=== PATIENT | female | born 1975 | race Caucasian/White ===

== ENCOUNTER 2019-02-17 00:59 | Observation (INO) | payer OTHER, SELFPAY ==
--- NOTE | 2019-02-17 01:10 | EDPHYS ---
Physician Documentation [facility] Name: Cindy Pandey Age: 43 yrs Sex: Female : 1975 Arrival Date: 02/17/2019 Time: 01:03 Bed 20 Private MD: ED Physician Rafael Hill HPI: 02/17 01:05 This 43 yrs old Female presents to ER via Unassigned with complaints of chest jolene pain. 01:05 The patient or guardian reports chest pain that is located primarily in the anterior jolene chest wall, chest diffusely. Onset: yesterday, last night. The pain does not radiate. Associated signs and symptoms: The patient has no apparent associated signs or symptoms. The chest pain is described as crushing, dull. Duration: The patient or guardian reports a single episode. Modifying factors: The symptoms are alleviated by NTG, remaining still, the symptoms are aggravated by nothing. Severity of pain: At its worst the pain was moderate in the emergency department the pain is unchanged. The patient has not experienced similar symptoms in the past. Historical: - Allergies: 01:34 No Known Allergies; ea - Home Meds: :34 None [Active]; ea - PMHx: 01:34 Diabetes - NIDDM; ea - PSHx: :34 gastric sleeve; ea - Immunization history:: Adult Immunizations up to date. - Social history:: Smoking status: Patient/guardian denies using tobacco. - Family history:: not pertinent. - Ebola Screening: : No symptoms or risks identified at this time. ROS: 01:06 Constitutional: Negative for fever, chills, and weight loss, Eyes: Negative for injury, jolene pain, redness, and discharge, ENT: Negative for injury, pain, and discharge, Neck: Negative for injury, pain, and swelling, Respiratory: Negative for shortness of breath, cough, wheezing, and pleuritic chest pain, Abdomen/GI: Negative for abdominal pain, nausea, vomiting, diarrhea, and constipation, Back: Negative for injury and pain, : Negative for injury, bleeding, discharge, and swelling, MS/Extremity: Negative for injury and deformity, Skin: Negative for injury, rash, and discoloration, Neuro: Negative for headache, weakness, numbness, tingling, and seizure, Psych: Negative for depression, anxiety, suicide ideation, homicidal ideation, and hallucinations, Allergy/Immunology: Negative for hives, rash, and allergies, Endocrine: Negative for neck swelling, polydipsia, polyuria, polyphagia, and marked weight changes, Hematologic/Lymphatic: Negative for swollen nodes, abnormal bleeding, and unusual bruising. 01:06 Cardiovascular: Positive for chest pain, of the chest. Exam: :06 Constitutional: This is a well developed, well nourished patient who is awake, alert, jolene and in no acute distress. Head/Face: Normocephalic, atraumatic. Eyes: Pupils equal round and reactive to light, extra-ocular motions intact. Lids and lashes normal. Conjunctiva and sclera are non-icteric and not injected. Cornea within normal limits. Periorbital areas with no swelling, redness, or edema. ENT: Nares patent. No nasal discharge, no septal abnormalities noted. Tympanic membranes are normal and external auditory canals are clear. Oropharynx with no redness, swelling, or masses, exudates, or evidence of obstruction, uvula midline. Mucous membranes moist. Neck: Trachea midline, no thyromegaly or masses palpated, and no cervical lymphadenopathy. Supple, full range of motion without nuchal rigidity, or vertebral point tenderness. No Meningismus. Chest/axilla: Normal chest wall appearance and motion. Nontender with no deformity. No lesions are appreciated. Cardiovascular: Regular rate and rhythm with a normal S1 and S2. No gallops, murmurs, or rubs. Normal PMI, no JVD. No pulse deficits. Respiratory: Lungs have equal breath sounds bilaterally, clear to auscultation and percussion. No rales, rhonchi or wheezes noted. No increased work of breathing, no retractions or nasal flaring. Abdomen/GI: Soft, non-tender, with normal bowel sounds. No distension or tympany. No guarding or rebound. No evidence of tenderness throughout. Back: No spinal tenderness. No costovertebral tenderness. Full range of motion. Female : Normal external genitalia. Skin: Warm, dry with normal turgor. Normal color with no rashes, no lesions, and no evidence of cellulitis. MS/ Extremity: Pulses equal, no cyanosis. Neurovascular intact. Full, normal range of motion. Neuro: Awake and alert, GCS 15, oriented to person, place, time, and situation. Cranial nerves II-XII grossly intact. Motor strength 5/5 in all extremities. Sensory grossly intact. Cerebellar exam normal. Normal gait. Psych: Awake, alert, with orientation to person, place and time. Behavior, mood, and affect are within normal limits. 01:06 Musculoskeletal/extremity: DVT Exam: no pain, no tenderness, negative Homans' sign noted on exam, no appreciated bluish discoloration, no erythema, no increased warmth, swelling. 01:44 Abdomen/GI: Inspection: distension, Bowel sounds: normal, Rectal exam: rectal tone jolene normal, Stool: normal, guaiac negative, hemorrhoid(s), are not appreciated, mass, is not appreciated, swelling, is not appreciated, tenderness, is not appreciated, Liver: no appreciated palpable abnormalities, Hernia: not appreciated. Vital Signs: 01:06 BP 121 / 45; Pulse 69; Resp 18; Temp 97.7; Pulse Ox 98% on R/A; Weight 138.35 kg; ea Height 5 ft. 11 in. (180.34 cm); Pain 0/10; 02:25 BP 115 / 58; Pulse 70; Resp 18; Pulse Ox 99% ; ea 04:44 BP 96 / 54; Pulse 60; Resp 18; Temp 97.4; Pulse Ox 100% ; ea 05:02 BP 106 / 56; Pulse 60; Resp 18; Pulse Ox 100% on R/A; ea 01:06 Body Mass Index 42.54 (138.35 kg, 180.34 cm) MDM: 01:03 Patient medically screened. [facility] 01:08 Data reviewed: vital signs, nurses notes, lab test result(s), EKG, radiologic studies, [facility] plain films. 02/17 01:05 Order name: Basic Metabolic Panel; Complete Time: 01:47 [facility] 02/17 01:05 Order name: CBC with Diff [facility] 02/17 01:05 Order name: LFT's; Complete Time: :47 [facility] 02/17 01:05 Order name: Magnesium; Complete Time: 01:47 [facility] 02/17 01:05 Order name: NT PRO-BNP; Complete Time: 01:47 [facility] 02/17 01:05 Order name: PT-INR; Complete Time: 01:43 [facility] 02/17 01:05 Order name: Troponin (emerg Dept Use Only); Complete Time: 01:47 [facility] 02/17 01:05 Order name: Lipase; Complete Time: 01:47 [facility] 02/17 02:06 Order name: Type And Screen cm6 02/17 02:34 Order name: Packed RBC Leukored [facility] 02/17 02:41 Order name: CBC Smear Scan; Complete Time: 02:53 [facility] 02/17 02:55 Order name: Folic Acid,Serum (folate) [facility] 02/17 02:55 Order name: B12 [facility] 02/17 02:55 Order name: Retic Count [facility] 02/17 01:05 Order name: XRAY Chest (1 view) [facility] 02/17 01:05 Order name: EKG; Complete Time: 01:06 [facility] 02/17 01:05 Order name: Cardiac monitoring; Complete Time: 01:35 [facility] 02/17 01:05 Order name: EKG - Nurse/Tech; Complete Time: 01:35 [facility] 02/17 01:05 Order name: IV Saline Lock; Complete Time: 01:35 [facility] 02/17 02:55 Order name: TIBC [facility] 02/17 02:55 Order name: Iron Level [facility] 02/17 03:14 Order name: ABO/RH no charge [facility] 02/17 06:03 Order name: Troponin I [facility] 02/17 06:03 Order name: Lipid Profile [facility] 02/17 01:05 Order name: Labs collected and sent; Complete Time: 01:35 [facility] 02/17 01:05 Order name: O2 Per Protocol; Complete Time: 01:35 [facility] 02/17 01:05 Order name: O2 Sat Monitoring; Complete Time: 01:35 [facility] Administered Medications: 01:24 Drug: Pepcid 20 mg Route: IVP; Site: left antecubital; ea 02:24 Follow up: Response: No adverse reaction ea 01:24 Drug: Lopressor (metoprolol TARTRATE) 50 mg Route: PO; ea 02:25 Follow up: Response: No adverse reaction ea 01:35 Not Given (Other Intervention Used): Aspirin 81 mg PO once ea 01:36 Not Given (Duplicate Order): Lovenox 1 mg/kg Sub-Q once jolene 04:51 Drug: Tylenol 1000 mg Route: PO; ea 05:03 Follow up: Response: No adverse reaction ea Disposition: 02/17/19 01:09 Hospitalization ordered by Diego Victor for Observation. Preliminary diagnosis are Other chest pain, Essential (primary) hypertension, Obesity, unspecified, Anemia, unspecified - microcytic , hypochromic, Type 2 diabetes mellitus. - Bed requested for Telemetry/MedSurg (Inpatient). - Status is Observation. ea - Condition is Stable. - Problem is new. - Symptoms have improved. UTI on Admission? No Signatures: Dispatcher [employer] EDID Rukhsana Leija RN RN mw Anderson, Corey, MD MD cha Antunez, Elena, RN RN ea Corrections: (The following items were deleted from the chart) 01:47 01:09 Hospitalization Ordered by Diego iVctor for Observation. Preliminary diagnosis jolene is Other chest pain; Essential (primary) hypertension; Obesity, unspecified. Bed requested for Telemetry/MedSurg (observation). Status is Observation. Condition is Stable. Problem is new. Symptoms have improved. UTI on Admission? No. jolene 01:49 01:47 02/17/2019 01:09 Hospitalization Ordered by Diego Victor for Observation. jolene Preliminary diagnosis is Other chest pain; Essential (primary) hypertension; Obesity, unspecified; Anemia, unspecified. Bed requested for Telemetry/MedSurg (observation). Status is Observation. Condition is Stable. Problem is new. Symptoms have improved. UTI on Admission? No. jolene 02:34 01:49 02/17/2019 01:09 Hospitalization Ordered by Diego Victor for Observation. arlene Preliminary diagnosis is Other chest pain; Essential (primary) hypertension; Obesity, unspecified; Anemia, unspecified; Type 2 diabetes mellitus. Bed requested for Telemetry/MedSurg (observation). Status is Observation. Condition is Stable. Problem is new. Symptoms have improved. UTI on Admission? No. jolene 02:54 02:34 02/17/2019 01:09 Hospitalization Ordered by Diego Victor for Observation. jolene Preliminary diagnosis is Other chest pain; Essential (primary) hypertension; Obesity, unspecified; Anemia, unspecified; Type 2 diabetes mellitus. Bed requested for [facility] ER HOLD. Status is Observation. Condition is Stable. Problem is new. Symptoms have improved. UTI on Admission? No. arlene 02:58 02:56 FERRITIN+C.LAB.BRZ ordered. [facility] EDID 03:50 02:54 02/17/2019 01:09 Hospitalization Ordered by Diego Victor for Observation. mw Preliminary diagnosis is Other chest pain; Essential (primary) hypertension; Obesity, unspecified; Anemia, unspecified - microcytic , hypochromic; Type 2 diabetes mellitus. Bed requested for [facility] ER HOLD. Status is Observation. Condition is Stable. Problem is new. Symptoms have improved. UTI on Admission? No. jolene 06:05 03:50 02/17/2019 01:09 Hospitalization Ordered by Diego Victor for Observation. ea Preliminary diagnosis is Other chest pain; Essential (primary) hypertension; Obesity, unspecified; Anemia, unspecified - microcytic , hypochromic; Type 2 diabetes mellitus. Bed requested for Telemetry/MedSurg (Inpatient). Status is Observation. Condition is Stable. Problem is new. Symptoms have improved. UTI on Admission? No. mw
[2019-02-17] MEDS ORDERED: ENOXAPARIN 100 MG/ML SYR SQ ONE (01:14)
[2019-02-17] MEDS ORDERED: METOPROLOL TAR 50 MG TAB ONE (01:14)
[2019-02-17] MEDS ORDERED: FAMOTIDINE 20 MG/2 ML VIAL IV ONE (01:14)
[2019-02-17 01:20] LABS: Absolute Lymphocytes (CBC) 1.7 K/uL (0.7-4.9); Basophils % 0.8 % (0-1.3); Hematocrit 22.5 % (36.0-45.0); Lymphocytes % 22.8 % (15.3-44.8); MPV 8.7 fL (7.6-11.3); RBC Red Blood Cell Count 4.06 M/uL (3.86-4.86)
[2019-02-17 01:32] LABS: Protime INR 1.33
[2019-02-17 01:46] LABS: ALT/SGPT 20 U/L (12-78); AST/SGOT 29 U/L (15-37); Albumin 3.3 g/dL (3.4-5.0); Alkaline Phosphatase 79 U/L (45-117); BUN Blood Urea Nitrogen 13 mg/dL (7-18); Bicarbonate 24 mmol/L (21-32); Bilirubin Direct 0.2 mg/dL (0-0.2); Bilirubin Total 0.5 mg/dL (0.2-1.0); Glucose Level 155 mg/dL (74-106); Lipase 70 U/L (73-393); Magnesium 2.1 mg/dL (1.8-2.4); NT PRO-BNP 136 pg/mL (<125); Potassium 3.8 mmol/L (3.5-5.1); Protein, Total 7.3 g/dL (6.4-8.2); Sodium Level 137 mmol/L (136-145); Troponin (Emerg Dept Use Only) < 0.02 ng/mL (0.0-0.045)
[2019-02-17 02:41] LABS: Blood Morphology Comment NOTED (NOT SEEN); Hypochromasia 3+; Platelet Estimate ADEQ; Urine White Blood Cell Casts OK
[2019-02-17] MEDS ORDERED: NA CHLORIDE 0.9% 500 ML ONE (03:25)
[2019-02-17 03:26] LABS: RBC Red Blood Cell Count 4.01 M/uL (3.86-4.86)
[2019-02-17 04:02] LABS: Ferritin 2.8 ng/mL (8-388)
--- NOTE | 2019-02-17 04:34 | P.HP ---
Certification for Inpatient Patient admitted to: Observation With expected LOS: <2 Midnights Practitioner: I am a practitioner with admitting privileges, knowledge of patient current condition, hospital course, and medical plan of care. Services: Services provided to patient in accordance with Admission requirements found in Title 42 Section 412.3 of the Code of Federal Regulations Patient History Date of Service: 02/17/19 Reason for admission: Chest pain History of Present Illness: 43-year-old morbidly obese woman with a known history of diabetes mellitus 2, presented emergency department with a complaint of chest pain which occurred last night. Patient states the chest pain woke her up from sleep. She reported anterior chest, most severe in the sternal region, radiates into the back, maximum intensity 10/10. She stated the chest pain resolved after a dose of sublingual nitroglycerin given by EMS. She denied any palpitation or shortness of breath or lightheadedness or cough. She denied any nausea or vomiting. Initial troponin in the ED is negative. Pertinent positive findings in her blood work include anemia with hemoglobin of 6.6 and low iron level. She has a history of gastric bypass surgery. She denied any melena or bright red blood per rectum or hematemesis. Her last menstrual period was 2 weeks ago. She reports regular menses, and regular blood flow. Her menses last for 5 days. Significant CAD risk factors include diabetes, obesity and family history of CAD. Patient is placed under observation for further treatment of symptomatic anemia and also to rule out ACS Allergies No Known Allergies Allergy (Verified 02/17/19 06:29) Home Medications: NK [No Home Meds] 02/17/19 - Past Medical/Surgical History Diabetic: Yes -: Morbid obesity -: Diabetes mellitus type 2 -: Anemia -: Gastric band surgery - Family History Mother -: Diabetes Father -: Heart disease - Social History Smoking Status: Never smoker Alcohol use: No CD- Drugs: No Review of Systems Other: General: No fever, no malaise, no unintentional weight loss. Eyes: No eye discharge, Respiratory: No cough, no shortness of breath. GI: No abdominal pain, no nausea no vomit, no constipation, no diarrhea. Genitourinary: No dysuria, no urinary frequency, no incontinence, no hematuria. Musculoskeletal: No joint pains, or joint swelling, no gait instability. Neurology: No headache, no asymmetric, weakness, no problem with swallowing. Except as documented, all other systems reviewed and negative. Physical Examination - Physical Exam General: Alert, In no apparent distress, Oriented x3, Obese HEENT: Normocephalic, PERRLA, Mucous membr. moist/pink, Sclerae nonicteric Neck: Supple, JVD not distended, No Thyromegaly Respiratory: Clear to auscultation bilaterally, Normal air movement Cardiovascular: No edema, Normal pulses, Regular rate/rhythm, Normal S1 S2, No murmurs Capillary refill: <2 Seconds Gastrointestinal: Normal bowel sounds, Hypoactive, Soft and benign, Non- distended, No tenderness Musculoskeletal: No swelling Integumentary: No rashes, No erythema Neurological: Normal speech, Normal strength at 5/5 x4 extr, Cranial nerves 3- 12 intact - Studies Laboratory Data (last 24 hrs) 02/17/19 01:10: PT 15.5 H, INR 1.33 02/17/19 01:10: WBC 7.3, Hgb 6.6 L*, Hct 22.5 L, Plt Count 244 02/17/19 01:10: Sodium 137, Potassium 3.8, BUN 13, Creatinine 0.76, Glucose 155 H, Magnesium 2.1, Total Bilirubin 0.5, AST 29, ALT 20, Alkaline Phosphatase 79, Lipase 70 L Assessment and Plan - Problems (Diagnosis) (1) Chest pain Current Visit: Yes Status: Acute (2) Acute on chronic anemia Current Visit: Yes Status: Acute (3) Diabetes mellitus type 2 in obese Current Visit: Yes Status: Chronic (4) Status post gastric banding Current Visit: Yes Status: Chronic (5) Morbid obesity Current Visit: Yes Status: Acute - Plan Place patient under observation Trend troponin Check lipid profile No aspirin for now due to possible GI bleed Consult to Cardiology Check echocardiogram Acute on chronic iron deficiency anemia noted. Check stool for occult blood. GI consult Patient started on 1 unit PRBC transfusion in the ED Check posttransfusion hemoglobin. Transfuse as needed to keep HB>8. Insulin sliding scale for glucose monitor Check hemoglobin A1c - Advance Directives Does patient have a Living Will: No Does patient have a Durable POA for Healthcare: No
[2019-02-17] MEDS ORDERED: ACETAMINOPHEN 500 MG TAB ONE (04:48)
[2019-02-17] MEDS ORDERED: MORPHINE 4 MG/ML SYR IV PRN (05:00)
[2019-02-17] MEDS ORDERED: ACETAMINOPHEN 500 MG TAB PO PRN (05:00)
[2019-02-17] MEDS ORDERED: NITROGLYCERIN 0.4 MG/TAB SL PRN (05:00)
[2019-02-17 06:03] LABS: HDL Cholesterol 29 mg/dL (40-60); LDL Cholesterol, Calculated 50 (<130); Troponin I < 0.02 ng/mL (0.0-0.045)
--- NOTE | 2019-02-17 06:06 | ER ---
Nurse's Notes [facility] Name: Cindy Pandey Age: 43 yrs Sex: Female : 1975 Arrival Date: 02/17/2019 Time: 01:03 Bed 20 Private MD: Diagnosis: Other chest pain;Essential (primary) hypertension;Obesity, unspecified;Anemia, unspecified-microcytic , hypochromic;Type 2 diabetes mellitus Presentation: 02/17 01:06 Presenting complaint: EMS states: EMS reported pt woke up with severe right sided chest ea pain that radiated to her back. Pt reported pain was 10/10, EMS gave nitro and 324 of aspirin. 18 G initiated to left AC, NS administered. Transition of care: patient was not received from another setting of care. Onset of symptoms was February 17, 2019. Risk Assessment: Do you want to hurt yourself or someone else? Patient reports no desire to harm self or others. Initial Sepsis Screen: Does the patient meet any 2 criteria? No. Patient's initial sepsis screen is negative. Does the patient have a suspected source of infection? No. Patient's initial sepsis screen is negative. Care prior to arrival: IV initiated. 18 GA, in the left antecubital area. 01:06 Method Of Arrival: EMS: [facility] ea 01:06 Acuity: PHILL 3 ea Historical: - Allergies: 01:34 No Known Allergies; ea - Home Meds: 01:34 None [Active]; ea - PMHx: 01:34 Diabetes - NIDDM; ea - PSHx: 01:34 gastric sleeve; ea - Immunization history:: Adult Immunizations up to date. - Social history:: Smoking status: Patient/guardian denies using tobacco. - Family history:: not pertinent. - Ebola Screening: : No symptoms or risks identified at this time. Screenin:29 Abuse screen: Denies threats or abuse. Nutritional screening: No deficits noted. ea Tuberculosis screening: No symptoms or risk factors identified. Fall Risk IV access (20 points). Assessment: 01:31 General: Appears uncomfortable, Behavior is calm, cooperative, appropriate for age. ea Pain: Denies pain. Neuro: Level of Consciousness is awake, alert, obeys commands, Oriented to person, place, time, situation. Cardiovascular: Patient's skin is warm and dry. Respiratory: Airway is patent Respiratory effort is even, unlabored, Respiratory pattern is regular, symmetrical. Derm: Skin is pink, warm \T\ dry. Musculoskeletal: Circulation, motion, and sensation intact. 02:24 Reassessment: Patient and/or family updated on plan of care and expected duration. Pain ea level reassessed. Patient is alert, oriented x 3, equal unlabored respirations, skin warm/dry/pink. 03:10 Reassessment: Patient and/or family updated on plan of care and expected duration. Pain ea level reassessed. Patient is alert, oriented x 3, equal unlabored respirations, skin warm/dry/pink. 04:44 Reassessment: Patient and/or family updated on plan of care and expected duration. Pain ea level reassessed. Patient is alert, oriented x 3, equal unlabored respirations, skin warm/dry/pink. 05:01 Reassessment: Patient and/or family updated on plan of care and expected duration. Pain ea level reassessed. Patient is alert, oriented x 3, equal unlabored respirations, skin warm/dry/pink. Report called to Allison HURTADO on second floor. 05:21 Reassessment: Patient and/or family updated on plan of care and expected duration. Pain ea level reassessed. Patient is alert, oriented x 3, equal unlabored respirations, skin warm/dry/pink. Pt admitted to second floor, left ED via stretcher per nurse. Pt tolerating well. Vital Signs: 01:06 BP 121 / 45; Pulse 69; Resp 18; Temp 97.7; Pulse Ox 98% on R/A; Weight 138.35 kg; ea Height 5 ft. 11 in. (180.34 cm); Pain 0/10; 02:25 BP 115 / 58; Pulse 70; Resp 18; Pulse Ox 99% ; ea 04:44 BP 96 / 54; Pulse 60; Resp 18; Temp 97.4; Pulse Ox 100% ; ea 05:02 BP 106 / 56; Pulse 60; Resp 18; Pulse Ox 100% on R/A; ea 01:06 Body Mass Index 42.54 (138.35 kg, 180.34 cm) ea ED Course: 01:03 Patient arrived in ED. jolene 01:03 Rafael Hill MD is Attending Physician. jolene 01:08 Diego Victor is Hospitalizing Provider. jolene 01:09 Josiane Rodriguez, RN is Primary Nurse. ea 01:29 Triage completed. ea 01:29 Arm band placed on right wrist. Patient placed in an exam room, on a stretcher, on ea pulse oximetry. 01:30 Patient has correct armband on for positive identification. Placed in gown. Bed in low ea position. Call light in reach. Side rails up X2. 01:32 No provider procedures requiring assistance completed. Maintain EMS IV. Dressing ea intact. Good blood return noted. Site clean \T\ dry. Gauge \T\ site: 18 G to left AC. 01:38 XRAY Chest (1 view) In Process Unspecified. EDMS 02:23 Patient admitted, IV remains in place. ea 03:30 Inserted saline lock: 22 gauge in right hand, using aseptic technique. ea 03:40 Inserted saline lock: 22 gauge in left hand, using aseptic technique. ea 03:45 IV discontinued, intact, bleeding controlled, No redness/swelling at site. Pressure ea dressing applied, 18 G to left AC. Administered Medications: 01:24 Drug: Pepcid 20 mg Route: IVP; Site: left antecubital; ea 02:24 Follow up: Response: No adverse reaction ea 01:24 Drug: Lopressor (metoprolol TARTRATE) 50 mg Route: PO; ea 02:25 Follow up: Response: No adverse reaction ea 01:35 Not Given (Other Intervention Used): Aspirin 81 mg PO once ea 01:36 Not Given (Duplicate Order): Lovenox 1 mg/kg Sub-Q once jolene 04:51 Drug: Tylenol 1000 mg Route: PO; ea 05:03 Follow up: Response: No adverse reaction ea Outcome: 01:09 Decision to Hospitalize by Provider. jolene 02:22 Instructed on the need for admit, Demonstrated understanding of instructions. ea 03:10 Admitted to ER Hold. [facility]. ea 03:10 Condition: stable 06:05 Patient left the ED. ea Signatures: Dispatcher [employer] Rafael Anaya MD MD cha Antunez, Elena, RN RN adia
[2019-02-17 06:16] VITALS: BMI 42.3
[2019-02-17 06:26] LABS: Urine Appearance CLEAR; Urine Bilirubin NEGATIVE (NEG); Urine Blood NEGATIVE (NEG); Urine Color YELLOW; Urine Glucose 1+ (NEG); Urine Protein NEGATIVE (NEG); Urine Specific Gravity 1.015 (1.005-1.030)
[2019-02-17 06:27] LABS: Urine Microscopic Reflex ORDER UMIC
[2019-02-17 06:45] LABS: Urine Bacteria <20 /HPF (<20); Urine RBC <5 /HPF (NONE SEEN)
[2019-02-17 06:46] LABS: Urine Culture Reflex Order NOT NEEDED
[2019-02-17] MEDS: INSULIN -REGULAR HUMAN 50 UNIT/0.5 ML ML SQ SCH ×4 (07:30→20:13)
--- NOTE | 2019-02-17 07:42 | EKG ---
Test Date: 2019-02-17 Test Time: 01:05:41 Chain Saw Mechanic: PAUL MEASUREMENT RESULTS: Intervals: Rate: 70 TX: 154 QRSD: 78 QT: 418 QTc: 451 [place]: P: 81 TX: 154 QRS: 25 T: 20 INTERPRETIVE STATEMENTS: Normal sinus rhythm Normal ECG No previous ECG available for comparison Electronically Signed On 02-17-19 07:41:59 AG EQUIPMENT FIELD SERVICE TECHNICIAN by Mario Jarquin
[2019-02-17] MEDS ORDERED: INFLUENZA VACCINE (for 3y+) 0.5 ML DOSE IMVAC ONE (08:00)
--- NOTE | 2019-02-17 08:03 | RAD REPORT ---
EXAM DESCRIPTION: RAD - Chest Single View - 02/17/2019 1:38 am CLINICAL HISTORY: Right-sided chest pain COMPARISON: None. TECHNIQUE: AP portable chest image was obtained 0126 hours . FINDINGS: Lungs are clear. Heart and vasculature are normal. No measurable pleural effusion and no p neumothorax. No acute bony abnormality seen. No acute aortic findings suspected. IMPRESSION: No acute cardiopulmonary process.
[2019-02-17 09:07] LABS: Hematocrit 23.5 % (36.0-45.0); MPV 8.4 fL (7.6-11.3); RBC Red Blood Cell Count 4.03 M/uL (3.86-4.86)
[2019-02-17] MEDS ORDERED: NA CHLORIDE 0.9% 250 ML ONE (09:22)
--- NOTE | 2019-02-17 10:44 | ECHO ---
HEIGHT: 5 ft 11 in WEIGHT: 303 lb 0 oz DATE OF STUDY: 02/17/[address]: edgardo jorge 2-DIMENSIONAL: YES M.MODE: YES DOPPLER: YES COLOR FLOW: YES TDS: PORTABLE: DEFINITY: BUBBLE STUDY: DIAGNOSIS: CHEST PAIN CARDIAC HISTORY: CATHERIZATION: NO SURGERY: NO PROSTHETIC VALVE: NO PACEMAKER: NO MEASUREMENTS (cm) DIASTOLIC (NORMALS) SYSTOLIC (NORMALS) IVSd 1.2 (0.6-1.2) LA Diam 4.4 (1.9-4.0) LVEF 63% LVIDd 5.3 (3.5-5.7) LVIDs 3.5 (2.0-3.5) %FS 35% LVPWd 1.2 (0.6-1.2) Ao Diam 3.3 (2.0-3.7) 2 DIMENSIONAL ASSESSMENT: RIGHT ATRIUM: NORMAL LEFT ATRIUM: DILATED RIGHT VENTRICLE: NORMAL LEFT VENTRICLE: NORMAL TRICUSPID VALVE: NORMAL MITRAL VALVE: NORMAL PULMONIC VALVE: NORMAL AORTIC VALVE: NORMAL PERICARDIAL EFFUSION: NONE AORTIC ROOT: NORMAL LEFT VENTRICULAR WALL MOTION: NORMAL DOPPLER/COLOR FLOW: MILD MITRAL AND TRICUSPID REGURGITATION. MILD PULMONARY HYPERTENSION. ELEVATED RIGHT ATRIAL PRESSURE. ESTIMATED RIGHT VENTRICULAR SYSTOLIC PRESSURE 40 mmHg. COMMENTS: NORMAL LEFT VENTRICULAR EJECTION FRACTION. DILATED LEFT ATRIUM. ELEVATED RIGHT ATRIAL PRESSURE. MILD MITRAL AND TRICUSPID REGURGITATION. MILD PULMONARY HYPERTENSION. TECHNOLOGIST: MISAEL GALEANA
--- NOTE | 2019-02-17 14:15 | CON ---
History Of Present Illness: Ms. Pandey came to the hospital with chest pain. Her chest pain went jacqui y with 1 nitroglycerin. EKGs are normal. Enzymes are normal. Ms. Pandey has never had any heart tro uble in the past. As she was being evaluated, her hemoglobin of 6.6 was noted. She has received 2 u nits of packed red blood cells. A repeat CBC is still pending at this point. Stool occult guaiac te st is likewise pending. Her workup looks like she has severe chronic iron deficiency with MCV of 55. Iron studies have not been done. Percent reticulocyte count is 1.94, and with her degree of anemia that would be considered a bone marrow that is very sick. At this point, I do not think she is rece iving the iron. I do not think she has had any iron studies done. GI doctor has not been consulted either. Patient is not aware of losing any blood. She is multigravid. She has underlying diabetes. She has never had any testing done on her heart. No myocardial infarction, stroke. No heart cath. No stress test. No history of blood clots. Physical Examination: General: She is 5 feet 11 inches, 303 pounds. Alert, oriented, pleasant, not in distress. Lungs: Clear. Heart: Within normal limits. Extremities: Palpable pulses. Trace edema. No cyanosis, clubbing. Assessment And Plan: EKG and enzymes are normal. The patient's chest pain was related to her extrem josiah low hemoglobin. She may have small amount of coronary artery disease at some point when her GI t ract is cleared and her hemoglobin is better and we know she is not actively bleeding, she could unde rgo a stress test or even a cardiac cath work this up, but at this point, her hemoglobin of 6.6 is re ally the main thing that caused her to have symptoms and it is indicated of a severe problem. I think a GI consult is in order. I do not plan to order a stress test or cardiac cath at this time. TANIA/LORENA Voice ID: [id number] Report ID: [id number]
--- NOTE | 2019-02-17 15:20 | P.PN ---
Subjective Date of Service: 02/17/19 Chief Complaint: Chest pain Pt seen and examined at bedside with RN. Chart Reviewed. Case Dw with Cardioloyg. No Chest pain at this time. Receiving 2 units of PRBC. already. Review of Systems 10-point ROS is otherwise unremarkable Physical Examination - Vital Signs Temperature: 97.7 F Blood Pressure: 127/71 Pulse: 62 Respirations: 17 Pulse Ox (%): 97 - Physical Exam General: Alert, In no apparent distress, Other (Pale Appearing) HEENT: Atraumatic, PERRLA, EOMI Neck: Supple, JVD not distended Respiratory: Clear to auscultation bilaterally, Normal air movement Cardiovascular: Regular rate/rhythm, Normal S1 S2 Gastrointestinal: Normal bowel sounds, No tenderness Musculoskeletal: No tenderness Integumentary: No rashes Neurological: Normal speech, Normal tone, Normal affect Lymphatics: No axilla or inguinal lymphadenopathy - Studies Laboratory Data (last 24 hrs) 02/17/19 01:10: PT 15.5 H, INR 1.33 02/17/19 01:10: WBC 7.3, Hgb 6.6 L*, Hct 22.5 L, Plt Count 244 02/17/19 01:10: Sodium 137, Potassium 3.8, BUN 13, Creatinine 0.76, Glucose 155 H, Magnesium 2.1, Total Bilirubin 0.5, AST 29, ALT 20, Alkaline Phosphatase 79, Lipase 70 L Medications List Reviewed: Yes Assessment And Plan - Current Problems (Diagnosis) (1) Acute on chronic anemia Current Visit: Yes Status: Acute Plan: Acute on Chronic Anemia -Pt with MVC of 55 and H.o of Fe def Anemia -Hgb on admission 6.6. -Currently receiving Blood 2 units. Will repeat CBC post transfusion -Will not be able to perform Fe studies now since she is receiving blood -Pt noncomplaint with Fe supplement at home as well -Denies having blood in Sputum or BM. -Stool occult negative -Doubt patient bleeding has GI source But will consult GI to r.o any other etiology -Pt also with h.o of gastric Banding will need to be see again to loosen the bands if needed -Will need Fe Supplement on DC -Will need outpt f.u with hematology (2) Chest pain Current Visit: Yes Status: Acute Plan: Chest Pain due to low hgb. -ACS medication. Hold ASA and anticoagulation -Cards consulted. Noted Reccs -Echo WNL Qualifiers: Chest pain type: unspecified Qualified Code(s): R07.9 - Chest pain, unspecified (3) Morbid obesity Current Visit: Yes Status: Chronic (4) Diabetes mellitus type 2 in obese Current Visit: Yes Status: Chronic (5) Status post gastric banding Current Visit: Yes Status: Chronic Plan: 5 Yrs ago Discharge Plan: Home Plan to discharge in: Greater than 2 days - Code Status/Comfort Care Code Status Assessed: Yes Critical Care: No
[2019-02-17 16:08] LABS: Hematocrit 26.8 % (36.0-45.0)
[2019-02-18 06:12] LABS: Absolute Lymphocytes (CBC) 1.7 K/uL (0.7-4.9); Basophils % 0.7 % (0-1.3); Hematocrit 25.5 % (36.0-45.0); Lymphocytes % 31.4 % (15.3-44.8); MPV 8.7 fL (7.6-11.3); RBC Red Blood Cell Count 4.22 M/uL (3.86-4.86)
[2019-02-18 06:27] LABS: BUN Blood Urea Nitrogen 9 mg/dL (7-18); Bicarbonate 27 mmol/L (21-32); Glucose Level 120 mg/dL (74-106); Potassium 4.1 mmol/L (3.5-5.1); Sodium Level 139 mmol/L (136-145)
[2019-02-18] MEDS: INSULIN -REGULAR HUMAN 50 UNIT/0.5 ML ML SQ SCH ×2 (07:30→11:30)
[2019-02-18 08:12] LABS: Anisocytosis 2+; Blood Morphology Comment NOTED (NOT SEEN); Hypochromasia 2+; Platelet Estimate ADEQ; Poikilocytosis 1+; Urine White Blood Cell Casts OK
[2019-02-18 09:21] VITALS: O2SAT 99
[2019-02-18 13:24] VITALS: BP 130/66; TEMP 98
--- NOTE | 2019-02-18 13:57 | P.SSS ---
Patient History Date of Service: 02/18/19 Reason for admission: Chest pain History of Present Illness: See HPI Allergies No Known Allergies Allergy (Verified 02/17/19 06:29) Home Medications: NK [No Home Meds] 02/17/19 - Past Medical/Surgical History Has patient received pneumonia vaccine in the past: No Diabetic: Yes -: Morbid obesity -: Diabetes mellitus type 2 -: Anemia -: Gastric band surgery - Family History Mother -: Diabetes Father -: Heart disease - Social History Smoking Status: Never smoker Alcohol use: No CD- Drugs: No Caffeine use: No Place of Residence: Home Review of Systems 10-point ROS is otherwise unremarkable Physical Examination - Vital Signs Temperature: 98 F Blood Pressure: 130/66 Pulse: 69 Respirations: 18 Pulse Ox (%): 99 - Physical Exam General: Alert, In no apparent distress HEENT: Atraumatic, PERRLA, Mucous membr. moist/pink, EOMI, Sclerae nonicteric Neck: Supple, 2+ carotid pulse no bruit, No LAD, Without JVD or thyroid abnormality Respiratory: Clear to auscultation bilaterally, Normal air movement Cardiovascular: Regular rate/rhythm, Normal S1 S2 Gastrointestinal: Normal bowel sounds, No tenderness Musculoskeletal: No tenderness Integumentary: No rashes Neurological: Normal gait, Normal speech, Normal strength at 5/5 x4 extr, Normal tone, Normal affect Lymphatics: No axilla or inguinal lymphadenopathy - Diagnosis (Problem(s)) (1) Acute on chronic anemia Status: Acute Plan: Acute on Chronic Anemia -Pt with MVC of 55 and H.o of Fe def Anemia -Hgb on admission 6.6. -Currently S/P Blood 2 units. repeat H/H now 7.6 -Will not be able to perform Fe studies now since she is receiving blood -Pt noncomplaint with Fe supplement at home as well -Denies having blood in Sputum or BM. -Stool occult negative -Doubt patient bleeding has GI source But will consult GI to r.o any other etiology -Pt also with h.o of gastric Banding will need to be see again to loosen the bands if needed -GI consulted. Reccs noted. Outpt Workup. -Pt now started on IV Fe here. -LEFT AMA (2) Chest pain Status: Acute Plan: Chest Pain due to low hgb. -ACS medication. Hold ASA and anticoagulation -Cards consulted. Noted Reccs -Echo WNL Qualifiers: Chest pain type: unspecified Qualified Code(s): R07.9 - Chest pain, unspecified (3) Morbid obesity Status: Chronic (4) Diabetes mellitus type 2 in obese Status: Chronic (5) Status post gastric banding Status: Chronic Plan: 5 Yrs ago Treatment Summary: LEFT AMA - Disposition Disposition: AMA-LEFT AGAINST MEDICAL ADVIC
--- NOTE | 2019-02-18 21:01 | PN ---
Date of Progress Note: 02/18/[address] Hannah on 02/17/2019. Ms. Pandey came in with chest pain, severely anemic, ruled out for an CT. Dr. Jarquin ordered an echoc ardiogram, which was normal. Chest pain is secondary to acute coronary artery syndrome. It is proba yodit secondary to anemia. Suggest an outpatient stress test. The patient will call to get that sched uled in my office. She can go home otherwise from my standpoint. RADHA/LORENA Voice ID: [id number] Report ID: [id number]
[2019-02-19] MEDS ORDERED: SOD FERRIC GLUC COMPLX/SUCROSE 125 MG in NA CHLORIDE 0.9% 100 ML IV SCH (09:00)
== END 2019-02-18 13:29 | disposition left against medical advice (07) ==
LOC: ER 00:59 → ERHOLD 04:44 → 2ND 05:10
PROVIDERS: ADMIT Internal Medicine; ATTEND Internal Medicine
DX: R07.9 Chest pain, unspecified (principal); D64.9 Anemia, unspecified; E66.01 Morbid (severe) obesity due to excess calories; Z68.41 Body mass index [BMI] 40.0-44.9, adult; E11.9 Type 2 diabetes mellitus without complications; Z98.84 Bariatric surgery status; Z53.29 Procedure and treatment not carried out because of patient's decision for other reasons; Z91.14 Patient's other noncompliance with medication regimen
CPT/HCPCS: 36415; 71045; 80048; 80061; 80076; 81003; 81015; 82607; 82728; 82746; 82947; 83036; 83540; 83690; 83735; 83880; 84466; 84484; 85014; 85018; 85025; 85027; 85044; 85610; 86850; 86900; 86901; 93005; 93306; 94760; 96374; 99285; G0378; J1650; J7030; J7040; P9016

== ENCOUNTER 2020-06-17 02:38 | Inpatient (IN) | payer SELFPAY ==
[2020-06-17 03:22] LABS: Protime INR 1.25
[2020-06-17 03:36] LABS: ALT/SGPT 16 U/L (12-78); AST/SGOT 6 U/L (15-37); Alkaline Phosphatase 93 U/L (45-117); BUN Blood Urea Nitrogen 12 mg/dL (7-18); Bicarbonate 25 mmol/L (21-32); Bilirubin Direct < 0.1 mg/dL (0-0.2); Bilirubin Total 0.3 mg/dL (0.2-1.0); Glucose Level 253 mg/dL (74-106); NT PRO-BNP 148 pg/mL (<125); Potassium 3.9 mmol/L (3.5-5.1); Protein, Total 6.9 g/dL (6.4-8.2); Sodium Level 137 mmol/L (136-145); Troponin (Emerg Dept Use Only) < 0.02 ng/mL (0.0-0.045)
[2020-06-17 03:45] LABS: Hematocrit 21.1 % (36.0-45.0); Lymphocytes % 26.9 % (15.3-44.8); MPV 8.8 fL (7.6-11.3); RBC Red Blood Cell Count 3.93 M/uL (3.86-4.86)
[2020-06-17 04:07] LABS: Platelet Estimate ADEQ; White Blood Cell Scan OK (OK)
[2020-06-17 04:08] LABS: Anisocytosis 2+; Blood Morphology Comment NOTED (NOT SEEN); Hypochromasia 3+; Ovalocytes 1+; Rouleau 1
--- NOTE | 2020-06-17 04:40 | EDPHYS ---
Physician Documentation [facility] Name: Cindy Pandey Age: 44 yrs Sex: Female : 1975 Arrival Date: 06/17/2020 Time: 02:39 Bed 7 Private MD: ED Physician Francisco Loja HPI: 06/17 02:45 This 44 yrs old Female presents to ER via Unassigned with complaints of Chest rn Pain. 02:45 The patient or guardian reports chest pain that is located primarily in the right rn lateral anterior chest. Onset: just prior to arrival. The pain does not radiate. Associated signs and symptoms: Pertinent negatives: abdominal pain, cough, diaphoresis, dizziness, palpitations, shortness of breath, syncope, vomiting. The chest pain is described as sharp. Duration: The patient or guardian reports a single episode, that lasted 20 minute(s). Modifying factors: The symptoms are alleviated by nothing. the symptoms are aggravated by nothing. Severity of pain: At its worst the pain was moderate in the emergency department the pain has resolved. The patient has experienced a previous episode. The patient has not recently seen a physician. Reports right sided chest pain and right arm pain, lasted approx 20 min, resolved upon arrival here without intervention. No fever/cough/sob/abd pain. Reports hx of chronic iron deficiency anemia, denies blood in stool or urine. . 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 - Social history:: Smoking status: unknown. - Family history:: not pertinent. - Hospitalizations: : No recent hospitalization is reported. ROS: 02:45 Constitutional: Negative for fever, chills, and weight loss, Eyes: Negative for injury, rn pain, redness, and discharge, ENT: Negative for injury, pain, and discharge, Neck: Negative for injury, pain, and swelling, Cardiovascular: Negative for palpitations Respiratory: Negative for shortness of breath, cough, wheezing, and pleuritic chest pain, Abdomen/GI: Negative for abdominal pain, nausea, vomiting, diarrhea, and constipation, Back: Negative for injury and pain, MS/Extremity: Negative for injury and deformity, Skin: Negative for injury, rash, and discoloration, Neuro: Negative for headache, weakness, numbness, tingling, and seizure. 02:45 All other systems are negative. Exam: 02:45 Constitutional: Overweight woman, no acutre distress Head/Face: Normocephalic, rn atraumatic. Cardiovascular: Regular rate and rhythm. No pulse deficits. Respiratory: Speaking full sentences. No increased work of breathing, no retractions or nasal flaring. Abdomen/GI: soft, non-tender Skin: Warm, dry with normal turgor. Normal color with no rashes, no lesions, and no evidence of cellulitis. MS/ Extremity: Pulses equal, no cyanosis. Neurovascular intact. Full, normal range of motion. Equal circumference. Neuro: Awake and alert, GCS 15, oriented to person, place, time, and situation. Cranial nerves II-XII grossly intact. Motor strength 5/5 in all extremities. Sensory grossly intact. 02:48 ECG was reviewed by the Attending Physician. rn Vital Signs: 02:40 BP 138 / 59; Pulse 72; Resp 19; Temp 98.6; Pulse Ox 99% ; Weight 143.34 kg; Height 6 ea ft. 0 in. (182.88 cm); Pain 0/10; 04:00 BP 121 / 49; Pulse 73; Resp 17; Pulse Ox 98% ; rr5 05:00 BP 118 / 79; Pulse 79; Resp 19; Pulse Ox 99% ; ea 05:59 BP 114 / 55; Pulse 70; Resp 16; Pulse Ox 98% ; ea 02:40 Body Mass Index 42.86 (143.34 kg, 182.88 cm) ea MDM: 02:42 Patient medically screened. rn 04:37 Differential diagnosis: acute myocardial infarction, acute pericarditis, anxiety, rn coronary artery disease esophagitis, gastritis, gastroesophageal reflux disease (GERD), peptic ulcer disease, stable angina. Data reviewed: vital signs, nurses notes, lab test result(s), EKG, radiologic studies, plain films, and as a result, I will admit patient. Counseling: I had a detailed discussion with the patient and/or guardian regarding: the historical points, exam findings, and any diagnostic results supporting the discharge/admit diagnosis, lab results, radiology results, the need for further work-up and treatment in the hospital. Admission orders: after a detailed discussion of the patient's condition and case, the admit orders are written by me. 04:38 ED course: Pt with microcytic anemia, similar presentation a year ago with chest pain rn and only thing found was anemia, not sure if truly demand ischemia or coincidental. Hemoccult neg. No active bleeding. Will admit for blood transfusion/iron studies. . 06/17 02:43 Order name: Basic Metabolic Panel; Complete Time: 03:52 rn 06/17 02:43 Order name: CBC with Diff; Complete Time: 04:36 rn 06/17 02:43 Order name: LFT's; Complete Time: 03:52 rn 06/17 02:43 Order name: Magnesium; Complete Time: 03:52 rn 06/17 02:43 Order name: NT PRO-BNP; Complete Time: 03:52 rn 06/17 02:43 Order name: PT-INR; Complete Time: 03:27 rn 06/17 02:43 Order name: Troponin (emerg Dept Use Only); Complete Time: 03:52 rn 06/17 03:48 Order name: CBC Smear Scan; Complete Time: 04:36 EDMS 06/17 03:52 Order name: TRANSFERRIN SAT/IRON BINDING rn 06/17 03:52 Order name: Folic Acid,Serum (folate) rn 06/17 03:52 Order name: Iron Level rn 06/17 03:52 Order name: B12 rn 06/17 03:53 Order name: Transferrin Sat/Iron Binding EDMS 06/17 02:43 Order name: XRAY Chest (1 view) rn 06/17 02:43 Order name: EKG; Complete Time: 02:44 rn 06/17 02:43 Order name: Cardiac monitoring; Complete Time: 02:45 rn 06/17 02:43 Order name: EKG - Nurse/Tech; Complete Time: 03:02 rn 06/17 02:43 Order name: IV Saline Lock; Complete Time: 03:02 rn 06/17 02:43 Order name: Labs collected and sent; Complete Time: 03:02 rn 06/17 02:43 Order name: O2 Per Protocol; Complete Time: 03:03 rn 06/17 02:43 Order name: O2 Sat Monitoring; Complete Time: 03:03 rn 06/17 04:01 Order name: Type And Screen rn 06/17 04:22 Order name: COVID-19 : Document "Date of Symptom Onset" if Symptomatic. rr5 06/17 05:39 Order name: SARS-COV-2 RT PCR EDMS EC:48 Rate is 72 beats/min. Rhythm is regular. QRS [place] is Normal. CA interval is normal. QRS rn interval is normal. QT interval is normal. No Q waves. T waves are Normal. No ST changes noted. Clinical impression: Normal ECG. Interpreted by me. Reviewed by me. Administered Medications: No medications were administered Point of Care Testing: Guaiac: 04:02 Stool Guaiac: Negative; Stool Hemoccult Control: Pass; rn Disposition: 06/17/20 04:40 Hospitalization ordered by Ashu Napier for Observation. Preliminary diagnosis are Chest pain, unspecified, Iron deficiency anemia, unspecified. - Bed requested for Telemetry/MedSurg (observation). - Status is Observation. ph - Condition is Stable. - Problem is an ongoing problem. - Symptoms have improved. Signatures: Dispatcher [employer] EDRI Rukhsana Leija RN RN mw Nieto, Roman, MD MD rn Hall, Patricia, RN RN ph Antunez, Elena, RN RN ea Roque, Raymond, RN RN rr5 Corrections: (The following items were deleted from the chart) 03:53 03:53 FERRITIN+C.LAB.BRZ ordered. EDRI EDMS 04:55 04:23 CORONAVIRUS ordered. [facility] EDRI 05:43 04:40 Hospitalization Ordered by Ashu Napier MD for Observation. Preliminary mw diagnosis is Chest pain, unspecified; Iron deficiency anemia, unspecified. Bed requested for Telemetry/MedSurg (observation). Status is Observation. Condition is Stable. Problem is an ongoing problem. Symptoms have improved. rn 07:40 05:43 06/17/2020 04:40 Hospitalization Ordered by Ashu Napier MD for Observation. ph Preliminary diagnosis is Chest pain, unspecified; Iron deficiency anemia, unspecified. Bed requested for Telemetry/MedSurg (observation). Status is Observation. Condition is Stable. Problem is an ongoing problem. Symptoms have improved. mw
--- NOTE | 2020-06-17 04:40 | ER ---
Nurse's Notes [facility] Name: Cindy Pandey Age: 44 yrs Sex: Female : 1975 Arrival Date: 06/17/2020 Time: 02:39 Bed 7 Private MD: Diagnosis: Chest pain, unspecified;Iron deficiency anemia, unspecified Presentation: 06/17 02:40 Chief complaint: EMS states: complaint of right shoulder pain radiates to right breast. ea 02:40 Coronavirus screen: Client denies travel out of the [place] in the last 14 days. At this ea time, the client does not indicate any symptoms associated with coronavirus-19. Ebola Screen: Patient negative for fever greater than or equal to 101.5 degrees Fahrenheit, and additional compatible Ebola Virus Disease symptoms Patient denies exposure to infectious person. Patient denies travel to an Ebola-affected area in the 21 days before illness onset. Initial Sepsis Screen: Does the patient meet any 2 criteria? No. Patient's initial sepsis screen is negative. Does the patient have a suspected source of infection? No. Patient's initial sepsis screen is negative. Risk Assessment: Do you want to hurt yourself or someone else? Patient reports no desire to harm self or others. Onset of symptoms was June 17, 2020. 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 - Social history:: Smoking status: unknown. - Family history:: not pertinent. - Hospitalizations: : No recent hospitalization is reported. Screenin:54 Abuse screen: Denies threats or abuse. Denies injuries from another. Nutritional ea screening: No deficits noted. Tuberculosis screening: No symptoms or risk factors identified. Fall Risk IV access (20 points). Total Rinaldi Fall Scale indicates No Risk (0-24 pts). Assessment: 02:55 General: Appears in no apparent distress. comfortable, Behavior is calm, cooperative, ea appropriate for age. Pain: Complains of pain in chest and right lateral anterior chest Pain radiates to right arm Pain currently is 0 out of 10 on a pain scale. at worst was 7 out of 10 on a pain scale. Quality of pain is described as stabbing, Pain began gradually, Is intermittent. Neuro: Level of Consciousness is awake, alert, obeys commands, Oriented to person, place, time. Cardiovascular: Reports chest pain, Capillary refill < 3 seconds Patient's skin is warm and dry. Respiratory: Airway is patent Respiratory effort is even, unlabored, Respiratory pattern is regular, symmetrical. GI: No signs and/or symptoms were reported involving the gastrointestinal system. : No signs and/or symptoms were reported regarding the genitourinary system. EENT: No signs and/or symptoms were reported regarding the EENT system. Derm: Skin is intact, is healthy with good turgor, Skin temperature is warm. Musculoskeletal: Circulation, motion, and sensation intact. Capillary refill < 3 seconds. 03:30 Reassessment: Patient appears in no apparent distress at this time. Patient is alert, rr5 oriented x 3, equal unlabored respirations, skin warm/dry/pink. awaiting for results. 04:12 Reassessment: Patient appears in no apparent distress at this time. Patient is alert, rr5 oriented x 3, equal unlabored respirations, skin warm/dry/pink. reassess by ED provider advised for admission and agreed. 05:50 Reassessment: Patient and/or family updated on plan of care and expected duration. Pain ea level reassessed. Patient is alert, oriented x 3, equal unlabored respirations, skin warm/dry/pink. 06:10 Reassessment: for BT consent signed. rr5 06:26 Reassessment: Patient and/or family updated on plan of care and expected duration. Pain ea level reassessed. Patient is alert, oriented x 3, equal unlabored respirations, skin warm/dry/pink. Vital Signs: 02:40 BP 138 / 59; Pulse 72; Resp 19; Temp 98.6; Pulse Ox 99% ; Weight 143.34 kg; Height 6 ea ft. 0 in. (182.88 cm); Pain 0/10; 04:00 BP 121 / 49; Pulse 73; Resp 17; Pulse Ox 98% ; rr5 05:00 BP 118 / 79; Pulse 79; Resp 19; Pulse Ox 99% ; ea 05:59 BP 114 / 55; Pulse 70; Resp 16; Pulse Ox 98% ; ea 02:40 Body Mass Index 42.86 (143.34 kg, 182.88 cm) ea ED Course: 02:39 Patient arrived in ED. cl3 02:40 Arm band placed on right wrist. ea 02:42 Francisco Loja MD is Attending Physician. rn 02:45 Josiane Rodriguez, BRYANT is Primary Nurse. ea 02:53 Triage completed. ea 02:54 Patient has correct armband on for positive identification. Placed in gown. Bed in low ea position. Call light in reach. Side rails up X2. court recording monitor on. Pulse ox on. NIBP on. 02:55 No provider procedures requiring assistance completed. Patient maintains SpO2 ea saturation greater than 95% on room air. 02:56 XRAY Chest (1 view) In Process Unspecified. EDMS 03:03 Inserted saline lock: 20 gauge in right forearm, using aseptic technique. Blood oe collected. 04:40 Ashu Napier MD is Hospitalizing Provider. rn 04:47 COVID swab sent to lab. rr5 06:13 Patient admitted, IV remains in place. ea Administered Medications: No medications were administered Point of Care Testing: Guaiac: 04:02 Stool Guaiac: Negative; Stool Hemoccult Control: Pass; rn Outcome: 04:40 Decision to Hospitalize by Provider. rn 05:00 Instructed on the need for admit, Demonstrated understanding of instructions. ea 06:31 Admitted to Med/surg via stretcher, room 212, with chart, Report called to jacinto rr5 06:31 Condition: stable 07:40 Patient left the ED. ph Signatures: Dispatcher [employer] EDMS Francisco Loja MD MD rn Hall, Patricia, RN RN ph Espinosa, Orlando oe Antunez, Elena, Akbar Farrar RN, ea RN RN rrValery Antonio cl3
[2020-06-17 04:41] LABS: Ferritin 2.5 ng/mL (8-388)
--- NOTE | 2020-06-17 05:36 | P.HP ---
Certification for Inpatient Patient admitted to: Observation With expected LOS: <2 Midnights Patient will require the following post-hospital care: None Practitioner: I am a practitioner with admitting privileges, knowledge of patient current condition, hospital course, and medical plan of care. Services: Services provided to patient in accordance with Admission requirements found in Title 42 Section 412.3 of the Code of Federal Regulations <Garrison Loera Ingrid - Last Filed: 06/17/20 06:00> Patient History Date of Service: 06/17/20 Reason for admission: acute on chronic CRYSTAL History of Present Illness: Ms. Pandey is a 44 yo female with T2DM, CRYSTAL, and h/o of lap band here today for onset of 9/10 sharp pains in right shoulder and chest with accompanying SOB while she was laying down watching TV. The pain lasted for a total of 20 minutes. She reports recent fatigue and occasional palpitations. She was found to have a Hgb of 6, Hct 21.1. These same symptoms occurred about a year ago - should was found to have CRYSTAL and was transfused 2 units of blood, but did not receive IV iron. She denies fever, N/V, hematochezia, hematemesis, hematuria. Denies chronic NSAID use. She has been anemic since childhood, and also received blood transfusion after surgery on an ovarian cyst 20 years ago. She reports history of menorrhagia worse over the past 2 years - period comes every month, last 4 days, uses super tampons which she changes every 2 hours. No family history of bleeding disorders. Mom had a thyroidectomy. MCV 53.6. Iron 7. Ferritin 2.5. Transferrin 1.8. Calcium 7.8. - Past Medical/Surgical History Diabetic: Yes -: Morbid obesity -: Diabetes mellitus type 2 -: Anemia -: Gastric band surgery -: C section -: 2 cataract surgeries -: L knee repair -: hernia repair -: ovarian cyst removal, salpingectomy - Family History Mother -: Diabetes Father -: Heart disease - Social History Smoking Status: Never smoker Alcohol use: No CD- Drugs: No Caffeine use: No Place of Residence: Home <Garrison Loera - Last Filed: 06/17/20 06:00> Date of Service: 06/17/20 <Ashu Napier - Last Filed: 06/20/20 05:30> Allergies No Known Allergies Allergy (Verified 02/17/19 06:29) Home Medications: Cyanocobalamin (Vitamin B-12) [Vitamin B12] 5,000 mcg SL DAILY #30 tab.rapdis 06/18/20 Ferrous Gluconate 324 mg PO Q12H #60 tablet 06/18/20 Folic Acid 1 mg PO DAILY #30 tablet 06/18/20 Review of Systems General: Unremarkable Eyes: Unremarkable ENT: Unremarkable Respiratory: Shortness of Breath Cardiovascular: Chest Pain, Palpitations Gastrointestinal: Unremarkable Genitourinary: Unremarkable Musculoskeletal: Unremarkable Integumentary: Unremarkable Neurological: Unremarkable Lymphatics: Unremarkable <Garrison Loera - Last Filed: 06/17/20 06:00> Physical Examination - Vital Signs Temperature: 98.6 F Blood Pressure: 135/59 Pulse: 72 Respirations: 19 Pulse Ox (%): 99 - Physical Exam General: Alert, In no apparent distress, Oriented x3, Cooperative HEENT: Atraumatic, Normocephalic, PERRLA, Mucous membr. moist/pink, EOMI, Sclerae nonicteric Neck: Supple, 2+ carotid pulse no bruit, JVD not distended, No Thyromegaly, No LAD Respiratory: Clear to auscultation bilaterally, Normal air movement Cardiovascular: No edema, Normal pulses, Regular rate/rhythm, Normal S1 S2, No gallops, No rubs, No murmurs Capillary refill: <2 Seconds Gastrointestinal: Normal bowel sounds, Soft and benign, Non-distended, No ascites, No tenderness, No masses, No rebound, No guarding Musculoskeletal: No clubbing, No swelling, No contractures, No erythema, No tenderness, No warmth Integumentary: No rashes, No breakdown, No significant lesion, No tenderness/swelling, No erythema, No warmth, No cyanosis Neurological: Normal gait, Normal speech, Normal strength at 5/5 x4 extr, Normal tone, Sensation intact, Cranial nerves 3-12 intact, Normal affect Lymphatics: No axilla or inguinal lymphadenopathy - Studies Laboratory Data (last 24 hrs) 06/17/20 03:00: PT 14.4 H, INR 1.25 06/17/20 03:00: WBC 7.30, Hgb 6.0 L*, Hct 21.1 L, Plt Count 265 06/17/20 03:00: Sodium 137, Potassium 3.9, BUN 12, Creatinine 0.80, Glucose 253 H, Magnesium 2.0, Total Bilirubin 0.3, AST 6 L, ALT 16, Alkaline Phosphatase 93 <Garrison Loera - Last Filed: 06/17/20 06:00> Assessment and Plan - Problems (Diagnosis) (1) Chest pain Status: Acute Plan: initial troponin negative. EKG in sinus rhythm. BNP 148. will trend troponins and continue on telemetry. Qualifiers: Chest pain type: unspecified Qualified Code(s): R07.9 - Chest pain, unspecified (2) Acute on chronic anemia Status: Acute Plan: Hgb 6, Hct 21.1. received 2 pRBCs. Iron 7. Ferritin 2.5. Transferrin 1.8. Will need IV iron as well. (3) Diabetes mellitus type 2 in obese Status: Chronic Plan: patient noncompliant with medications. will check A1c. ACHS checks and mild sliding scale insulin. Discharge Plan: Home Plan to discharge in: 48 Hours - Advance Directives Does patient have a Living Will: No Does patient have a Durable POA for Healthcare: No - Code Status/Comfort Care Code Status Assessed: Yes (full code) Critical Care: No Time Spent Managing Pts Care (In Minutes): 70 <Garrison Loera - Last Filed: 06/17/20 06:00> Date of Service: 06/17/20 Agree with plan of care as mentioned above. Continue monitoring hemodynamics closely. <Ashu Napier - Last Filed: 06/20/20 05:30>
[2020-06-17] MEDS ORDERED: ACETAMINOPHEN 500 MG TAB PO PRN (06:26)
[2020-06-17] MEDS ORDERED: ONDANSETRON 4 MG/2 ML VIAL IV PRN (06:26)
[2020-06-17] MEDS: INSULIN -REGULAR HUMAN 50 UNIT/0.5 ML ML SQ SCH ×4 (07:30→21:20)
--- NOTE | 2020-06-17 08:29 | EKG ---
Test Date: 2020-06-17 Test Time: 02:39:26 Client Technical Professional: RR MEASUREMENT RESULTS: Intervals: Rate: 72 SC: 162 QRSD: 76 QT: 390 QTc: 427 [place]: P: 38 SC: 162 QRS: 47 T: 41 INTERPRETIVE STATEMENTS: Normal sinus rhythm Normal ECG Compared to ECG 02/17/2019 01:05:41 No significant changes Electronically Signed On 06-17-20 08:28:42 CASH APPLICATIONS COORDINATOR by James Gutierrez
[2020-06-17] MEDS ORDERED: NA CHLORIDE 0.9% 250 ML ONE ×2 (09:23→14:17)
[2020-06-17 09:40] VITALS: BMI 43.3
--- NOTE | 2020-06-17 11:29 | RAD REPORT ---
EXAM DESCRIPTION: RAD - Chest Single View - 06/17/2020 2:57 am CLINICAL HISTORY: CHEST PAIN Chest pain. COMPARISON: Chest Single View dated 02/17/2019 FINDINGS: Portable technique limits examination quality. The lungs are grossly clear. The heart is upper limit of normal in size. No displaced fractures. IMPRESSION: No acute intrathoracic process suspected.
[2020-06-17 14:50] LABS: Urine Appearance CLEAR; Urine Bilirubin NEGATIVE (NEG); Urine Blood NEGATIVE (NEG); Urine Color YELLOW; Urine Glucose 1+ (NEG); Urine Protein NEGATIVE (NEG); Urine pH 7.5 (5.0-7.0)
[2020-06-17 14:56] LABS: Urine Microscopic Reflex NO UMIC
--- NOTE | 2020-06-17 18:04 | RAD REPORT ---
EXAM DESCRIPTION: US - Pelvis Complete - 06/17/2020 5:46 pm CLINICAL HISTORY: Menorrhagia Pelvic pain. COMPARISON: Chest Single View dated 06/17/2020 FINDINGS: The uterus appears enlarged 12.4 x 8.4 x 7.9 cm. There is evidence of a large mass involvi ng the left aspect of the uterus displacing the mid endometrial canal to the right. The mass measures 6.7 x 6.4 cm. Most likely, this represents a submucosal uterine fibroid. Endometrial thickness is 1 cm, normal. Right ovary is reported to have been removed. The left ovary measures 4.7 x 4.0 x 2.4 cm with normal blood flow. No significant pelvic ascites. IMPRESSION: Large 6.7 x 6.4 cm mass in the uterus is suspected to represent a submucosal fibroid.Thi s displaces the endometrial canal towards the right.
[2020-06-17 21:03] LABS: Hematocrit 24.2 % (36.0-45.0)
[2020-06-17] MEDS: FAMOTIDINE 20 MG TAB PO SCH (22:57)
[2020-06-18 03:42] LABS: Absolute Lymphocytes (CBC) 1.9 K/uL (0.7-4.9); Hematocrit 24.1 % (36.0-45.0); Lymphocytes % 28.1 % (15.3-44.8); MPV 8.5 fL (7.6-11.3); RBC Red Blood Cell Count 4.18 M/uL (3.86-4.86)
[2020-06-18 04:10] LABS: ALT/SGPT 17 U/L (12-78); AST/SGOT 7 U/L (15-37); Albumin 2.8 g/dL (3.4-5.0); Alkaline Phosphatase 81 U/L (45-117); BUN Blood Urea Nitrogen 11 mg/dL (7-18); Bicarbonate 26 mmol/L (21-32); Bilirubin Total 0.3 mg/dL (0.2-1.0); Glucose Level 174 mg/dL (74-106); Potassium 4.2 mmol/L (3.5-5.1); Protein, Total 6.6 g/dL (6.4-8.2); Sodium Level 139 mmol/L (136-145); Thyroid Stimulating Hormone 0.954 uIU/mL (0.360-3.740)
[2020-06-18] MEDS ORDERED: SOD FERRIC GLUC COMPLX/SUCROSE 125 MG in NA CHLORIDE 0.9% 250 ML IV SCH ×2 (06:00→09:00)
[2020-06-18] MEDS: FAMOTIDINE 20 MG TAB PO SCH (08:20)
[2020-06-18] MEDS: INSULIN -REGULAR HUMAN 50 UNIT/0.5 ML ML SQ SCH ×2 (08:25→12:44)
[2020-06-18] MEDS ORDERED: SOD FERRIC GLUC COMPLX/SUCROSE 250 MG in NA CHLORIDE 0.9% 250 ML IV SCH (09:00)
[2020-06-18] MEDS ORDERED: FOLIC ACID 5 MG/ML VIAL IVP ONE (09:14)
[2020-06-18] MEDS ORDERED: CYANOCOBALAMIN 1000MCG/ML INJ IM ONE (09:14)
[2020-06-18] MEDS ORDERED: MEDROXYPROGEST ACET 150 MG/ML IM SCH (10:00)
[2020-06-18 11:05] VITALS: O2SAT 95
[2020-06-18] MEDS ORDERED: NA CHLORIDE 0.9% 250 ML ONE (11:08)
[2020-06-18 14:23] VITALS: BP 118/85; TEMP 97.6
[2020-06-18] MEDS ORDERED: SOD FERRIC GLUC COMPLX/SUCROSE 125 MG in NA CHLORIDE 0.9% 100 ML IV ONE (15:00)
[2020-06-18 15:37] LABS: Hematocrit 27.7 % (36.0-45.0)
[2020-06-19] MEDS ORDERED: SOD FERRIC GLUC COMPLX/SUCROSE 125 MG in NA CHLORIDE 0.9% 250 ML IV SCH (09:00)
[2020-06-19] MEDS ORDERED: SOD FERRIC GLUC COMPLX/SUCROSE 125 MG in NA CHLORIDE 0.9% 100 ML IV SCH (09:00)
--- NOTE | 2020-06-20 05:32 | P.DS ---
Discharge Date: 06/18/20 Disposition: ROUTINE DISCHARGE Discharge Condition: GOOD Reason for Admission: acute on chronic CRYSTAL Brief History of Present Illness: Patient is a 44-year-old female who came into the hospital with anemia. Patient iron deficiency anemia. Patient will be transfused. If she remains stable then can have outpatient followup. Hospital Course: Patient is doing well during hospital stay. She did give a Depo shot as well. She has a large fibroid. This needs to be removed per gynecologic surgery. She may need an endometrial ablation with a myomectomy. At this time, patient is stable for discharge home. Vital Signs/Physical Exam: Temp Pulse Resp BP Pulse Ox 97.6 F 78 16 118/85 98 06/18/20 12:00 06/18/20 12:00 06/18/20 12:00 06/18/20 12:00 06/18/20 12:00 General: Alert, In no apparent distress, Oriented x3 Laboratory Data at Discharge: WBC 6.90 K/uL (4.3-10.9) 06/18/20 03:35 Hgb 8.3 g/dL (12.0-15.0) L 06/18/20 15:27 Hct 27.7 % (36.0-45.0) L 06/18/20 15:27 Plt Count 233 K/uL (152-406) 06/18/20 03:35 PT 14.4 SECONDS (9.5-12.5) H 06/17/20 03:00 INR 1.25 06/17/20 03:00 Sodium 139 mmol/L (136-145) 06/18/20 03:35 Potassium 4.2 mmol/L (3.5-5.1) 06/18/20 03:35 BUN 11 mg/dL (7-18) 06/18/20 03:35 Creatinine 0.66 mg/dL (0.55-1.3) 06/18/20 03:35 Glucose 174 mg/dL (74-106) H 06/18/20 03:35 Magnesium 2.0 mg/dL (1.8-2.4) 06/17/20 03:00 Total Bilirubin 0.3 mg/dL (0.2-1.0) 06/18/20 03:35 AST 7 U/L (15-37) L 06/18/20 03:35 ALT 17 U/L (12-78) 06/18/20 03:35 Alkaline Phosphatase 81 U/L (45-117) 06/18/20 03:35 Troponin I < 0.02 ng/mL (0.0-0.045) 06/18/20 03:35 Home Medications: Cyanocobalamin (Vitamin B-12) [Vitamin B12] 5,000 mcg SL DAILY #30 tab.rapdis 06/18/20 Ferrous Gluconate 324 mg PO Q12H #60 tablet 06/18/20 Folic Acid 1 mg PO DAILY #30 tablet 06/18/20 New Medications: Ferrous Gluconate 324 mg PO Q12H #60 tablet Folic Acid 1 mg PO DAILY #30 tablet Cyanocobalamin (Vitamin B-12) [Vitamin B12] 5,000 mcg SL DAILY #30 tab.rapdis Diet: ADA Activity: Fall precautions Followup: Suzie Holley MD [ACTIVE - CAN ADMIT] - Unknown,U [Primary Care Provider] - Time spent managing pt's care (in minutes): 45
== END 2020-06-18 16:30 | disposition home or self-care (01) | DRG 812 ==
LOC: ER 02:38 → ERHOLD 05:16 → 2ND 06:23
PROVIDERS: ADMIT Hospitalist; ATTEND Hospitalist
PROC: 30233N1 Transfusion of Nonautologous Red Blood Cells into Peripheral Vein, Percutaneous Approach (ICD-10-PCS; principal; 2020-06-17)
DX: D50.9 Iron deficiency anemia, unspecified (principal); Z68.41 Body mass index [BMI] 40.0-44.9, adult; E66.9 Obesity, unspecified; E11.9 Type 2 diabetes mellitus without complications; Z91.14 Patient's other noncompliance with medication regimen; Z98.84 Bariatric surgery status; Z79.899 Other long term (current) drug therapy; Z20.822 Contact with and (suspected) exposure to COVID-19
CPT/HCPCS: 36415; 71045; 76856; 80048; 80053; 80076; 81003; 82607; 82728; 82746; 82947; 83036; 83540; 83735; 83880; 84439; 84443; 84466; 84484; 85014; 85018; 85025; 85610; 86850; 86900; 86901; 93005; 99285; J1050; J2916; J3420; J7050; P9016; U0003

== ENCOUNTER 2020-06-21 17:51 | Emergency (ER) | payer SELFPAY | END 2020-06-21 18:40 | disposition left against medical advice (07) | LOC: ER 17:51 | DX: R69 Illness, unspecified (principal); Z53.21 Procedure and treatment not carried out due to patient leaving prior to being seen by health care provider ==

== ENCOUNTER 2021-01-18 09:23 | Emergency (ER) | payer SELFPAY ==
[2021-01-18 10:05] LABS: Absolute Lymphocytes (CBC) 1.2 K/uL (0.7-4.9); Basophils % 0.8 % (0-1.3); Hematocrit 25.8 % (36.0-45.0); Lymphocytes % 26.3 % (15.3-44.8); MPV 8.6 fL (7.6-11.3); RBC Red Blood Cell Count 4.46 M/uL (3.86-4.86)
[2021-01-18 10:09] LABS: Protime INR 1.34
[2021-01-18 10:26] LABS: ALT/SGPT 17 U/L (12-78); AST/SGOT 12 U/L (15-37); Albumin 3.1 g/dL (3.4-5.0); Alkaline Phosphatase 84 U/L (45-117); BUN Blood Urea Nitrogen 12 mg/dL (7-18); Bicarbonate 25 mmol/L (21-32); Bilirubin Direct < 0.1 mg/dL (0-0.2); Bilirubin Total 0.3 mg/dL (0.2-1.0); Glucose Level 247 mg/dL (74-106); NT PRO-BNP 156 pg/mL (<125); Potassium 3.9 mmol/L (3.5-5.1); Protein, Total 7.1 g/dL (6.4-8.2); Sodium Level 138 mmol/L (136-145); Troponin (Emerg Dept Use Only) < 0.02 ng/mL (0.0-0.045)
--- NOTE | 2021-01-18 10:55 | RAD REPORT ---
EXAM DESCRIPTION: RAD - Chest Single View - 01/18/2021 10:49 am CLINICAL HISTORY: PALPITATIONS COMPARISON: Chest Single View dated 06/17/2020; Chest Single View dated 02/17/2019 FINDINGS: Lines: None. Lungs: No evidence of edema or pneumonia. Pleural: No significant pleural effusions or pneumothorax. Cardiac: The heart size is within normal limits. Bones: No acute fractures. Other: IMPRESSION: No acute cardiopulmonary disease.
[2021-01-18 10:57] LABS: Anisocytosis 3+; Blood Morphology Comment NOTED (NOT SEEN); Platelet Estimate ADEQ; White Blood Cell Scan OK (OK)
[2021-01-18 10:58] LABS: Hypochromasia 3+
[2021-01-18] MEDS ORDERED: NA CHLORIDE 0.9% 1,000 ML ONE (11:32)
--- NOTE | 2021-01-18 13:11 | EDPHYS ---
Physician Documentation [facility] Name: Cindy Pandey Age: 45 yrs Sex: Female : 1975 Arrival Date: 01/18/2021 Time: 09:25 Bed 16 Private MD: ED Physician Rafael Hill HPI: 01/18 11:42 This 45 yrs old Female presents to ER via Ambulatory with complaints of kb Headache, Heart Racing, Fatigue. 11:42 The patient presents with a history of heart racing. Context: The symptoms occur at kb rest. Onset: The symptoms/episode began/occurred 2 day(s) ago. Duration: The patient or guardian reports a single episode. Modifying factors: The symptoms are aggravated by nothing. The symptoms are alleviated by nothing. Associated signs and symptoms: The patient has no apparent associated signs or symptoms. Severity of symptoms: At their worst the symptoms were moderate in the emergency department the symptoms are unchanged. The patient has not experienced similar symptoms in the past. The patient has not recently seen a physician. Pt reports headache, racing heart, fatigue and malaise for 2 days. States these are the same symptoms she normally gets when her blood count is low and she needs a transfusion. Denies SOB, chest pain. Historical: - Allergies: 09:31 No Known Allergies; ap3 - Home Meds: :31 None [Active]; ap3 - PMHx: 09:31 irone defieciency anemia; Diabetes - NIDDM; ap3 - Immunization history:: Adult Immunizations up to date, Client reports having NOT received the Covid vaccine. - Social history:: Smoking status: Patient denies any tobacco usage or history of. ROS: 11:41 Respiratory: Negative for shortness of breath, cough, wheezing, and pleuritic chest kb pain. 11:41 Constitutional: Positive for fatigue, malaise. 11:41 Cardiovascular: Positive for palpitations, Negative for chest pain. 11:41 Neuro: Positive for headache. 11:41 All other systems are negative. Exam: 10:23 ECG was reviewed by the Attending Physician. kb 11:41 Constitutional: This is a well developed, well nourished patient who is awake, alert, kb and in no acute distress. Head/Face: Normocephalic, atraumatic. ENT: Moist Mucous membranes Cardiovascular: Regular rate and rhythm with a normal S1 and S2. No gallops, murmurs, or rubs. No pulse deficits. Respiratory: Respirations even and unlabored. No increased work of breathing, no retractions or nasal flaring. Skin: Warm, dry with normal turgor. Normal color. MS/ Extremity: Pulses equal, no cyanosis. Neurovascular intact. Full, normal range of motion. Neuro: Awake and alert, GCS 15, oriented to person, place, time, and situation. Moves all extremities. Normal gait. Psych: Awake, alert, with orientation to person, place and time. Behavior, mood, and affect are within normal limits. Vital Signs: 09:29 BP 121 / 70 RA (auto/lg); Pulse 73; Resp 18; Temp 97.0(TE); Pulse Ox 99% on R/A; Weight ap3 141.07 kg; Height 6 ft. 0 in. (182.88 cm); 12:21 BP 116 / 64; Pulse 72; Resp 17; Pulse Ox 100% on R/A; oh 13:41 BP 107 / 62; Pulse 77; Resp 19; Temp 98.6(O); Pulse Ox 100% on R/A; oh 15:38 BP 127 / 78; Pulse 82; Resp 19; Temp 98.4; Pulse Ox 99% on R/A; oh 09:29 Body Mass Index 42.18 (141.07 kg, 182.88 cm) ap3 MDM: 09:36 Patient medically screened. kb 11:41 Data reviewed: vital signs, nurses notes. Data interpreted: Pulse oximetry: on room air kb is 99 %. Interpretation: normal. 12:45 Counseling: I had a detailed discussion with the patient and/or guardian regarding: the kb historical points, exam findings, and any diagnostic results supporting the discharge/admit diagnosis, lab results, radiology results, the need for outpatient follow up, a family practitioner, to return to the emergency department if symptoms worsen or persist or if there are any questions or concerns that arise at home. 01/18 09:36 Order name: Basic Metabolic Panel kb 01/18 09:36 Order name: CBC with Diff; Complete Time: 11:01 kb 01/18 09:36 Order name: LFT's kb 01/18 09:36 Order name: Magnesium; Complete Time: 10:27 kb 01/18 09:36 Order name: NT PRO-BNP; Complete Time: 10:27 kb 01/18 09:36 Order name: PT-INR; Complete Time: 10:28 kb 01/18 09:36 Order name: Troponin (emerg Dept Use Only); Complete Time: 10:27 kb 01/18 09:37 Order name: Basic Metabolic Panel; Complete Time: 10:27 EDMS 01/18 09:37 Order name: Liver (Hepatic) Function; Complete Time: 10:27 EDMS 01/18 10:21 Order name: CBC Smear Scan; Complete Time: 11:01 EDMS 01/18 10:28 Order name: TSH; Complete Time: 11:26 kb 01/18 11:17 Order name: SARS-COV-2 RT PCR; Complete Time: 12:57 EDMS 01/18 09:36 Order name: XRAY Chest (1 view); Complete Time: 11:01 kb 01/18 09:36 Order name: EKG; Complete Time: 09:37 kb 01/18 09:36 Order name: Cardiac monitoring; Complete Time: 09:51 kb 01/18 09:36 Order name: EKG - Nurse/Tech; Complete Time: 09:51 kb 01/18 09:36 Order name: IV Saline Lock; Complete Time: 10:12 kb 01/18 09:36 Order name: Labs collected and sent; Complete Time: 10:12 kb 01/18 09:36 Order name: O2 Per Protocol; Complete Time: 09:51 kb 01/18 09:36 Order name: O2 Sat Monitoring; Complete Time: 09:51 kb 01/18 10:04 Order name: Labs - recollect needed: recollect type and screen, reband pt, do not use bd gel pen; Complete Time: 10:19 EC:23 Rate is 73 beats/min. Rhythm is regular. QRS [place] is Normal. SD interval is normal at kb 156 msec. QRS interval is normal at 78 msec. QT interval is normal at 398 msec. Administered Medications: 11:11 Drug: NS 0.9% 1000 ml Route: IV; Rate: 1000 ml; Site: left antecubital; oh 13:42 Drug: REGEN-COV Dose Pack 120 mg/mL-120 mg/mL (EUA) 1 application Route: IV; Rate: oh calculated rate; Site: left antecubital; Disposition: 01/19 13:06 Co-signature as Attending Physician, Rafael Hill MD I agree with the assessment and jolene plan of care. Disposition Summary: 01/18/21 13:10 Discharge Ordered Location: Home kb Condition: Stable kb Diagnosis - Coronavirus infection, unspecified kb Followup: kb - With: Emergency Department - When: As needed - Reason: Worsening of condition Followup: kb - With: Private Physician - When: 2 - 3 days - Reason: Recheck today's complaints, Continuance of care, Re-evaluation by your physician Discharge Instructions: - Discharge Summary Sheet kb - COVID-19 kb - COVID-19 Frequently Asked Questions kb - 10 Things You Can Do to Manage Your COVID-19 Symptoms at Home - [facility] kb Forms: - Medication Reconciliation Form kb - Thank You Letter kb - Antibiotic Education kb - Prescription Opioid Use kb Signatures: Dispatcher [employer] EDMS Yohana Magana, MUD MIXER HELPER-C MUD MIXER HELPER-Evonne Pedro Corey, MD MD cha Prokisch, Amanda RN RN ap3 Harry Denney RN RN oh Corrections: (The following items were deleted from the chart) 01/18 10:29 09:37 TYPE AND SCREEN+BB.LAB.BRZ ordered. EDMS EDMS 11:18 10:29 CORONAVIRUS+MR.LAB.BRZ ordered. EDMS EDMS
--- NOTE | 2021-01-18 13:11 | ER ---
Nurse's Notes [facility] Name: Cindy Pandey Age: 45 yrs Sex: Female : 1975 Arrival Date: 01/18/2021 Time: 09:25 Bed 16 Private MD: Diagnosis: Coronavirus infection, unspecified Presentation: 01/18 09:29 Chief complaint: Patient states: she has been having a headache, and feels like her ap3 heart is racing. Patient states that this seems to happen when her blood levels are low and she is in need of a blood transfusion. Coronavirus screen: Client presents with at least one sign or symptom that may indicate coronavirus-19. Standard/surgical mask placed on the client. Ebola Screen: No symptoms or risks identified at this time. Initial Sepsis Screen: Does the patient meet any 2 criteria? No. Patient's initial sepsis screen is negative. Does the patient have a suspected source of infection? No. Patient's initial sepsis screen is negative. Risk Assessment: Do you want to hurt yourself or someone else? Patient reports no desire to harm self or others. Onset of symptoms was January 17, 2021. 09:29 Method Of Arrival: Ambulatory ap3 09:29 Acuity: PHILL 3 ap3 Triage Assessment: 09:32 General: Appears in no apparent distress. Behavior is calm, cooperative. Pain: ap3 Complains of pain in head Pain currently is 5 out of 10 on a pain scale. Pain began gradually, 1 day ago. Aggravated by noise. Neuro: Level of Consciousness is awake, alert, obeys commands, Oriented to person, place, time, situation, Appropriate for age Moves all extremities. Gait is steady, Speech is normal. Cardiovascular: Patient's skin is warm and dry. 12:17 Headache History: Denies prior headaches. oh 12:18 Pain: Also complains of dizziness. oh Historical: - Allergies: 09:31 No Known Allergies; ap3 - Home Meds: 09:31 None [Active]; ap3 - PMHx: 09:31 irone defieciency anemia; Diabetes - NIDDM; ap3 - Immunization history:: Adult Immunizations up to date, Client reports having NOT received the Covid vaccine. - Social history:: Smoking status: Patient denies any tobacco usage or history of. Screenin:17 Abuse screen: Denies threats or abuse. Nutritional screening: No deficits noted. oh Tuberculosis screening: No symptoms or risk factors identified. Fall Risk Gait-. Assessment: 12:16 Neuro: Reports dizziness, headache states she feel like this when her blood level is oh low. Vital Signs: 09:29 BP 121 / 70 RA (auto/lg); Pulse 73; Resp 18; Temp 97.0(TE); Pulse Ox 99% on R/A; Weight ap3 141.07 kg; Height 6 ft. 0 in. (182.88 cm); 12:21 BP 116 / 64; Pulse 72; Resp 17; Pulse Ox 100% on R/A; oh 13:41 BP 107 / 62; Pulse 77; Resp 19; Temp 98.6(O); Pulse Ox 100% on R/A; oh 15:38 BP 127 / 78; Pulse 82; Resp 19; Temp 98.4; Pulse Ox 99% on R/A; oh 09:29 Body Mass Index 42.18 (141.07 kg, 182.88 cm) ap3 ED Course: 09:25 Patient arrived in ED. mr 09:31 Triage completed. ap3 09:34 Patient placed in an exam room. ap3 09:36 Yohana Magana FNP-C [facility]. kb 09:36 Rafael Hill MD is Attending Physician. kb 09:38 Harry Denney, BRYANT is Primary Nurse. oh 10:39 Inserted saline lock: 20 gauge in left antecubital area, using aseptic technique. Blood oh collected. 10:43 TSH Sent. mh5 10:43 CBC Smear Scan Sent. mh5 10:44 Basic Metabolic Panel Sent. mh5 10:44 LFT's Sent. mh5 10:49 XRAY Chest (1 view) In Process Unspecified. EDMS 12:17 Bed in low position. Call light in reach. oh 15:39 IV discontinued, bleeding controlled, Pressure dressing applied. oh Administered Medications: 11:11 Drug: NS 0.9% 1000 ml Route: IV; Rate: 1000 ml; Site: left antecubital; oh 13:42 Drug: REGEN-COV Dose Pack 120 mg/mL-120 mg/mL (EUA) 1 application Route: IV; Rate: oh calculated rate; Site: left antecubital; Outcome: 13:10 Discharge ordered by . kb 15:39 Discharged to home oh 15:39 Condition: stable 15:39 Discharge instructions given to patient. 15:39 Patient left the ED. oh Signatures: Dispatcher [employer] EDYohana Mcconnell FNP-C FNP-[facility] Sheyla Perales Maria 5 Roxanne Rodarte, RN RN ap3 Harry Denney RN RN oh Corrections: (The following items were deleted from the chart) 11:18 10:43 CORONAVIRUS+MR.LAB.BRZ drawn and sent. [facility] MAHINMA
[2021-01-18] MEDS ORDERED: CASIRIVIMAB/IMDEVIMAB 10 ML VIAL ONE (13:47)
[2021-01-18] MEDS ORDERED: NA CHLORIDE 0.9% 0 ML ONE (13:48)
[2021-01-18] MEDS ORDERED: NA CHLORIDE 0.9% 250 ML ONE (13:53)
[2021-01-18 15:50] VITALS: BP 127/78; TEMP 98.4; O2SAT 99
--- NOTE | 2021-01-20 11:49 | EKG ---
Test Date: 2021-01-18 Test Time: 10:00:00 Oil Change Technician: VALERY MEASUREMENT RESULTS: Intervals: Rate: 73 NC: 156 QRSD: 78 QT: 398 QTc: 438 [place]: P: 32 NC: 156 QRS: 35 T: 55 INTERPRETIVE STATEMENTS: Normal sinus rhythm Normal ECG Compared to ECG 06/17/2020 02:39:26 No significant changes Electronically Signed On 01-20-21 11:45:22 CDT by James Gutierrez
== END 2021-01-18 15:39 | disposition home or self-care (01) ==
LOC: ER 09:23
DX: U07.1 COVID-19 (principal); E11.9 Type 2 diabetes mellitus without complications; D50.9 Iron deficiency anemia, unspecified
CPT/HCPCS: 36415; 71045; 80048; 80076; 83735; 83880; 84443; 84484; 85025; 85610; 93005; 96374; 99284; J7030; J7040; J7050; U0003

== ENCOUNTER 2021-08-25 14:45 | Emergency (ER) | payer OTHER ==
--- OUTSIDE RECORDS SUMMARY | 2021-08-25 14:48 | XMS REPORT | Continuity of Care Document ---
:1975 Author Organization [facility] t Address [address] [place] [address] Dr. Ces[address] [place] [address] Care Team Providers Name Role Phone Jessy Hernandez Attending Clinician JESSY RIVERS Attending Clinician Unavailable Doctor Unassigned, Name Attending Clinician Unavailable Payers Payer Name Policy Type Policy Number Effective Date Expiration Date S ource Problems Condition Condition Condition Status Onset Resolution Last Treating Co mments Source Name Details Category Date Date Treatment Clinician Date Obesity Obesity Disease Active 2005-04 Overview: Univ ers 2-04 ICD10 ity of 00:00: Diagnosis [place] 00 Term Medical Milieu Coordinator Branch Utility Type 1 Type 1 Disease Active Overview: [facility] s diabetes diabetes 3-10 ICD10 ity of mellitus mellitus 00:00: Diagnosis [place] as 00 Term Medical Milieu Coordinator Branch Utility Allergies, Adverse Reactions, Alerts Allergy Allergy Status Severity Reaction(s) Onset Inactive Treating Comm ents Source Name Type Date Date Clinician NO KNOWN Drug Active Univers ALLERGIE Class ity of [facility] Social History Social Habit Start Date Stop Date Quantity Comments Source Exposure to Not sure [facility] SARS-CoV-2 [place] [facility] (event) Branch Alcohol intake 2006-06-22 2006-06-22 Current University 00:00:00 00:00:00 non-drinker of [facility] alcohol Branch (finding) Sex Assigned At [birth year] Universit y of 00:00:00 00:00:00 [facility] Smoking Status Start Date Stop Date Source Never smoker [facility] Medications Ordered Filled Start Stop Current Ordering Indication Dosage Frequency Signature Comments Components Source Medication Medication Date Date Medication? Clinician (SIG) Name Name ketorolac 2020- No 30mg 30 mg, Unive rs (TORADOL) 3- 03- Slow IV ity of injection 21:00: 20:15 Push, [place] 30 mg 00 :00 ONCE, 1 Medical dose, Fri Branch 06/30/20 at 1600, JADIEL
Fa culty member approving Restricted medication : Alex RIVERS ibuprofen 2020-0 Yes [id number] 600mg Take 1 U nivers 600 mg 3-26 tablet by ity of tablet 00:00: mouth [place] 00 every 6 Medical (six) Branch hours as needed for Pain (scale 4-6). naproxen 2018- Yes [id number] 550mg Take 1 Un jairo sodium 550 2-09 tablet by ity of mg tablet 00:00: mouth 2 [place] 00 (two) Medical times Branch daily with meals. chlorphenir 2018-0 Yes [id number] 4mg Take 1 Univers amine 4 mg 2-09 tablet by ity of tablet 00:00: mouth [place] 00 every 6 Medical (six) Branch hours as needed for Allergies or Runny nose. Phenyleph-D 0 Yes [id number] As Un jairo M-Acetamin- 209 directed ity of [place] 00:00: [place] (TYLENOL 00 Daytime Medical COLD AND and Branch FLU SEVERE) nighttime 5-10-325-20 combo pack 0 mg/15 mL Liqd benzocaine- 2018- Yes [id number] 1{lozen Take 1 Univers menthol 2-09 ge} Lozenge by ity of (CEPACOL 00:00: mouth [place] SORE 00 every 4 Medical THROAT, (four) Branch SULY-MEN,) hours as lozenge needed for Sore throat. naproxen 0 Yes [id number] 550mg Take 1 Un jairo sodium 550 2-09 tablet by ity of mg tablet 00:00: mouth 2 [place] 00 (two) Medical times Branch daily with meals. chlorphenir 2019-0 Yes [id number] 4mg Take 1 Univers amine 4 mg 2-09 tablet by ity of tablet 00:00: mouth [place] 00 every 6 Medical (six) Branch hours as needed for Allergies or Runny nose. Phenyleph-D 2018-0 Yes [id number] As Un j[place] M-Acetamin- 2-09 directed ity of [place] 00:00: [place] (TYLENOL 00 Daytime Medical COLD AND and Branch FLU SEVERE) nighttime 5-10-325-20 combo pack 0 mg/15 mL Liqd benzocaine- 2019-0 Yes [id number] 1{lozen Take 1 Univers menthol 2-09 ge} Lozenge by ity of (CEPACOL 00:00: mouth [place] SORE 00 every 4 Medical THROAT, (four) Branch SULY-MEN,) hours as lozenge needed for Sore throat. ibuprofen 2017- Yes 600mg Take 1 Unive rs 600 mg 7-01 tablet by ity of tablet 00:00: mouth [place] 00 every 6 Medical (six) Branch hours as needed for Pain (scale 4-6). ibuprofen 2017-0 Yes 600mg Take 1 Unive rs 600 mg 7-01 tablet by ity of tablet 00:00: mouth [place] 00 every 6 Medical (six) Branch hours as needed for Pain (scale 4-6). acetaminoph 2015-04 Yes 1{tbl} Take 1 Un jairo en-codeine 2-15 tablet by ity of (TYLENOL-CO 00:00: mouth [place] DEINE #3) 00 every 6 Medical 300-30 mg (six) Branch tablet hours as needed for Pain (scale 4-6) (for cough). acetaminoph 2015-04 Yes 1{tbl} Take 1 Un jairo en-codeine 2-15 tablet by ity of (TYLENOL-CO 00:00: mouth [place] DEINE #3) 00 every 6 Medical 300-30 mg (six) Branch tablet hours as needed for Pain (scale 4-6) (for cough). Vital Signs Vital Name Observation Time Observation Value Comments Source Systolic blood 2020-06-30 22:26:34 126 mm[Hg] [facility] Diastolic blood 2020-06-30 22:26:34 95 mm[Hg] [facility] Heart rate 2020-06-30 22:26:34 58 /[facility] Respiratory rate 2020-06-30 22:26:34 16 /min [facility] Oxygen saturation in 2020-06-30 22:26:34 99 /min [facility] Arterial blood by [facility] Pulse oximetry Branch Body temperature 2020-06-30 18:44:00 36.56 Radha [facility] Body height 2020-06-30 18:44:00 182.9 cm [facility] Body weight 2020-06-30 18:44:00 143.337 kg [facility] BMI 2020-06-30 18:44:00 42.86 kg/m2 [facility] Procedures Procedure Date / Time Performing Clinician Source Performed URINALYSIS 2020-06-30 21:10:00 Alex Rivers Jessy [facility] COVID-19 (ID NOW RAPID 2020-06-30 20:07:00 Alex Rivers [facility] TESTING) [facility] MAGNESIUM 2020-06-30 20:03:00 Alex Rivers Jessy [facility] COMP. METABOLIC PANEL 2020-06-30 20:03:[address] [facility] ([id number]) [facility] CBC WITH DIFF 2020-06-30 20:03:00 Alex Rivers Jessy [facility] POCT TEST 2020-06-30 19:11:00 Alex Rivers [facility] AUTHORIZATION FOR 2019-06-08 06:01:00 Doctor Tony, No [facility] RELEASE OF PHI Name [facility] Encounters Start End Encounter Admission Attending Care Care Encounter Source Date/Time Date/Time Type Type Clinicians Facility Department ID 2020-06-30 2020-06-30 Emergency Alex Rivers [facility] [id number] Univers 13:42:00 17:30:00 Jessy Diego [id number] i ty [facility] [id number] [facility] [id number] [facility] 084 Branch 2020-06-30 2020-06-30 Emergency X Alex RIVERS [facility] ERT [id number] Univers 13:42:00 13:42:00 ity of [facility] 2019-06-08 2019-06-08 Orders Doctor CANDELARIA [id number] Univers 00:00:00 00:00:00 Only UnassignedRUPERT [id number] [facility] [id number] [facility] [id number] [place] [address] Branch Results Test Description Test Time Test Comments Results Result Comments Source CT/NG, NAAT, URINE 2021-07-16 16:57:40 Test Item Value Reference Range Interpretation Comme nts GONORRHEA, NAAT NEGATIVE NEGATIVE IMPORTANT NOTICE: SEE ANNOUNCEMENT (test code = [place] [address]) [email or web address] Note: Assay methodolo gy is nucleic acid amplification by transcriptio n mediated amplification (TMA) utilizing the Aptima Combo 2 Assay. CHLAMYDIA, NAAT NEGATIVE NEGATIVE IMPORTANT NOTICE: SEE ANNOUNCEMENT (test code = [place] [address]) [email or web address] Note: Assay methodolo gy is nucleic acid amplification by transcriptio n mediated amplification (TMA) utilizing the Aptima Combo 2 Assay. TRICHOMONAS, NAAT, [id number] 16:30:51 Test Item Value Reference Range Interpretation Comments TRICHOMONAS, NAAT NEGATIVE NEGATIVE * IMPORTANT (test code = NOTICE: [place] [address]) [email or web address] Note: Assay methodology is nucleic acid amplification b y plate painter apprentice mediated amplification ( TMA) and Hybridization P rotection Assay (HPA ) utilizing the EndorphMeA platform. A neg ative result does not exclud e low level infection, spec imensampling error, or colle ction error. UNLESS OTH ERWISE INDICATED, ALL TESTING PERFORMED [facility] / [facility], [facility]. [address] [place] [address] DAIRY NUTRITION CONSULTANT: LEONARDO BIGGS M.D. CLIA NUMBER [id number] CAP ACCREDITATION N O. [id number] 21:40:39 Test Item Value Reference Range Interpretation Comments APPEARANCE (test code = Clear Clear 0656760453) COLOR (test code = Yellow Yellow 6003543584) PH (test code = 4.8-8.0 3738035343) SP GRAVITY (test code = 1.003-1.030 4275231822) GLU U QUAL (test code = 500 mg/dL Normal A 0396992369) BLOOD (test code = Negative Negative 8945351674) KETONES (test code = Negative Negative 3330466475) PROTEIN (test code = Negative Negative 2887-8) UROBILIN (test code = Normal Normal 6143649378) BILIRUBIN (test code = Negative Negative 8696302141) NITRITE (test code = Negative Negative 7327039882) LEUK HERMELINDA (test code = Negative Negative 5532040889) RBC/HPF (test code = See_Comment [Autom ated message] 0343608920) The system [employer] generated this result transmit keny reference range : 0 - 3 HPF. The refe rence range was not u sed to interpret th is result as normal/abnormal . WBC/HPF (test code = See_Comment [Autom ated message] 4325682392) The system [employer] generated this result transmit keny reference range : 0 - 5 HPF. The refe rence range was not u sed to interpret th is result as normal/abnormal . BACTERIA (test code = Negative Negative 8547771573) MUCOUS (test code = Slight Negative LPF A 3575470743) SQ EPITH (test code = HPF 0431437447) Lab Interpretation (test Abnormal code = 11525-0) [facility] WITH [id number] 21:24:22 Test Item Value Reference Range Interpretation Comments WBC (test code = See_Comment [Automated 6690-2) message] The sy stem which generated this result transmitted reference range : 4.30 - 11.10 10*3/?L. The reference range was not used to interpret this result as normal/abnormal . RBC (test code = See_Comment [Automated 789-8) message] The sy stem which generated this result transmitted reference range : 3.93 - 5.25 10*6/?L. The reference range was not used to interpret this result as normal/abnormal . HGB (test code = 8.4 g/dL 11.6-15.0 L 718-7) HCT (test code = 30.4 % 35.7-45.2 L 4544-3) MCV (test code = 64.1 fL 80.6-95.5 L 787-2) MCH (test code = 17.5 pg 25.9-32.8 L 785-6) MCHC (test code = 27.3 g/dL 31.6-35.1 L 786-4) RDW-SD (test code = 59.8 fL 39.0-49.9 H 84546-3) RDW-CV (test code = 28.1 % 12.0-15.5 H 788-0) PLT (test code = See_Comment [Automated 777-3) message] The sy stem which generated this result transmitted reference range : 166 - 358 10*3/ ?L. The reference r lina was not used to interpret this result as normal/abnormal . MPV (test code = 9.5 fL 9.5-12.9 46903-6) IPF % (test code = 1.8 % 1.3-7.7 Platelet count 4847030553) measured by fluorescence method. NRBC/100 WBC (test See_Comment [Automat ed code = 8997179989) message] The system which generated this result transmitted reference range : 0.0 - 10.0 /100 WBCs. The refer ence range was not u sed to interpret th is result as normal/abnormal . NRBC x10^3 (test code <0.01 See_Comment [Auto mated = 5737489086) message] The s ystem which generated this result transmitted reference range : 10*3/?L. The reference range was not used to interpret this result as normal/abnormal . GRAN MAT (NEUT) % 69.6 % (test code = 770-8) IMM GRAN % (test code 2.10 % = 2365567898) LYMPH % (test code = 20.0 % 736-9) MONO % (test code = 6.5 % 5905-5) EOS % (test code = 1.1 % 713-8) BASO % (test code = 0.7 % 706-2) GRAN MAT x10^3(ANC) 4.89 10*3/uL 1.88-7.09 (test code = 4001140941) IMM GRAN x10^3 (test 0.15 10*3/uL 0.00-0.06 H code = 6662136131) LYMPH x10^3 (test code 1.41 10*3/uL 1.32-3.29 = 731-0) MONO x10^3 (test code 0.46 10*3/uL 0.33-0.92 = 742-7) EOS x10^3 (test code = 0.08 10*3/uL 0.03-0.39 711-2) BASO x10^3 (test code 0.05 10*3/uL 0.01-0.07 = 704-7) Lab Interpretation Abnormal (test code = 12618-0) [facility] NOW RAPID TESTING)2020-06-30 20:31:37 Test Item Value Reference Range Interpretation Comments SARS-CoV-2 Rapid ID NOW Not Detected Not Detected (test code = 17418-9) RICK (test code = RICK) ID NOW COVID-19 Assay is an isothermal nucleic acid amplification test intended for the qualitative detection of nucleic acid from SARS-CoV-2 viral RNA in nasopharyngeal (LASTEX THREAD WINDER) specimens. It is used under Emergency Use Authorization (EUA) by FDA. The limit of detection (LOD) of the assay is 125 Genome Equivalents/mL. A positive result is indicative of the presence of SARS-CoV-2 RNA. ?Clinical correlation with patient history and other diagnostic information is necessary to determine patient infection status. A negative (Not Detected) result does not preclude SARS-CoV-2 infection. In patients with clinical symptoms and other tests that are consistent with SARS-CoV-2 infection, negative results should be treated as presumptive negative and a new specimen should be tested with alternative PCR molecular test. Invalid: Please collect a new specimen for repeat patient testing if clinically indicated. Lab Interpretation Normal (test code = 44065-0) [facility]2021-03-26 20:28:54 Test Item Value Reference Range Interpretation Comments MAGNESIUM (test code = 3618736047) 1.8 mg/dL 1.7-2.4 Lab Interpretation (test code = Normal 45211-8) [facility] MET[facility]OLIC PANEL (85008)2020-06-30 20:28:38 Test Item Value Reference Range Interpretation Comments NA (test code = 137 mmol/L 135-145 6264347785) K (test code = 4.1 mmol/L 3.5-5.0 6089584845) CL (test code = 107 mmol/L 98-108 0222697833) CO2 TOTAL (test code = 24 mmol/L 23-31 1047600237) AGAP (test code = 2-16 8592273432) BUN (test code = 15 mg/dL 7-23 5572293430) GLUCOSE (test code = 247 mg/dL 70-110 H 9303305484) CREATININE (test code = 0.70 mg/dL 0.50-1.04 2479370473) TOTAL BILI (test code = 1.0 mg/dL 0.1-1.7 4659384516) CALCIUM (test code = 8.4 mg/dL 8.6-10.6 L 0425794835) T PROTEIN (test code = 6.9 g/dL 6.3-8.2 7956169750) ALBUMIN (test code = 3.9 g/dL 3.5-5.0 8236363980) ALK PHOS (test code = 80 U/L 34-122 1784535861) ALTv (test code = 12 U/L 5-35 2-6) AST(SGOT) (test code = 24 U/L 13-40 7173177516) eGFR Calculation mL/min/1.73m2 (Non-) (test code = 8705273558) eGFR Calculation mL/min/1.73m2 () (test code = 8127305361) RICK (test code = RICK) Association of Glomerular Filtration Rate (GFR) and Staging of Kidney Disease* + --+ --+ ------+| GFR (mL/min/1.73 m2) ?| With Kidney Damage ?| ?Without Kidney Damage+ --------+ --------+ +| ?>90 ?| ?Stage one ?| ? Normal ?+ ---+ ---+ -------+| ?60-89 ?| ?Stage two ?| ? Decreased GFR ? + --+ --+ ------+| ?30-59 ?| ?Stage three ?| ? Stage three ? + --+ --+ ------+| ?15-29 ?| ?Stage four ? | ? Stage four ?+ ---+ ---+ -------+| ?<15 (or dialysis) ? ?| ?Stage five ? | ? Stage five ?+ ---+ ---+ -------+ *Each stage assumes the associated GFR level has been in effect for at least three months. ?Stages 1 to 5, with or without kidney disease, indicate chronic kidney disease. Notes: Determination of stages one and two (with eGFR >59mL/min/1.73 m2) requires estimation of kidney damage for at least three months as defined by structural or functional abnormalities of the kidney, manifested by either:Pathological abnormalities or Markers of kidney damage (including abnormalities in the composition of the blood or urine or abnormalities in imaging tests). Lab Interpretation Abnormal (test code = 13244-2) [facility] [id number] 19:11:00 Test Item Value Reference Range Interpretation Comments POCT PREG (test code = 1605) negative On board controls acceptable with present C Line (test code = 3574) POCT PREG LOT # (test code = 3575) [id number] POCT PREG TEST DATE (test 12/05/2021 code = 3576) Lab Interpretation (test code = Normal 91702-8) [facility]"
[2021-08-25] MEDS ORDERED: ONDANSETRON 4 MG (ODT) TAB ONE (15:28)
[2021-08-25] MEDS ORDERED: MORPHINE 4 MG/ML SYR ONE (15:28)
[2021-08-25] MEDS ORDERED: CLINDAMYCIN 600MG/D5W 600 MG/50 ML BAG IV ONE (15:31)
[2021-08-25] MEDS ORDERED: HYDROCODONE/APAP 10/325 TAB ONE (16:15)
--- NOTE | 2021-08-25 17:38 | RAD REPORT ---
EXAM DESCRIPTION: RAD - Foot Right 3 View - 08/25/2021 5:19 pm CLINICAL HISTORY: ?osteo toes and metacarpal COMPARISON: No comparisons FINDINGS: No fracture, dislocation or periosteal reaction. No acute or destructive bone process. Mil d valgus angulation at the first MTP joint with no joint space narrowing erosive change. Minimal spur ring is seen. Moderate-sized plantar spur is present. There is spurring at the Achilles attachment. D egenerative spurring seen along the articular margins of the tarsal bones. Soft tissue swelling present no air or foreign body. IMPRESSION: Soft tissue swelling of the foot with no air or foreign body. Degenerative change to the foot as detailed. No acute bone findings seen.
--- NOTE | 2021-08-25 17:43 | ER ---
Nurse's Notes [facility] Name: Cindy Pandey Age: 45 yrs Sex: Female : 1975 Arrival Date: 08/25/2021 Time: 14:47 Bed 13 Private MD: Diagnosis: Cellulitis of right lower limb Presentation: 08/25 14:49 Chief complaint: EMS states: swelling to both legs X 3 days. sensitive to touch and iw movement on right, feels like needles , right leg more swollen than left, redness to top of right foot. Coronavirus screen: At this time, the client does not indicate any symptoms associated with coronavirus-19. Ebola Screen: Patient negative for fever greater than or equal to 101.5 degrees Fahrenheit, and additional compatible Ebola Virus Disease symptoms Patient denies exposure to infectious person. Patient denies travel to an Ebola-affected area in the 21 days before illness onset. No symptoms or risks identified at this time. Risk Assessment: Do you want to hurt yourself or someone else? Patient reports no desire to harm self or others. 14:49 Method Of Arrival: EMS: [facility] iw 14:49 Acuity: PHILL 3 iw 14:53 Initial Sepsis Screen: Does the patient meet any 2 criteria? No. Patient's initial iw sepsis screen is negative. Does the patient have a suspected source of infection? No. Patient's initial sepsis screen is negative. Onset of symptoms was August 22, 2021. 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 - Family history:: not pertinent. Screenin:07 Abuse screen: Denies threats or abuse. Denies injuries from another. Nutritional iw screening: No deficits noted. Tuberculosis screening: No symptoms or risk factors identified. Fall Risk None identified. Assessment: 15:03 General: Appears uncomfortable, Behavior is cooperative, crying. Pain: Complains of iw pain in right leg. Neuro: Level of Consciousness is awake, alert, obeys commands, Oriented to person, place, time, situation, Moves all extremities. Cardiovascular: Patient's skin is warm and dry. Respiratory: Respiratory effort is even, unlabored, Respiratory pattern is regular. GI: Derm: Skin. Musculoskeletal: Swelling present in right foot and right leg. 16:00 Reassessment: Patient appears in no apparent distress at this time. No changes from ph previously documented assessment. Patient and/or family updated on plan of care and expected duration. Pain level reassessed. Patient is alert, oriented x 3, equal unlabored respirations, skin warm/dry/pink. Vital Signs: 14:53 BP 110 / 86; Pulse 99; Resp 16; Temp 98.9; Pulse Ox 100% on R/A; Weight 140.16 kg; iw Height 6 ft. 0 in. (182.88 cm); Pain 8/10; 16:30 BP 118 / 78; Pulse 87; Resp 18; Temp 97.9; Pulse Ox 99% on R/A; ph 14:53 Body Mass Index 41.91 (140.16 kg, 182.88 cm) iw ED Course: 14:47 Patient arrived in ED. ds1 14:50 Triage completed. iw 14:56 Arm band placed on. iw 14:59 Ashu Mao MD is Attending Physician. ma2 15:30 Inserted saline lock: 24 gauge in left wrist, using aseptic technique. IV discontinued, iw intact, bleeding controlled, No redness/swelling at site. Pressure dressing applied. 15:46 Vicky Michele, RN is Primary Nurse. iw 16:24 No provider procedures requiring assistance completed. iw 17:21 XRAY Foot RIGHT 3 View In Process Unspecified. EDMS 17:30 Patient has correct armband on for positive identification. Bed in low position. Call ph light in reach. Side rails up X 1. Pulse ox on. NIBP on. Door closed. Noise minimized. Warm blanket given. Administered Medications: 15:46 Drug: Ondansetron 4 mg Route: PO; iw 16:30 Follow up: Response: No adverse reaction ph 15:46 Drug: Clindamycin 600 mg Route: IVPB; Infused Over: 30 mins; Site: left hand; iw 16:20 Follow up: Response: No adverse reaction; IV Status: Completed infusion ph 15:47 Not Given (Duplicate Order): Clindamycin 600 mg IM once iw 15:48 Not Given (Duplicate Order): morphine 4 mg IM once iw 15:48 Drug: morphine 4 mg Route: IVP; Site: left hand; iw 17:30 Follow up: Response: No adverse reaction; RASS: Alert and Calm (0) ph 16:18 Drug: Hydrocodone-Acetaminophen (10 mg-500 mg) 1 tabs Route: PO; iw 17:30 Follow up: Response: No adverse reaction; Pain is decreased; RASS: Alert and Calm (0) ph Medication: 17:00 VIS not applicable for this client. ph Outcome: 17:43 Discharge ordered by . ma2 19:00 Patient left the ED. tw5 19:00 Discharged to home with family. ph 19:00 Condition: good 19:00 Discharge instructions given to patient, Instructed on discharge instructions, follow up and referral plans. medication usage, Demonstrated understanding of instructions, follow-up care, medications, Prescriptions given X 4. Signatures: Dispatcher [employer] [facility] Padmaja Foy ds1 Vicky Michele RN RN Jennifer Singh RN RN Ashu Mao MD MD ma2 Diane Schreiber tw5 Corrections: (The following items were deleted from the chart) 14:54 14:49 Chief complaint: EMS states: swelling to both legs X 3 days. sensitive to touch iw and movement on right, feels like needles iw 14:56 14:54 PSHx: None; iw iw
--- NOTE | 2021-08-25 17:43 | EDPHYS ---
Physician Documentation [facility] Name: Cindy Pandey Age: 45 yrs Sex: Female : 1975 Arrival Date: 08/25/2021 Time: 14:47 Bed 13 Private MD: ED Physician Ashu Mao HPI: 08/25 15:20 This 45 yrs old Female presents to ER via EMS with complaints of R Leg Pain. ma2 15:20 Associated signs and symptoms: Pertinent negatives: fever, numbness, rash, swelling, ma2 vomiting, warmth, weakness. 45-year-old female with [id number] diabetes, presents with right foot swelling and redness, mild intermittent for the last 2 days, denies trauma, there is no skin cuts, patient states she had this before cellulitis.. 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 - Family history:: not pertinent. ROS: 15:20 MS/extremity: Positive for erythema, Negative for bite, contusion, deformity, ma2 ecchymosis, rash, acute changes. 15:20 Constitutional: Negative for fever, chills, and weight loss, Eyes: Negative for injury, pain, redness, and discharge. 15:20 All other systems are negative. Exam: 15:20 Constitutional: This is a well developed, well nourished patient who is awake, alert, ma2 and in no acute distress. Neck: Trachea midline, no thyromegaly or masses palpated, and no cervical lymphadenopathy. Supple, full range of motion without nuchal rigidity, or vertebral point tenderness. No Meningismus. Chest/axilla: Normal chest wall appearance and motion. Nontender with no deformity. No lesions are appreciated. Cardiovascular: Regular rate and rhythm with a normal S1 and S2. No gallops, murmurs, or rubs. Normal PMI, no JVD. No pulse deficits. Respiratory: Lungs have equal breath sounds bilaterally, clear to auscultation and percussion. No rales, rhonchi or wheezes noted. No increased work of breathing, no retractions or nasal flaring. Abdomen/GI: Soft, non-tender, with normal bowel sounds. No distension or tympany. No guarding or rebound. No evidence of tenderness throughout. Back: No spinal tenderness. No costovertebral tenderness. Full range of motion. Skin: Warm, dry with normal turgor. Normal color with no rashes, no lesions, and no evidence of cellulitis. MS/ Extremity: Small area of cellulitis over midfoot right foot, measures about 2 x 3 cm area of redness and tenderness, areas warm as well, there is no swelling fluctuance, no skin cuts abrasions no crepitations or gangrenous changes. Pulses equal, no cyanosis. Neurovascular intact. Full, normal range of motion. Neuro: Awake and alert, GCS 15, oriented to person, place, time, and situation. Cranial nerves II-XII grossly intact. Motor strength 5/5 in all extremities. Sensory grossly intact. Cerebellar exam normal. Normal gait. Vital Signs: 14:53 BP 110 / 86; Pulse 99; Resp 16; Temp 98.9; Pulse Ox 100% on R/A; Weight 140.16 kg; iw Height 6 ft. 0 in. (182.88 cm); Pain 8/10; 16:30 BP 118 / 78; Pulse 87; Resp 18; Temp 97.9; Pulse Ox 99% on R/A; ph 14:53 Body Mass Index 41.91 (140.16 kg, 182.88 cm) iw MDM: 15:20 Differential diagnosis: sprain, arthritis, gout, cellulitis. Data reviewed: vital ma2 signs, nurses notes. Counseling: I had a detailed discussion with the patient and/or guardian regarding: the historical points, exam findings, and any diagnostic results supporting the discharge/admit diagnosis, the presence of at least one elevated blood pressure reading (>120/80) during this emergency department visit, the need for outpatient follow up. Response to treatment: the patient's symptoms have markedly improved after treatment. 16:34 Patient medically screened. ma2 08/25 15:13 Order name: XRAY Foot RIGHT 3 View; Complete Time: 17:42 ma2 Administered Medications: 15:46 Drug: Ondansetron 4 mg Route: PO; iw 16:30 Follow up: Response: No adverse reaction ph 15:46 Drug: Clindamycin 600 mg Route: IVPB; Infused Over: 30 mins; Site: left hand; iw 16:20 Follow up: Response: No adverse reaction; IV Status: Completed infusion ph 15:47 Not Given (Duplicate Order): Clindamycin 600 mg IM once iw 15:48 Not Given (Duplicate Order): morphine 4 mg IM once iw 15:48 Drug: morphine 4 mg Route: IVP; Site: left hand; iw 17:30 Follow up: Response: No adverse reaction; RASS: Alert and Calm (0) ph 16:18 Drug: Hydrocodone-Acetaminophen (10 mg-500 mg) 1 tabs Route: PO; iw 17:30 Follow up: Response: No adverse reaction; Pain is decreased; RASS: Alert and Calm (0) ph Disposition Summary: 08/25/21 17:43 Discharge Ordered Location: Home ma2 Condition: Stable ma2 Diagnosis - Cellulitis of right lower limb ma2 Followup: ma2 - With: Private Physician - When: Tomorrow - Reason: If symptoms return Discharge Instructions: - Discharge Summary Sheet ma2 - Cellulitis, Adult ma2 Forms: - Medication Reconciliation Form ma2 - Thank You Letter ma2 - Antibiotic Education ma2 - Prescription Opioid Use ma2 - Work release form ss Prescriptions: - Clindamycin HCl 300 mg Oral Capsule - take 1 capsule by ORAL route every 6 hours for 10 days; 40 capsule; Refills: 0, ma2 Product Selection Permitted - Diclofenac Sodium 75 mg Oral Tablet Sustained Release - take 1 tablet by ORAL route 2 times per day; 30 tablet; Refills: 0, Product ma2 Selection Permitted - Bactrim DS 800-160 mg Oral Tablet - take 1 tablet by ORAL route every 12 hours for 10 days; 20 tablet; Refills: 0, ma2 Product Selection Permitted - Metformin 500 mg Oral Tablet - take 1 tablet by ORAL route once daily for 7 days Then take 1 tablet with ma2 morning meals AND evening meals; 60 tablet; Refills: 0, Product Selection Permitted 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
[2021-08-25 19:40] VITALS: BP 110/86; TEMP 98.9; O2SAT 100
== END 2021-08-25 19:00 | disposition home or self-care (01) ==
LOC: ER 14:45
DX: L03.115 Cellulitis of right lower limb (principal); E11.9 Type 2 diabetes mellitus without complications
CPT/HCPCS: 96365; 96375; 99284

== ENCOUNTER 2022-02-15 16:18 | Emergency (ER) | payer OTHER ==
--- OUTSIDE RECORDS SUMMARY | 2022-02-15 16:22 | XMS REPORT | Continuity of Care Document ---
:1975 Author Organization [facility] t Address [address] [place] [address] Care Team Providers Name Role Phone Marleny Stephens NP Primary Care Physician Marleny Stephens NP Attending Clinician 2, [facility] Attending Clinician Unavailable MARLENY STEPHENS Attending Clinician Unavailable Doctor Unassigned, [place] Attending Clinician Unavailable BENJY VALDEZ Attending Clinician Unavailable Pgy1 Attending Clinician Unavailable Benjy Valdez MD Attending Clinician Pgy2 Attending Clinician Unavailable [facility] Attending Clinician Unavailable Kellen Traylor Attending Clinician KELLEN ROSALES Attending Clinician Unavailable LIAM ROMERO Attending Clinician Unavailable Liam Romero APN Attending Clinician Selena Mcgovern RN Attending Clinician Chucky Stauffer MD Attending Clinician Xochitl Louise DO Attending Clinician [place] Attending Clinician Unavailable Timothy Hurtado DPM Attending Clinician Alex Hernandez Attending Clinician Alex RIVERS Attending Clinician Unavailable KELLEN ROSALES Admitting Clinician Unavailable Xochitl Louise DO Admitting Clinician [place] Admitting Clinician Unavailable Payers Payer Name Policy Type Policy Number Effective Date Expiration Date S luis alberto Problems Condition Condition Condition Status Onset Resolution Last Treating Co mments Source Name Details Category Date Date Treatment Clinician Date Pain Pain Disease Active Univers pelvic pelvic 6-28 ity of 00:00: [place] [facility] Well woman Well woman Disease Active U nivers exam (no exam (no 10-02 ity of gynecologi [place]olog[place] exam[place] mckenna exam) 00 [facility] mckenna Branch History of History of Disease Active U nivers bilateral bilateral 10-02 ity of tubal tubal 00:00: [place] ligation ligation 00 Medica l Branch Encounter Encounter Disease Active Uni vers for for 6- 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0-44.9, 5-23 it y of adult adult 00:00: [place] [facility] Obesity Obesity Disease Active 2005-04 Overview: Univ ers 2-04 Formattin ity of 00:00: g of this note Medical might be Branch different from the original. 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 s diabetes diabetes 3-10 Formattin ity of mellitus mellitus 00:00: g of this Maximino as 00 note Medical might be Branch different from the original. 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 Allergies, Adverse Reactions, Alerts Allergy Allergy Status Severity Reaction(s) Onset Inactive Treating Comm ents Source Name Type Date Date Clinician NO KNOWN Drug Active Univers ALLERGIE Class ity of S [facility] Social History Social Habit Start Date Stop Date Quantity Comments Source Alcohol intake 2021-12-24 2021-12-24 Current University of 00:00:00 00:00:00 non-drinker of [facility] [place] [facility] alcohol (finding) Branch Exposure to 2021-12-03 2021-12-13 Not sure [facility]-CoV-2 00:00:00 13:22:00 [place] [facility] (event) Branch Tobacco use and 2021-11-01 2021-11-01 Smokeless tobacco Un iversity of exposure 00:00:00 00:00:00 non-user [facility] Sex Assigned At [birth year] Universit y of 00:00:00 00:00:00 [facility] Smoking Status Start Date Stop Date Source Never smoked tobacco [facility] Medications Ordered Filled Start Stop Current Ordering Indication Dosage Frequency Signature Comments Components Source Medication Medication Date Date Medication? Clinician (SIG) Name Name dulaglutide 2021-04- Yes [id number] 1.5mg inject 1 Univers (TRULICITY) 04-17 Pen under it y of 1.5 mg/0.5 00:00[place] PnIj 00 :00 weekly for Medica l 90 days. Branch dulaglutide 2021-04- Yes [id number] 1.5mg inject 1 Univers (TRULICITY) 04-17 Pen under it y of 1.5 mg/0.5 00:00: 05:[place] PnIj 00 :00 weekly for Medica l 90 days. Branch dulaglutide 2021-04- Yes [id number] 1.5mg inject 1 Univers (TRULICITY) 04-17 Pen under it y of 1.5 mg/0.5 00:00: 05:59 [place] PnIj 00 :00 weekly for Medica l 90 days. Branch ondansetron 2021-04 Yes [id number] 4mg Take 1 Univers 4 mg 0-19 tablet by ity of disintegrat 00:00: mouth [place] ing tablet 00 every 8 Medica l (eight) Branch hours as needed for Nausea and Vomiting (N/V). tirzepatide 2021-04- Yes [id number] 5mg inject 5 Univers 2.5 mg/0.5 0-19 11-19 mg under ity of mL 00:00: 05:59 the skin [place] subcutaneou 00 :00 weekly for Me dical s injection 30 days. Bran ch tirzepatide 2021-04- Yes [id number] 5mg inject 5 Univers 2.5 mg/0.5 0-19 11-19 mg under ity of mL 00:00: 05:59 the skin [place] subcutaneou 00 :00 weekly for Me dical s injection 30 days. Bran ch tirzepatide 2021-04- Yes [id number] 5mg inject 5 Univers 2.5 mg/0.5 0-19 11-19 mg under ity of mL 00:00: 05:59 the skin [place] subcutaneou 00 :00 weekly for Me dical s injection 30 days. Bran ch tirzepatide 2021-04- Yes [id number] 5mg inject 5 Univers 2.5 mg/0.5 0-19 11-19 mg under ity of mL 00:00: 05:59 the skin [place] subcutaneou 00 :00 weekly for Me dical s injection 30 days. Bran ch tirzepatide 2021-04- Yes [id number] 5mg inject 5 Univers 2.5 mg/0.5 0-19 11-19 mg under ity of mL 00:00: 05:59 the skin [place] subcutaneou 00 :00 weekly for Me dical s injection 30 days. Bran ch tirzepatide 2021-04- Yes [id number] 5mg inject 5 Univers 2.5 mg/0.5 0-19 11-19 mg under ity of mL 00:00: 05:59 the skin [place] subcutaneou 00 :00 weekly for Me dical s injection 30 days. Bran ch tirzepatide 2021-04- No [id number] 5mg inject 5 Univers 2.5 mg/0.5 0-19 10-11 mg under ity of mL 00:00: 00:00 the skin [place] subcutaneou 00 :00 weekly for Me dical s injection 30 days. Bran ch tirzepatide 2021-04- No [id number] 5mg inject 5 Univers 2.5 mg/0.5 0-19 10-11 mg under ity of mL 00:00: 00:00 the skin [place] subcutaneou 00 :00 weekly for Me dical s injection 30 days. Kaden tripathi dulaglutide 2021-04- Yes [id number] .75mg inject 1 Univers (TRULICITY) 0-02 15-11 Pen under it y of 0.75 mg/0.5 00:00: 05:59 [place] PnIj 00 :00 weekly for Medica l 30 days. Branch dulaglutide 2021-04- Yes [id number] .75mg inject 1 Univers (TRULICITY) 0-02-15 Pen under it y of 0.75 mg/0.5 00:00: 05:59 [place] mL PnIj 00 :00 weekly for Medica l 30 days. Branch dulaglutide 2021-04- Yes [id number] .75mg inject 1 Univers (TRULICITY) 002-15 Pen under it y of 0.75 mg/0.5 00:00: 05:59 [place] mL PnIj 00 :00 weekly for Medica l 30 days. Branch metFORMIN 0 Yes [id number] 1000mg Take 2 Univers 500 mg 9-19 tablets by ity of tablet 00:00: mouth in [place] [address] the Medical morning Branch and 2 tablets in the evening. Take with meals. nystatin 2021-0 Yes [id number] Apply to U [facility] 100,000 9-19 area(s) 2 ity of unit/gram 00:00: (two) [place] cream 00 times Medical daily. Branch metFORMIN 2021-0 Yes [id number] 1000mg Take 2 Univers 500 mg 9-19 tablets by ity of tablet 00:00: mouth in [place] [address] the Medical morning Branch and 2 tablets in the evening. Take with meals. nystatin 2021-0 Yes [id number] Apply to U nivers 100,000 9-19 area(s) 2 ity of unit/gram 00:00: (two) [place] cream 00 times Medical daily. Branch metFORMIN 2021-0 Yes [id number] 1000mg Take 2 Univers 500 mg 9-19 tablets by ity of tablet 00:00: mouth in [place] [address] the Medical morning Branch and 2 tablets in the evening. Take with meals. nystatin 2021-0 Yes [id number] Apply to U nivers 100,000 9-19 area(s) 2 ity of unit/gram 00:00: (two) [place] cream 00 times Medical daily. Branch metFORMIN 2022-0 Yes [id number] 1000mg Take 2 Univers 500 mg 9-19 tablets by ity of tablet 00:00: mouth in [place] 00 the Medical morning Branch and 2 tablets in the evening. Take with meals. nystatin 2022-0 Yes [id number] Apply to [facility] 100,000 919 area(s) 2 ity of unit/gram 00:00: (two) [place] cream 00 times Medical daily. Branch metFORMIN 2022-0 Yes [id number] 1000mg Take 2 Univers 500 mg 9-19 tablets by ity of tablet 00:00: mouth in [place] 00 the Medical morning Branch and 2 tablets in the evening. Take with meals. nystatin 2022-0 Yes [id number] Apply to [facility] 100,000 919 area(s) 2 ity of unit/gram 00:00: (two) [place] cream 00 times Medical daily. Branch metFORMIN 2022-0 Yes [id number] 1000mg Take 2 Univers 500 mg 9-19 tablets by ity of tablet 00:00: mouth in [place] 00 the Medical morning Branch and 2 tablets in the evening. Take with meals. nystatin 2-0 Yes [id number] Apply to [facility] 100,000 919 area(s) 2 ity of unit/gram 00:00: (two) [place] cream 00 times Medical daily. Branch metFORMIN 2022-0 Yes [id number] 1000mg Take 2 Univers 500 mg 9-19 tablets by ity of tablet 00:00: mouth in [place] [address] the Medical morning Branch and 2 tablets in the evening. Take with meals. nystatin 2022-0 Yes [id number] Apply to [facility] 100,000 919 area(s) 2 ity of unit/gram 00:00: (two) [place] cream 00 times Medical daily. Branch metFORMIN 2022-0 Yes [id number] 1000mg Take 2 Univers 500 mg 9-19 tablets by ity of tablet 00:00: mouth in [place] [address] the Medical morning Branch and 2 tablets in the evening. Take with meals. nystatin 2022-0 Yes [id number] Apply to [facility] 100,000 919 area(s) 2 ity of unit/gram 00:00: (two) [place] cream 00 times Medical daily. Branch metFORMIN Yes [id number] 1000mg Take 2 Univers 500 mg 9-19 tablets by ity of tablet 00:00: mouth in [place] 00 the Medical morning Branch and 2 tablets in the evening. Take with meals. nystatin Yes [id number] [facility] 100,000 9-19 area(s) 2 ity of unit/gram 00:00: (two) [place] cream 00 times Medical daily. Branch tirzepatide 2021- Yes [id number] 2.5mg inject 2.5 Univers 2.5 mg/0.5 9-19 10-20 mg under ity of mL 00:00: 04:59 the skin [place] subcutaneou 00 :00 weekly for Me dical s injection 30 days. Kaden ch tirzepatide 2021- Yes [id number] 10mg inject 10 Univers 5 mg/0.5 mL 9-19 10-20 mg under ity of subcutaneou 00:00: 04:59 [place] s injection 00 :00 weekly for Me dical 30 days. Branch tirzepatide 2021- Yes [id number] 2.5mg inject 2.5 Univers 2.5 mg/0.5 9-19 10-20 mg under ity of mL 00:00: 04:59 the skin [place] subcutaneou 00 :00 weekly for Me dical s injection 30 days. [facility] ch tirzepatide 2021- Yes [id number] 10mg inject 10 Univers 5 mg/0.5 mL 9-19 10-20 mg under ity of subcutaneou 00:00: 04:59 [place] s injection 00 :00 weekly for Me dical 30 days. Branch tirzepatide 2021- Yes [id number] 2.5mg inject 2.5 Univers 2.5 mg/0.5 9-19 10-20 mg under ity of mL 00:00: 04:59 the skin [place] subcutaneou 00 :00 weekly for Me dical s injection 30 days. Bran ch tirzepatide 2021- Yes [id number] 10mg inject 10 Univers 5 mg/0.5 mL 9-19 10-20 mg under ity of subcutaneou 00:00: 04:59 [place] s injection 00 :00 weekly for Me dical 30 days. Branch tirzepatide 2021- Yes [id number] 2.5mg inject 2.5 Univers 2.5 mg/0.5 9-19 10-20 mg under ity of mL 00:00: 04:59 the skin [place] subcutaneou 00 :00 weekly for Me dical s injection 30 days. Bran ch tirzepatide 2021- Yes [id number] 10mg inject 10 Univers 5 mg/0.5 mL 9-19 10-20 mg under ity of subcutaneou 00:00: 04:59 [place] s injection 00 :00 weekly for Me dical 30 days. Branch tirzepatide 2021- Yes [id number] 2.5mg inject 2.5 Univers 2.5 mg/0.5 9-19 10-20 mg under ity of mL 00:00: 04:59 the skin [place] subcutaneou 00 :00 weekly for Me dical s injection 30 days. Bran ch tirzepatide 2021- Yes [id number] 10mg inject 10 Univers 5 mg/0.5 mL 9-19 10-20 mg under ity of subcutaneou 00:00: 04:59 [place] s injection 00 :00 weekly for Me dical 30 days. Branch tirzepatide 2021- Yes [id number] 2.5mg inject 2.5 Univers 2.5 mg/0.5 9-19 10-20 mg under ity of mL 00:00: 04:59 the skin [place] subcutaneou 00 :00 weekly for Me dical s injection 30 days. Bran ch tirzepatide 2021- Yes [id number] 10mg inject 10 Univers 5 mg/0.5 mL 9-19 10-20 mg under ity of subcutaneou 00:00: 04:59 [place] s injection 00 :00 weekly for Me dical 30 days. Branch tirzepatide 2021- No [id number] 2.5mg inject 2.5 Univers 2.5 mg/0.5 9-19 10-11 mg under ity of mL 00:00: 00:00 the skin [place] subcutaneou 00 :00 weekly for Me dical s injection 30 days. Bran ch tirzepatide 2021- No [id number] 10mg inject 10 Univers 5 mg/0.5 mL 9-19 10-11 mg under ity of subcutaneou 00:00: 00:00 [place] s injection 00 :00 weekly for Me dical 30 days. Branch tirzepatide 2021- No [id number] 2.5mg inject 2.5 Univers 2.5 mg/0.5 9-19 10-11 mg under ity of mL 00:00: 00:00 the skin [place] subcutaneou 00 :00 weekly for Me dical s injection 30 days. Bran ch tirzepatide 2021- No [id number] 10mg inject 10 Univers 5 mg/0.5 mL 9-19 10-11 mg under ity of subcutaneou 00:00: 00:00 [place] s injection 00 :00 weekly for Me dical 30 days. Branch blood sugar Yes [id number] Check Univers diagnostic 6-22 blood ity of strip 00:00: sugar 2 00 times a Medical day. Branch E11.9. Brand per insurance. Lancets Yes [id number] Check Univ ers Misc 6-22 blood ity of 00:00: sugar 2 [place] 00 times a Medical day. Branch E11.9. Brand per insurance. Blood-Gluco Yes [id number] Check Univers se Meter 6-22 sugars 2 ity of Kit 00:00: times a [place] 00 day. Dx. Medical Code E11.9 Branch Brand per Insurance metFORMIN Yes [id number] 500mg Take 1 Univers 500 mg 6-22 tablet by ity of tablet 00:00: mouth 2 00 (two) Medical times Branch daily with meals. omeprazole Yes [id number] 40mg Take 1 Univers 40 mg 6-22 capsule by ity of capsule 00:00: mouth [place] 00 daily. Medical Branch blood sugar Yes [id number] Check Univers diagnostic 6-22 blood ity of strip 00:00: sugar 2 [place] 00 times a Medical day. Branch E11.9. Brand per insurance. Lancets 2021-0 Yes [id number] Check Univ ers Misc 6-22 blood ity of 00:00: sugar 2 [place] times a Medical day. Branch E11.9. Brand per insurance. Blood-Gluco 2021-0 Yes [id number] Check Univers se Meter 6-22 sugars 2 ity of Kit 00:00: times a day. Dx. Medical Code E11.9 Branch Brand per Insurance omeprazole 2021-0 Yes [id number] 40mg Take 1 Univers 40 mg 6-22 capsule by ity of capsule 00:00: mouth [place] 00 daily. Medical Branch blood sugar 2021-0 Yes [id number] Check Univers diagnostic 6-22 blood ity of strip 00:00: sugar 2 [place] 00 times a Medical day. Branch E11.9. Brand per insurance. Lancets 2021-0 Yes [id number] Check Univ ers Misc 6-22 blood ity of 00:00: sugar 2 times a Medical day. Branch E11.9. Brand per insurance. Blood-Gluco 2021-0 Yes [id number] Check Univers se Meter 6-22 sugars 2 ity of Kit 00:00: times a 00 day. Dx. Medical Code E11.9 Branch Brand per Insurance omeprazole 2021-0 Yes [id number] 40mg Take 1 Univers 40 mg 6-22 capsule by ity of capsule 00:00: mouth [place] 00 daily. Medical Branch blood sugar 2021-0 Yes [id number] Check Univers diagnostic 6-22 blood ity of strip 00:00: sugar 2 times a Medical day. Branch E11.9. Brand per insurance. Lancets 2021-0 Yes [id number] Check Univ ers Misc 6-22 blood ity of 00:00: sugar 2 [place] times a Medical day. Branch E11.9. Brand per insurance. Blood-Gluco 2021-0 Yes [id number] Check Univers se Meter 6-22 sugars 2 ity of Kit 00:00: times a [place] 00 day. Dx. Medical Code E11.9 Branch Brand per Insurance omeprazole 2021-0 Yes [id number] 40mg Take 1 Univers 40 mg 6-22 capsule by ity of capsule 00:00: mouth [place] 00 daily. Medical Branch blood sugar 2021-0 Yes [id number] Check Univers diagnostic 6-22 blood ity of strip 00:00: sugar 2 [place] 00 times a Medical day. Branch E11.9. Brand per insurance. Lancets 2021-0 Yes [id number] Check Univ ers Misc 6-22 blood ity of 00:00: sugar 2 [place] 00 times a Medical day. Branch E11.9. Brand per insurance. Blood-Gluco 2021-0 Yes [id number] Check Univers se Meter 6-22 sugars 2 ity of Kit 00:00: times a [place] 00 day. Dx. Medical Code E11.9 Branch Brand per Insurance omeprazole 2021-0 Yes [id number] 40mg Take 1 Univers 40 mg 6-22 capsule by ity of capsule 00:00: mouth [place] 00 daily. Medical Branch blood sugar 0 Yes [id number] Check Univers diagnostic 6-22 blood ity of strip 00:00: sugar 2 [place] 00 times a Medical day. Branch E11.9. Brand per insurance. Lancets 2021-0 Yes [id number] Check Univ ers Misc 6-22 blood ity of 00:00: sugar 2 [place] 00 times a Medical day. Branch E11.9. Brand per insurance. Blood-Gluco 2021-0 Yes [id number] Check Univers se Meter 6-22 sugars 2 ity of Kit 00:00: times a 00 day. Dx. Medical Code E11.9 Branch Brand per Insurance omeprazole 2021-0 Yes [id number] 40mg Take 1 Univers 40 mg 6-22 capsule by ity of capsule 00:00: mouth 00 daily. Medical Branch blood sugar 2021-0 Yes [id number] Check Univers diagnostic 6-22 blood ity of strip 00:00: sugar 2 [place] 00 times a Medical day. Branch E11.9. Brand per insurance. Lancets 2021-0 Yes [id number] Check Univ ers Misc 6-22 blood ity of 00:00: sugar 2 [place] 00 times a Medical day. Branch E11.9. Brand per insurance. Blood-Gluco 2021-0 Yes [id number] Check Univers se Meter 6-22 sugars 2 ity of Kit 00:00: times a [place] 00 day. Dx. Medical Code E11.9 Branch Brand per Insurance omeprazole 2021-0 Yes [id number] 40mg Take 1 Univers 40 mg 6-22 capsule by ity of capsule 00:00: mouth [place] 00 daily. Medical Branch blood sugar 2021-0 Yes [id number] Check Univers diagnostic 6-22 blood ity of strip 00:00: sugar 2 [place] 00 times a Medical day. Branch E11.9. Brand per insurance. Lancets 2021-0 Yes [id number] Check Univ ers Misc 6-22 blood ity of 00:00: sugar 2 [place] 00 times a Medical day. Branch E11.9. Brand per insurance. Blood-Gluco 2021-0 Yes [id number] Check Univers se Meter 6-22 sugars 2 ity of Kit 00:00: times a 00 day. Dx. Medical Code E11.9 Branch Brand per Insurance omeprazole 2021-0 Yes [id number] 40mg Take 1 Univers 40 mg 6-22 capsule by ity of capsule 00:00: mouth 00 daily. Medical Branch blood sugar 2021-0 Yes [id number] Check Univers diagnostic 6-22 blood ity of strip 00:00: sugar 2 times a Medical day. Branch E11.9. Brand per insurance. Lancets 2021-0 Yes [id number] Check Univ ers Misc 6-22 blood ity of 00:00: sugar 2 times a Medical day. Branch E11.9. Brand per insurance. Blood-Gluco 2021-0 Yes [id number] Check Univers se Meter 6-22 sugars 2 ity of Kit 00:00: times a day. Dx. Medical Code E11.9 Branch Brand per Insurance omeprazole 2021-0 Yes [id number] 40mg Take 1 Univers 40 mg 6-22 capsule by ity of capsule 00:00: mouth 00 daily. Medical Branch blood sugar 2021-0 Yes [id number] Check Univers diagnostic 6-22 blood ity of strip 00:00: sugar 2 00 times a Medical day. Branch E11.9. Brand per insurance. Lancets 2021-0 Yes [id number] Check Univ ers Misc 6-22 blood ity of 00:00: sugar 2 [place] 00 times a Medical day. Branch E11.9. Brand per insurance. Blood-Gluco 2022-0 Yes [id number] Check Univers se Meter 6-22 sugars 2 ity of Kit 00:00: times a 00 day. Dx. Medical Code E11.9 Branch Brand per Insurance omeprazole 2022-0 Yes [id number] 40mg Take 1 Univers 40 mg 6-22 capsule by ity of capsule 00:00: mouth [place] 00 daily. Medical Branch metFORMIN 2021-0 2- No [id number] 500mg Take 1 Univers 500 mg 6-22 12-24 tablet by ity of tablet 00:00: 00:00 mouth 2 [place] 00 :00 (two) Medical times Branch daily with meals. metFORMIN 2021-0 2021- No [id number] 500mg Take 1 Univers 500 mg 6-22 12-24 tablet by ity of tablet 00:00: 00:00 mouth 2 [place] 00 :00 (two) Medical times Branch daily with meals. diclofenac 2-0 Yes 75mg Take 75 mg U nivers 75 mg EC 5-22 by mouth 2 ity o f tablet 00:00: (two) [place] 00 times Medical daily. Branch diclofenac 2-0 Yes 75mg Take 75 mg U nivers 75 mg EC 5-22 by mouth 2 ity o f tablet 00:00: (two) [place] 00 times Medical daily. Branch diclofenac 2-0 Yes 75mg Take 75 mg U nivers 75 mg EC 5-22 by mouth 2 ity o f tablet 00:00: (two) [place] 00 times Medical daily. Branch diclofenac 2-0 Yes 75mg Take 75 mg U nivers 75 mg EC 5-22 by mouth 2 ity o f tablet 00:00: (two) [place] 00 times Medical daily. Branch diclofenac 2-0 Yes 75mg Take 75 mg U nivers 75 mg EC 5-22 by mouth 2 ity o f tablet 00:00: (two) [place] 00 times Medical daily. Branch diclofenac 2-0 Yes 75mg Take 75 mg U nivers 75 mg EC 5-22 by mouth 2 ity o f tablet 00:00: (two) [place] 00 times Medical daily. Branch diclofenac 2022-0 Yes 75mg Take 75 mg U nivers 75 mg EC 5-22 by mouth 2 ity o f tablet 00:00: (two) [place] 00 times Medical daily. Branch diclofenac 2022-0 Yes 75mg Take 75 mg U nivers 75 mg EC 5-22 by mouth 2 ity o f tablet 00:00: (two) [place] 00 times Medical daily. Branch diclofenac 2022-0 Yes 75mg Take 75 mg U nivers 75 mg EC 5-22 by mouth 2 ity o f tablet 00:00: (two) [place] 00 times Medical daily. Branch diclofenac 2021-0 Yes 75mg Take 75 mg U nivers 75 mg EC 5-22 by mouth 2 ity o f tablet 00:00: (two) [place] 00 times Medical daily. Branch Vital Signs Vital Name Observation Time Observation Value Comments Source Systolic blood 2021-12-24 15:54:00 119 mm[Hg] Univer [facility] of [facility] Diastolic blood 2021-12-24 15:54:00 78 mm[Hg] Unive rsity [facility] Heart rate 2021-12-24 15:54:00 68 /min Universi ty [facility] Body temperature 2021-12-24 15:54:00 36.67 Radha [facility] Respiratory rate 2021-12-24 15:54:00 18 /min [facility] Body height 2021-12-24 15:54:00 182.9 cm Universi ty [facility] Body weight 2021-12-24 15:54:00 141.023 kg Universi ty [facility] BMI 2021-12-24 15:54:00 42.17 kg/m2 [facility] Oxygen saturation in 2021-12-24 15:54:00 97 /min [facility] Arterial blood by [facility] [place] [facility] Pulse oximetry [place] Systolic blood 2021-12-13 18:20:00 125 mm[Hg] Univer sity [facility] Diastolic blood 2021-12-13 18:20:00 65 mm[Hg] [facility] 2021-12-13 18:20:00 73 /min Universi ty [facility] Body temperature 2021-12-13 18:20:00 36.11 Radha [facility] Respiratory rate 2021-12-13 18:20:00 18 /min [facility] Body height 2021-12-13 18:20:00 182.9 cm Universi ty [facility] Body weight 2021-12-13 18:20:00 142.52 kg Universi ty [facility] BMI 2021-12-13 18:20:00 42.61 kg/m2 Universi ty of [place] [facility] Procedures Procedure Date / Time Performed Performing Clinician [facility] e EKG-12 LEAD 2021-12-24 15:58:59 Doctor Unassigned, No Univer [facility]ity of [place] Name Medical Branch EKG (SCANNED 2021-12-24 05:01:00 Doctor Unassigned, No [facility] of [place] DOCUMENTS) Name Medical Branch Plan of Care Planned Activity Planned Date Details Comments Source Encounters Start End Encounter Admission Attending Care Care Encounter Source Date/Time Date/Time Type Type Clinicians Facility Department ID 2022-01-22 2022-01-22 Telephone Elvira [facility] [id number] Univers 00:00:00 00:00:00 Oge[place] [id number] ity of [place] [id number] PROFESS[place] [id number] [address] 2021-12-26 2021-12-26 Telephone Elvira [facility] [id number] Univers 00:00:00 00:00:00 Ogech[place]wu [place] [id number] [place]y [place] [id number] [place] PROF[place] [id number] Ma dicnv [place] [address] [place] [address] 2021-12-26 2021-12-26 Telephone Elvira ILROHINI [id number] Univers 00:00:00 00:00:00 Ogechukwu [place] 350.1.13.10 ity [place] [phone] Ma dicnv NAL [address] [place] [address] 2021-12-25 2021-12-25 Telephone Elvira [facility] 1.2.840.114 [id number] Univers 00:00:00 00:00:00 Ogechukwu [place] 350.1.13.10 it[place] of [place] [id number] Ma dicnv NAL [address] [place] [address] 2021-12-25 2021-12-25 Telephone Elvira [facility] 1.2.840.114 [id number] Univers 00:00:00 00:00:00 Marleny TARANGO 350.1.13.10 it[place] of [place] [phone] Ma dical MORRO 044 [facility] 2021-12-24 2021-12-24 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, 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 [facility] 1.2.840.114 [id number] Univers 13:00:00 13:15:00 Visit Domingo Stephensmichellayad T[place] 350.1.13.1 0 it[facility] [place] [phone] Ma dical MORRO 353 [facility] 2021-12-24 2021-12-24 Outpatient R MARLENY STEPHENS [facility] [id number] Univers 11:00:00 11:29:45 MARLENY STEPHENS ity [facility] 2021-12-24 2021-12-24 Office Elvira [facility] 1.2.840.114 [id number] Univers 11:00:00 11:29:45 Visit Marleny TARANGO 350.1.13.10 ity of [facility] [place] [id number] Ma dickoki HOOKER 044 [facility] 2021-12-24 2021-12-24 Orders Doctor BARI 1.2.840.114 [id number] Univers 00:00:00 00:00:00 Only Unassigned, RUPERT 350.1.13.10 ity of [place] [facility] 4.2.7.2.686 Maximino as [phone] [address] 2021-12-21 2021-12-21 Outpatient R MARLENY STEPHENS [facility] [id number] Univers 16:00:00 16:00:00 MARLENY STEPHENS [facility] 2021-12-21 2021-12-21 Outpatient R MARLENY STEPHENS [facility] [id number] Univers 10:30:00 10:30:00 MARLENY STEPHENS [facility] 2021-12-17 2021-12-17 Outpatient R MARLENY STEPHENS [facility] [id number] Univers 15:30:00 15:30:00 MARLENY STEPHENS ity [facility] 2021-12-13 2021-12-13 Outpatient R MICHAEL [facility] [id number] Univers 13:00:00 14:31:24 BENJY ity [facility] 2021-12-13 2021-12-13 Office Pgy1 UNIVERSIT [id number] Univers 13:00:00 14:31:24 Visit Benjy Valdez HE[facility] 350.1.13.10 it[place] [id number] [address] 2021-12-13 2021-12-13 Outpatient R [facility] [id number] Univers 13:00:00 13:00:00 ity [facility] 2021-11-15 2021-11-15 [facility] DONNIE Valdez 1.2.840.114 [id number] Univers 12:40:21 23:59:00 Encounter Benjy Negron [place] 350.1.13.10 [place] [id number] [facility] [address] 2021-11-15 2021-11-15 Outpatient Lester MICHAEL [facility] [id number] Univers 12:40:21 23:59:00 BENJY ity [facility] 2021-11-15 2021-11-15 Office Pgy2 UNIVERSIT [id number] Univers 14:00:00 15:04:59 Visit Benjy Valdze [facility] 350.1.13.10 it[place] [id number] [address] 2021-11-15 2021-11-15 Outpatient R MICHAEL [facility] [id number] Univers 14:00:00 15:04:59 BENJY ity [facility] 2021-11-15 2021-11-15 Outpatient Lester VALDEZ [facility] [id number] Univers 12:40:21 12:40:21 [facility]-11-01 2021-11-01 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 [facility] UNIVERSIT 1.2.840.114 [id number] Univers 16:30:00 16:45:00 Visit Benjy Valdez [facility] 350.1.13.10 [place] [id number] [facility] [address] 2021-11-01 2021-11-01 Outpatient Lester VALDEZ [facility] [id number] Univers 16:30:00 16:30:00 BENJY ity [facility] 2021-11-01 2021-11-01 Office Pgy2 UNIVERSIT [id number] Univers 14:30:00 16:11:18 Visit Benjy Valdez [facility] 350.1.13.10 [place] [id number] [address] 2021-11-01 2021-11-01 Outpatient Lester VALDEZ [facility] [id number] Univers 14:30:00 16:11:18 BENJY ity [facility] 2021-11-01 2021-11-01 Outpatient Lester VALDEZ [facility] [id number] Univers 14:30:00 16:11:18 [facility] 2021-11-01 2021-11-01 Office Pgy2 UNIVERSIT [id number] Univers 14:30:00 16:11:18 Visit Benjy Valdez [facility] 350.1.13.10 [place] [id number] [address] 2021-11-01 2021-11-01 Outpatient Lester VALDEZ [facility] [id number] Univers 14:30:00 16:11:18 BENJY ity [facility] 2021-11-01 2021-11-01 Outpatient Lester VALDEZ [facility] [id number] Univers 14:30:00 16:11:18 BENJY ity [facility] 2021-11-01 2021-11-01 Orders Doctor BARI 1.2.840.114 [id number] Univers 00:00:00 00:00:00 Only Unassigned, RUPERT 350.1.13.10 ity of [place] [facility] 4.2.7.2.686 Maxim[place] as [id number] [facility] [address] 2021-10-23 2021-10-23 Telephone [facility] [id number] Univers 00:00:00 00:00:00 Kellen R PHOTOENGRAVING APPRENTICE 350.1.13.10 ity of [facility] 4.2.7.2.686 Maximino as MATERNAL [id number] [facility] [address] [place] [address] 2021-10-23 2021-10-23 Telephone [facility] [id number] Univers 00:00:00 00:00:00 Stephanilorena R PHOTOENGRAVING APPRENTICE 350.1.13.10 ity of [place] [id number] Maximino as MATERNAL [id number] [facility] [address] [place] [address] 2021-10-16 2021-10-16 [facility] [id number] Univers 13:33:42 23:59:00 KELLEN larson [facility] 2021-10-16 2021-10-16 [facility] 1.2.840.114 [id number] Univers 13:20:00 23:59:00 Encounter Kellen Batista [place] 350.1.13.10 ity [facility] 4[place]2.7.2.[place] [id number] [facility] [address] 2021-10-11 2021-10-11 [facility] [id number] Univers 00:00:00 00:00:00 KELLEN larson [facility] 2021-10-02 2021-10-02 Outpatient [facility] [id number] Univers 13:15:00 13:54:17 KELLEN martell [facility] 2021-10-02 2021-10-02 Office [facility] 1.2.840.114 [id number] Univers 13:15:00 13:54:17 Visit Kellen Batista PHOTOENGRAVING APPRENTICE 350.1.13.10 ity of [facility] 4.2.7.2.686 Maximino as MATERNAL [id number] Med ical & CHILD [address] [place] [address] 2021-10-02 2021-10-02 Outpatient [facility] [id number] Univers 13:15:00 13:54:17 KELLEN ity o f [facility] 2021-10-02 2021-10-02 Outpatient [facility] [id number] Univers 13:15:00 13:54:17 KELLEN arellanoy o f [facility] 2021-10-02 2021-10-02 Orders Doctor BARI 1.2.840.114 [id number] Univers 00:00:00 00:00:00 Only Unassigned, RUPERT 350.1.13.10 ity of [place] [facility] 4.2.7.2.686 Maxim[place] as [id number] [address] 2021-09-26 2021-09-26 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, Adc Lab [facility] 1.2.840.114 [id number] Univers 15:00:00 15:15:00 Visit Dino Stephensariella [place] 350.1.13.1 0 ity of [place] [id number] Ma dical NAL 353 [facility] 2021-09-26 2021-09-26 Outpatient R MARLENY STEPHENS [facility] [id number] Univers 13:00:00 14:32:21 MARLENY STEPHENS ity of [facility] 2021-09-26 2021-09-26 Office Elvira [facility] 1.2.840.114 [id number] Univers 13:00:00 14:32:21 Visit Marleny BRAITHWAITE 350.1.13.10 ity of [place] [id number] Ma dical NAL 044 [facility] 2021-09-09 2021-09-09 Emergency X HEATHER [facility] ERT [id number] Univers 16:57:00 19:56:00 LIAM itdon of [facility] 2021-09-09 2021-09-09 Emergency Heather [facility] [id number] Univers 16:57:00 19:56:00 Liam TARAN[place] 350.1.13.10 ity [facility] 4.2.7.2.[place] [id number] [facility] [address] 2021-09-05 2021-09-05 Transition HENRI Mcgovern 1.2.840.114 [id number] Univers 00:00:00 00:00:00 of Care Selena Juve LOPEZ 350.1.13.10 i ty of [place] 4[place]2.7.2.[place] [id number] [facility] [address] 2021-08-27 2021-09-02 [facility] Eh Chucky [facility] 1.2.840.1 [id number] Univers 13:42:00 17:32:00 Encounter Xochitl Louise 350.1.13.10 ity of [place] [id number] [facility] [address] 2021-08-27 2021-09-02 Inpatient X DANI [facility] [id number] Univers 13:42:00 17:32:00 XOCHITL castillo [facility] 2021-08-30 2021-08-30 [facility] 1.2.840.114 [id number] Univers 08:00:00 08:58:00 Timothy T[place] 350.1.13.10 ity [facility] 4.2.7.[place] SURGICAL [id number] [facility] [address] 2021-08-27 2021-08-27 Orders Doctor BARI 1.2.840.114 [id number] Univers 00:00:00 00:00:00 Only Unassigned, RUPERT 350.1.13.10 ity of [place] [facility] 4.2.7.2.686 Maximino as [id number] [facility] [address] 2020-06-30 2020-06-30 Emergency Alex Rivers [facility] 1.2.840.114 [id number] Univers 13:42:00 17:30:00 Jessy Tarango 350.1.13.10 i ty of [place] 4.2.7.2.686 [facility] [id number] [facility] [address] 2020-06-30 2020-06-30 Emergency X Alex RIVERS [facility] ERT [id number] Univers 13:42:00 13:42:00 ity of [facility] 2019-06-08 2019-06-08 Orders Doctor BARI 1.2.840.114 [id number] Univers 00:00:00 00:00:00 Only Unassigned, RUPERT 350.1.13.10 ity of [place] [facility] 4.2.7.2.686 [facility] [id number] [address] Results Test Description Test Time Test Comments Results Result Comments Source CT/NG, NAAT, URINE 2021-07-16 16:57:40 Test Item Value Reference Range Interpretation Comme nts GONORRHEA, NAAT NEGATIVE NEGATIVE IMPORTA NT NOTICE: SEE ANNOUNCEMENT AT (test code = [email or web address]/[email or web address] SystemsbasUrineKit Note: 51313) Assay methodolo gy is nucleic acid amplification by transcriptio n mediated amplification (TMA) utilizing the A ptima Combo 2 Assay. CHLAMYDIA, NAAT NEGATIVE NEGATIVE IMPORTA NT NOTICE: SEE ANNOUNCEMENT AT (test code = [email or web address]://[email or web address]/RocheAttune SystemsbasUrineKit Note: 37001) Assay methodolo gy is nucleic acid amplification by transcriptio n mediated amplification (TMA) utilizing the A ptima Combo 2 Assay. TRICHOMONAS, NAAT, [id number] 16:30:51 Test Item Value Reference Range Interpretation Comments TRICHOMONAS, NAAT NEGATIVE NEGATIVE IMPOR TANT NOTICE: SEE (test code = [place] [address]) [email or web address] eCobasUrineKit Note: Assay methodology is nucleic acid amplification b y plate cleaner m ediated amplification ( TMA) and Hybridization P rotection Assay (HPA) uti lizing the [employer] platform. A negative result does not exclude low lev el infection, specimensamplin g error, or collection erro r. UNLESS OTHERWISE INDIC ATED, ALL TESTING PERFORM ED [facility]CL[facility] [address] [facility] [address] LABORATO DIRECTOR: Carola ARGUETAIA NUMBER [id number] CAP ACCREDITATION N O. [id number]
--- NOTE | 2022-02-15 18:03 | RAD REPORT ---
EXAM DESCRIPTION: RAD - Chest Single View - 02/15/2022 5:55 pm CLINICAL HISTORY: PALPITATIONS COMPARISON: Chest Single View dated 01/18/2021; Chest Single View dated 06/17/2020; Chest Single View dated 02/17/2019 FINDINGS: Lines: None. Lungs: No evidence of edema or pneumonia. Pleural: No significant pleural effusions or pneumothorax. Cardiac: Cardiomegaly. Mediastinum: Within normal limits. Bones: No acute fractures. Other: None IMPRESSION: No acute cardiopulmonary disease.
[2022-02-15 18:05] LABS: Absolute Lymphocytes (CBC) 1.9 K/uL (0.7-4.9); Hematocrit 30.2 % (36.0-45.0); Lymphocytes % 26.1 % (15.3-44.8); MCV 64.4 fL (80-100); MPV 8.4 fL (7.6-11.3); RBC Red Blood Cell Count 4.69 M/uL (3.86-4.86)
[2022-02-15 18:42] LABS: Troponin High Sensitivity 4.9 pg/mL (<58.9)
[2022-02-15] MEDS ORDERED: METOPROLOL TAR 25 MG TAB ONE (18:54)
[2022-02-15 20:38] LABS: Urine Blood 1+ (Negative); Urine Glucose Trace (Negative); Urine Protein Negative (Negative); Urine Specific Gravity 1.015 (1.005-1.030)
--- NOTE | 2022-02-15 20:39 | EDPHYS ---
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 - Social history:: Smoking status: Patient denies any tobacco usage or history of. ROS: 20:31 Constitutional: Negative for fever, chills, and weight loss, Eyes: Negative for injury, jolene pain, redness, and discharge, ENT: Negative for injury, pain, and discharge, Neck: Negative for injury, pain, and swelling, Respiratory: Negative for shortness of breath, cough, wheezing, and pleuritic chest pain, Abdomen/GI: Negative for abdominal pain, nausea, vomiting, diarrhea, and constipation, Back: Negative for injury and pain, : Negative for injury, bleeding, discharge, and swelling, MS/Extremity: Negative for injury and deformity, Skin: Negative for injury, rash, and discoloration, Neuro: Negative for headache, weakness, numbness, tingling, and seizure, Psych: Negative for depression, anxiety, suicide ideation, homicidal ideation, and hallucinations, Allergy/Immunology: Negative for hives, rash, and allergies, Endocrine: Negative for neck swelling, polydipsia, polyuria, polyphagia, and marked weight changes, Hematologic/Lymphatic: Negative for swollen nodes, abnormal bleeding, and unusual bruising. 20:31 Cardiovascular: Positive for palpitations. Exam: 20:31 Constitutional: This is a well developed, well nourished patient who is awake, alert, jolene and in no acute distress. Head/Face: Normocephalic, atraumatic. Eyes: Pupils equal round and reactive to light, extra-ocular motions intact. Lids and lashes normal. Conjunctiva and sclera are non-icteric and not injected. Cornea within normal limits. Periorbital areas with no swelling, redness, or edema. ENT: Nares patent. No nasal discharge, no septal abnormalities noted. Tympanic membranes are normal and external auditory canals are clear. Oropharynx with no redness, swelling, or masses, exudates, or evidence of obstruction, uvula midline. Mucous membranes moist. Neck: Trachea midline, no thyromegaly or masses palpated, and no cervical lymphadenopathy. Supple, full range of motion without nuchal rigidity, or vertebral point tenderness. No Meningismus. Chest/axilla: Normal chest wall appearance and motion. Nontender with no deformity. No lesions are appreciated. Respiratory: Lungs have equal breath sounds bilaterally, clear to auscultation and percussion. No rales, rhonchi or wheezes noted. No increased work of breathing, no retractions or nasal flaring. Abdomen/GI: Soft, non-tender, with normal bowel sounds. No distension or tympany. No guarding or rebound. No evidence of tenderness throughout. Back: No spinal tenderness. No costovertebral tenderness. Full range of motion. Skin: Warm, dry with normal turgor. Normal color with no rashes, no lesions, and no evidence of cellulitis. MS/ Extremity: Pulses equal, no cyanosis. Neurovascular intact. Full, normal range of motion. Neuro: Awake and alert, GCS 15, oriented to person, place, time, and situation. Cranial nerves II-XII grossly intact. Motor strength 5/5 in all extremities. Sensory grossly intact. Cerebellar exam normal. Normal gait. Psych: Awake, alert, with orientation to person, place and time. Behavior, mood, and affect are within normal limits. 20:31 Cardiovascular: Rate: tachycardic, Rhythm: irregularly irregular, Pulses: Pulses are 4+ in bilateral radial, brachial, femoral, popliteal, posterior tibial and and dorsalis pedis arteries.. Heart sounds: normal, normal S1and S2, no S3 or S4, no murmur, no rub, no gallop, Edema: is not appreciated, JVD: is not appreciated. 20:31 ECG was reviewed by the Attending Physician. Vital Signs: 16:26 BP 119 / 67; Pulse 81; Resp 20; Temp 98; Pulse Ox 100% on R/A; Weight 140.61 kg; Height em6 6 ft. (182.88 cm); Pain 0/10; 17:30 BP 102 / 62; Pulse 77; Resp 12; Pulse Ox 100% on R/A; em6 18:50 BP 105 / 52; Pulse 71; Resp 22; Pulse Ox 100% on R/A; em6 19:00 BP 145 / 65; Pulse 76; Resp 20; Pulse Ox 99% on R/A; em6 20:00 BP 118 / 72; Pulse 61; Resp 18; Pulse Ox 100% on R/A; em6 16:26 Body Mass Index 42.04 (140.61 kg, 182.88 cm) em6 MDM: 16:39 Patient medically screened. jl9 20:36 TRICIA Risk Score: Total Score = 0. Differential diagnosis: arrythmia, dehydration. Data jolene reviewed: vital signs, nurses notes, EMS record, lab test result(s), EKG, radiologic studies, plain films. Data interpreted: monitor tech: rate is 46 beats/min, rhythm is regular, Pulse oximetry: on room air is 99 %. Test interpretation: by ED physician or midlevel provider: ECG, plain radiologic studies. Counseling: I had a detailed discussion with the patient and/or guardian regarding: the historical points, exam findings, and any diagnostic results supporting the discharge/admit diagnosis, lab results, radiology results, the need for outpatient follow up, for definitive care, a agriscience technology instructor, a family practitioner. 02/15 16:43 Order name: Basic Metabolic Panel [facility] 02/15 16:43 Order name: CBC with Diff; Complete Time: 18:33 [facility] 02/15 16:43 Order name: D-Dimer; Complete Time: 18:33 [facility] 02/15 16:43 Order name: NT PRO-BNP [facility] 02/15 16:43 Order name: Troponin HS [facility] 02/15 16:43 Order name: XRAY Chest (1 view); Complete Time: 18:33 [facility] 02/15 16:43 Order name: EKG; Complete Time: 16:44 [facility] 02/15 16:43 Order name: Cardiac monitoring; Complete Time: 16:46 [facility] 02/15 20:38 Order name: Urine --Ancillary (enter results) mw2 02/15 20:39 Order name: Urine Dipstick-Ancillary EDPA 02/15 16:43 Order name: EKG - Nurse/Tech; Complete Time: 16:46 kdr 02/15 16:43 Order name: Labs collected and sent; Complete Time: 17:57 kdr 02/15 16:43 Order name: O2 Per Protocol; Complete Time: 16:46 kdr 02/15 16:43 Order name: O2 Sat Monitoring; Complete Time: 16:46 kdr 02/15 20:31 Order name: Urine Dipstick-Ancillary (obtain specimen); Complete Time: 20:38 jolene 02/15 20:31 Order name: Urine Test (obtain specimen); Complete Time: 20:38 jolene EC:31 Rate is 82 beats/min. Rhythm is regular. QRS [place] is Normal. HI interval is normal. QRS jolene interval is normal. QT interval is normal. No Q waves. T waves are Normal. No ST changes noted. Clinical impression: Normal ECG and No evidence of ischemia. Interpreted by me. Reviewed by me. Administered Medications: 19:00 Drug: Lopressor (metoprolol TARTRATE)) 25 mg Route: PO; em6 19:30 Follow up: Response: No adverse reaction em6 20:42 Drug: Eliquis (apixaban) 5 mg Route: PO; em6 20:57 Follow up: Response: No adverse reaction em6 20:42 Drug: Pepcid (famotidine) 20 mg Route: PO; em6 20:57 Follow up: Response: No adverse reaction em6 Disposition Summary: 02/15/22 20:38 Discharge Ordered Location: Home jolene Problem: new jolene Symptoms: have improved jolene Condition: Stable jolene Diagnosis - Anemia, unspecified jolene - Palpitations jolene - Paroxysmal atrial fibrillation - with RVR jolene Followup: jolene - With: Private Physician - When: 2 - 3 days - Reason: Recheck today's complaints, Continuance of care, Re-evaluation by your physician Followup: jolene - With: James Gutierrez MD - When: 2 - 3 days - Reason: Recheck today's complaints, Re-evaluation by your physician Discharge Instructions: - Discharge Summary Sheet jolene - Anemia jolene - Atrial Fibrillation jolene - Palpitations jolene - Palpitations, Xzcp-hj-Fcnf jolene - Atrial Fibrillation, Yvlg-wt-Wzoj jolene Forms: - Medication Reconciliation Form jolene - Thank You Letter jolene - Antibiotic Education jolene - Prescription Opioid Use jolene Prescriptions: - Eliquis 5 mg Oral tablet - take 1 tablet by ORAL route 2 times per day; 40 tablet; Refills: 0, Product [facility] Selection Permitted - Toprol XL 25 mg Oral Tablet - take 1 tablet by ORAL route once daily; 20 tablet; Refills: 0, Product [facility] Selection Permitted - Pepcid 20 mg Oral Tablet - take 1 tablet by ORAL route every 12 hours for 21 days; 42 tablet; Refills: 0, [facility] Product Selection Permitted Signatures: Dispatcher [employer] EDRafael Zapata MD MD cha Rittger, Kevin, MD MD kdr Linares, John jl Nicole Mederos RN RN em6
--- NOTE | 2022-02-15 20:39 | ER ---
Nurse's Notes [facility] Name: Cindy Pandey Age: 46 yrs Sex: Female : 1975 Arrival Date: 02/15/2022 Time: 16:22 Bed 23 Private MD: Diagnosis: Anemia, unspecified;Palpitations;Paroxysmal atrial fibrillation-with RVR Presentation: 02/15 16:26 Chief complaint: Patient's son or daughter states: "was called in because the patient em6 was having chest palpations. no chest pain stated. HR was 123-158 EKG showed AFib with RSV. gave her 324 mg of aspirin. patient states shortness of breath.". Coronavirus screen: Client denies travel out of the [place] in the last 14 days. Ebola Screen: Patient negative for fever greater than or equal to 101.5 degrees Fahrenheit, and additional compatible Ebola Virus Disease symptoms. Initial Sepsis Screen: Does the patient meet any 2 criteria? No. Patient's initial sepsis screen is negative. Does the patient have a suspected source of infection? No. Patient's initial sepsis screen is negative. Risk Assessment: Do you want to hurt yourself or someone else? Patient reports no desire to harm self or others. Onset of symptoms was February 15, 2022. 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 - Social history:: Smoking status: Patient denies any tobacco usage or history of. Screenin:25 Fall Risk Total Rinaldi Fall Scale indicates No Risk (0-24 pts). em6 16:26 Abuse screen: Denies threats or abuse. Nutritional screening: No deficits noted. em6 Tuberculosis screening: No symptoms or risk factors identified. Assessment: 16:25 General: Appears in no apparent distress. Behavior is cooperative. Pain: Denies pain. em6 Neuro: Level of Consciousness is awake, alert, obeys commands, Oriented to person, place, time, situation, Denies headache. Cardiovascular: Reports palpitations, shortness of breath, Denies chest pain, Heart tones present Patient's skin is warm and dry. Rhythm is sinus rhythm. Respiratory: Airway is patent Respiratory effort is even, unlabored, Respiratory pattern is regular, symmetrical, Breath sounds are clear bilaterally. GI: No signs and/or symptoms were reported involving the gastrointestinal system. : No signs and/or symptoms were reported regarding the genitourinary system. EENT: No signs and/or symptoms were reported regarding the EENT system. Derm: No signs and/or symptoms reported regarding the dermatologic system. Musculoskeletal: Circulation, motion, and sensation intact. Range of motion: intact in all extremities, Swelling present in right leg and left leg. 17:25 Reassessment: No changes from previously documented assessment. Patient and/or family em6 updated on plan of care and expected duration. Pain level reassessed. Patient is alert, oriented x 3, equal unlabored respirations, skin warm/dry/pink. Patient states symptoms have improved. 18:25 Reassessment: No changes from previously documented assessment. Patient and/or family em6 updated on plan of care and expected duration. Pain level reassessed. Patient is alert, oriented x 3, equal unlabored respirations, skin warm/dry/pink. 19:25 Reassessment: No changes from previously documented assessment. Patient and/or family em6 updated on plan of care and expected duration. Pain level reassessed. Patient is alert, oriented x 3, equal unlabored respirations, skin warm/dry/pink. 20:25 Reassessment: No changes from previously documented assessment. Patient and/or family em6 updated on plan of care and expected duration. Pain level reassessed. Patient is alert, oriented x 3, equal unlabored respirations, skin warm/dry/pink. Vital Signs: 16:26 BP 119 / 67; Pulse 81; Resp 20; Temp 98; Pulse Ox 100% on R/A; Weight 140.61 kg; Height em6 6 ft. (182.88 cm); Pain 0/10; 17:30 BP 102 / 62; Pulse 77; Resp 12; Pulse Ox 100% on R/A; em6 18:50 BP 105 / 52; Pulse 71; Resp 22; Pulse Ox 100% on R/A; em6 19:00 BP 145 / 65; Pulse 76; Resp 20; Pulse Ox 99% on R/A; em6 20:00 BP 118 / 72; Pulse 61; Resp 18; Pulse Ox 100% on R/A; em6 16:26 Body Mass Index 42.04 (140.61 kg, 182.88 cm) em6 ED Course: 16:22 Patient arrived in ED. em6 16:25 Nicole Mederos, RN is Primary Nurse. em6 16:36 Triage completed. em6 16:36 Arm band placed on. em6 16:37 Bed in low position. Call light in reach. Side rails up X2. monitor worker on. Pulse em6 ox on. NIBP on. Warm blanket given. 16:39 Ilia Navas is PHCP. jl9 16:39 Jhonathan Peña MD is Attending Physician. jl9 16:40 Missed attempt(s): 22 gauge in right wrist. Bleeding controlled, band aid applied, em6 catheter tip intact. 16:42 Jhonathan Peña MD is Attending Physician. kdr 17:57 XRAY Chest (1 view) In Process Unspecified. EDMS 19:44 Attending Physician role handed off by Jhonathan Peña MD jolene 19:44 Rafael Hill MD is Attending Physician. jolene 20:37 James Gutierrez MD is Referral Physician. jolene 20:59 No provider procedures requiring assistance completed. Patient did not have IV access em6 during this emergency room visit. Administered Medications: 19:00 Drug: Lopressor (metoprolol TARTRATE)) 25 mg Route: PO; em6 19:30 Follow up: Response: No adverse reaction em6 20:42 Drug: Eliquis (apixaban) 5 mg Route: PO; em6 20:57 Follow up: Response: No adverse reaction em6 20:42 Drug: Pepcid (famotidine) 20 mg Route: PO; em6 20:57 Follow up: Response: No adverse reaction em6 Medication: 21:00 VIS not applicable for this client. em6 Outcome: 20:38 Discharge ordered by . jolene 20:59 Discharged to home ambulatory. em6 20:59 Condition: stable 20:59 Discharge instructions given to patient, Instructed on discharge instructions, follow up and referral plans. medication usage, Demonstrated understanding of instructions, follow-up care, medications, Prescriptions given X 3. 21:00 Patient left the ED. em6 Signatures: Dispatcher [employer] EDMS Rafael Hill MD MD cha Rittger, Kevin, MD MD kdr Linares, John jl9 Martinez, Erika, RN RN em6 Corrections: (The following items were deleted from the chart) 16:43 16:25 Neuro: Level of Consciousness is awake, alert, obeys commands, Oriented to em6 person, place, time, situation, em6 16:43 16:25 Cardiovascular: Heart tones present Patient's skin is warm and dry. Rhythm is em6 sinus rhythm em6
[2022-02-15] MEDS ORDERED: APIXABAN 5 MG TABLET ONE (20:40)
[2022-02-15] MEDS ORDERED: FAMOTIDINE 20 MG TAB ONE (20:40)
[2022-02-15 21:11] VITALS: TEMP 98
[2022-02-15 21:22] VITALS: BP 118/72; O2SAT 100
[2022-02-15 22:02] LABS: Urine Specific Gravity/Preg 1.015 (1.005-1.030)
[2022-02-16] LABS: Potassium 3.5 mmol/L (3.5-5.1)
--- NOTE | 2022-02-18 15:14 | EKG ---
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
== END 2022-02-15 21:00 | disposition home or self-care (01) ==
LOC: ER 16:18
DX: I48.0 Paroxysmal atrial fibrillation (principal); D64.9 Anemia, unspecified; E11.9 Type 2 diabetes mellitus without complications
CPT/HCPCS: 36415; 71045; 80048; 81003; 81025; 83880; 84484; 85025; 85379; 93005; 99284

== ENCOUNTER 2022-05-31 13:08 | Emergency (ER) | payer OTHER ==
--- OUTSIDE RECORDS SUMMARY | 2022-05-31 13:13 | XMS REPORT | Continuity of Care Document ---
:1975 Author Organization [facility] t Address [address] [place] [address] Dr. Knight[address] [place] [id number] Care Team Providers Name Role Phone [facility] HEAD, Marleny Primary Care Physician Elvira [facility] HEAD, Marleny Attending Clinician 2, [facility] Attending Clinician Unavailable MARLENY STEPHENS Attending Clinician Unavailable Doctor Unassigned, [place] Attending Clinician Unavailable BENJY VALDEZ Attending Clinician Unavailable Pgy1 Attending Clinician Unavailable Benjy Valdez MD Attending Clinician Pgy2 Attending Clinician Unavailable [facility] Attending Clinician Unavailable Kellen Traylor Attending [...] Univers pelvic pelvic 6-28 ity of 00:00: Medical Branch Well woman Well woman Disease Active U nivers exam (no exam (no 6-28 ity of gynecologi gynecolog[place] mckenna exam[place] mckenna exam) 00 [facility] mckenna Branch History of History of Disease Active U nivers bilateral bilateral 6-28 ity of tubal tubal 00:00: [place] ligation ligation 00 Medica l Branch Encounter Encounter Disease Active Uni vers for 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 ce of ce of Medical other other Branch contracept contracept brandi brandi Menorrhagi Menorrhagi Disease Active U nivers a with a with 6-28 ity of regular regular 00:00: [place] cycle cycle 00 Medical Branch Fibroids, Fibroids, Disease Active Uni vers submucosal submucosal 6-28 it y of 00:00: Medical Branch Cellulitis Cellulitis Disease Active U nivers of foot of foot 5-24 ity of 00:00: Medical Branch Cellulitis Cellulitis Disease Active U nivers 5-23 ity of 00:00: [place] Medical Branch BMI BMI Disease Active Univers 40.0-44.9, 40.0-44.9, 5-23 it y of adult adult 00:00: Medical Branch Obesity Obesity Disease Active 2005-04 Overview: [facility] ers 2-04 Formattin ity of 00:00: g of this note Medical might be Branch different from the original. ICD10 Diagnosis Term Mercerizing Range Controller Utility Type 1 Type 1 Disease Active Overview: [facility] s diabetes diabetes 3-10 Formattin ity of mellitus mellitus 00:00: g of this [place] as 00 note Medical might be Branch different from the original. ICD10 Diagnosis Term Mercerizing Range Controller Utility Allergies, Adverse Reactions, Alerts Allergy Allergy Status Severity Reaction(s) Onset Inactive Treating Comm ents Source Name Type Date Date Clinician NO KNOWN Drug Active Univers ALLERGIE Class ity of S [facility] Social History Social Habit Start Date Stop Date Quantity Comments Source Alcohol intake 2021-12-24 2021-12-24 Current University of 00:00:00 00:00:00 non-drinker of [facility] alcohol (finding) Branch Exposure to 2021-12-03 2021-12-13 Not sure [facility] 00:00:00 13:22:00 [place] Medical (event) Branch Tobacco use and 2021-11-01 2021-11-01 Smokeless tobacco Un iversity of exposure 00:00:00 00:00:00 non-user [facility] Sex Ass[birth year] At [birth year] Universit y of 00:00:00 00:00:00 [facility] Smoking Status Start Date Stop Date Source Never smoked tobacco [facility] [place] [facility] Medications Ordered Filled Start Stop Current Ordering Indication Dosage Frequency Signature Comments Components Source Medication Medication Date Date Medication? Clinician (SIG) Name Name dulaglutide 2021-04- No [id number] 1.5mg inject 1 Univers (TRULICITY) 04-17 Pen under it y of 1.5 mg/0.5 00:00: 05:59 [place] PnIj 00 :00 weekly for Medica l 90 days. Branch dulaglutide 2021-04- No [id number] 1.5mg inject 1 Univers (TRULICITY) 04-17 Pen under it y of 1.5 mg/0.5 00:00: 05:59 [place] PnIj 00 :00 weekly for Medica l 90 days. Branch dulaglutide 2021-04- No [id number] 1.5mg inject 1 Univers (TRULICITY) 04-17 Pen under it y of 1.5 mg/0.5 00:00: 05:59 [place] PnIj 00 :00 weekly for Medica l 90 days. [place] ondansetron 2021-04 Yes [id number] 4mg Take 1 Univers 4 mg 0-19 tablet by ity of disintegrat 00:00: mouth [place] ing tablet 00 every 8 Medica l (eight) Branch hours as needed for Nausea and Vomiting (N/V). tirzepatide 2021-04- No [id number] 5mg inject 5 Univers 2.5 mg/0.5 0-19 11-19 mg under ity of mL 00:00: 05:59 the skin [place] subcutaneou 00 :00 weekly for Me dical s injection 30 days. Bran ch tirzepatide 2021-04- No [id number] 5mg inject 5 Univers 2.5 mg/0.5 0-19 11-19 mg under ity of mL 00:00: 05:59 the skin [place] subcutaneou 00 :00 weekly for Me dical s injection 30 days. Bran ch tirzepatide 2021-04- No [id number] 5mg inject 5 Univers 2.5 mg/0.5 0-19 11-19 mg under ity of mL 00:00: 05:59 the skin [place] subcutaneou 00 :00 weekly for Me dical s injection 30 days. [facility] tirzepatide 2021-04- No [id number] 5mg inject 5 Univers 2.5 mg/0.5 0-19 11-19 mg under ity of mL 00:00: 05:59 the skin [place] subcutaneou 00 :00 weekly for Me dical s injection 30 days. [facility] tirzepatide 2021-04- No [id number] 5mg inject 5 Univers 2.5 mg/0.5 0-19 11-19 mg under ity of mL 00:00: 05:59 the skin [place] subcutaneou 00 :00 weekly for Me dical s injection 30 days. [facility] tirzepatide 2021-04- No [id number] 5mg inject 5 Univers 2.5 mg/0.5 0-19 11-19 mg under ity of mL 00:00: 05:59 the skin [place] subcutaneou 00 :00 weekly for Me dical s injection 30 days. [facility] tirzepatide 2021-04- No [id number] 5mg inject 5 Univers 2.5 mg/0.5 0-19 10-11 mg under ity of mL 00:00: 00:00 the skin [place] subcutaneou 00 :00 weekly for Me dical s injection 30 days. Bran tirzepatide 2021-04- No [id number] 5mg inject 5 Univers 2.5 mg/0.5 0-19 10-11 mg under ity of mL 00:00: 00:00 the skin [place] subcutaneou 00 :00 weekly for Me dical s injection 30 days. Kaden tripathi dulaglutide 2021-04- No [id number] .75mg inject 1 Univers (TRULICITY) 0-11 11-11 Pen under it y of 0.75 mg/0.5 00:00: 05:59 [place] mL PnIj 00 :00 weekly for Medica l 30 days. [place] dulaglutide 2021-04- No [id number] .75mg inject 1 Univers (TRULICITY) 0-11 11-11 Pen under it y of 0.75 mg/0.5 00:00: 05:59 [place] mL PnIj 00 :00 weekly for Medica l 30 days. Merlin dulaglutide 2021-04- No [id number] .75mg inject 1 Univers (TRULICITY) 0-11 11-11 Pen under it y of 0.75 mg/0.5 00:00: 05:59 [place] mL PnIj 00 :00 weekly for Medica l 30 days. Branch metFORMIN 2021-0 Yes [id number] 1000mg Take 2 Univers 500 mg 9-19 tablets by ity of tablet 00:00: mouth in [place] the Medical morning Branch and 2 tablets in the evening. Take with meals. nystatin 2021-0 Yes [id number] Apply to U nivExepron 100,000 9-19 area(s) 2 ity of unit/gram 00:00: (two) [place] cream 00 times Medical daily. Branch metFORMIN 2021-0 Yes [id number] 1000mg Take 2 Univers 500 mg 9-19 tablets by ity of tablet 00:00: mouth in [place] the Medical morning Branch and 2 tablets in the evening. Take with meals. nystatin 2021-0 Yes [id number] Apply to U nivers 100,000 9-19 area(s) 2 ity of unit/gram 00:00: (two) [place] cream 00 times Medical daily. Branch metFORMIN 2021-0 Yes [id number] 1000mg Take 2 Univers 500 mg 9-19 tablets by ity of tablet 00:00: mouth in [place] the Medical morning Branch and 2 tablets in the evening. Take with meals. nystatin 202-0 Yes [id number] Apply to U nivers 100,000 9-19 area(s) 2 ity of unit/gram 00:00: (two) [place] cream 00 times Medical daily. Branch metFORMIN 2022-0 Yes [id number] 1000mg Take 2 Univers 500 mg 9-19 tablets by ity of tablet 00:00: mouth in [place] 00 the Medical morning Branch and 2 tablets in the evening. Take with meals. nystatin 2022-0 Yes [id number] Apply to U nivers 100,000 9-19 area(s) 2 ity of unit/gram 00:00: (two) [place] cream 00 times Medical daily. Branch metFORMIN 2022-0 Yes [id number] 1000mg Take 2 Univers 500 mg 9-19 tablets by ity of tablet 00:00: mouth in [place] 00 the Medical morning Branch and 2 tablets in the evening. Take with meals. nystatin 2022-0 Yes [id number] Apply to U nivers 100,000 9-19 area(s) 2 ity of unit/gram 00:00: (two) [place] cream 00 times Medical daily. Branch metFORMIN 2022-0 Yes [id number] 1000mg Take 2 Univers 500 mg 9-19 tablets by ity of tablet 00:00: mouth in [place] 00 the Medical morning Branch and 2 tablets in the evening. Take with meals. nystatin 2022-0 Yes [id number] Apply to U nivers 100,000 9-19 area(s) 2 ity of unit/gram 00:00: (two) [place] cream 00 times Medical daily. Branch metFORMIN 2022-0 Yes [id number] 1000mg Take 2 Univers 500 mg 9-19 tablets by ity of tablet 00:00: mouth in [place] 00 the Medical morning Branch and 2 tablets in the evening. Take with meals. nystatin 2022-0 Yes [id number] Apply to U nivers 100,000 9-19 area(s) 2 ity of unit/gram 00:00: (two) [place] cream 00 times Medical daily. Branch metFORMIN 2022-0 Yes [id number] 1000mg Take 2 Univers 500 mg 9-19 tablets by ity of tablet 00:00: mouth in [place] 00 the Medical morning Branch and 2 tablets in the evening. Take with meals. nystatin 2022-0 Yes [id number] Apply to U nivers 100,000 9-19 area(s) 2 ity of unit/gram 00:00: (two) [place] cream 00 times Medical daily. Branch metFORMIN Yes [id number] 1000mg Take 2 Univers 500 mg 9-19 tablets by ity of tablet 00:00: mouth in [place] 00 the Medical morning Branch and 2 tablets in the evening. Take with meals. nystatin Yes [id number] [facility] area(s) 2 ity of unit/gram 00:00: (two) [place] cream 00 times Medical daily. Branch tirzepatide 2021- No [id number] 2.5mg inject 2.5 Univers 2.5 mg/0.5 9-19 10-20 mg under ity of mL 00:00: 04:59 the skin [place] subcutaneou 00 :00 weekly for Me dical s injection 30 days. Bran ch tirzepatide 2021- No [id number] 10mg inject 10 Univers 5 mg/0.5 mL 9-19 10-20 mg under ity of subcutaneou 00:00: 04:59 [place] s injection 00 :00 weekly for Me dical 30 days. Branch tirzepatide 2021- No [id number] 2.5mg inject 2.5 Univers 2.5 mg/0.5 9-19 10-20 mg under ity of mL 00:00: 04:59 the skin [place] subcutaneou 00 :00 weekly for Me dical s injection 30 days. Bran ch tirzepatide 2021- No [id number] 10mg inject 10 Univers 5 mg/0.5 mL 9-19 10-20 mg under ity of subcutaneou 00:00: 04:59 [place] s injection 00 :00 weekly for Me dical 30 days. Branch tirzepatide 2021- No [id number] 2.5mg inject 2.5 Univers 2.5 mg/0.5 9-19 10-20 mg under ity of mL 00:00: 04:59 the skin [place] subcutaneou 00 :00 weekly for Me dical s injection 30 days. Bran ch tirzepatide 2021- No [id number] 10mg inject 10 Univers 5 mg/0.5 mL 9-19 10-20 mg under ity of subcutaneou 00:00: 04:59 [place] s injection 00 :00 weekly for Me dical 30 days. Branch tirzepatide 2021- No [id number] 2.5mg inject 2.5 Univers 2.5 mg/0.5 9-19 10-20 mg under ity of mL 00:00: 04:59 the skin [place] subcutaneou 00 :00 weekly for Me dical s injection 30 days. Bran ch tirzepatide 2021- No [id number] 10mg inject 10 Univers 5 mg/0.5 mL 9-19 10-20 mg under ity of subcutaneou 00:00: 04:59 [place] s injection 00 :00 weekly for Me dical 30 days. Branch tirzepatide No [id number] 2.5mg inject 2.5 Univers 2.5 mg/0.5 9-19 10-20 mg under ity of mL 00:00: 04:59 the skin [place] subcutaneou 00 :00 weekly for Me dical s injection 30 days. Bran ch tirzepatide 2021- No [id number] 10mg inject 10 Univers 5 mg/0.5 mL 9-19 10-20 mg under ity of subcutaneou 00:00: 04:59 [place] s injection 00 :00 weekly for Me dical 30 days. Branch tirzepatide 2021- No [id number] 2.5mg inject 2.5 Univers 2.5 mg/0.5 9-19 10-20 mg under ity of mL 00:00: 04:59 the skin [place] subcutaneou 00 :00 weekly for Me dical s injection 30 days. Bran ch tirzepatide 2021- No [id number] 10mg inject 10 Univers 5 mg/0.5 mL 9-19 10-20 mg under ity of subcutaneou 00:00: 04:59 [place] s injection 00 :00 weekly for Me dical 30 days. Branch tirzepatide 2021- No [id number] 2.5mg inject 2.5 Univers 2.5 mg/0.5 9-19 10-11 mg under ity of mL 00:00: 00:00 the skin [place] subcutaneou 00 :00 weekly for Me dical s injection 30 days. Bran ch tirzepatide 2021- No [id number] 10mg inject 10 Univers 5 mg/0.5 mL 9-19 10-11 mg under ity of subcutaneou 00:00: 00:00 [place] s injection 00 :00 weekly for Me dical 30 days. Branch tirzepatide 2021- No [id number] 2.5mg inject 2.5 Univers 2.5 mg/0.5 9-19 10-11 mg under ity of mL 00:00: 00:00 the skin [place] subcutaneou 00 :00 weekly for Me dical s injection 30 days. Bran ch tirzepatide 2021- No [id number] 10mg inject 10 Univers 5 mg/0.5 mL 9-19 10-11 mg under ity of subcutaneou 00:00: 00:00 [place] s injection 00 :00 weekly for Me dical 30 days. Branch blood sugar Yes [id number] Check Univers diagnostic 6-22 blood ity of strip 00:00: sugar 2 00 times a Medical day. Branch E11.9. Brand per insurance. Lancets Yes [id number] Check Univ ers Misc 6-22 blood ity of 00:00: sugar 2 [place] 00 times a Medical day. Branch E11.9. Brand per insurance. Blood-Gluco Yes [id number] Check Univers se Meter 6-22 sugars 2 ity of Kit 00:00: times a [place] 00 day. Dx. Medical Code E11.9 Branch Brand per Insurance metFORMIN Yes [id number] 500mg Take 1 Univers 500 mg 6-22 tablet by ity of tablet 00:00: mouth 2 [place] 00 (two) Medical times Branch daily with meals. omeprazole Yes [id number] 40mg Take 1 Univers 40 mg 6-22 capsule by ity of capsule 00:00: mouth [place] 00 daily. Medical Branch blood sugar Yes [id number] Check Univers diagnostic 6-22 blood ity of strip 00:00: sugar 2 [place] 00 times a Medical day. Branch E11.9. Brand per insurance. Lancets 2021-0 Yes [id number] Check Univ ers Misc 6-22 blood ity of 00:00: sugar 2 [place] 00 times a Medical day. Branch E11.9. Brand per insurance. Blood-Gluco 2021-0 Yes [id number] Check Univers se Meter 6-22 sugars 2 ity of Kit 00:00: times a [place] 00 day. Dx. Medical Code E11.9 Branch Brand per Insurance omeprazole 2021-0 Yes [id number] 40mg Take 1 Univers 40 mg 6-22 capsule by ity of capsule 00:00: mouth 00 daily. Medical Branch blood sugar 2021-0 Yes [id number] Check Univers diagnostic 6-22 blood ity of strip 00:00: sugar 2 [place] times a Medical day. Branch E11.9. Brand per insurance. Lancets 2021-0 Yes [id number] Check Univ ers Misc 6-22 blood ity of 00:00: sugar 2 times a Medical day. Branch E11.9. Brand per insurance. Blood-Gluco 2021-0 Yes [id number] Check Univers se Meter 6-22 sugars 2 ity of Kit 00:00: times a day. Dx. Medical Code E11.9 Branch Brand per Insurance omeprazole 2021-0 Yes [id number] 40mg Take 1 Univers 40 mg 6-22 capsule by ity of capsule 00:00: mouth [place] 00 daily. Medical Branch blood sugar 2021-0 Yes [id number] Check Univers diagnostic 6-22 blood ity of strip 00:00: sugar 2 times a Medical day. Branch E11.9. Brand per insurance. Lancets 2021-0 Yes [id number] Check Univ ers Misc 6-22 blood ity of 00:00: sugar 2 00 times a Medical day. Branch E11.9. Brand per insurance. Blood-Gluco 2-0 Yes [id number] Check Univers se Meter 6-22 sugars 2 ity of Kit 00:00: times a 00 day. Dx. Medical Code E11.9 Branch Brand per Insurance omeprazole 2021-0 Yes [id number] 40mg Take 1 Univers 40 mg 6-22 capsule by ity of capsule 00:00: mouth [place] 00 daily. Medical Branch blood sugar 2021-0 Yes [id number] Check Univers diagnostic 6-22 blood ity of strip 00:00: sugar 2 times a Medical day. Branch E11.9. Brand per insurance. Lancets 2021-0 Yes [id number] Check Univ ers Misc 6-22 blood ity of 00:00: sugar 2 00 times a Medical day. Branch E11.9. Brand per insurance. Blood-Gluco 2021-0 Yes [id number] Check Univers se Meter 6-22 sugars 2 ity of Kit 00:00: times a 00 day. Dx. Medical Code E11.9 Branch Brand per Insurance omeprazole 2021-0 Yes [id number] 40mg Take 1 Univers 40 mg 6-22 capsule by ity of capsule 00:00: mouth 00 daily. Medical Branch blood sugar 0 Yes [id number] Check Univers diagnostic 6-22 blood ity of strip 00:00: sugar 2 times a Medical day. Branch E11.9. Brand per insurance. Lancets 2021-0 Yes [id number] Check Univ ers Misc 6-22 blood ity of 00:00: sugar 2 times a Medical day. Branch E11.9. Brand per insurance. Blood-Gluco 2021-0 Yes [id number] Check Univers se Meter 6-22 sugars 2 ity of Kit 00:00: times a day. Dx. Medical Code E11.9 Branch Brand per Insurance omeprazole 2021-0 Yes [id number] 40mg Take 1 Univers 40 mg 6-22 capsule by ity of capsule 00:00: mouth daily. Medical Branch blood sugar 2021-0 Yes [id number] Check Univers diagnostic 6-22 blood ity of strip 00:00: sugar 2 times a Medical day. Branch E11.9. Brand per insurance. Lancets 2021-0 Yes [id number] Check Univ ers Misc 6-22 blood ity of 00:00: sugar 2 times a Medical day. Branch E11.9. Brand per insurance. Blood-Gluco 2021-0 Yes [id number] Check Univers se Meter 6-22 sugars 2 ity of Kit 00:00: times a day. Dx. Medical Code E11.9 Branch Brand per Insurance omeprazole 2021-0 Yes [id number] 40mg Take 1 Univers 40 mg 6-22 capsule by ity of capsule 00:00: mouth [place] 00 daily. Medical Branch blood sugar 2021-0 Yes [id number] Check Univers diagnostic 6-22 blood ity of strip 00:00: sugar 2 [place] 00 times a Medical day. Branch E11.9. Brand per insurance. Lancets 2021-0 Yes [id number] Check Univ ers Misc 6-22 blood ity of 00:00: sugar 2 [place] 00 times a Medical day. Branch E11.9. Brand per insurance. Blood-Gluco 2021-0 Yes [id number] Check Univers se Meter 6-22 sugars 2 ity of Kit 00:00: times a [place] 00 day. Dx. Medical Code E11.9 Branch Brand per Insurance omeprazole 2021-0 Yes [id number] 40mg Take 1 Univers 40 mg 6-22 capsule by ity of capsule 00:00: mouth [place] 00 daily. Medical Branch blood sugar 2021-0 Yes [id number] Check Univers diagnostic 6-22 blood ity of strip 00:00: sugar 2 [place] 00 times a Medical day. Branch E11.9. Brand per insurance. Lancets 2021-0 Yes [id number] Check Univ ers Misc 6-22 blood ity of 00:00: sugar 2 [place] 00 times a Medical day. Branch E11.9. Brand per insurance. Blood-Gluco 2021-0 Yes [id number] Check Univers se Meter 6-22 sugars 2 ity of Kit 00:00: times a [place] 00 day. Dx. Medical Code E11.9 Branch Brand per Insurance omeprazole 2021-0 Yes [id number] 40mg Take 1 Univers 40 mg 6-22 capsule by ity of capsule 00:00: mouth [place] 00 daily. Medical Branch blood sugar 2021-0 Yes [id number] Check Univers diagnostic 6-22 blood ity of strip 00:00: sugar 2 [place] 00 times a Medical day. Branch E11.9. Brand per insurance. Lancets 2021-0 Yes [id number] Check Univ ers Misc 6-22 blood ity of 00:00: sugar 2 [place] 00 times a Medical day. Branch E11.9. Brand per insurance. Blood-Gluco 2-0 Yes [id number] Check Univers se Meter 6-22 sugars 2 ity of Kit 00:00: times a [place] 00 day. Dx. Medical Code E11.9 Branch Brand per Insurance omeprazole 2021-0 Yes [id number] 40mg Take 1 Univers 40 mg 6-22 capsule by ity of capsule 00:00: mouth [place] 00 daily. Medical Branch metFORMIN 2021-0 2- No [id number] 500mg Take 1 Univers 500 mg 6-22 - tablet by ity of tablet 00:00: 00:00 mouth 2 [place] 00 :00 (two) Medical times Branch daily with meals. metFORMIN 2021-0 2- No [id number] 500mg Take 1 Univers 500 mg 6-22 - tablet by ity of tablet 00:00: 00:00 mouth 2 [place] 00 :00 (two) Medical times Branch daily with meals. diclofenac 2022-0 Yes 75mg Take 75 mg U nivers 75 mg EC 5-22 by mouth 2 ity o f tablet 00:00: (two) [place] 00 times Medical daily. Branch diclofenac 2022-0 Yes 75mg Take 75 mg U nivers 75 mg EC 5-22 by mouth 2 ity o f tablet 00:00: (two) [place] 00 times Medical daily. Branch diclofenac 2022-0 Yes 75mg Take 75 mg U nivers 75 mg EC 5-22 by mouth 2 ity o f tablet 00:00: (two) [place] 00 times Medical daily. Branch diclofenac 2022-0 Yes 75mg Take 75 mg U nivers 75 mg EC 5-22 by mouth 2 ity o f tablet 00:00: (two) [place] 00 times Medical daily. Branch diclofenac 2022-0 Yes 75mg Take 75 mg U nivers 75 mg EC 5-22 by mouth 2 ity o f tablet 00:00: (two) [place] 00 times Medical daily. Branch diclofenac 2022-0 Yes 75mg Take 75 mg U nivers 75 mg EC 5-22 by mouth 2 ity o f tablet 00:00: (two) [place] 00 times Medical daily. Branch diclofenac 2022-0 Yes 75mg Take 75 mg U nivers 75 mg EC 5-22 by mouth 2 ity o f tablet 00:00: (two) [place] 00 times Medical daily. Branch diclofenac 2022-0 Yes 75mg Take 75 mg U nivers 75 mg EC 5-22 by mouth 2 ity o f tablet 00:00: (two) [place] 00 times Medical daily. Branch diclofenac 2022-0 Yes 75mg Take 75 mg U nivers 75 mg EC 5-22 by mouth 2 ity o f tablet 00:00: (two) [place] 00 times Medical daily. Branch diclofenac 2021-0 Yes 75mg Take 75 mg U nivers 75 mg EC 5-22 by mouth 2 ity o f tablet 00:00: (two) [place] 00 times Medical daily. Branch Vital Signs Vital Name Observation Time Observation Value Comments Source Systolic blood 2021-12-24 15:54:00 119 mm[Hg] Univer [facility] Diastolic blood 2021-12-24 15:54:00 78 mm[Hg] Unive rsity of [facility] Heart rate 2021-12-24 15:54:00 68 /min Universi ty [facility] Body temperature 2021-12-24 15:54:00 36.67 Radha [facility] Respiratory rate 2021-12-24 15:54:00 18 /min [facility] Body height 2021-12-24 15:54:00 182.9 cm Universi ty [facility] Body weight 2021-12-24 15:54:00 141.023 kg Universi ty [facility] BMI 2021-12-24 15:54:00 42.17 kg/m2 [facility] Oxygen saturation in 2021-12-24 15:54:00 97 /min [facility] Arterial blood by [facility] Pulse oximetry Branch Systolic blood 2021-12-13 18:20:00 125 mm[Hg] Univer [facility]ity of [facility] Diastolic blood 2021-12-13 18:20:00 65 mm[Hg] Unive rsity of [facility] Heart rate 2021-12-13 18:20:00 73 /min Universi ty [facility] Body temperature 2021-12-13 18:20:00 36.11 Radha [facility] 2021-12-13 18:20:00 18 /min [facility] Body height 2021-12-13 18:20:00 182.9 cm Universi ty [facility] Body weight 2021-12-13 18:20:00 142.52 kg Universi ty [facility] BMI 2021-12-13 18:20:00 42.61 kg/m2 [facility] Medical Branch Procedures Procedure Date / Time Performed Performing Clinician [facility] e EKG-12 LEAD 2021-12-24 15:58:59 Doctor Unassigned, No Univer sity [facility] Name Medical Branch EKG (SCANNED 2021-12-24 05:01:00 Doctor Unassigned, No [facility] sity [facility] DOCUMENTS) Name Medical Branch Encounters Start End Encounter Admission Attending Care Care Encounter Source Date/Time Date/Time Type Type Clinicians Facility Department ID 2022-01-22 2022-01-22 [facility] [id number] Univers 00:00:00 00:00:00 Oge[place]wu [place] [id number] ity [place] [id number] [id number] [address] 2021-12-26 2021-12-26 Telephone Elvira [facility] [id number] Univers 00:00:00 00:00:00 Ogechukwu [place] [id number] [place] [id number] [id number] [facility] NAL [address] [place] [address] 2021-12-26 2021-12-26 Telephone Elvira [facility] [id number] Univers 00:00:00 00:00:00 Ogechukwu [place] [id number] [place] [id number] PROF[place] [id number] Ca dicnm NAL [address] [place] [address] 2021-12-25 2021-12-25 [facility] [id number] Univers 00:00:00 00:00:00 Ogechukwu [place] [id number] [place] [id number] [phone] [address] 2021-12-25 2021-12-25 [facility] [id number] Univers 00:00:00 00:00:00 Marleny [place] [id number] [id number] [id number] Ca dickoki HOOKER [address] [facility] 2021-12-24 2021-12-24 Equal Opportunity Director 2, Adc Lab [facility] [id number] [facility] 13:00:00 13:15:00 Visit Domingo Stephensjacquelyn EMELINA [id number] 0 [facility] [phone] Ca dickoki HOOKER 353 [facility] 2021-12-24 2021-12-24 Outpatient R MARLENY STEPHENS [facility] [id number] [facility] 11:00:00 11:29:45 MARLENY STEPHENS ity [facility] 2021-12-24 2021-12-24 Office Elvira [facility] 1.2.840.[id number] [facility] 11:00:00 11:29:45 Visit Marleny TARANGO 350.1.13.10 ity of [facility] [place] [id number] Ca nadia HOOKER 044 [facility] 2021-12-24 2021-12-24 Orders Doctor BARI 1.2.840.114 [id number] Univers 00:00:00 00:00:00 Only Unassigned, RUPERT 350.1.13.10 [facility] 4.2.7.2.686 Maximino as [phone] [address] 2021-12-21 2021-12-21 Outpatient R MARLENY STEPHENS [facility] [id number] Univers 16:00:00 16:00:00 MARLENY STEPHENS [facility] 2021-12-21 2021-12-21 Outpatient R MARLENY STEPHENS [facility] [id number] [facility] 10:30:00 10:30:00 MARLENY STEPHENSy [facility] 2021-12-172021-12-17 Outpatient R MARLENY STEPHENS [facility] [id number] Univers 15:30:00 15:30:00 MARLENY STEPHENS ity [facility] 2021-12-13 2021-12-13 Outpatient R JOSÉ MIGUEL [facility] [id number] Univers 13:00:00 14:31:24 BENJY ity [facility] 2021-12-13 2021-12-13 Office Pgy1 UNIVERSIT [id number] Univers 13:00:00 14:31:24 Visit Benjy Valdez [facility] 350.1.13.10 [place] [id number] [address] 2021-12-13 2021-12-13 Outpatient R [facility] [id number] Univers 13:00:00 13:00:00 ity of [facility] 2021-11-15 2021-11-15 [facility] José MiguelDONNIEIT 1.2.840.114 [id number] Univers 12:40:21 23:59:00 Encounter Benjy Negron [facility] 350.1.13.10 [place] [id number] [facility] [address] 2021-11-15 2021-11-15 Outpatient R JOSÉ MIGUEL [facility] [id number] Univers 12:40:21 23:59:00 BENJY ity [facility] 2021-11-15 2021-11-15 Office Pgy2 UNIVERSIT [id number] [id number] Univers 14:00:00 15:04:59 Visit Benjy Valdez [facility] 350.1.13.10 it[place] [id number] [address] 2021-11-15 2021-11-15 Outpatient R JOSÉ MIGUEL [facility] [id number] Univers 14:00:00 15:04:59 BENJY ity [facility] 2021-11-15 2021-11-15 Outpatient R JOSÉ MIGUEL [facility] [id number] Univers 12:40:21 12:40:21 BENJY itdon [facility] 2021-11-01 2021-11-01 Equal Opportunity Director [facility] UNIVERSIT 1.2.840.114 [id number] Univers 16:30:00 16:45:00 Visit José Miguel Benjy HEALTH 350.1.13.10 it[place] [id number] [facility] [address] 2021-11-01 2021-11-01 Outpatient Lester VALDEZ [facility] [id number] Univers 16:30:00 16:30:00 BENJY ity [facility] 2021-11-01 2021-11-01 Office Pgy2 UNIVERSIT 1.2.223.804 [id number] Univers 14:30:00 16:11:18 Visit José Miguel Benjy [facility] 350.1.13.10 [place] [id number] [address] 2021-11-01 2021-11-01 Outpatient Lester VALDEZ [facility] [id number] Univers 14:30:00 16:11:18 BENJY ity [facility] 2021-11-01 2021-11-01 Outpatient Lester VALDEZ [facility] [id number] Univers 14:30:00 16:11:18 BENJY itdon [facility] 2021-11-01 2021-11-01 Office Pgy2 UNIVERSIT [id number] [id number] Univers 14:30:00 16:11:18 Visit José Miguel Benjy [facility] 350.1.13.10 [place] [id number] [address] 2021-11-01 2021-11-01 Outpatient Lester VALDEZ [facility] [id number] Univers 14:30:00 16:11:18 BENJY ity [facility] 2021-11-01 2021-11-01 Outpatient Lester VLADEZ [facility] [id number] Univers 14:30:00 16:11:18 BENJY ity [facility] 2021-11-012021-11-01 Orders Doctor BARI 1.2.840.114 [id number] Univers 00:00:00 00:00:00 Only Unassigned, RUPERT 350.1.13.10 ity of [place] [facility] 4.2.7.2.686 Maxim[place] as [phone] [facility] [address] 2021-10-23 2021-10-23 Telephone [facility] [id number] Univers 00:00:00 00:00:00 Kellen R PUBLIC HEALTH MICROBIOLOGIST 350.1.13.10 ity of [facility] 4.2.7.2.686 Maximino as MATERNAL [id number] [facility] ical & CHILD [address] [place] [address] 2021-10-23 2021-10-23 Telephone [facility] [id number] Univers 00:00:00 00:00:00 [place] R PUBLIC HEALTH MICROBIOLOGIST 350.1.13.10 ity of [place] [id number] Maximino as MATERNAL [id number] [facility] & [address] 2021-10-16 2021-10-16 Outpatient R [facility] [id number] Univers 13:33:42 23:59:00 KELLEN larson [facility] 2021-10-16 2021-10-16 [facility] 1.2.840.114 [id number] Univers 13:20:00 23:59:00 Encounter Kellen Batista [place] 350.1.13.10 ity [facility] 4.2.7.2.686 [facility] [id number] [facility] [address] 2021-10-11 2021-10-11 Outpatient R [facility] [id number] Univers 00:00:00 00:00:00 KELLEN larson [facility] 2021-10-02 2021-10-02 Outpatient R [facility] [id number] Univers 13:15:00 13:54:17 KELLEN castillo o jayshree [facility] 2021-10-02 2021-10-02 [facility] 1.2.840.114 [id number] Univers 13:15:00 13:54:17 Visit Kellen R PUBLIC HEALTH MICROBIOLOGIST 350.1.13.10 ity of [facility] 4.2.7.2.686 Maximino as MATERNAL [id number] Med ical & CHILD [address] [place] [address] 2021-10-02 2021-10-02 Outpatient R [facility] [id number] Univers 13:15:00 13:54:17 KELLEN ity o f [facility] 2021-10-02 2021-10-02 Outpatient R [facility] [id number] Univers 13:15:00 13:54:17 KELLEN ity o f [facility] 2021-10-02 2021-10-02 Orders Doctor BARI 1.2.840.114 [id number] Univers 00:00:00 00:00:00 Only Unassigned, RUPERT 350.1.13.10 it[facility] 4.2.7.2.686 [place] as [phone] [address] 2021-09-26 2021-09-26 Equal Opportunity Director 2, Adc Lab [facility] 1.2.840.114 [id number] Univers 15:00:00 15:15:00 Visit Domingo Stephensjacquelyn [place] 350.1.13.1 0 it[place] of [place] [id number] Ca dical NAL 353 [facility] 2021-09-26 2021-09-26 Outpatient R MARLENY STEPHENS [facility] [id number] Univers 13:00:00 14:32:21 MARLENY STEPHENS ity of [facility] 2021-09-26 2021-09-26 Office Elvira [facility] 1.2.840.114 [id number] Univers 13:00:00 14:32:21 [facility] 350.1.13.10 it[place] of [place] [id number] Ca dical NAL 044 [facility] 2021-09-09 2021-09-09 Emergency X HEATHER [facility] ERT [id number] Univers 16:57:00 19:56:00 LIAM arellanodon of [facility] 2021-09-09 2021-09-09 Emergency Heather [facility] 1.2.781.156 [id number] Univers 16:57:00 19:56:00 Liam TARANGO 350.1.13.10 ity of [facility] 4[place]2.7.2.[place] [id number] [facility] [address] 2021-09-05 2021-09-05 Transition HENRI Mcgovern 1.2.840.114 [id number] Univers 00:00:00 00:00:00 of Care Selena LOPEZ 350.1.13.10 i ty of [place]2.[place] [id number] [facility] [address] 2021-08-27 2021-09-02 [facility] Eh Chucky [facility] 1.2.840.1 [id number] Univers 13:42:00 17:32:00 Encounter Xochitl Louise 350.1.13.10 ity of [facility] 4[place]2.7.2.[place] [id number] [facility] [address] 2021-08-27 2021-09-02 Inpatient X DANI [facility] [id number] Univers 13:42:00 17:32:00 XOCHITL castillo [facility] 2021-08-30 2021-08-30 Surgery Genesis [facility] 1.2.840.114 [id number] Univers 08:00:00 08:58:00 Timothy TARANGO 350.1.13.10 ity of [facility] 4.2.7.2.[place]ICAL [id number] [facility] [address] 2021-08-27 2021-08-27 Orders Doctor BARI 1.2.840.114 [id number] Univers 00:00:00 00:00:00 Only Unassigned, RUPERT 350.1.13.10 ity of [place] 4.2.7.2.686 Maxim[place] as [id number] [facility] [address] 2020-06-30 2020-06-30 Emergency Alex Rivers [facility] 1.2.840.114 [id number] Univers 13:42:00 17:30:00 Jessy Tarango 350.1.13.10 i ty of [place] 4.2.7.2.686 [facility] [id number] [facility] [address] 2020-06-30 2020-06-30 Emergency X Alex RIVERS [facility] ERT [id number] Univers 13:42:00 13:42:00 ity of [facility] 2019-06-08 2019-06-08 Orders Doctor BARI 1.2.840.114 [id number] Univers 00:00:00 00:00:00 Only Unassigned, RUPERT 350.1.13.10 ity of [place] [facility] 4.2.7.2.686 [facility] [phone] [address] Results Test Description Test Time Test Comments Results Result Comments Source CT/NG, NAAT, URINE 2021-07-16 16:57:40 Test Item Value Reference Range Interpretation Comme nts GONORRHEA, NAAT NEGATIVE NEGATIVE IMPORTA NT NOTICE: SEE ANNOUNCEMENT AT (test code = [email or web address] Systems Note: 55064) Assay methodolo gy is nucleic acid amplification by transcriptio n mediated amplification (TMA) utilizing the A ptima Combo 2 Assay. CHLAMYDIA, NAAT NEGATIVE NEGATIVE IMPORTA NT NOTICE: SEE ANNOUNCEMENT AT (test code = [email or web address] [email or web address]-[email or web address] Note: 79597) Assay methodolo gy is nucleic acid amplification by transcriptio n mediated amplification (TMA) utilizing the A ptima Combo 2 Assay. TRICHOMONAS, NAAT, [id number] 16:30:51 Test Item Value Reference Range Interpretation Comments TRICHOMONAS, NAAT NEGATIVE NEGATIVE IMPOR TANT NOTICE: SEE (test code = [place] [address]) [email or web address] eCobasUrineKit Note: Assay methodology is nucleic acid amplification b y light industrial m ediated amplification ( TMA) and Hybridization P rotection Assay (HPA) uti lizing the Splyst platform. A negative result does not exclude low lev el infection, specimensamplin g error, or collection erro r. UNLESS OTHERWISE INDIC ATED, ALL TESTING PERFORM ED ATCLINICAL PATHOLOGY LABOR ATORGreencart, INC. [address] [place] [address] LABORATOR Y DIRECTOR: Carola ARGUETA NUMBER [id number] CAP ACCREDITATION N O. [id number]
[2022-05-31 13:59] LABS: Absolute Lymphocytes (CBC) 0.9 K/uL (0.7-4.9); Hematocrit 31.3 % (36.0-45.0); Lymphocytes % 12.2 % (15.3-44.8); MCV 64.6 fL (80-100); MPV 7.4 fL (7.6-11.3); RBC Red Blood Cell Count 4.85 M/uL (3.86-4.86)
[2022-05-31 14:12] LABS: Protime INR 1.39
[2022-05-31 14:19] LABS: Albumin 3.4 g/dL (3.4-5.0); Bilirubin Direct 0.2 mg/dL (0-0.2); Bilirubin Total 0.5 mg/dL (0.2-1.0); Magnesium 1.9 mg/dL (1.6-2.4); Protein, Total 7.5 g/dL (6.4-8.2)
[2022-05-31] MEDS ORDERED: ACETAMINOPHEN 500 MG TAB ONE (14:34)
--- NOTE | 2022-05-31 16:21 | RAD REPORT ---
EXAM DESCRIPTION: Donell Single View05/31/2022 2:52 pm CLINICAL HISTORY: Chest pain COMPARISON: 2021 FINDINGS: The lungs appear clear of acute infiltrate. The heart is normal size IMPRESSION: No acute abnormalities displayed
--- NOTE | 2022-05-31 17:24 | ER ---
Nurse's Notes [facility] Name: Cindy Pandey Age: 46 yrs Sex: Female : 1975 Arrival Date: 05/31/2022 Time: 13:11 Bed 8 Private MD: Diagnosis: Iron deficiency anemia, unspecified;Palpitations Presentation: 05/31 13:14 Chief complaint: Patient states: Palpitations for 4 days. Near syncope event today ll1 while at work. No fever EMS states: BS 185, VSS. A fib rate 70-80. Coronavirus screen: Vaccine status: Patient reports receiving the 2nd dose of the covid vaccine. Client denies travel out of the [place] in the last 14 days. At this time, the client does not indicate any symptoms associated with coronavirus-19. Ebola Screen: Patient denies travel to an Ebola-affected area in the 21 days before illness onset. Initial Sepsis Screen: Does the patient meet any 2 criteria? No. Patient's initial sepsis screen is negative. Does the patient have a suspected source of infection? No. Patient's initial sepsis screen is negative. Risk Assessment: Do you want to hurt yourself or someone else? Patient reports no desire to harm self or others. Onset of symptoms was May 28, 2022. 13:14 Method Of Arrival: EMS ll1 13:14 Acuity: PHILL 3 ll1 Triage Assessment: 17:43 General: Appears in no apparent distress. Behavior is calm, cooperative, appropriate ll1 for age. Pain: Denies pain. REDYE HAND: 17:44 LMP N/A - control method ll1 Historical: - Allergies: 13:13 No Known Allergies; ll1 - PMHx: 13:13 Diabetes - NIDDM; irone defieciency anemia; ll1 - PSHx: 13:13 cataract; section; hernia repair; left knee; lap band; R ovary and tube ll1 removed; - Immunization history:: Client reports receiving the 2nd dose of the Covid vaccine. - Social history:: Smoking status: Patient denies any tobacco usage or history of. Screenin:49 [facility] ED Fall Risk Assessment (Adult) History of falling in the last 3 months, ll1 including since admission Yes- physiologic fall (2 pts) Impaired Gait Yes (1 pt) Mobility Assist Device Used Yes (1 pt) Score/Fall Risk Level 3 or more points = High Risk Oriented to surroundings, Maintained a safe environment, Educated pt \T\ family on fall prevention, incl call for assistance when getting out of bed, Hourly rounding (assess needs \T\ fall precautionary measures) done, Utilized family, sitter, or virtual physician interventional cardiologist as indicated. Abuse screen: Denies threats or abuse. Nutritional screening: No deficits noted. Tuberculosis screening: No symptoms or risk factors identified. Assessment: 14:34 Reassessment: No changes from previously documented assessment. Patient and/or family ll1 updated on plan of care and expected duration. Pain level reassessed. Patient is alert, oriented x 3, equal unlabored respirations, skin warm/dry/pink. 15:24 Reassessment: No changes from previously documented assessment. Patient and/or family ll1 updated on plan of care and expected duration. Pain level reassessed. Patient is alert, oriented x 3, equal unlabored respirations, skin warm/dry/pink. 17:02 Reassessment: No changes from previously documented assessment. Patient and/or family ll1 updated on plan of care and expected duration. Pain level reassessed. Patient is alert, oriented x 3, equal unlabored respirations, skin warm/dry/pink. 17:43 Reassessment: No changes from previously documented assessment. Patient and/or family ll1 updated on plan of care and expected duration. Pain level reassessed. Patient is alert, oriented x 3, equal unlabored respirations, skin warm/dry/pink. Patient states feeling better. Vital Signs: 13:14 BP 133 / 61; Pulse 70; Resp 18; Temp 97.9; Weight 140.61 kg; Height 6 ft. 0 in. (182.88 ll1 cm); Pain 0/10; 14:34 BP 119 / 65; Pulse 74; Resp 18; Pulse Ox 96% on R/A; ll1 16:44 Pulse 79; Resp 17; Pulse Ox 96% ; ll1 16:54 BP 95 / 57 Supine; Pulse 76; ll1 16:56 BP 110 / 66 Sitting; Pulse 82; ll1 16:58 BP 123 / 61 Standing; Pulse 90; ll1 17:42 BP 109 / 57; Pulse 80; Resp 16; Pulse Ox 97% on R/A; ll1 13:14 Body Mass Index 42.04 (140.61 kg, 182.88 cm) ll1 ED Course: 13:11 Patient arrived in ED. eb 13:13 Amelia Alba F[facility]-C is [facility] snw 13:13 Raafel Hill MD is Attending Physician. snw 13:13 Inocencia Velasquez, RN is Primary Nurse. ll1 13:13 Arm band placed on Patient placed in an exam room, on a stretcher. ll1 13:16 Triage completed. ll1 13:49 Patient has correct armband on for positive identification. Call light in reach. Side ll1 rails up X2. Client placed on continuous cardiac and pulse oximetry monitoring. NIBP monitoring applied. media monitor on. 13:49 Inserted saline lock: 22 gauge in right antecubital area, using aseptic technique. ll1 Blood collected. 14:53 XRAY Chest (1 view) In Process Unspecified. EDMS 17:43 No provider procedures requiring assistance completed. IV discontinued, intact, ll1 bleeding controlled, No redness/swelling at site. Pressure dressing applied. Administered Medications: 14:34 Drug: Tylenol 1000 mg Route: PO; ll1 17:43 Follow up: Response: No adverse reaction; Pain is decreased ll1 Medication: 13:50 VIS not applicable for this client. ll1 Outcome: 17:23 Discharge ordered by . snw 17:43 Discharged to home ambulatory. ll1 17:43 Condition: stable 17:43 Discharge instructions given to patient, Instructed on discharge instructions, follow up and referral plans. medication usage, Demonstrated understanding of instructions, follow-up care, medications, Prescriptions given X 1. 17:44 Patient left the ED. ll1 Signatures: Dispatcher [employer] EDFL Amelia Alba FNP-C FNP-Stephanie Manriquez Inocencia Velasquez, RN RN ll1
--- NOTE | 2022-05-31 17:24 | EDPHYS ---
Physician Documentation [facility] Name: Cindy Pandey Age: 46 yrs Sex: Female : 1975 Arrival Date: 05/31/2022 Time: 13:11 Bed 8 Private MD: MAHIN Physician [place] HPI: 05/31 13:38 This 46 yrs old Female presents to ER via EMS with complaints of chest discomfort, snw palpitations. 13:38 The patient presents with a history of heart racing. Context: The symptoms occur with snw light activity. Onset: The symptoms/episode began/occurred 4 day(s) ago, and became persistent. Duration: The patient or guardian reports multiple episodes, that wax and wane. Associated signs and symptoms: Pertinent positives: chest tightness. Severity of symptoms: At their worst the symptoms were moderate. The patient has experienced similar episodes in the past, several times. The patient has not recently seen a physician. BOAT PERSON: 17:44 LMP N/A - control method ll1 Historical: - Allergies: 13:13 No Known Allergies; ll1 - PMHx: 13:13 Diabetes - NIDDM; irone defieciency anemia; ll1 - PSHx: 13:13 cataract; section; hernia repair; left knee; lap band; R ovary and tube ll1 removed; - Immunization history:: Client reports receiving the 2nd dose of the Covid vaccine. - Social history:: Smoking status: Patient denies any tobacco usage or history of. ROS: 13:39 Constitutional: Negative for fever, chills, and weight loss, Eyes: Negative for injury, snw pain, redness, and discharge, ENT: Negative for injury, pain, and discharge, Neck: Negative for injury, pain, and swelling, Respiratory: Negative for shortness of breath, cough, wheezing, and pleuritic chest pain, Abdomen/GI: Negative for abdominal pain, nausea, vomiting, diarrhea, and constipation, Back: Negative for injury and pain, : Negative for injury, bleeding, discharge, and swelling, MS/Extremity: Negative for injury and deformity, Skin: Negative for injury, rash, and discoloration, Neuro: Negative for headache, weakness, numbness, tingling, and seizure, Psych: Negative for depression, anxiety, suicide ideation, homicidal ideation, and hallucinations. 13:39 Cardiovascular: Positive for chest pain, of the chest, palpitations. Exam: 14:12 Constitutional: This is a well developed, well nourished patient who is awake, alert, snw and in no acute distress. Head/Face: Normocephalic, atraumatic. Eyes: Pupils equal round and reactive to light, extra-ocular motions intact. Lids and lashes normal. Conjunctiva and sclera are non-icteric and pale. Cornea within normal limits. Periorbital areas with no swelling, redness, or edema. Neck: Trachea midline, no thyromegaly or masses palpated, and no cervical lymphadenopathy. Supple, full range of motion without nuchal rigidity, or vertebral point tenderness. No Meningismus. Chest/axilla: Normal chest wall appearance and motion. Nontender with no deformity. No lesions are appreciated. Cardiovascular: Regular rate and rhythm with a normal S1 and S2. No gallops, murmurs, or rubs. Normal PMI, no JVD. No pulse deficits. Respiratory: Lungs have equal breath sounds bilaterally, clear to auscultation and percussion. No rales, rhonchi or wheezes noted. No increased work of breathing, no retractions or nasal flaring. Abdomen/GI: Soft, non-tender, with normal bowel sounds. No distension or tympany. No guarding or rebound. No evidence of tenderness throughout. Back: No spinal tenderness. No costovertebral tenderness. Full range of motion. Skin: Warm, dry with normal turgor. Normal color with no rashes, no lesions, and no evidence of cellulitis. MS/ Extremity: Pulses equal, no cyanosis. Neurovascular intact. Full, normal range of motion. Neuro: Awake and alert, GCS 15, oriented to person, place, time, and situation. Cranial nerves II-XII grossly intact. Motor strength 5/5 in all extremities. Sensory grossly intact. Cerebellar exam normal. Normal gait. Psych: Awake, alert, with orientation to person, place and time. Behavior, mood, and affect are within normal limits. 14:12 ENT: Nares patent. No nasal discharge, no septal abnormalities noted. Tympanic membranes are normal and external auditory canals are clear. Oropharynx with no redness, swelling, or masses, exudates, or evidence of obstruction, uvula midline. Mucous membranes moist. Vital Signs: 13:14 BP 133 / 61; Pulse 70; Resp 18; Temp 97.9; Weight 140.61 kg; Height 6 ft. 0 in. (182.88 ll1 cm); Pain 0/10; 14:34 BP 119 / 65; Pulse 74; Resp 18; Pulse Ox 96% on R/A; ll1 16:44 Pulse 79; Resp 17; Pulse Ox 96% ; ll1 16:54 BP 95 / 57 Supine; Pulse 76; ll1 16:56 BP 110 / 66 Sitting; Pulse 82; ll1 16:58 BP 123 / 61 Standing; Pulse 90; ll1 17:42 BP 109 / 57; Pulse 80; Resp 16; Pulse Ox 97% on R/A; ll1 13:14 Body Mass Index 42.04 (140.61 kg, 182.88 cm) ll1 MDM: 13:13 Patient medically screened. snw 17:25 TRICIA Risk Score: Total Score = 0. Differential diagnosis: arrythmia, dehydration. Data snw reviewed: vital signs, nurses notes, lab test result(s), EKG. Counseling: I had a detailed discussion with the patient and/or guardian regarding: the historical points, exam findings, and any diagnostic results supporting the discharge/admit diagnosis, lab results, radiology results, the need for outpatient follow up, to return to the emergency department if symptoms worsen or persist or if there are any questions or concerns that arise at home. Special discussion: I have referred the patient to see his PCP for further evaluation of high blood pressure. Based on the history and exam findings, there is no indication for further emergent testing or inpatient evaluation. I discussed with the patient/guardian the need to see the metal building assembler/oncologist for further evaluation of the symptoms. I discussed with the patient/guardian the need to see the primary care provider for further evaluation of the symptoms. 05/31 13:41 Order name: Basic Metabolic Panel; Complete Time: 14:w 05/31 13:41 Order name: CBC with Diff; Complete Time: 14:11 05/31 13:41 Order name: LFT's; Complete Time: 14:22 w 05/31 13:41 Order name: Magnesium; Complete Time: 14:05/31 13:41 Order name: NT PRO-BNP; Complete Time: 14:05/31 13:41 Order name: PT-INR; Complete Time: 14:13 snw 05/31 13:41 Order name: Troponin HS; Complete Time: 14:22 snw 05/31 13:41 Order name: XRAY Chest (1 view); Complete Time: 16:28 w 05/31 13:41 Order name: EKG; Complete Time: 13:42 snw 05/31 13:41 Order name: Cardiac monitoring; Complete Time: 14:33 snw 05/31 13:41 Order name: EKG - Nurse/Tech; Complete Time: 14:33 snw 05/31 16:58 Order name: Add On-Lab w 05/31 17:11 Order name: Iron; Complete Time: 17:23 EDMS 05/31 13:41 Order name: IV Saline Lock; Complete Time: 13:49 w 05/31 13:41 Order name: Labs collected and sent; Complete Time: 13:49 snw 05/31 13:41 Order name: O2 Per Protocol; Complete Time: 13:42 w 05/31 13:41 Order name: O2 Sat Monitoring; Complete Time: 13:41 w 05/31 16:32 Order name: Orthostatics; Complete Time: 17:01 snw EC:30 Rate is 69 beats/min. Rhythm is regular. Q waves are Present in leads II, III, aVF. snw Clinical impression: NSR w/ Non-specific ST/T Changes. Administered Medications: 14:34 Drug: Tylenol 1000 mg Route: PO; ll1 17:43 Follow up: Response: No adverse reaction; Pain is decreased ll1 Disposition Summary: 05/31/22 17:23 Discharge Ordered Location: Home snw Condition: Stable snw Diagnosis - Iron deficiency anemia, unspecified snw - Palpitations snw Followup: snw - With: Emergency Department - When: As needed - Reason: Worsening of condition Followup: snw - With: Private Physician - When: 2 - 3 days - Reason: Recheck today's complaints, Continuance of care, Re-evaluation by your physician Discharge Instructions: - Discharge Summary Sheet snw - Iron Deficiency Anemia, Adult snw - Iron-Rich Diet snw - Palpitations snw Forms: - Medication Reconciliation Form snw - Thank You Letter snw - Antibiotic Education snw - Prescription Opioid Use snw - Work release form snw Prescriptions: - Ferrous Sulfate 325 mg (65 mg Iron) Oral Tablet - take 1 tablet by ORAL route every 8 hours; 90 tablet; Refills: 0, Product snw Selection Permitted Signatures: Dispatcher [employer] EDAmelia Ayala, AVELINO-C FLAVORING MACHINE OPERATOR-Liamw Inocencia Velasquez, RN RN ll1
[2022-05-31 17:58] VITALS: TEMP 97.9
[2022-05-31 18:11] VITALS: BP 109/57; O2SAT 97
--- NOTE | 2022-06-03 18:48 | EKG ---
Test Date: 2022-05-31 Test Time: 14:26:37 Corporate Events Director: MADELINE MEASUREMENT RESULTS: Intervals: Rate: 69 WI: 164 QRSD: 80 QT: 408 QTc: 437 [place]: P: 66 WI: 164 QRS: 73 T: 70 INTERPRETIVE STATEMENTS: Sinus rhythm with premature atrial complexes Otherwise normal ECG Compared to ECG 02/15/2022 16:20:31 Atrial premature complex(es) now present Myocardial infarct finding no longer present Electronically Signed On 06-03-22 18:43:00 TENANT RELATIONS COORDINATOR by Chivo Rodney
== END 2022-05-31 17:44 | disposition home or self-care (01) ==
LOC: ER 13:08
DX: D50.9 Iron deficiency anemia, unspecified (principal); R00.2 Palpitations
CPT/HCPCS: 36415; 71045; 80048; 80076; 83540; 83735; 83880; 84484; 85025; 85610; 93005; 99284

== ENCOUNTER 2022-06-01 08:57 | Emergency (ER) | payer OTHER ==
--- OUTSIDE RECORDS SUMMARY | 2022-06-01 09:01 | XMS REPORT | Continuity of Care Document ---
:1975 Author Organization [facility] t Address [address] [place] [address] Dr. Knight[address] [place] [id number] Care Team Providers Name Role Phone Elvira AVIATION MECHANIC, Marleny Primary Care Physician Elvira AVIATION MECHANIC, Marleny Attending Clinician 2, Ad[facility] Lab Attending Clinician Unavailable MARLENY STEPHENS Attending Clinician Unavailable Doctor Unassigned, Curran Attending Clinician Unavailable BENJY VALDEZ Attending Clinician Unavailable Pgy1 Attending Clinician Unavailable Benjy Valdez MD Attending Clinician Pgy2 Attending Clinician Unavailable [facility] Attending Clinician Unavailable Kellen Traylor Attending Clinician [...] [place] mckenna exam[place] mckenna exam) 00 [facility] mckenna Branch History of History of Disease Active U nivers bilateral bilateral 6-28 ity of tubal tubal 00:00: [place] ligation ligation 00 Medica l Branch Encounter Encounter Disease Active Uni vers for 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 ce of ce of Medical other other Branch contracept contracept brandi brandi Menorrhagi Menorrhagi Disease Active U nivers a with a with 6-28 ity of regular regular 00:00: [place] cycle cycle 00 Medical Branch Fibroids, Fibroids, Disease Active Uni vers submucosal submucosal 6-28 it y of 00:00: Medical Branch Cellulitis Cellulitis Disease Active U nivers of foot of foot 5-24 ity of 00:00: Medical Branch Cellulitis Cellulitis Disease Active U nivers 5-23 ity of 00:00: [place] Medical Branch BMI BMI Disease Active Univers 40.0-44.9, 40.0-44.9, 5-23 it y of adult adult 00:00: Medical Branch Obesity Obesity Disease Active 2005-04 Overview: [facility] ers 2-04 Formattin ity of 00:00: g of this note Medical might be Branch different from the original. ICD10 Diagnosis Term Press Assistant Utility Type 1 Type 1 Disease Active Overview: [facility] s diabetes diabetes 3-10 Formattin ity of mellitus mellitus 00:00: g of this Maximino as 00 note Medical might be Branch different from the original. ICD10 Diagnosis Term Press Assistant Utility Allergies, Adverse Reactions, Alerts Allergy Allergy Status Severity Reaction(s) Onset Inactive Treating Comm ents Source Name Type Date Date Clinician NO KNOWN Drug Active Univers ALLERGIE Class ity of [facility] Social History Social Habit Start Date Stop Date Quantity Comments Source Alcohol intake 2021-12-24 2021-12-24 Current University of 00:00:00 00:00:00 non-drinker of [facility] alcohol (finding) Branch Exposure to 2021-12-03 2021-12-13 Not sure [facility] 00:00:00 13:22:00 [place] Medical (event) Branch Tobacco use and 2021-11-01 2021-11-01 Smokeless tobacco Un iversity of exposure 00:00:00 00:00:00 non-user [facility] Sex Ass[birth year] At [birth year] Universit y of 00:00:00 00:00:00 [facility] Smoking Status Start Date Stop Date Source Never smoked tobacco [facility] Medications Ordered Filled Start Stop Current Ordering Indication Dosage Frequency Signature Comments Components Source Medication Medication Date Date Medication? Clinician (SIG) Name Name dulaglutide 2021-04- No [id number] 1.5mg inject 1 Univers (TRULICITY) 04-17 Pen under it y of 1.5 mg/0.5 00:00: 05:59 [place] PnIj 00 :00 weekly for Medica l 90 days. Branch dulaglutide 2021-04- No [id number] 1.5mg inject 1 Univers (TRULICITY) 04-17 Pen under it y of 1.5 mg/0.5 00:00: 05:59 [place] PnIj 00 :00 weekly for Medica l 90 days. Branch dulaglutide 2021-04- No [id number] 1.5mg inject 1 Univers (TRULICITY) 04-17 Pen under it y of 1.5 mg/0.5 00:00: 05:59 [place] PnIj 00 :00 weekly for Medica l 90 days. [place] ondansetron 2021-04 Yes [id number] 4mg Take 1 Univers 4 mg 0-19 tablet by ity of disintegrat 00:00: mouth [place] ing tablet 00 every 8 Medica l (eight) Branch hours as needed for Nausea and Vomiting (N/V). tirzepatide 2021-04- No [id number] 5mg inject 5 Univers 2.5 mg/0.5 0-19 11-19 mg under ity of mL 00:00: 05:59 the skin [place] subcutaneou 00 :00 weekly for Me dical s injection 30 days. Bran ch tirzepatide 2021-04- No [id number] 5mg inject 5 Univers 2.5 mg/0.5 0-19 11-19 mg under ity of mL 00:00: 05:59 the skin [place] subcutaneou 00 :00 weekly for Me dical s injection 30 days. Bran ch tirzepatide 2021-04- No [id number] 5mg inject 5 Univers 2.5 mg/0.5 0-19 11-19 mg under ity of mL 00:00: 05:59 the skin [place] subcutaneou 00 :00 weekly for Me dical s injection 30 days. [facility] tirzepatide 2021-04- No [id number] 5mg inject 5 Univers 2.5 mg/0.5 0-19 11-19 mg under ity of mL 00:00: 05:59 the skin [place] subcutaneou 00 :00 weekly for Me dical s injection 30 days. [facility] tirzepatide 2021-04- No [id number] 5mg inject 5 Univers 2.5 mg/0.5 0-19 11-19 mg under ity of mL 00:00: 05:59 the skin [place] subcutaneou 00 :00 weekly for Me dical s injection 30 days. [facility] tirzepatide 2021-04- No [id number] 5mg inject 5 Univers 2.5 mg/0.5 0-19 11-19 mg under ity of mL 00:00: 05:59 the skin [place] subcutaneou 00 :00 weekly for Me dical s injection 30 days. [facility] tirzepatide 2021-04- No [id number] 5mg inject 5 Univers 2.5 mg/0.5 0-19 10-11 mg under ity of mL 00:00: 00:00 the skin [place] subcutaneou 00 :00 weekly for Me dical s injection 30 days. Bran tirzepatide 2021-04- No [id number] 5mg inject 5 Univers 2.5 mg/0.5 0-19 10-11 mg under ity of mL 00:00: 00:00 the skin [place] subcutaneou 00 :00 weekly for Me dical s injection 30 days. Kaden tripathi dulaglutide 2021-04- No [id number] .75mg inject 1 Univers (TRULICITY) 0-11 11-11 Pen under it y of 0.75 mg/0.5 00:00: 05:59 [place] mL PnIj 00 :00 weekly for Medica l 30 days. Merlin dulaglutide 2021-04- No [id number] .75mg inject 1 Univers (TRULICITY) 0-11 11-11 Pen under it y of 0.75 mg/0.5 00:00: 05:59 [place] mL PnIj 00 :00 weekly for Medica l 30 days. Merlin dulaglutide 2021-04- No [id number] .75mg inject 1 Univers (TRULICITY) 0-11 11-11 Pen under it y of 0.75 mg/0.5 00:00: 05:59 [place] mL PnIj 00 :00 weekly for Medica l 30 days. Branch metFORMIN 2021-0 Yes [id number] 1000mg Take 2 Univers 500 mg 9-19 tablets by ity of tablet 00:00: mouth in [place] the Medical morning Branch and 2 tablets in the evening. Take with meals. nystatin 2021-0 Yes [id number] Apply to U [employer] 100,000 9-19 area(s) 2 ity of unit/gram 00:00: (two) [place] cream 00 times Medical daily. Branch metFORMIN 2021-0 Yes [id number] 1000mg Take 2 Univers 500 mg 9-19 tablets by ity of tablet 00:00: mouth in [place] the Medical morning Branch and 2 tablets in the evening. Take with meals. nystatin 2021-0 Yes [id number] Apply to U nivers 100,000 9-19 area(s) 2 ity of unit/gram 00:00: (two) [place] cream 00 times Medical daily. Branch metFORMIN 2021-0 Yes [id number] 1000mg Take 2 Univers 500 mg 9-19 tablets by ity of tablet 00:00: mouth in [place] the Medical morning Branch and 2 tablets in the evening. Take with meals. nystatin 202-0 Yes [id number] Apply to U nivers 100,000 9-19 area(s) 2 ity of unit/gram 00:00: (two) [place] cream 00 times Medical daily. Branch metFORMIN 2022-0 Yes [id number] 1000mg Take 2 Univers 500 mg 9-19 tablets by ity of tablet 00:00: mouth in [place] 00 the Medical morning Branch and 2 tablets in the evening. Take with meals. nystatin 2022-0 Yes [id number] Apply to U nivers 100,000 9-19 area(s) 2 ity of unit/gram 00:00: (two) [place] cream 00 times Medical daily. Branch metFORMIN 2022-0 Yes [id number] 1000mg Take 2 Univers 500 mg 9-19 tablets by ity of tablet 00:00: mouth in [place] 00 the Medical morning Branch and 2 tablets in the evening. Take with meals. nystatin 2022-0 Yes [id number] Apply to U nivers 100,000 9-19 area(s) 2 ity of unit/gram 00:00: (two) [place] cream 00 times Medical daily. Branch metFORMIN 2022-0 Yes [id number] 1000mg Take 2 Univers 500 mg 9-19 tablets by ity of tablet 00:00: mouth in [place] 00 the Medical morning Branch and 2 tablets in the evening. Take with meals. nystatin 2022-0 Yes [id number] Apply to U nivers 100,000 9-19 area(s) 2 ity of unit/gram 00:00: (two) [place] cream 00 times Medical daily. Branch metFORMIN 2022-0 Yes [id number] 1000mg Take 2 Univers 500 mg 9-19 tablets by ity of tablet 00:00: mouth in [place] 00 the Medical morning Branch and 2 tablets in the evening. Take with meals. nystatin 2022-0 Yes [id number] Apply to U nivers 100,000 9-19 area(s) 2 ity of unit/gram 00:00: (two) [place] cream 00 times Medical daily. Branch metFORMIN 2022-0 Yes [id number] 1000mg Take 2 Univers 500 mg 9-19 tablets by ity of tablet 00:00: mouth in [place] 00 the Medical morning Branch and 2 tablets in the evening. Take with meals. nystatin 2022-0 Yes [id number] Apply to U nivers 100,000 9-19 area(s) 2 ity of unit/gram 00:00: (two) [place] cream 00 times Medical daily. Branch metFORMIN Yes [id number] 1000mg Take 2 Univers 500 mg 9-19 tablets by ity of tablet 00:00: mouth in [place] 00 the Medical morning Branch and 2 tablets in the evening. Take with meals. nystatin Yes [id number] [facility] 9-19 area(s) 2 ity of unit/gram 00:00: (two) [place] cream 00 times Medical daily. Branch tirzepatide 2021- No [id number] 2.5mg inject 2.5 Univers 2.5 mg/0.5 9-19 10-20 mg under ity of mL 00:00: 04:59 the skin [place] subcutaneou 00 :00 weekly for Me dical s injection 30 days. Bran ch tirzepatide 2021- No [id number] 10mg inject 10 Univers 5 mg/0.5 mL 9-19 10-20 mg under ity of subcutaneou 00:00: 04:59 [place] s injection 00 :00 weekly for Me dical 30 days. Branch tirzepatide 2021- No [id number] 2.5mg inject 2.5 Univers 2.5 mg/0.5 9-19 10-20 mg under ity of mL 00:00: 04:59 the skin [place] subcutaneou 00 :00 weekly for Me dical s injection 30 days. Bran ch tirzepatide 2021- No [id number] 10mg inject 10 Univers 5 mg/0.5 mL 9-19 10-20 mg under ity of subcutaneou 00:00: 04:59 [place] s injection 00 :00 weekly for Me dical 30 days. Branch tirzepatide 2021- No [id number] 2.5mg inject 2.5 Univers 2.5 mg/0.5 9-19 10-20 mg under ity of mL 00:00: 04:59 the skin [place] subcutaneou 00 :00 weekly for Me dical s injection 30 days. Bran ch tirzepatide 2021- No [id number] 10mg inject 10 Univers 5 mg/0.5 mL 9-19 10-20 mg under ity of subcutaneou 00:00: 04:59 [place] s injection 00 :00 weekly for Me dical 30 days. Branch tirzepatide 2021- No [id number] 2.5mg inject 2.5 Univers 2.5 mg/0.5 9-19 10-20 mg under ity of mL 00:00: 04:59 the skin [place] subcutaneou 00 :00 weekly for Me dical s injection 30 days. Bran ch tirzepatide 2021- No [id number] 10mg inject 10 Univers 5 mg/0.5 mL 9-19 10-20 mg under ity of subcutaneou 00:00: 04:59 [place] s injection 00 :00 weekly for Me dical 30 days. Branch tirzepatide No [id number] 2.5mg inject 2.5 Univers 2.5 mg/0.5 9-19 10-20 mg under ity of mL 00:00: 04:59 the skin [place] subcutaneou 00 :00 weekly for Me dical s injection 30 days. Bran ch tirzepatide 2021- No [id number] 10mg inject 10 Univers 5 mg/0.5 mL 9-19 10-20 mg under ity of subcutaneou 00:00: 04:59 [place] s injection 00 :00 weekly for Me dical 30 days. Branch tirzepatide 2021- No [id number] 2.5mg inject 2.5 Univers 2.5 mg/0.5 9-19 10-20 mg under ity of mL 00:00: 04:59 the skin [place] subcutaneou 00 :00 weekly for Me dical s injection 30 days. Bran ch tirzepatide 2021- No [id number] 10mg inject 10 Univers 5 mg/0.5 mL 9-19 10-20 mg under ity of subcutaneou 00:00: 04:59 [place] s injection 00 :00 weekly for Me dical 30 days. Branch tirzepatide 2021- No [id number] 2.5mg inject 2.5 Univers 2.5 mg/0.5 9-19 10-11 mg under ity of mL 00:00: 00:00 the skin [place] subcutaneou 00 :00 weekly for Me dical s injection 30 days. Bran ch tirzepatide 2021- No [id number] 10mg inject 10 Univers 5 mg/0.5 mL 9-19 10-11 mg under ity of subcutaneou 00:00: 00:00 [place] s injection 00 :00 weekly for Me dical 30 days. Branch tirzepatide 2021- No [id number] 2.5mg inject 2.5 Univers 2.5 mg/0.5 9-19 10-11 mg under ity of mL 00:00: 00:00 the skin [place] subcutaneou 00 :00 weekly for Me dical s injection 30 days. Bran ch tirzepatide 2021- No [id number] 10mg inject 10 Univers 5 mg/0.5 mL 9-19 10-11 mg under ity of subcutaneou 00:00: 00:00 [place] s injection 00 :00 weekly for Me dical 30 days. Branch blood sugar Yes [id number] Check Univers diagnostic 6-22 blood ity of strip 00:00: sugar 2 00 times a Medical day. Branch E11.9. Brand per insurance. Lancets Yes [id number] Check Univ ers Misc 6-22 blood ity of 00:00: sugar 2 [place] 00 times a Medical day. Branch E11.9. Brand per insurance. Blood-Gluco Yes [id number] Check Univers se Meter 6-22 sugars 2 ity of Kit 00:00: times a [place] 00 day. Dx. Medical Code E11.9 Branch Brand per Insurance metFORMIN Yes [id number] 500mg Take 1 Univers 500 mg 6-22 tablet by ity of tablet 00:00: mouth 2 [place] 00 (two) Medical times Branch daily with meals. omeprazole Yes [id number] 40mg Take 1 Univers 40 mg 6-22 capsule by ity of capsule 00:00: mouth [place] 00 daily. Medical Branch blood sugar Yes [id number] Check Univers diagnostic 6-22 blood ity of strip 00:00: sugar 2 [place] 00 times a Medical day. Branch E11.9. Brand per insurance. Lancets 2021-0 Yes [id number] Check Univ ers Misc 6-22 blood ity of 00:00: sugar 2 [place] 00 times a Medical day. Branch E11.9. Brand per insurance. Blood-Gluco 2021-0 Yes [id number] Check Univers se Meter 6-22 sugars 2 ity of Kit 00:00: times a [place] 00 day. Dx. Medical Code E11.9 Branch Brand per Insurance omeprazole 2021-0 Yes [id number] 40mg Take 1 Univers 40 mg 6-22 capsule by ity of capsule 00:00: mouth 00 daily. Medical Branch blood sugar 2021-0 Yes [id number] Check Univers diagnostic 6-22 blood ity of strip 00:00: sugar 2 [place] times a Medical day. Branch E11.9. Brand per insurance. Lancets 2021-0 Yes [id number] Check Univ ers Misc 6-22 blood ity of 00:00: sugar 2 times a Medical day. Branch E11.9. Brand per insurance. Blood-Gluco 2021-0 Yes [id number] Check Univers se Meter 6-22 sugars 2 ity of Kit 00:00: times a day. Dx. Medical Code E11.9 Branch Brand per Insurance omeprazole 2021-0 Yes [id number] 40mg Take 1 Univers 40 mg 6-22 capsule by ity of capsule 00:00: mouth [place] 00 daily. Medical Branch blood sugar 2021-0 Yes [id number] Check Univers diagnostic 6-22 blood ity of strip 00:00: sugar 2 times a Medical day. Branch E11.9. Brand per insurance. Lancets 2021-0 Yes [id number] Check Univ ers Misc 6-22 blood ity of 00:00: sugar 2 00 times a Medical day. Branch E11.9. Brand per insurance. Blood-Gluco 2-0 Yes [id number] Check Univers se Meter 6-22 sugars 2 ity of Kit 00:00: times a 00 day. Dx. Medical Code E11.9 Branch Brand per Insurance omeprazole 2021-0 Yes [id number] 40mg Take 1 Univers 40 mg 6-22 capsule by ity of capsule 00:00: mouth [place] 00 daily. Medical Branch blood sugar 2021-0 Yes [id number] Check Univers diagnostic 6-22 blood ity of strip 00:00: sugar 2 times a Medical day. Branch E11.9. Brand per insurance. Lancets 2021-0 Yes [id number] Check Univ ers Misc 6-22 blood ity of 00:00: sugar 2 00 times a Medical day. Branch E11.9. Brand per insurance. Blood-Gluco 2021-0 Yes [id number] Check Univers se Meter 6-22 sugars 2 ity of Kit 00:00: times a 00 day. Dx. Medical Code E11.9 Branch Brand per Insurance omeprazole 2021-0 Yes [id number] 40mg Take 1 Univers 40 mg 6-22 capsule by ity of capsule 00:00: mouth 00 daily. Medical Branch blood sugar 0 Yes [id number] Check Univers diagnostic 6-22 blood ity of strip 00:00: sugar 2 times a Medical day. Branch E11.9. Brand per insurance. Lancets 2021-0 Yes [id number] Check Univ ers Misc 6-22 blood ity of 00:00: sugar 2 times a Medical day. Branch E11.9. Brand per insurance. Blood-Gluco 2021-0 Yes [id number] Check Univers se Meter 6-22 sugars 2 ity of Kit 00:00: times a day. Dx. Medical Code E11.9 Branch Brand per Insurance omeprazole 2021-0 Yes [id number] 40mg Take 1 Univers 40 mg 6-22 capsule by ity of capsule 00:00: mouth daily. Medical Branch blood sugar 2021-0 Yes [id number] Check Univers diagnostic 6-22 blood ity of strip 00:00: sugar 2 times a Medical day. Branch E11.9. Brand per insurance. Lancets 2021-0 Yes [id number] Check Univ ers Misc 6-22 blood ity of 00:00: sugar 2 times a Medical day. Branch E11.9. Brand per insurance. Blood-Gluco 2021-0 Yes [id number] Check Univers se Meter 6-22 sugars 2 ity of Kit 00:00: times a day. Dx. Medical Code E11.9 Branch Brand per Insurance omeprazole 2021-0 Yes [id number] 40mg Take 1 Univers 40 mg 6-22 capsule by ity of capsule 00:00: mouth [place] 00 daily. Medical Branch blood sugar 2021-0 Yes [id number] Check Univers diagnostic 6-22 blood ity of strip 00:00: sugar 2 [place] 00 times a Medical day. Branch E11.9. Brand per insurance. Lancets 2021-0 Yes [id number] Check Univ ers Misc 6-22 blood ity of 00:00: sugar 2 [place] 00 times a Medical day. Branch E11.9. Brand per insurance. Blood-Gluco 2021-0 Yes [id number] Check Univers se Meter 6-22 sugars 2 ity of Kit 00:00: times a [place] 00 day. Dx. Medical Code E11.9 Branch Brand per Insurance omeprazole 2021-0 Yes [id number] 40mg Take 1 Univers 40 mg 6-22 capsule by ity of capsule 00:00: mouth [place] 00 daily. Medical Branch blood sugar 2021-0 Yes [id number] Check Univers diagnostic 6-22 blood ity of strip 00:00: sugar 2 [place] 00 times a Medical day. Branch E11.9. Brand per insurance. Lancets 2021-0 Yes [id number] Check Univ ers Misc 6-22 blood ity of 00:00: sugar 2 [place] 00 times a Medical day. Branch E11.9. Brand per insurance. Blood-Gluco 2021-0 Yes [id number] Check Univers se Meter 6-22 sugars 2 ity of Kit 00:00: times a [place] 00 day. Dx. Medical Code E11.9 Branch Brand per Insurance omeprazole 2021-0 Yes [id number] 40mg Take 1 Univers 40 mg 6-22 capsule by ity of capsule 00:00: mouth [place] 00 daily. Medical Branch blood sugar 2021-0 Yes [id number] Check Univers diagnostic 6-22 blood ity of strip 00:00: sugar 2 [place] 00 times a Medical day. Branch E11.9. Brand per insurance. Lancets 2021-0 Yes [id number] Check Univ ers Misc 6-22 blood ity of 00:00: sugar 2 [place] 00 times a Medical day. Branch E11.9. Brand per insurance. Blood-Gluco 2-0 Yes [id number] Check Univers se Meter 6-22 sugars 2 ity of Kit 00:00: times a [place] 00 day. Dx. Medical Code E11.9 Branch Brand per Insurance omeprazole 2021-0 Yes [id number] 40mg Take 1 Univers 40 mg 6-22 capsule by ity of capsule 00:00: mouth [place] 00 daily. Medical Branch metFORMIN 2021-0 2- No [id number] 500mg Take 1 Univers 500 mg 6-22 - tablet by ity of tablet 00:00: 00:00 mouth 2 [place] 00 :00 (two) Medical times Branch daily with meals. metFORMIN 2021-0 2- No [id number] 500mg Take 1 Univers 500 mg 6-22 - tablet by ity of tablet 00:00: 00:00 mouth 2 [place] 00 :00 (two) Medical times Branch daily with meals. diclofenac 2022-0 Yes 75mg Take 75 mg U nivers 75 mg EC 5-22 by mouth 2 ity o f tablet 00:00: (two) [place] 00 times Medical daily. Branch diclofenac 2022-0 Yes 75mg Take 75 mg U nivers 75 mg EC 5-22 by mouth 2 ity o f tablet 00:00: (two) [place] 00 times Medical daily. Branch diclofenac 2022-0 Yes 75mg Take 75 mg U nivers 75 mg EC 5-22 by mouth 2 ity o f tablet 00:00: (two) [place] 00 times Medical daily. Branch diclofenac 2022-0 Yes 75mg Take 75 mg U nivers 75 mg EC 5-22 by mouth 2 ity o f tablet 00:00: (two) [place] 00 times Medical daily. Branch diclofenac 2022-0 [...] 2 ity o f tablet 00:00: (two) [place] 00 times Medical daily. Branch diclofenac 2021-0 Yes 75mg Take 75 mg U nivers 75 mg EC 5-22 by mouth 2 ity o f tablet 00:00: (two) [place] 00 times Medical daily. Branch Vital Signs Vital Name Observation Time Observation Value Comments Source Systolic blood 2021-12-24 15:54:00 119 mm[Hg] Univer sity of [place] Diastolic blood 2021-12-24 15:54:00 78 mm[Hg] Unive rsity of [place] Heart rate 2021-12-24 15:54:00 68 /min Universi ty [facility] Body temperature 2021-12-24 15:54:00 36.67 Radha [facility] Respiratory rate 2021-12-24 15:54:00 18 /min [facility] Body height 2021-12-24 15:54:00 182.9 cm Universi ty [facility] Body weight 2021-12-24 15:54:00 141.023 kg Universi ty [facility] BMI 2021-12-24 15:54:00 42.17 kg/m2 [facility] Oxygen saturation in 2021-12-24 15:54:00 97 /min [facility] Arterial blood by [facility] Pulse oximetry Branch Systolic blood 2021-12-13 18:20:00 125 mm[Hg] Univer sity of [place] Diastolic blood 2021-12-13 18:20:00 65 mm[Hg] Unive rsity of [place] Heart rate 2021-12-13 18:20:00 73 /min Universi ty [facility] Body temperature 2021-12-13 18:20:00 36.11 Radha [facility] rate 2021-12-13 18:20:00 18 /min [facility] Body height 2021-12-13 18:20:00 182.9 cm Universi ty [facility] Body weight 2021-12-13 18:20:00 142.52 kg Universi ty [facility] BMI 2021-12-13 18:20:00 42.61 kg/m2 [facility] Medical Branch Procedures Procedure Date / Time Performed Performing Clinician [facility] e EKG-12 LEAD 2021-12-24 15:58:59 Doctor Unassigned, No Univer sity [facility] Name Medical Branch EKG (SCANNED 2021-12-24 05:01:00 Doctor Unassigned, No [facility] sity [facility] DOCUMENTS) Name Medical Branch Encounters Start End Encounter Admission Attending Care Care Encounter Source Date/Time Date/Time Type Type Clinicians Facility Department ID 2022-01-22 2022-01-22 [facility] [id number] Univers 00:00:00 00:00:00 Ogech[place]wu [place] [id number] ity [id number] [phone] [address] 2021-12-26 2021-12-[address] [facility] [id number] Univers 00:00:00 00:00:00 Ogechukwu [place] [id number] [place]y [place] [id number] [id number] [facility] NAL [address] [place] [address] 2021-12-26 2021-12-[address] [facility] [id number] Univers 00:00:00 00:00:00 Ogechukwu [place] [id number] [place]y [place] [id number] [phone] Al dicwv NAL [address] [place] [address] 2021-12-25 2021-12-25 [facility] [id number] Univers 00:00:00 00:00:00 Ogechukwu [place] [id number] [place]y [place] [id number] [phone] [address] 2021-12-25 2021-12-25 [facility] [id number] Univers 00:00:00 00:00:00 Marleny [place] [id number] [id number] [phone] Al dickoki HOOKER 0[address] [facility] 2021-12-24 2021-12-24 Rectangular [employer] [place] 2, Adc Lab [facility] [id number] [facility] 13:00:00 13:15:00 Visit Domingo Stephensjacquelyn EMELINA [id number] 0 [facility] [id number] [id number] Al dickoki HOOKER [address] [facility] 2021-12-24 2021-12-24 Outpatient R MARLENY STEPHENS [facility] [id number] [facility] 11:00:00 11:29:45 MARLENY STEPHENS ity [facility] 2021-12-24 2021-12-[address] [facility] [id number] [facility] 11:00:00 11:29:45 Visit Marleny TARAN[place] [id number] ity [facility] [id number] [id number] Al nadia HOOKER 044 [facility] 2021-12-24 2021-12-24 Orders Doctor BARI [id number] Univers 00:00:00 00:00:00 Only Unassigned, RUPERT 350.1.13.10 it[facility] 4.2.7.2.686 Maximino as [id number] [address] 2021-12-21 2021-12-21 Outpatient R MARLENY STEPHENS [facility] [id number] Univers 16:00:00 16:00:00 MARLENY STEPHENS [facility] 2021-12-21 2021-12-21 Outpatient R MARLENY STEPHENS [facility] [id number] [facility] 10:30:00 10:30:00 MARLENY STEPHENSy [facility] 2021-12-172021-12-17 Outpatient R MARLENY STEPHENS [facility] [id number] Univers 15:30:00 15:30:00 MARLENY STEPHENS ity [facility] 2021-12-13 2021-12-13 Outpatient R JOSÉ MIGUEL [facility] [id number] Univers 13:00:00 14:31:24 BENJY ity [facility] 2021-12-13 2021-12-13 Office Pgy1 UNIVERSIT [id number] Univers 13:00:00 14:31:24 Visit Benjy Valdez [facility] 350.1.13.10 [place] [id number] [address] 2021-12-13 2021-12-13 Outpatient R [facility] [id number] Univers 13:00:00 13:00:00 ity of [facility] 2021-11-15 2021-11-15 [facility] José MiguelDONNIEIT 1.2.840.114 [id number] Univers 12:40:21 23:59:00 Encounter Benjy Negron [facility] 350.1.13.10 [place] [id number] [facility] [address] 2021-11-15 2021-11-15 Outpatient R JOSÉ MIGUEL [facility] [id number] Univers 12:40:21 23:59:00 BENJY ity [facility] 2021-11-15 2021-11-15 Office Pgy2 UNIVERSIT [id number] Univers 14:00:00 15:04:59 Visit Benjy Valdez [facility] 350.1.13.10 [place] [id number] [address] 2021-11-15 2021-11-15 Outpatient R JOSÉ MIGUEL [facility] [id number] Univers 14:00:00 15:04:59 BENJY ity [facility] 2021-11-15 2021-11-15 Outpatient R JOSÉ MIGUEL [facility] [id number] Univers 12:40:21 12:40:21 BENJY itdon [facility] 2021-11-01 2021-11-01 Rectangular Tank Cooper [facility] UNIVERSIT [id number] Univers 16:30:00 16:45:00 Visit José Miguel Benjy [facility]ALTH 350.1.13.10 [place] [id number] [facility] [address] 2021-11-01 2021-11-01 Outpatient Lester VALDEZ [facility] [id number] Univers 16:30:00 16:30:00 BENJY ity [facility] 2021-11-01 2021-11-01 Office Pgy2 UNIVERSIT [id number] Univers 14:30:00 16:11:18 Visit José Miguel Benjy [facility] 350.1.13.10 [id number] [address] 2021-11-01 2021-11-01 Outpatient Lester VALDEZ [facility] [id number] Univers 14:30:00 16:11:18 BENJY ity [facility] 2021-11-01 2021-11-01 Outpatient Lester VALDEZ [facility] [id number] Univers 14:30:00 16:11:18 BENJY itdon [facility] 2021-11-01 2021-11-01 Office Pgy2 UNIVERSIT [id number] Univers 14:30:00 16:11:18 Visit José Miguel Benjy [facility] 350.1.13.10 [place] [id number] [address] 2021-11-01 2021-11-01 Outpatient Lester VALDEZ [facility] [id number] Univers 14:30:00 16:11:18 BENJY ity [facility] 2021-11-01 2021-11-01 Outpatient Lester VALDEZ [facility] [id number] Univers 14:30:00 16:11:18 BENJY ity [facility] 2021-11-012021-11-01 Orders Doctor BARI 1.2.840.114 [id number] Univers 00:00:00 00:00:00 Only Unassigned, RUPERT 350.1.13.10 ity of [place] [facility] 4.2.7.2.686 Maixmino as [phone] [facility] [address] 2021-10-23 2021-10-23 Telephone [facility] [id number] Univers 00:00:00 00:00:00 Kellen R RN PEDIATRIC ICU 350.1.13.10 ity of [facility] 4.2.7.2.686 Maximino as MATERNAL [id number] [facility] ical & CHILD [address] [place] [address] 2021-10-23 2021-10-23 Telephone [facility] [id number] Univers 00:00:00 00:00:00 Chanoa R RN PEDIATRIC ICU 350.1.13.10 ity of [place] [id number] Maximino as MATERNAL [id number] [facility] & [address] 2021-10-16 2021-10-16 [facility] [id number] Univers 13:33:42 23:59:00 KELLEN larson [facility] 2021-10-16 2021-10-16 [facility] [id number] Univers 13:20:00 23:59:00 Encounter Kellen Batista [place] [address].1.13.[address] [facility] 4.2.7.2.686 [facility] [id number] [facility] [address] 2021-10-11 2021-10-11 [facility] [id number] Univers 00:00:00 00:00:00 KELLEN larson [facility] 2021-10-02 2021-10-02 [facility] [id number] Univers 13:15:00 13:54:17 KELLEN castillo o jayshree [facility] 2021-10-02 2021-10-02 [facility] 1.2.840.114 [id number] Univers 13:15:00 13:54:17 Visit Kellen R RN PEDIATRIC ICU 350.1.13.10 ity of [facility] 4.2.7.2.686 Maximino as MATERNAL [id number] Med ical & CHILD [address] [place] [address] 2021-10-02 2021-10-02 Outpatient [facility] [id number] Univers 13:15:00 13:54:17 KELLEN ity o f [facility] 2021-10-02 2021-10-02 [facility] [id number] Univers 13:15:00 13:54:17 KELLEN ity o f [facility] 2021-10-02 2021-10-02 Orders Doctor BARI 1.2.840.114 [id number] Univers 00:00:00 00:00:00 Only Unassigned, RUPERT 350.1.13.10 [facility] 4.2.7.2.686 Maximino as [id number] [address] 2021-09-26 2021-09-26 Rectangular Tank Cooper 2, Adc Lab [facility] 1.2.840.114 [id number] Univers 15:00:00 15:15:00 Visit Domingo Stephensjacquelyn [place] 350.1.13.1 0 [place] [id number] Al dical NAL [address] [facility] 2021-09-26 2021-09-26 Outpatient R MARLENY STEPHENS [facility] [id number] Univers 13:00:00 14:32:21 MARLENY STEPHENS ity of [facility] 2021-09-26 2021-09-[address] [facility] 1.2.840.114 [id number] Univers 13:00:00 14:32:21 [facility] 350.1.13.10 [place] of [place] [id number] Al dical NAL 044 [facility] 2021-09-09 2021-09-09 Emergency X HEATHER [facility] ERT [id number] Univers 16:57:00 19:56:00 LIAM arellanodon of [facility] 2021-09-09 2021-09-[address] [facility] [id number] Univers 16:57:00 19:56:00 Liam TARANGO 350.1.13.10 it[facility] 4.2.7.[place] [id number] [facility] [address] 2021-09-05 2021-09-05 Transition HENRI Mcgovern 1.2.840.114 [id number] Univers 00:00:00 00:00:00 of Care Selena LOPEZ 350.1.13.10 i ty of [place] [id number] [facility] [address] 2021-08-27 2021-09-02 [facility] Eh Chucky [facility] 1.2.840.1 [id number] Univers 13:42:00 17:32:00 Encounter Xochitl Louise 350.1.13.10 ity [facility] [place].2.7.[place] [id number] [facility] [address] 2021-08-27 2021-09-02 Inpatient X DANI [facility] [id number] Univers 13:42:00 17:32:00 XOCHITL castillo [facility] 2021-08-30 2021-08-[address] [facility] 1.2.840.114 [id number] Univers 08:00:00 08:58:00 Timothy TARANGO 350.1.13.10 ity [facility] 4.2.[place] SURGICAL [id number] [facility] [address] 2021-08-27 2021-08-27 Orders Doctor BARI 1.2.840.114 [id number] Univers 00:00:00 00:00:00 Only Unassigned, RUPERT 350.1.13.10 ity of [place] [facility] 4.2.7.2.686 Maximino as [id number] [facility] [address] 2020-06-30 2020-06-30 Emergency Alex Rivers [facility] 1.2.840.114 [id number] Univers 13:42:00 17:30:00 Jessy Tarango 350.1.13.10 i ty of [place] 4.2.7.2.686 [facility] [id number] [facility] [address] 2020-06-30 2020-06-30 Emergency X Alex RIVERS [facility] ERT [id number] Univers 13:42:00 13:42:00 ity of [facility] 2019-06-08 2019-06-08 Orders Doctor BARI 1.2.840.114 [id number] Univers 00:00:00 00:00:00 Only Unassigned, RUPERT 350.1.13.10 ity of [place] [facility] 4.2.7.2.686 [facility] [id number] [address] Results Test Description Test Time Test Comments Results Result Comments Source CT/NG, NAAT, URINE 2021-07-16 16:57:40 Test Item Value Reference Range Interpretation Comme nts GONORRHEA, NAAT NEGATIVE NEGATIVE IMPORTA NT NOTICE: SEE ANNOUNCEMENT AT (test code = https://wwwLast Guide/Vets [place] Note: 52941) Assay methodolo gy is nucleic acid amplification by transcriptio n mediated amplification (TMA) utilizing the A ptima Combo 2 Assay. CHLAMYDIA, NAAT NEGATIVE NEGATIVE IMPORTA NT NOTICE: SEE ANNOUNCEMENT AT (test code = https://wwwLast Guide/Funding OptionsrineMass Fidelity Note: 93704) Assay methodolo gy is nucleic acid amplification by transcriptio n mediated amplification (TMA) utilizing the A ptima Combo 2 Assay. TRICHOMONAS, NAAT, [id number] 16:30:51 Test Item Value Reference Range Interpretation Comments TRICHOMONAS, NAAT NEGATIVE NEGATIVE IMPOR TANT NOTICE: SEE (test code = [place] [address]) https://wwwLast Guide/Roch eCobasUrineKit Note: Assay methodology is nucleic acid amplification b y wood heel attacher m ediated amplification ( TMA) and Hybridization P rotection Assay (HPA) uti lizing the Vocalcom platform. A negative result does not exclude low lev el infection, specimensamplin g error, or collection erro r. UNLESS OTHERWISE INDIC ATED, ALL TESTING PERFORM ED ATCLINICAL PATHOLOGY LABOR ATORSensinode, INC[employer] [address] [facility] [place] [address] LABORATOR Y DIRECTOR: Carola ARGUETA NUMBER [id number] CAP ACCREDITATION N O. [id number]
[2022-06-01] MEDS ORDERED: KETOROLAC 30 MG/ML INJ ONE (09:16)
[2022-06-01] MEDS ORDERED: NA CHLORIDE 0.9% 1,000 ML ONE (09:16)
[2022-06-01] MEDS ORDERED: ONDANSETRON 4 MG/2 ML VIAL ONE (09:16)
[2022-06-01 09:22] LABS: Absolute Lymphocytes (CBC) 0.7 K/uL (0.7-4.9); Hematocrit 33.5 % (36.0-45.0); Lymphocytes % 10.9 % (15.3-44.8); MCV 64.6 fL (80-100); MPV 8.4 fL (7.6-11.3); RBC Red Blood Cell Count 5.18 M/uL (3.86-4.86)
--- NOTE | 2022-06-01 09:28 | RAD REPORT ---
EXAM DESCRIPTION: RAD - Chest Single View - 06/01/2022 9:15 am CLINICAL HISTORY: COUGH COMPARISON: Chest Single View dated 05/31/2022; Chest Single View dated 02/15/2022; Chest Single View dated 01/18/2021; Chest Single View dated 06/17/2020 FINDINGS: Lines: None. Lungs: No evidence of edema or pneumonia. Pleural: No significant pleural effusions or pneumothorax. Cardiac: The heart size is within normal limits. Mediastinum: Within normal limits. Bones: No acute fractures. Other: None IMPRESSION: No acute cardiopulmonary disease.
[2022-06-01 09:44] LABS: Albumin 3.3 g/dL (3.4-5.0); Bilirubin Total 0.4 mg/dL (0.2-1.0); Protein, Total 7.5 g/dL (6.4-8.2)
[2022-06-01] MEDS ORDERED: MECLIZINE HCL 12.5 MG TAB ONE (09:46)
[2022-06-01 09:52] LABS: Blood Morphology Comment NOTED (NOT SEEN); Platelet Estimate ADEQ
[2022-06-01 09:53] LABS: Hypochromasia 1+; Troponin High Sensitivity 4.1 pg/mL (<58.9)
--- NOTE | 2022-06-01 09:59 | RAD REPORT ---
EXAM DESCRIPTION: CT - Head Brain Wo Cont - 06/01/2022 9:51 am CLINICAL HISTORY: Dizziness COMPARISON: HEAD BRAIN W O CONTRAST dated 05/21/2010 TECHNIQUE: All CT scans are performed using dose optimization technique as appropriate and may inclu de automated exposure control or mA/KV adjustment according to patient size. FINDINGS: No intracranial hemorrhage, hydrocephalus or extra-axial fluid collection.No areas of brai n edema or evidence of midline shift. Probable mild chronic small vessel ischemic changes. The paranasal sinuses and mastoids are clear. The calvarium is intact. IMPRESSION: No acute intracranial abnormality.
[2022-06-01 10:38] LABS: SARS-COV-2 RT PCR POSITIVE (NEGATIVE)
--- NOTE | 2022-06-01 10:58 | EDPHYS ---
Physician Documentation [facility] Name: Cindy Pandey Age: 46 yrs Sex: Female : 1975 Arrival Date: 06/01/2022 Time: 08:59 Bed 17 Private MD: ED Physician Rafael Hill HPI: 06/01 09:22 This 46 yrs old Female presents to ER via EMS with complaints of Nausea/Vomiting. kb 09:22 The patient presents to the emergency department with nausea, vomiting. Onset: The kb symptoms/episode began/occurred today. Possible causes: unknown. The symptoms are aggravated by nothing. The symptoms are alleviated by nothing. Associated signs and symptoms: Pertinent positives: nausea, vomiting, headache, weakness. Severity of symptoms: At their worst the symptoms were mild moderate in the emergency department the symptoms are unchanged. The patient has not experienced similar symptoms in the past. The patient has been recently seen at the [facility] Emergency Department, yesterday, for unrelated complaints. Historical: - Allergies: 09:02 No Known Allergies; hb - PMHx: 09:02 Diabetes - NIDDM; irone defieciency anemia; hb - PSHx: 09:02 cataract; section; hernia repair; lap band; left knee; R ovary and tube hb removed; - Immunization history:: Adult Immunizations up to date. - Social history:: Smoking status: Patient denies any tobacco usage or history of. ROS: 09:17 Constitutional: Negative for fever, chills, and weight loss. kb 09:17 Respiratory: Positive for cough. 09:17 Abdomen/GI: Positive for nausea and vomiting. 09:17 Neuro: Positive for headache, weakness. 09:17 All other systems are negative. Exam: 09:22 Constitutional: This is a well developed, well nourished patient who is awake, alert, kb and in no acute distress. Head/Face: Normocephalic, atraumatic. ENT: Moist Mucous membranes Cardiovascular: Regular rate and rhythm with a normal S1 and S2. No gallops, murmurs, or rubs. No pulse deficits. Respiratory: Respirations even and unlabored. No increased work of breathing. Talking in full sentences Abdomen/GI: Soft, non-tender. No distention Skin: Warm, dry with normal turgor. Normal color. MS/ Extremity: Pulses equal, no cyanosis. Neurovascular intact. Full, normal range of motion. Neuro: Awake and alert, GCS 15, oriented to person, place, time, and situation. Moves all extremities. Normal gait. 10:11 ECG was reviewed by the Attending Physician. kb Vital Signs: 09:00 BP 124 / 68; Pulse 81; Resp 16; Temp 98; Pulse Ox 100% on R/A; Weight 140.61 kg; Height hb 6 ft. (182.88 cm); Pain 5/10; 10:25 BP 106 / 65; Pulse 74; Resp 18; Pulse Ox 100% ; hb 11:20 BP 112 / 68; Pulse 66; Resp 16; Pulse Ox 99% on R/A; hb 09:00 Body Mass Index 42.04 (140.61 kg, 182.88 cm) hb MDM: 09:00 Patient medically screened. kb 09:16 Differential diagnosis: viral gastroenteritis, Tension headache, migraine, upper kb respiratory infection, COVID, flu, pneumonia. Data reviewed: vital signs, nurses notes. Historians other than the Patient: EMS: [facility]. Care significantly affected by the following chronic conditions: Diabetes. 10:57 Counseling: I had a detailed discussion with the patient and/or guardian regarding: the kb historical points, exam findings, and any diagnostic results supporting the discharge/admit diagnosis, lab results, radiology results, the need for outpatient follow up, a family practitioner, to return to the emergency department if symptoms worsen or persist or if there are any questions or concerns that arise at home. 11:20 ED course: Patient is a 46-year-old female with a history of anemia and diabetes who kb presents for nausea, vomiting, headache, weakness, dizziness upon movement, fatigue and cough. States she felt she was in a pass out while at work yesterday, EMS was called and patient was brought here. Patient was discharged after a work-up. Reports her headache started a few hours after discharge with the nausea and vomiting. Reports the cough has been ongoing for 3 days denies fever. On exam lungs clear throughout, respirations even and unlabored, no abdominal tenderness. Serum labs, chest x-ray, CAT scan of the head and flu/COVID test all done and reviewed. Patient is COVID-positive. Patient feeling better after treatment. Educated on quarantine. And symptomatic treatment. Educated on return precautions. Verbal understanding received on all instructions. Patient ambulated out of ED via steady gait.. 06/01 09:01 Order name: CBC with Diff; Complete Time: 09:54 kb 06/01 09:01 Order name: CMP; Complete Time: 09:54 kb 06/01 09:01 Order name: COVID-19/FLU A+B; Complete Time: 10:39 kb 06/01 09:35 Order name: Magnesium; Complete Time: 09:54 kb 06/01 09:35 Order name: Troponin High Sensitivity; Complete Time: 09:54 kb 06/01 09:36 Order name: LAB Add On eb 06/01 09:01 Order name: Chest Single View XRAY; Complete Time: 09:36 kb 06/01 09:35 Order name: CT Head Brain wo Cont; Complete Time: 10:02 kb 06/01 09:35 Order name: EKG; Complete Time: 09:36 kb 06/01 09:53 Order name: Manual Differential; Complete Time: 09:54 EDMS 06/01 09:01 Order name: IV Start; Complete Time: 09:22 kb 06/01 09:35 Order name: Cardiac monitoring; Complete Time: 09:46 kb 06/01 09:35 Order name: EKG - Nurse/Tech; Complete Time: 09:46 kb 06/01 09:35 Order name: Labs collected and sent; Complete Time: 09:39 kb EC:11 Rate is 70 beats/min. Rhythm is regular. QRS [place] is Normal. SC interval is normal at kb 154 msec. QRS interval is normal at 86 msec. QT interval is normal at 449 msec. Administered Medications: 09: Drug: NS 0.9% 1000 ml Route: IV; Rate: 1000 ml; Site: right antecubital; hb 09:22 Drug: Zofran (Ondansetron) 4 mg Route: IVP; Site: right antecubital; hb 09:22 Drug: Ketorolac 15 mg Route: IVP; Site: right antecubital; hb 09:42 Drug: Meclizine 25 mg Route: PO; hb Disposition Summary: 06/01/22 10:58 Discharge Ordered Location: Home kb Condition: Stable kb Diagnosis - SARS-associated coronavirus as the cause of diseases classified elsewhere kb Followup: kb - With: Emergency Department - When: As needed - Reason: Worsening of condition Followup: kb - With: Private Physician - When: 2 - 3 days - Reason: Recheck today's complaints, Continuance of care, Re-evaluation by your physician Discharge Instructions: - Discharge Summary Sheet kb - COVID-19 kb - Viral Illness, Adult kb Forms: - Medication Reconciliation Form kb - Work release form kb - Thank You Letter kb - Antibiotic Education kb - Prescription Opioid Use kb Prescriptions: - ondansetron 4 mg Oral - take 1 tablet by SUBLINGUAL route every 8 hours As needed; 15 tablet; Refills: kb 0, Product Selection Permitted Signatures: Dispatcher [employer] EDMS Yohana Magana, CASINO FLOOR PERSON-C CASINO FLOOR PERSON-Key Knott, RN RN hb
--- NOTE | 2022-06-01 10:58 | ER ---
Nurse's Notes [facility] Name: Cindy Pandey Age: 46 yrs Sex: Female : 1975 Arrival Date: 06/01/2022 Time: 08:59 Bed 17 Private MD: Diagnosis: SARS-associated coronavirus as the cause of diseases classified elsewhere Presentation: 06/01 09:00 Chief complaint: EMS states: N/V and headache x 2 days. Coronavirus screen: Client hb presents with at least one sign or symptom that may indicate coronavirus-19. Provider contacted for isolation considerations. Ebola Screen: No symptoms or risks identified at this time. Initial Sepsis Screen: Does the patient meet any 2 criteria? No. Patient's initial sepsis screen is negative. Does the patient have a suspected source of infection? No. Patient's initial sepsis screen is negative. Risk Assessment: Do you want to hurt yourself or someone else? Patient reports no desire to harm self or others. Onset of symptoms was May 31, 2022. 09:00 [facility] Acuity: PHILL 3 hb Triage Assessment: 09:02 General: Appears in no apparent distress. ill, Behavior is calm, cooperative. Pain: hb Pain currently is 5 out of 10 on a pain scale. Neuro: Level of Consciousness is awake, alert, obeys commands, Oriented to person, place, time, situation. Cardiovascular: Patient's skin is warm and dry. Respiratory: Respiratory effort is even, unlabored, Respiratory pattern is regular, symmetrical. GI: Reports nausea, vomiting. : No signs and/or symptoms were reported regarding the genitourinary system. Derm: Skin is pink, warm \T\ dry. Musculoskeletal: No signs and/or symptoms reported regarding the musculoskeletal system. Historical: - Allergies: 09:02 No Known Allergies; hb - PMHx: 09:02 Diabetes - NIDDM; irone defieciency anemia; hb - PSHx: 09: cataract; section; hernia repair; lap band; left knee; R ovary and tube hb removed; - Immunization history:: Adult Immunizations up to date. - Social history:: Smoking status: Patient denies any tobacco usage or history of. Screenin:04 [facility] ED Fall Risk Assessment (Adult) Score/Fall Risk Level 3 or more points = High hb Risk Oriented to surroundings, Maintained a safe environment, Hourly rounding (assess needs \T\ fall precautionary measures) done. Abuse screen: Denies threats or abuse. Denies injuries from another. Nutritional screening: No deficits noted. Tuberculosis screening: No symptoms or risk factors identified. Assessment: 09:03 General: SEE TRIAGE ASSESSMENT . hb 10:25 Reassessment: Patient appears in no apparent distress at this time. Patient and/or hb family updated on plan of care and expected duration. Pain level reassessed. Patient is alert, oriented x 3, equal unlabored respirations, skin warm/dry/pink. 11:15 Reassessment: Patient appears in no apparent distress at this time. Patient and/or hb family updated on plan of care and expected duration. Pain level reassessed. Patient is alert, oriented x 3, equal unlabored respirations, skin warm/dry/pink. Vital Signs: 09:00 BP 124 / 68; Pulse 81; Resp 16; Temp 98; Pulse Ox 100% on R/A; Weight 140.61 kg; Height hb 6 ft. (182.88 cm); Pain 5/10; 10:25 BP 106 / 65; Pulse 74; Resp 18; Pulse Ox 100% ; hb 11:20 BP 112 / 68; Pulse 66; Resp 16; Pulse Ox 99% on R/A; hb 09:00 Body Mass Index 42.04 (140.61 kg, 182.88 cm) hb ED Course: 08:59 Patient arrived in ED. eb 09:00 Yohana Magana FNP-C [facility]. kb 09:00 Rafael Hill MD is Attending Physician. kb 09:00 Key Dale, BRYANT is Primary Nurse. hb 09:02 Arm band placed on. hb 09:04 Patient has correct armband on for positive identification. hb 09:10 Triage completed. hb 09:17 Chest Single View XRAY In Process Unspecified. EDMS 09:18 Inserted saline lock: 20 gauge in right antecubital area, using aseptic technique. hb Blood collected. 09:53 CT Head Brain wo Cont In Process Unspecified. EDMS 11:20 No provider procedures requiring assistance completed. IV discontinued, intact, hb bleeding controlled, No redness/swelling at site. Administered Medications: 09:22 Drug: NS 0.9% 1000 ml Route: IV; Rate: 1000 ml; Site: right antecubital; hb 09:22 Drug: Zofran (Ondansetron) 4 mg Route: IVP; Site: right antecubital; hb 09:22 Drug: Ketorolac 15 mg Route: IVP; Site: right antecubital; hb 09:42 Drug: Meclizine 25 mg Route: PO; hb Medication: 09:04 VIS not applicable for this client. hb Outcome: 10:58 Discharge ordered by MD. arellano 11:19 Discharged to home ambulatory. hb 11:19 Condition: stable 11:19 Discharge instructions given to patient, Instructed on discharge instructions, follow up and referral plans. medication usage, Demonstrated understanding of instructions, follow-up care, medications, Prescriptions given X 1. 11:20 Patient left the ED. hb Signatures: Dispatcher [employer] EDMS Yohana Magana, AVELINO-C SWATCHER-Key Knott, RN RN Stephanie Herrera Corrections: (The following items were deleted from the chart) 09:23 09:00 Pulse 81bpm; Resp 16bpm; Pulse Ox 100% RA; Temp 98F; 140.61 kg; Height 6 ft.; hb BMI: 42.0; Pain 5/10; hb 11:20 10:25 BP 106 / 65; Pulse 21bpm; Pulse Ox 100%; hb hb
[2022-06-01 11:35] VITALS: TEMP 98
[2022-06-01 11:58] VITALS: BP 112/68; O2SAT 99
--- NOTE | 2022-06-03 18:45 | EKG ---
Test Date: 2022-06-01 Test Time: 10:03:58 Purchasing Agent: KELLEY MEASUREMENT RESULTS: Intervals: Rate: 70 RI: 154 QRSD: 86 QT: 416 QTc: 449 [place]: P: RI: 154 QRS: 58 T: 43 INTERPRETIVE STATEMENTS: Normal sinus rhythm Normal ECG Compared to ECG 05/31/2022 14:26:37 Atrial premature complex(es) no longer present Electronically Signed On 06-03-22 18:42:00 BUSINESS SUPPORT ASSOCIATE by Chivo Rodney
== END 2022-06-01 11:20 | disposition home or self-care (01) ==
LOC: ER 08:57
DX: U07.1 COVID-19 (principal); E11.9 Type 2 diabetes mellitus without complications
CPT/HCPCS: 93005; 85025; 36415; 83735; 84484; 80053; 0240U; 70450; 71045; 96375; 96374; 99284; J8597; J7030; J2405

== ENCOUNTER 2022-12-24 10:25 | Emergency (ER) | payer OTHER, SELFPAY ==
--- OUTSIDE RECORDS SUMMARY | 2022-12-24 10:39 | XMS REPORT | Continuity of Care Document ---
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 TRAINING AND DEVELOPMENT, Marleny Primary Care Physician Marleny Stephens NP Attending Clinician AARON EAST Attending Clinician Unavailable Aaron Em Attending Clinician 2, [facility] Attending Clinician Unavailable MARLENY STEPHENS Attending Clinician Unavailable Doctor Unassigned, Orange Attending Clinician Unavailable BENJY VALDEZ Attending Clinician Unavailable Pgy[facility] Attending Clinician Unavailable Benjy Valdez MD Attending Clinician Pgy2 Attending Clinician Unavailable [facility] Attending Clinician Unavailable Kellen Traylor Attending Clinician KELLEN ROSALES Attending Clinician Unavailable LIAM ROMERO Attending Clinician Unavailable Liam Romero APN Attending Clinician Selena Mcgovern RN Attending Clinician Chucky Stauffer MD Attending Clinician Xochitl Louise DO Attending Clinician XOCHITL L[place] Attending Clinician Unavailable Timothy Hurtado DPM Attending Clinician Alex Hernandez Attending Clinician Alex RIVERS Attending Clinician Unavailable AARON EAST Admitting Clinician Unavailable KELLEN ROSALES Admitting Clinician Unavailable Xochitl Louise DO Admitting Clinician XOCHITL [place] Admitting Clinician Unavailable Payers Payer Name Policy Type Policy Number Effective Date Expiration Date S luis alberto Problems Condition Condition Condition Status Onset Resolution Last Treating Co mments Source Name Details Category Date Date Treatment Clinician Date Pain Pain Disease Active Univers pelvic pelvic 6-28 ity of 00:00: [place] [facility] Well woman Well woman Disease Active 2021- U nivers exam (no exam (no 6-28 ity of gynecologi gynecologi [place] mckenna exam[place] mckenna exam) 00 Medi mckenna Branch History of History of Disease Active U nivers bilateral bilateral 6-28 ity of tubal tubal 00:00: [place] ligation ligation 00 Medica l Branch Encounter Encounter Disease Active Uni vers for 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[place] ce of ce of 00 Medical other other Branch contracept contracept brandi brandi Menorrhagi Menorrhagi Disease Active U nivers a with a with 6-28 ity of regular regular 00:00: [place] cycle cycle 00 Medical Branch Fibroids, Fibroids, Disease Active Uni vers submucosal submucosal 6-28 it y of 00:00: [place] [facility] Cellulitis Cellulitis Disease Active U nivers of foot of foot 5-24 ity of 00:00: [place] [facility] Cellulitis Cellulitis Disease Active 2021-0 U nivers 5-23 ity of 00:00: [place] [facility] BMI BMI Disease Active 2021- Univers 40.0-44.9, 40.0-44.9, 5-23 it y of adult adult 00:00: Medical Branch Obesity Obesity Disease Active 2005-04 Overview: Univ ers 2-04 Formattin ity of 00:00: g of this note Medical might be Branch different from the original. 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 ICD10 Diagnosis Term Booth Supervisor Utility Allergies, Adverse Reactions, Alerts Allergy Allergy Status Severity Reaction(s) Onset Inactive Treating Comm ents Source Name Type Date Date Clinician NO KNOWN Drug Active Univers ALLERGIE Class ity of S [facility] Social History Social Habit Start Date Stop Date Quantity Comments Source Gender identity Universit y [facility] to 2022-06-01 2022-06-11 Not sure [facility] SARS-CoV-2 (event) 00:00:00 21:58:00 [facility] Alcohol intake 2022-06-11 2022-06-11 Current University of 00:00:00 00:00:00 non-drinker of [facility] alcohol [place] (finding) Tobacco use and 2021-11-01 2021-11-01 Smokeless Universit y of exposure 00:00:00 00:00:00 tobacco [facility]-user [facility] Social 2021-09-26 2021-09-26 Univers ity of function 00:00:00 00:00:00 [facility] Sex Ass[birth year] At [birth year] Universit y of 00:00:00 00:00:00 [facility] Smoking Status Start Date Stop Date Source Never smoked tobacco [facility] Medications Ordered Filled Start Stop Current Ordering Indication Dosage Frequency Signature Comments Components Source Medication Medication Date Date Medication? Clinician (SIG) Name Name omeprazole Yes [id number] 40mg Take 1 Univers 40 mg 7-22 capsule by ity of capsule 00:00: mouth in [place] [address] the Medical morning. Branch Patient needs appointmen t for further refills metFORMIN 2022-0 Yes [id number] 500mg Take 1 Univers 500 mg 7-22 tablet by ity of tablet 00:00: mouth in [place] [address] the Medical morning Branch and 1 tablet in the evening. Take with meals. Patient needs appointmen t for further refills omeprazole 2022-0 Yes [id number] 40mg Take 1 Univers 40 mg 7-22 capsule by ity of capsule 00:00: mouth in [place] [address] the Medical morning. Branch Patient needs appointmen t for further refills metFORMIN 2022-0 Yes [id number] 500mg Take 1 Univers 500 mg 7-22 tablet by ity of tablet 00:00: mouth in [place] [address] the morning Branch and 1 tablet in the evening. Take with meals. Patient needs appointmen t for further refills clindamycin 2022- No [id number] 450mg Take 3 Univers 150 mg 06-12-19 capsules ity of capsule 00:00: 04:59 by mouth [place] 00 :00 in the Medical morning Branch and 3 capsules at noon and 3 capsules in the evening. Do all this for 10 days. dulaglutide 2021-04- No [id number] 1.5mg inject 1 Univers (TRULICITY) 04-17 Pen under it y of 1.5 mg/0.5 00:00: 05:59 [place] mL PnIj 00 :00 weekly for Medica l 90 days. Branch dulaglutide 2021-04- No [id number] 1.5mg inject 1 Univers (TRULICITY) 04-17 Pen under it y of 1.5 mg/0.5 00:00: 05:59 [place] PnIj 00 :00 weekly for Medica l 90 days. Branch dulaglutide 2021-04- No [id number] 1.5mg inject 1 Univers (TRULICITY) 04-17 Pen under it y of 1.5 mg/0.5 00:00: 05:59 [place] mL PnIj 00 :00 weekly for Medica l 90 days. Branch ondansetron 2021-04 Yes [id number] 4mg Take 1 Univers 4 mg 0-19 tablet by ity of disintegrat 00:00: mouth [place] ing tablet 00 every 8 Medica l (eight) Branch hours as needed for Nausea and Vomiting (N/V). ondansetron 2021-04 Yes [id number] 4mg Take 1 Univers 4 mg 0-19 tablet by ity of disintegrat 00:00: mouth [place] ing tablet 00 every 8 Medica l (eight) Branch hours as needed for Nausea and Vomiting (N/V). ondansetron 2021-04 Yes [id number] 4mg Take 1 Univers 4 mg 0-19 tablet by ity of disintegrat 00:00: mouth [place] ing tablet 00 every 8 Medica l (eight) Branch hours as needed for Nausea and Vomiting (N/V). ondansetron 2021-04 Yes [id number] 4mg Take 1 Univers 4 mg 0-19 tablet by ity of disintegrat 00:00: mouth [place] ing tablet 00 every 8 Medica l (eight) Branch hours as needed for Nausea and Vomiting (N/V). tirzepatide 2021-04- No [id number] 5mg inject 5 Univers 2.5 mg/0.5 0-19 11-19 mg under ity of mL 00:00: 05:59 the skin [place] subcutaneou 00 :00 weekly for Me dical s injection 30 days. [facility] tirzepatide 2021-04- No [id number] 5mg inject 5 Univers 2.5 mg/0.5 0-19 11-19 mg under ity of mL 00:00: 05:59 the skin [place] subcutaneou 00 :00 weekly for Me dical s injection 30 days. [facility] tirzepatide 2021-04- No [id number] 5mg inject 5 Univers 2.5 mg/0.5 0-19 11-19 mg under ity of mL 00:00: 05:59 the skin [place] subcutaneou 00 :00 weekly for Me dical s injection 30 days. [facility] tirzepatide 2021-04- No [id number] 5mg inject 5 Univers 2.5 mg/0.5 0-19 11-19 mg under ity of mL 00:00: 05:59 the skin [place] subcutaneou 00 :00 weekly for Me dical s injection 30 days. [facility] tirzepatide 2021-04- No [id number] 5mg inject 5 Univers 2.5 mg/0.5 0-19 11-19 mg under ity of mL 00:00: 05:59 the skin [place] subcutaneou 00 :00 weekly for Me dical s injection 30 days. [facility] tirzepatide 2021-04- No [id number] 5mg inject 5 Univers 2.5 mg/0.5 0-19 11-19 mg under ity of mL 00:00: 05:59 the skin [place] subcutaneou 00 :00 weekly for Me dical s injection 30 days. [facility] tirzepatide 2021-04- No [id number] 5mg inject 5 Univers 2.5 mg/0.5 0-19 10-11 mg under ity of mL 00:00: 00:00 the skin [place] subcutaneou 00 :00 weekly for Me dical s injection 30 days. Kaden tripathi tirzepatide 2021-04- No [id number] 5mg inject 5 Univers 2.5 mg/0.5 0-19 10-11 mg under ity of mL 00:00: 00:00 the skin [place] subcutaneou 00 :00 weekly for Me dical s injection 30 days. Kaden tripathi dulaglutide 2021-04- No [id number] .75mg inject 1 Univers (TRULICITY) 0-11 11-11 Pen under it y of 0.75 mg/0.5 00:00: 05:59 [place] mL PnIj 00 :00 weekly for Medica l 30 days. Merlin dulaglutide 2021-04- No [id number] .75mg inject 1 Univers (TRULICITY) 0-11 11-11 Pen under it y of 0.75 mg/0.5 00:00: 05:59 [place] mL PnIj 00 :00 weekly for Medica l 30 days. Merlin dulaglutide 2021-04- No [id number] .75mg inject 1 Univers (TRULICITY) 0-11 11-11 Pen under it y of 0.75 mg/0.5 00:00: 05:59 [place] mL PnIj 00 :00 weekly for Medica l 30 days. Branch metFORMIN 0 Yes [id number] 1000mg Take 2 Univers 500 mg 9-19 tablets by ity of tablet 00:00: mouth in [place] the Medical morning Branch and 2 tablets in the evening. Take with meals. nystatin 2021-0 Yes [id number] Apply to U [facility] [employer] 100,000 9-19 area(s) 2 ity of unit/gram 00:00: (two) [place] cream 00 times Medical daily. Branch metFORMIN 2021-0 Yes [id number] 1000mg Take 2 Univers 500 mg 9-19 tablets by ity of tablet 00:00: mouth in [place] the Medical morning Branch and 2 tablets in the evening. Take with meals. nystatin 2021-0 Yes [id number] Apply to U [employer] 100,000 9-19 area(s) 2 ity of unit/gram 00:00: (two) [place] cream 00 times Medical daily. Branch nystatin 2022-0 Yes [id number] Apply to U nivers 100,000 9-19 area(s) 2 ity of unit/gram 00:00: (two) [place] cream 00 times Medical daily. Branch nystatin 2022-0 Yes [id number] Apply to U nivers 100,000 9-19 area(s) 2 ity of unit/gram 00:00: (two) [place] cream 00 times Medical daily. Branch metFORMIN 2022-0 Yes [id number] 1000mg Take 2 Univers 500 mg 9-19 tablets by ity of tablet 00:00: mouth in [place] 00 the Medical morning Branch and 2 tablets in the evening. Take with meals. nystatin 2022-0 Yes [id number] Apply to U nivers 100,000 9-19 area(s) 2 ity of unit/gram 00:00: (two) [place] cream 00 times Medical daily. Branch metFORMIN 2022-0 Yes [id number] 1000mg Take 2 Univers 500 mg 9-19 tablets by ity of tablet 00:00: mouth in [place] [address] the Medical morning Branch and 2 tablets in the evening. Take with meals. nystatin 2022-0 Yes [id number] Apply to U nivers 100,000 9-19 area(s) 2 ity of unit/gram 00:00: (two) [place] cream 00 times Medical daily. Branch metFORMIN 2022-0 Yes [id number] 1000mg Take 2 Univers 500 mg 9-19 tablets by ity of tablet 00:00: mouth in [place] 00 the Medical morning Branch and 2 tablets in the evening. Take with meals. nystatin 2022-0 Yes [id number] Apply to U nivers 100,000 9-19 area(s) 2 ity of unit/gram 00:00: (two) [place] cream 00 times Medical daily. Branch metFORMIN 2022-0 Yes [id number] 1000mg Take 2 Univers 500 mg 9-19 tablets by ity of tablet 00:00: mouth in [place] 00 the Medical morning Branch and 2 tablets in the evening. Take with meals. nystatin 2022-0 Yes [id number] Apply to U nivers 100,000 9-19 area(s) 2 ity of unit/gram 00:00: (two) [place] cream 00 times Medical daily. Branch metFORMIN 2022-0 Yes [id number] 1000mg Take 2 Univers 500 mg 9-19 tablets by ity of tablet 00:00: mouth in [place] 00 the Medical morning Branch and 2 tablets in the evening. Take with meals. nystatin 2021-0 Yes [id number] Apply to U [facility] 100,000 9-19 area(s) 2 ity of unit/gram 00:00: (two) [place] cream 00 times Medical daily. Branch metFORMIN 2021-0 Yes [id number] 1000mg Take 2 Univers 500 mg 9-19 tablets by ity of tablet 00:00: mouth in [place] 00 the Medical morning Branch and 2 tablets in the evening. Take with meals. nystatin 2021-0 Yes [id number] [facility] 9-19 area(s) 2 ity of unit/gram 00:00: (two) [place] cream 00 times Medical daily. Branch metFORMIN 2021-0 Yes [id number] 1000mg Take 2 Univers 500 mg 9-19 tablets by ity of tablet 00:00: mouth in [place] 00 the Medical morning Branch and 2 tablets in the evening. Take with meals. nystatin 2021-0 Yes [id number] Apply to U [facility] 100,000 9-19 area(s) 2 ity of unit/gram 00:00: (two) [place] cream 00 times Medical daily. Branch metFORMIN 2021-0 Yes [id number] 1000mg Take 2 Univers 500 mg 9-19 tablets by ity of tablet 00:00: mouth in [place] 00 the Medical morning Branch and 2 tablets in the evening. Take with meals. nystatin 2021-0 Yes [id number] Apply to [facility] 100,000 9-19 area(s) 2 ity of unit/gram 00:00: (two) [place] cream 00 times Medical daily. Branch metFORMIN 2021-0 2022- No [id number] 1000mg Take 2 Univers 500 mg 9-19 07-22 tablets by ity of tablet 00:00: 00:00 mouth in [place] 00 :00 the Medical morning Branch and 2 tablets in the evening. Take with meals. tirzepatide 2021-0 2021- No [id number] 2.5mg inject 2.5 Univers 2.5 mg/0.5 9-19 10-20 mg under ity of mL 00:00: 04:59 the skin [facility] 00 :00 weekly for Me dical s injection 30 days. Bran ch tirzepatide 2021- No [id number] 10mg inject 10 Univers 5 mg/0.5 mL 9-19 10-20 mg under ity of subcutaneou 00:00: 04:59 [place] s injection 00 :00 weekly for Me dical 30 days. Branch tirzepatide 2021- No [id number] 2.5mg inject 2.5 Univers 2.5 mg/0.5 9-19 10-20 mg under ity of mL 00:00: 04:59 the skin [place] subcutaneou 00 :00 weekly for Me dical s injection 30 days. Bran ch tirzepatide 2021- No [id number] 10mg inject 10 Univers 5 mg/0.5 mL 9-19 10-20 mg under ity of subcutaneou 00:00: 04:59 [place] s injection 00 :00 weekly for Me dical 30 days. Branch tirzepatide 2021- No [id number] 2.5mg inject 2.5 Univers 2.5 mg/0.5 9-19 10-20 mg under ity of mL 00:00: 04:59 the skin [place] subcutaneou 00 :00 weekly for Me dical s injection 30 days. Bran ch tirzepatide 2021- No [id number] 10mg inject 10 Univers 5 mg/0.5 mL 9-19 10-20 mg under ity of subcutaneou 00:00: 04:59 the [place] s injection 00 :00 weekly for Me dical 30 days. Branch tirzepatide No [id number] 2.5mg inject 2.5 Univers 2.5 mg/0.5 9-19 10-20 mg under ity of mL 00:00: 04:59 the skin [place] subcutaneou 00 :00 weekly for Me dical s injection 30 days. Bran ch tirzepatide No [id number] 10mg inject 10 Univers 5 mg/0.5 mL 9-19 10-20 mg under ity of subcutaneou 00:00: 04:59 the [place] s injection 00 :00 weekly for Me dical 30 days. Branch tirzepatide 2021- No [id number] 2.5mg inject 2.5 Univers 2.5 mg/0.5 9-19 10-20 mg under ity of mL 00:00: 04:59 the skin [place] subcutaneou 00 :00 weekly for Me dical s injection 30 days. Bran ch tirzepatide 2021- No [id number] 10mg inject 10 Univers 5 mg/0.5 mL 9-19 10-20 mg under ity of subcutaneou 00:00: 04:59 the [place] s injection 00 :00 weekly for Me dical 30 days. Branch tirzepatide 2021- No [id number] 2.5mg inject 2.5 Univers 2.5 mg/0.5 9-19 10-20 mg under ity of mL 00:00: 04:59 the skin [place] subcutaneou 00 :00 weekly for Me dical s injection 30 days. Bran ch tirzepatide 2021- No [id number] 10mg inject 10 Univers 5 mg/0.5 mL 9-19 10-20 mg under ity of subcutaneou 00:00: 04:59 the [place] s injection 00 :00 weekly for Me dical 30 days. Branch tirzepatide 2021- No [id number] 2.5mg inject 2.5 Univers 2.5 mg/0.5 9-19 10-11 mg under ity of mL 00:00: 00:00 the skin [place] subcutaneou 00 :00 weekly for Me dical s injection 30 days. Bran ch tirzepatide No [id number] 10mg inject 10 Univers 5 mg/0.5 mL 9-19 10-11 mg under ity of subcutaneou 00:00: 00:00 [place] s injection 00 :00 weekly for Me dical 30 days. Branch tirzepatide 2021- No [id number] 2.5mg inject 2.5 Univers 2.5 mg/0.5 9-19 10-11 mg under ity of mL 00:00: 00:00 the skin [place] subcutaneou 00 :00 weekly for Me dical s injection 30 days. Bran ch tirzepatide 2021- No [id number] 10mg inject 10 Univers 5 mg/0.5 mL 9-19 10-11 mg under ity of subcutaneou 00:00: 00:00 [place] s injection 00 :00 weekly for Me dical 30 days. Branch blood sugar Yes [id number] Check Univers diagnostic 6-22 blood ity of strip 00:00: sugar 2 [place] 00 times a Medical day. Branch E11.9. Brand per insurance. Lancets 2021-0 Yes [id number] Check Univ ers Misc 6-22 blood ity of 00:00: sugar 2 [place] 00 times a Medical day. Branch E11.9. Brand per insurance. Blood-Gluco 0 Yes [id number] Check Univers se Meter 6-22 sugars 2 ity of Kit 00:00: times a [place] 00 day. Dx. Medical Code E11.9 Branch Brand per Insurance omeprazole 0 Yes [id number] 40mg Take 1 Univers 40 mg 6-22 capsule by ity of capsule 00:00: mouth [place] 00 daily. Medical Branch blood sugar 0 Yes [id number] Check Univers diagnostic 6-22 blood ity of strip 00:00: sugar 2 [place] 00 times a Medical day. Branch E11.9. Brand per insurance. Lancets 2021-0 Yes [id number] Check Univ ers Misc 6-22 blood ity of 00:00: sugar 2 [place] 00 times a Medical day. Branch E11.9. Brand per insurance. Blood-Gluco 2021-0 Yes [id number] Check Univers se Meter 6-22 sugars 2 ity of Kit 00:00: times a [place] 00 day. Dx. Medical Code E11.9 Branch Brand per Insurance blood sugar 0 Yes [id number] Check Univers diagnostic 6-22 blood ity of strip 00:00: sugar 2 [place] 00 times a Medical day. Branch E11.9. Brand per insurance. Lancets 2021-0 Yes [id number] Check Univ ers Misc 6-22 blood ity of 00:00: sugar 2 [place] 00 times a Medical day. Branch E11.9. Brand per insurance. Blood-Gluco 2021-0 Yes [id number] Check Univers se Meter 6-22 sugars 2 ity of Kit 00:00: times a [place] 00 day. Dx. Medical Code E11.9 Branch Brand per Insurance blood sugar 2021-0 Yes [id number] Check Univers diagnostic 6-22 blood ity of strip 00:00: sugar 2 times a Medical day. Branch E11.9. Brand per insurance. Lancets 2021-0 Yes [id number] Check Univ ers Misc 6-22 blood ity of 00:00: sugar 2 times a Medical day. Branch E11.9. Brand per insurance. Blood-Gluco 2021-0 Yes [id number] Check Univers se Meter 6-22 sugars 2 ity of Kit 00:00: times a 00 day. Dx. Medical Code E11.9 Branch Brand per Insurance metFORMIN 2021-0 Yes [id number] 500mg Take 1 Univers 500 mg 6-22 tablet by ity of tablet 00:00: mouth 2 00 (two) Medical times Branch daily with meals. omeprazole 2021-0 Yes [id number] 40mg Take 1 Univers 40 mg 6-22 capsule by ity of capsule 00:00: mouth 00 daily. Medical Branch blood sugar 2021-0 Yes [id number] Check Univers diagnostic 6-22 blood ity of strip 00:00: sugar 2 times a Medical day. Branch E11.9. Brand per insurance. Lancets 2021-0 Yes [id number] Check Univ ers Misc 6-22 blood ity of 00:00: sugar 2 times a Medical day. Branch E11.9. Brand per insurance. Blood-Gluco 2021-0 Yes [id number] Check Univers se Meter 6-22 sugars 2 ity of Kit 00:00: times a day. Dx. Medical Code E11.9 Branch Brand per Insurance omeprazole 2021-0 Yes [id number] 40mg Take 1 Univers 40 mg 6-22 capsule by ity of capsule 00:00: mouth daily. Medical Branch blood sugar 2021-0 Yes [id number] Check Univers diagnostic 6-22 blood ity of strip 00:00: sugar 2 [place] times a Medical day. Branch E11.9. Brand per insurance. Lancets 2021-0 Yes [id number] Check Univ ers Misc 6-22 blood ity of 00:00: sugar 2 times a Medical day. Branch E11.9. Brand per insurance. Blood-Gluco 2022-0 Yes [id number] Check Univers se Meter 6-22 sugars 2 ity of Kit 00:00: times a [place] 00 day. Dx. Medical Code E11.9 Branch Brand per Insurance omeprazole 2021-0 Yes [id number] 40mg Take 1 Univers 40 mg 6-22 capsule by ity of capsule 00:00: mouth [place] 00 daily. Medical Branch blood sugar 2021-0 Yes [id number] Check Univers diagnostic 6-22 blood ity of strip 00:00: sugar 2 [place] 00 times a Medical day. Branch E11.9. Brand per insurance. Lancets 2021-0 Yes [id number] Check Univ ers Misc 6-22 blood ity of 00:00: sugar 2 [place] 00 times a Medical day. Branch E11.9. Brand per insurance. Blood-Gluco 2021-0 Yes [id number] Check Univers se Meter 6-22 sugars 2 ity of Kit 00:00: times a [place] 00 day. Dx. Medical Code E11.9 Branch Brand per Insurance omeprazole 2021-0 Yes [id number] 40mg Take 1 Univers 40 mg 6-22 capsule by ity of capsule 00:00: mouth [place] 00 daily. Medical Branch blood sugar 2021-0 Yes [id number] Check Univers diagnostic 6-22 blood ity of strip 00:00: sugar 2 [place] 00 times a Medical day. Branch E11.9. Brand per insurance. Lancets 2021-0 Yes [id number] Check Univ ers Misc 6-22 blood ity of 00:00: sugar 2 [place] 00 times a Medical day. Branch E11.9. Brand per insurance. Blood-Gluco 2021-0 Yes [id number] Check Univers se Meter 6-22 sugars 2 ity of Kit 00:00: times a [place] 00 day. Dx. Medical Code E11.9 Branch Brand per Insurance omeprazole 2021-0 Yes [id number] 40mg Take 1 Univers 40 mg 6-22 capsule by ity of capsule 00:00: mouth [place] 00 daily. Medical Branch blood sugar 2021-0 Yes [id number] Check Univers diagnostic 6-22 blood ity of strip 00:00: sugar 2 [place] 00 times a Medical day. Branch E11.9. Brand per insurance. Lancets 2021-0 Yes [id number] Check Univ ers Misc 6-22 blood ity of 00:00: sugar 2 [place] times a Medical day. Branch E11.9. Brand per insurance. Blood-Gluco 2021-0 Yes [id number] Check Univers se Meter 6-22 sugars 2 ity of Kit 00:00: times a [place] day. Dx. Medical Code E11.9 Branch Brand per Insurance omeprazole 2021-0 Yes [id number] 40mg Take 1 Univers 40 mg 6-22 capsule by ity of capsule 00:00: mouth [place] 00 daily. Medical Branch blood sugar 2021-0 Yes [id number] Check Univers diagnostic 6-22 blood ity of strip 00:00: sugar 2 00 times a Medical day. Branch E11.9. Brand per insurance. Lancets 2021-0 Yes [id number] Check Univ ers Misc 6-22 blood ity of 00:00: sugar 2 times a Medical day. Branch E11.9. Brand per insurance. Blood-Gluco 2021-0 Yes [id number] Check Univers se Meter 6-22 sugars 2 ity of Kit 00:00: times a day. Dx. Medical Code E11.9 Branch Brand per Insurance omeprazole 2021-0 Yes [id number] 40mg Take 1 Univers 40 mg 6-22 capsule by ity of capsule 00:00: mouth 00 daily. Medical Branch blood sugar 2021-0 Yes [id number] Check Univers diagnostic 6-22 blood ity of strip 00:00: sugar 2 times a Medical day. Branch E11.9. Brand per insurance. Lancets 2021-0 Yes [id number] Check Univ ers Misc 6-22 blood ity of 00:00: sugar 2 times a Medical day. Branch E11.9. Brand per insurance. Blood-Gluco 2021-0 Yes [id number] Check Univers se Meter 6-22 sugars 2 ity of Kit 00:00: times a day. Dx. Medical Code E11.9 Branch Brand per Insurance omeprazole 2021-0 Yes [id number] 40mg Take 1 Univers 40 mg 6-22 capsule by ity of capsule 00:00: mouth [place] 00 daily. Medical Branch blood sugar 2021-0 Yes [id number] Check Univers diagnostic 6-22 blood ity of strip 00:00: sugar 2 [place] times a Medical day. Branch E11.9. Brand per insurance. Lancets 0 Yes [id number] Check Univ ers Misc 6-22 blood ity of 00:00: sugar 2 [place] 00 times a Medical day. Branch E11.9. Brand per insurance. Blood-Gluco 2021-0 Yes [id number] Check Univers se Meter 6-22 sugars 2 ity of Kit 00:00: times a day. Dx. Medical Code E11.9 Branch Brand per Insurance omeprazole 2021-0 Yes [id number] 40mg Take 1 Univers 40 mg 6-22 capsule by ity of capsule 00:00: mouth [place] 00 daily. Medical Branch blood sugar 0 Yes [id number] Check Univers diagnostic 6-22 blood ity of strip 00:00: sugar 2 00 times a Medical day. Branch E11.9. Brand per insurance. Lancets 0 Yes [id number] Check Univ ers Misc 6-22 blood ity of 00:00: sugar 2 00 times a Medical day. Branch E11.9. Brand per insurance. Blood-Gluco 0 Yes [id number] Check Univers se Meter 6-22 sugars 2 ity of Kit 00:00: times a day. Dx. Medical Code E11.9 Branch Brand per Insurance omeprazole 0 Yes [id number] 40mg Take 1 Univers 40 mg 6-22 capsule by ity of capsule 00:00: mouth 00 daily. Medical Branch omeprazole 0 2022- No [id number] 40mg Take 1 Univers 40 mg 6-22 -22 capsule by ity of capsule 00:00: 00:00 mouth [place] 00 :00 daily. Medical Branch metFORMIN 2021-0 2021- No [id number] 500mg Take 1 Univers 500 mg 6-22 - tablet by ity of tablet 00:00: 00:00 mouth 2 [place] 00 :00 (two) Medical times Branch daily with meals. metFORMIN 2021-0 2021- No [id number] 500mg Take 1 Univers 500 mg 6-22 - tablet by ity of tablet 00:00: 00:00 mouth 2 [place] 00 :00 (two) Medical times Branch daily with meals. diclofenac 2021-0 Yes 75mg Take 75 mg [...] (two) [place] 00 times Medical daily. Branch Vital Signs Vital Name Observation Time Observation Value Comments Source Heart rate 2022-06-12 06:19:00 69 /min [facility] [place] [facility] [place] Respiratory rate 2022-06-12 06:19:00 18 /min [facility] [place] [facility] Oxygen saturation in 2022-06-12 06:19:00 100 /min University of Arterial blood by [place] [employer] Pulse oximetry Branch Systolic blood 2022-06-12 04:01:00 144 mm[Hg] Univer sity of pressure [place] [facility] Diastolic blood 2022-06-12 04:01:00 62 mm[Hg] Unive rsity of pressure [place] [facility] [place] Body temperature 2022-06-12 04:01:00 37.06 Radha [facility] [place] [facility] Body height 2022-06-12 04:01:00 182.9 cm [facility] [place] [facility] [place] Body weight 2022-06-12 04:01:00 140.615 kg [facility] [place] [facility] BMI 2022-06-12 04:01:00 42.04 kg/m2 [facility] [place] [facility] Systolic blood 2021-12-24 15:54:00 119 mm[Hg] Univer sity of pressure [place] [facility] Diastolic blood 2021-12-24 15:54:00 78 mm[Hg] Unive rsity of pressure [facility] Heart rate 2021-12-24 15:54:00 68 /min [facility] [place] [facility] Body temperature 2021-12-24 15:54:00 36.67 Radha Univ ersity of [facility] Branch Respiratory rate 2021-12-24 15:54:00 18 /min [facility] [place] [facility] Body height 2021-12-24 15:54:00 182.9 cm [facility] [place] [facility] Body weight 2021-12-24 15:54:00 141.023 kg [facility] [place] [facility] BMI 2021-12-24 15:54:00 42.17 kg/m2 [facility] [place] [facility] Oxygen saturation in 2021-12-24 15:54:00 97 /min University of Arterial blood by [place] [employer] Pulse oximetry Branch Systolic blood 2021-12-13 18:20:00 125 mm[Hg] Univer sity of pressure [place] [facility] Diastolic blood 2021-12-13 18:20:00 65 mm[Hg] Unive rsity of pressure [facility] Heart rate 2021-12-13 18:20:00 73 /min [facility] Body temperature 2021-12-13 18:20:00 36.11 Radha [facility] 2021-12-13 18:20:00 18 /min [facility] Body height 2021-12-13 18:20:00 182.9 cm [facility] Body weight 2021-12-13 18:20:00 142.52 kg [facility] BMI 2021-12-13 18:20:00 42.61 kg/m2 [facility] Procedures Procedure Date / Time Performed Performing Clinician Katlyn e XR FOOT 3+ VW LEFT 2022-06-12 05:14:45 Aaron [facility] NOTICE OF PRIVACY 2022-06-12 03:54:23 Doctor Unassigned, No [facility] Branch CONSENT/REFUSAL FOR 2022-06-12 03:53:28 Doctor Unassigned, [facility] AND [facility] TREATMENT EKG-12 LEAD 2021-12-24 15:58:59 Doctor Unassigned, No [facility] [place] Name Medical [facility] EKG (SCANNED 2021-12-24 05:01:00 Doctor Unassigned, No [facility] [place] DOCUMENTS) [facility] Encounters Start End Encounter Admission Attending Care Care Encounter Source Date/Time Date/Time Type Type Clinicians Facility Department ID 2022-10-26 2022-10-26 Susan Stephens ILROHINI 1.2.840.114 [id number] Univers 00:00:00 00:00:00 Marleny TARANGO 350.1.13.10 ity maik BRAND 4.2.7.2.686 Giorgio JOHNSON [id number] [address] 2022-10-25 2022-10-25 Susan Stephens ILROHINI 1.2.840.114 [id number] Univers 00:00:00 00:00:00 Ogechukwu [place] 350.1.13.10 ity of [place].2.[place] [phone] Nj dical NAL [address] [place] [address] 2022-06-11 2022-06-12 Emergency X KITA [facility] ERT [id number] Univers 22:04:00 01:21:00 AARON ity of [facility] 2022-06-11 2022-06-[address] [facility] [id number] [facility] 22:04:00 01:21:00 Aaron S [place] 350.1.13.10 i ty of [facility] 4.2.7.2.686 [place] [id number] [address] 2022-01-22 2022-01-[address] [facility] 1.2.840.114 [id number] Univers 00:00:00 00:00:00 Ogechukwu [place] 350.1.13.10 ity [facility] 4.2.7.2.686 [place] [id number] Nj dical NAL [address] [place] [address] 2021-12-26 2021-12-26 [facility] 1.2.840.114 [id number] Univers 00:00:00 00:00:00 Ogechukwu [place] 350.1.13.10 ity of [facility] 4.2.7.2.686 [place] [id number] Nj dical NAL [address] [place] [address] 2021-12-26 2021-12-26 [facility] 1.2.840.114 [id number] Univers 00:00:00 00:00:00 Ogechukwu [place] 350.1.13.10 ity of [place] 4.2.7.2.686 [place] [phone] Nj dical NAL [address] [place] [address] 2021-12-25 2021-12-[address] [facility] 1.2.840.114 [id number] Univers 00:00:00 00:00:00 Ogechukwu [place] 350.1.13.10 ity of [place] 4.2.7.2.[place] [phone] Nj dickoki HOOKER 044 [facility] 2021-12-25 2021-12-25 Telephone Elvira [facility] 1.2.840.114 [id number] Univers 00:00:00 00:00:00 Nanojulianaayad TARAN[place] 350.1.13.10 ity of [facility] 4.2.7.2.686 [place] [phone] Nj dickoki HOOKER 044 [facility] 2021-12-24 2021-12-24 Lacquer Coater 2, Adc Lab [facility] 1.2.840.114 [id number] Univers 13:00:00 13:15:00 Visit ElviraMarleny vargas 350.1.13.1 0 ity of [facility] 4.2.7.2.[place] [phone] Nj nadia [facility] 353 [facility] 2021-12-24 2021-12-24 Outpatient R MARLENY STEPHENS [facility] [id number] Univers 11:00:00 11:29:45 [facility] 2021-12-24 2021-12-24 Office Elvira [facility] 1.2.840.114 [id number] Univers 11:00:00 11:29:45 Visit Marleny TARANGO 350.1.13.10 ity of [facility] 4.2.7.2.686 [place] [phone] Nj nadia HOOKER [address] [place] [address] 2021-12-24 2021-12-24 Orders Doctor CANDELARIA 1.2.840.114 [id number] Univers 00:00:00 00:00:00 Only Unassigned, RUPERT 350.1.13.10 ity of [place] [facility] 4.2.7.2.686 Maximino as [phone] [address] 2021-12-21 2021-12-21 Outpatient R MARLENY STEPHENS [facility] [id number] Univers 16:00:00 16:00:00 MARLENY STEPHENS ity [facility] 2021-12-21 2021-12-21 Outpatient R MARLENY STEPHENS [facility] [id number] Univers 10:30:00 10:30:00 MARLENY STEPHENS ity [facility] 2021-12-17 2021-12-17 Outpatient R MARLENY STEPHENS [facility] [id number] Univers 15:30:00 15:30:00 MARLENY STEPHENS ity [facility] 2021-12-13 2021-12-13 Outpatient R JOSÉ MIGUEL [facility] [id number] Univers 13:00:00 14:31:24 BENJY ity [facility] 2021-12-13 2021-12-13 Office Pgy1 UNIVERSIT [id number] Univers 13:00:00 14:31:24 Visit José Miguel Benjy [facility] 350.1.13.10 ity of [place].2.[place] [id number] [address] 2021-12-13 2021-12-13 Outpatient R [facility] [id number] Univers 13:00:00 13:00:00 ity of [facility] 2021-11-15 2021-11-15 [facility] DONNIE ValdezIT 1.2.840.114 [id number] Univers 12:40:21 23:59:00 Encounter Benjy [facility] 350.1.13.10 ity of [place].2.[place] [id number] [facility] 806 [place] 2021-11-15 2021-11-15 Outpatient R [facility] [id number] Univers 12:40:21 23:59:00 BENJY ity [facility] 2021-11-15 2021-11-15 Office Pgy2 UNIVERSIT [id number] Univers 14:00:00 15:04:59 Visit José Miguel Benjy [facility] 350.1.13.10 ity of [place].2.[place] [id number] [address] 2021-11-15 2021-11-15 Outpatient R [facility]É [facility] [id number] Univers 14:00:00 15:04:59 BENJY ity [facility] 2021-11-15 2021-11-15 Outpatient Lester VALDEZ [facility] [id number] Univers 12:40:21 12:40:21 BENJY ity [facility] 2021-11-01 2021-11-01 Lacquer Coater [facility] UNIVERSIT 1.2.840.114 [id number] Univers 16:30:00 16:45:00 Visit Benjy Valdez HEALTH 350.1.13.10 ity of [place] 4.2.7.2.[place] [id number] [facility] [address] 2021-11-01 2021-11-01 Outpatient Lester VALDEZ [facility] [id number] Univers 16:30:00 16:30:00 BENJY ity [facility] 2021-11-01 2021-11-01 Office Pgy2 UNIVERSIT [id number] Univers 14:30:00 16:11:18 Visit Benjy Valdez [facility] 350.1.13.10 ity of [place] 4[place].2.[place] [id number] [facility] 113 Branch 2021-11-01 2021-11-01 Outpatient Lester VALDEZ [facility] [id number] Univers 14:30:00 16:11:18 BENJY ity [facility] 2021-11-01 2021-11-01 Outpatient Lester VALDEZ [facility] [id number] Univers 14:30:00 16:11:18 BENJY ity [facility] 2021-11-01 2021-11-01 Office Pgy2 UNIVERSIT [id number] Univers 14:30:00 16:11:18 Visit Benjy Valdez HEALTH 350.1.13.10 ity of [place] 4[place].2.[place] [id number] [facility] 113 Branch 2021-11-01 2021-11-01 Outpatient Lester VALDEZ [facility] [id number] Univers 14:30:00 16:11:18 BENJY ity [facility] 2021-11-01 2021-11-01 Outpatient R JOSÉ MIGUEL [facility] [id number] Univers 14:30:00 16:11:18 BENJY ity [facility] 2021-11-01 2021-11-01 Orders Doctor BARI 1.2.840.114 [id number] Univers 00:00:00 00:00:00 Only Unassigned, RUPERT 350.1.13.10 ity of [place] [facility] 42.7.2.686 Maximino as [id number] [facility] 009 [place] 2021-10-23 2021-10-23 Telephone [facility] [id number] Univers 00:00:00 00:00:00 Kellen Batista REGULATION SUPERVISOR 350.1.13.10 ity of [place] [address].2.7.2.686 Maximino as MATERNAL [phone] [facility] & [address] 2021-10-23 2021-10-23 Telephone [facility] [id number] Univers 00:00:00 00:00:00 Kellen Batista REGULATION SUPERVISOR 350.1.13.10 ity of [place] [id number] Maximino as MATERNAL [id number] [address] 2021-10-16 2021-10-16 Outpatient R [facility] [id number] Univers 13:33:42 23:59:00 KELLEN castillo o [facility] 2021-10-16 2021-10-16 [facility] 1.2.840.114 [id number] Univers 13:20:00 23:59:00 Encounter Kellen Batista [facility] 350.1.13.10 ity [facility] 42.7.2.686 [place] [facility] [id number] [facility] 800 [place] 2021-10-11 2021-10-11 Outpatient R [facility] [id number] Univers 00:00:00 00:00:00 KELLEN castillo o jayshree [facility] 2021-10-02 2021-10-02 Outpatient R ROSALES, [facility] [id number] Univers 13:15:00 13:54:17 KELLEN martell [facility] 2021-10-02 2021-10-02 Office Connie [facility] 1.2.840.114 [id number] Univers 13:15:00 13:54:17 Visit Kellen Batista REGULATION SUPERVISOR 350.1.13.10 ity of [facility] 4.2.7.2.686 Maximino as MATERNAL [phone] [facility] ical & CHILD [address] [place] [address] 2021-10-02 2021-10-02 Outpatient R CONNIE [facility] [id number] Univers 13:15:00 13:54:17 KELLEN martell [facility] 2021-10-02 2021-10-02 Outpatient R CONNIE [facility] [id number] Univers 13:15:00 13:54:17 DUSTINMESFIN martell [facility] 2021-10-02 2021-10-02 Orders Doctor BARI 1.2.840.114 [id number] Univers 00:00:00 00:00:00 Only Unassigned, RUPERT 350.1.13.10 [facility] 4.2.7.2.686 Maximino as [id number] [address] 2021-09-26 2021-09-26 Lacquer Coater 2, Adc Lab [facility] 1.2.840.114 [id number] Univers 15:00:00 15:15:00 Visit Marleny Stephens 350.1.13.1 0 ity [facility] 4.2.7.2.[place] [id number] Nj dical [address] 2021-09-26 2021-09-26 Outpatient R MARLENY STEPHENS [facility] [id number] Univers 13:00:00 14:32:21 MARLENY STEPHENS ity of [facility] 2021-09-26 2021-09-26 Office Elvira [facility] 1.2.840.114 [id number] Univers 13:00:00 14:32:21 Visit Marleny TARANGO 350.1.13.10 ity of [facility] 4.2.7.2.686 [place] [phone] Nj dical NAL 044 Branch [facility] 2021-09-09 2021-09-09 Emergency X HEATHER [facility] ERT [id number] Univers 16:57:00 19:56:00 LIAM arellanodon [facility] 2021-09-09 2021-09-09 Emergency Heather [facility] [id number] Univers 16:57:00 19:56:00 Liam TARANGO 350.1.13.10 ity of [facility] 4.2.7.2.686 [place] C[place] [id number] [facility] 084 Branch 2021-09-05 2021-09-05 Transition HENRI Mcgovern 1.2.840.114 [id number] Univers 00:00:00 00:00:00 of Care Selena LOPEZ 350.1.13.10 i ty of [place] 4[place]2.7.2.686 [place] [id number] [facility] 403 Branch 2021-08-27 2021-09-02 Hospital Chucky Stauffer [facility] 1.2.840.1 [id number] Univers 13:42:00 17:32:00 Encounter Xochitl Louise 350.1.13.10 ity of [facility] 4.2.7.2.686 [place] [id number] [facility] 081 Branch 2021-08-27 2021-09-02 Inpatient X DANI [facility] [id number] Univers 13:42:00 17:32:00 XOCHITL castillo [facility] 2021-08-30 2021-08-30 Surgery Genesis [facility] 1.2.840.114 [id number] Univers 08:00:00 08:58:00 Timothy TARAN[place] 350.1.13.10 ity of [facility] 4.2.7.2.686 [place] SURGICAL [id number] [facility] 020 Branch 2021-08-27 2021-08-27 Orders Doctor CANDELARIA 1.2.840.114 [id number] Univers 00:00:00 00:00:00 Only Unassigned, RUPERT 350.1.13.10 [place] of [place] [facility] 4.2.7.2.686 Maximino as [id number] [facility] 009 Branch 2020-06-30 2020-06-30 Emergency Alex Rivers [facility] 1.2.840.114 [id number] Univers 13:42:00 17:30:00 Jessy Tarango 350.1.13.10 i ty of [place] 4.2.7.2.686 [place] [facility] [id number] [facility] 084 Branch 2020-06-30 2020-06-30 Emergency X Alex RIVERS [facility] ERT [id number] Univers 13:42:00 13:42:00 ity of [facility] 2019-06-08 2019-06-08 Orders Doctor BARI 1.2.840.114 [id number] Univers 00:00:00 00:00:00 Only Unassigned, RUPERT 350.1.13.10 ity of [place] [facility] 4.2.7.2.686 Maximino as [phone] [address] Results Test Description Test Time Test Comments Results Result Comments Source CT/NG, NAAT, URINE 2021-07-16 16:57:40 Test Item Value Reference Range Interpretation Comme nts GONORRHEA, NAAT NEGATIVE NEGATIVE IMPORTA NT NOTICE: SEE ANNOUNCEMENT AT (test code = [email or web address] Note: 58930) Assay methodolo gy is nucleic acid amplification by transcriptio n mediated amplification (TMA) utilizing the A ptima Combo 2 Assay. CHLAMYDIA, NAAT NEGATIVE NEGATIVE IMPORTA NT NOTICE: SEE ANNOUNCEMENT AT (test code = [email or web address] Note: 15126) Assay methodolo gy is nucleic acid amplification by transcriptio n mediated amplification (TMA) utilizing the A ptima Combo 2 Assay. TRICHOMONAS, NAAT, [id number] 16:30:51 Test Item Value Reference Range Interpretation Comments TRICHOMONAS, NAAT NEGATIVE NEGATIVE IMPOR TANT NOTICE: SEE (test code = [place] [address]) [email or web address] [email or web address] Note: Assay methodology is nucleic acid amplification b y nursing scheduler m ediated amplification ( TMA) and Hybridization P rotection Assay (HPA) uti lizing the [employer] APTIMA platform. A negative result does not exclude low lev el infection, specimensamplin g error, or collection erro r. UNLESS OTHERWISE INDIC ATED, ALL TESTING PERFORM ED ATCLINICAL PATHOLOGY [place]. [address] [place] [address] LABORATOR Y DIRECTOR: Carola ARGUETA NUMBER [id number] CAP ACCREDITATION N O. [id number] Notes Date/Time Note Provider Source 2022-10-26 08:40:03-00:00 Formatting of this note is d ifferent from the original. [facility] Sent 30 day supply of both w ith reminder appointment needs to be scheduled. Sent MyChart correspondence. Vidhya Adams LVN 10/26/2022 8:41 AM Recent Visits Date Type Provider Dept 12/24/21 Office Visit Marleny Stephens NP [facility] 09/26/21 Office Visit Marleny Stephens NP [facility] Showing recent visits within past 540 days with a meds authorizing provider and meeting all other requirements Future Appointments No visits were found meeting these conditions. Showing future appointments within next 150 days with a meds authorizing provider and meeting all other requirements
--- NOTE | 2022-12-24 12:03 | RAD REPORT ---
EXAM DESCRIPTION: Shoulder Right 2 View - 12/24/2022 11:34 am CLINICAL HISTORY: PAIN COMPARISON: No comparisons TECHNIQUE: Internal and external rotation views of the right shoulder were obtained. FINDINGS: There is no fracture or dislocation. AC joint is normal in appearance. Irregularity at the greater tuberosity may suggest sequelae of longstanding rotator cuff changes. No acute or suspicious findings. IMPRESSION: No acute osseus abnormality. Findings suggestive of chronic rotator cuff changes.
[2022-12-24] MEDS ORDERED: IBUPROFEN 400 MG TAB ONE (12:07)
[2022-12-24] MEDS ORDERED: IBUPROFEN 200 MG TAB PO ONE (12:07)
--- NOTE | 2022-12-24 12:42 | ER ---
Nurse's Notes [facility] Name: Cindy Pandey Age: 47 yrs Sex: Female : 1975 Arrival Date: 12/24/2022 Time: 10:25 Bed DX4 Private MD: Diagnosis: Pain in right shoulder Presentation: 12/24 11:13 Chief complaint: Patient states: Right arm aching, pain x 7 days, denies trauma. jl7 Coronavirus screen: At this time, the client does not indicate any symptoms associated with coronavirus-19. Ebola Screen: No symptoms or risks identified at this time. Initial Sepsis Screen: Does the patient meet any 2 criteria? No. Patient's initial sepsis screen is negative. Does the patient have a suspected source of infection? No. Patient's initial sepsis screen is negative. Risk Assessment: Do you want to hurt yourself or someone else? Patient reports no desire to harm self or others. Onset of symptoms was December 17, 2022. 11:13 Method Of Arrival: Ambulatory jl 11:13 Acuity: PHILL 4 jl7 Triage Assessment: 11:14 General: Appears in no apparent distress. uncomfortable, Behavior is calm, cooperative, jl7 appropriate for age. Pain: Complains of pain in right arm Pain currently is 8 out of 10 on a pain scale. 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 - Social history:: Smoking status: Patient denies any tobacco usage or history of. Screenin:50 [facility] ED Fall Risk Assessment (Adult) History of falling in the last 3 months, jl7 including since admission No falls in past 3 months (0 pts) Confusion or Disorientation No (0 pts) Intoxicated or Sedated No (0 pts) Impaired Gait No (0 pts) Mobility Assist Device Used No (0 pt) Altered Elimination No (0 pt) Score/Fall Risk Level 0 - 2 = Low Risk Oriented to surroundings, Maintained a safe environment, Educated pt \T\ family on fall prevention, incl call for assistance when getting out of bed. Abuse screen: Denies threats or abuse. Denies injuries from another. Nutritional screening: No deficits noted. Tuberculosis screening: No symptoms or risk factors identified. Assessment: 12:50 General: Appears in no apparent distress. Behavior is calm, cooperative. jl7 12:50 Musculoskeletal: Reports pain in anterior aspect of right shoulder. jl7 Vital Signs: 11:13 BP 122 / 59; Pulse 76; Resp 15; Temp 97.9; Pulse Ox 99% ; Weight 131.54 kg; Height 6 jl7 ft. 0 in. ; Pain 8/10; 11:13 Body Mass Index 39.33 (131.54 kg, 182.88 cm) jl7 11:13 Pain Scale: Adult jl7 ED Course: 10:34 Patient arrived in ED. im 10:36 Alec Fish DO is Attending Physician. ms3 11:14 Triage completed. jl7 11:14 Arm band placed on right wrist. jl7 11:18 Daysi Domingo RN is Primary Nurse. jl7 11:33 Shoulder Right (2 View) XRAY In Process Unspecified. EDMS 12:40 Steven Bustillo MD is Referral Physician. ms3 12:50 Patient has correct armband on for positive identification. Provided Education on: jl7 Discharge, follow up, sling. 12:50 No provider procedures requiring assistance completed. Patient did not have IV access jl7 during this emergency room visit. 13:08 Sling \T\ swathe to right arm. em1 Administered Medications: 11:58 Drug: Ibuprofen PO 600 mg PO once Route: PO; kb3 Medication: 12:50 VIS not applicable for this client. jl7 Outcome: 12:41 Discharge ordered by . ms3 12:50 Discharged to home ambulatory, jl7 12:50 Condition: stable 12:50 Discharge instructions given to patient, Instructed on discharge instructions, follow up and referral plans. medication usage, Demonstrated understanding of instructions, follow-up care, medications, Prescriptions given X 1, 13:21 Patient left the ED. jl7 Signatures: Dispatcher [employer] EDMS [place] em1 Daysi Domingo RN RN jl7 Alec Fish DO DO ms3 Lynda Bagley RN RN kb3 Myrna Jackson
--- NOTE | 2022-12-24 12:42 | EDPHYS ---
Physician Documentation [facility] Name: Cindy Pandey Age: 47 yrs Sex: Female : 1975 Arrival Date: 12/24/2022 Time: 10:25 Bed DX4 Private MD: ED Physician Alec Fish HPI: 12/24 11:04 This 47 yrs old Female presents to ER via Unassigned with complaints of Arm Pain - ms3 right. 11:04 47-year-old female with past medical history of diabetes and atrial fibrillation ms3 presents for right upper arm pain has been ongoing for 2 days. Patient states the pain is intermittent, rated an 8/10, described as aching, throbbing, shooting. Patient denies alleviating or inciting factors. Patient states she is attempted using a massager and heat without relief. Patient denies fevers chills. 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 - Social history:: Smoking status: Patient denies any tobacco usage or history of. ROS: 11:04 Constitutional: Negative for fever, and chills. Neck: Negative for injury, pain, and ms3 swelling, Cardiovascular: Negative for chest pain, and palpitations. Respiratory: Negative for shortness of breath, cough, wheezing, and pleuritic chest pain, Abdomen/GI: Negative for abdominal pain, nausea, vomiting, diarrhea, and constipation, 11:04 MS/extremity: Positive for Right shoulder pain, Exam: 11:04 Constitutional: This is a well developed, well nourished patient who is awake, alert, ms3 and in no acute distress. Head/Face: Normocephalic, atraumatic. Neck: Trachea midline, no cervical lymphadenopathy. Supple, full range of motion without nuchal rigidity, or vertebral point tenderness. No Meningismus. Chest/axilla: Normal chest wall appearance and motion. Nontender with no deformity. Cardiovascular: Regular rate and rhythm with a normal S1 and S2. No gallops, murmurs, or rubs. Normal PMI, no JVD. No pulse deficits. Respiratory: Lungs have equal breath sounds bilaterally, clear to auscultation and percussion. No rales, rhonchi or wheezes noted. No increased work of breathing, no retractions or nasal flaring. Abdomen/GI: Soft, non-tender, with normal bowel sounds. No distension or tympany. No guarding or rebound. No evidence of tenderness throughout. Skin: Warm, dry with normal turgor. Normal color with no rashes, no lesions, and no evidence of cellulitis. 11:04 Musculoskeletal/extremity: Extremities: noted in the Right shoulder: pain, tenderness, Vital Signs: 11:13 BP 122 / 59; Pulse 76; Resp 15; Temp 97.9; Pulse Ox 99% ; Weight 131.54 kg; Height 6 jl7 ft. 0 in. ; Pain 8/10; 11:13 Body Mass Index 39.33 (131.54 kg, 182.88 cm) [facility] 11:13 Pain Scale: Adult jl7 MDM: 10:56 Patient medically screened. ms3 11:04 Differential diagnosis: tendonitis, Arthritis. ms3 12:41 Data reviewed: vital signs, nurses notes, radiologic studies, plain films, and as a ms3 result, I will discharge patient. Independent interpretation of the following test(s) in the Emergency Department X-Ray: My interpretation is Right shoulder x-ray images reviewed by me do not reveal fracture.. Care significantly affected by the following chronic conditions: Diabetes. Counseling: I had a detailed discussion with the patient and/or guardian regarding the historical points, exam findings, and any diagnostic results supporting the discharge/admit diagnosis, radiology results, the need for outpatient follow up, to return to the emergency department if symptoms worsen or persist or if there are any questions or concerns that arise at home. Special discussion: I discussed with the patient/guardian in detail that at this point there is no indication for admission to the hospital. It is understood, however, that if the symptoms persist or worsen the patient needs to return immediately for re-evaluation. ED course: Discussed x-ray findings on report with patient. Patient to follow-up with orthopedics. Patient understands and agrees with plan. All questions were answered. Return precautions discussed include worsening symptoms, or any other concerns. Patient placed in sling for comfort.. 12/24 10:56 Order name: Shoulder Right (2 View) XRAY; Complete Time: 12:11 ms3 12/24 12:40 Order name: Sling; Complete Time: 13:08 ms3 Administered Medications: 11:58 Drug: Ibuprofen PO 600 mg PO once Route: PO; kb3 Disposition Summary: 12/24/22 12:41 Discharge Ordered Notes: Location: Home ms3 Condition: Stable ms3 Diagnosis - Pain in right shoulder ms3 Followup: ms3 - With: Steven Bustillo MD - When: 2 - 3 days - Reason: Recheck today's complaints Discharge Instructions: - Discharge Summary Sheet ms3 - Shoulder Pain ms3 Forms: - Medication Reconciliation Form ms3 - Thank You Letter ms3 - Antibiotic Education ms3 - Prescription Opioid Use ms3 - Patient Portal Instructions ms3 - Leadership Thank You Letter ms3 Prescriptions: - Ibuprofen 600 mg Oral Tablet - take 1 tablet ORAL route every 6 hours As needed take with food; 30 tablet; ms3 Refills: 0, Product Selection Permitted Signatures: Dispatcher [employer] Daysi Carlin, RN RN jl7 Alec Fish DO DO ms3 Lynda Bagley, RN RN kb3
[2022-12-24 14:32] VITALS: BP 122/59; TEMP 97.9; O2SAT 99
== END 2022-12-24 13:21 | disposition home or self-care (01) ==
LOC: ER 10:25
DX: M25.511 Pain in right shoulder (principal)

== ENCOUNTER 2023-02-15 13:24 | Emergency (ER) | payer SELFPAY ==
--- OUTSIDE RECORDS SUMMARY | 2023-02-15 13:41 | XMS REPORT | Continuity of Care Document ---
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 Primary Care Physician Marleny Stephens NP Attending Clinician AARON EAST Attending Clinician Unavailable Aaron Em Attending Clinician 2, [facility] Attending Clinician Unavailable MARLENY STEPHENS Attending Clinician Unavailable Doctor Unassigned, [place] Attending Clinician Unavailable BENJY VALDEZ Attending Clinician Unavailable Pgy1 Attending Clinician Unavailable Benjy Valdez MD Attending Clinician Pgy2 Attending Clinician Unavailable [facility] Attending Clinician Unavailable Kellen Traylor Attending [...] Univers pelvic pelvic 6-28 ity of 00:00: [place] [facility] Well woman Well woman Disease [...] with 6-28 ity of regular regular 00:00: [place] cycle cycle 00 Medical Branch Fibroids, Fibroids, Disease Active Uni vers submucosal submucosal 6-28 it y of 00:00: [place] [facility] Cellulitis Cellulitis Disease Active U nivers of foot of foot 5-24 ity of 00:00: [place] [facility] Cellulitis Cellulitis Disease Active 2021-0 U nivers 5-23 ity of 00:00: [place] [facility] BMI BMI Disease Active 2021- Univers 40.0-44.9, 40.0-44.9, 5-23 it y of adult adult 00:00: Medical Branch Obesity Obesity Disease Active 2005-04 Overview: Univ ers 2-04 Formattin ity of 00:00: g of this note Medical might be Branch different from the original. ICD10 Diagnosis Term Sap Bw Architect Utility Type 1 Type 1 Disease Active Overview: Univer s diabetes diabetes 3-10 Formattin ity of mellitus mellitus 00:00: g of this [place] as note Medical might be Branch different from the original. ICD10 Diagnosis Term Sap Bw Architect Utility Allergies, Adverse Reactions, Alerts Allergy Allergy Status Severity Reaction(s) Onset Inactive Treating Comm ents Source Name Type Date Date Clinician NO KNOWN Drug Active Univers ALLERGIE Class ity of [facility] Social History Social Habit Start Date Stop Date Quantity Comments Source Gender identity Universit y [facility] to 2022-06-01 2022-06-11 Not sure [facility] SARS-CoV-2 (event) 00:00:00 21:58:00 [facility] Alcohol intake 2022-06-11 2022-06-11 Current University of 00:00:00 00:00:00 non-drinker of [facility] alcohol [place] (finding) Tobacco use and 2021-11-01 2021-11-01 Smokeless Universit y of exposure 00:00:00 00:00:[address] tobacco non-user [facility] of Social 2021-09-26 2021-09-26 Univers ity of function 00:00:00 00:00:00 [facility] Sex Ass[birth year] At [birth year] Universit y of 00:00:00 00:00:00 [facility] Smoking Status Start Date Stop Date Source Never smoked tobacco [facility] Medications Ordered Filled Start Stop Current Ordering Indication Dosage Frequency Signature Comments Components Source Medication Medication Date Date Medication? Clinician (SIG) Name Name omeprazole Yes [id number] 40mg Take 1 Univers 40 mg 7-22 capsule by ity of capsule 00:00: mouth in [place] [address] the Medical morning. Branch Patient needs appointmen t for further refills metFORMIN 2022-0 Yes [id number] 500mg Take 1 Univers 500 mg 7-22 tablet by ity of tablet 00:00: mouth in [place] [address] the Medical morning Branch and 1 tablet in the evening. Take with meals. Patient needs appointmen t for further refills omeprazole 2022-0 Yes [id number] 40mg Take 1 Univers 40 mg 7-22 capsule by ity of capsule 00:00: mouth in [place] [address] the Medical morning. Branch Patient needs appointmen t for further refills metFORMIN 2022-0 Yes [id number] 500mg Take 1 Univers 500 mg 7-22 tablet by ity of tablet 00:00: mouth in [place] [address] the morning Branch and 1 tablet in the evening. Take with meals. Patient needs appointmen t for further refills clindamycin 2022- No [id number] 450mg Take 3 Univers 150 mg 06-12-19 capsules ity of capsule 00:00: 04:59 by mouth [place] 00 :00 in the Medical morning Branch and 3 capsules at noon and 3 capsules in the evening. Do all this for 10 days. dulaglutide 2021-04- No [id number] 1.5mg inject 1 Univers (TRULICITY) 04-17 Pen under it y of 1.5 mg/0.5 00:00: 05:59 [place] PnIj 00 :00 weekly for Medica l 90 days. Branch dulaglutide 2021-04- No [id number] 1.5mg inject 1 Univers (TRULICITY) 04-17 Pen under it y of 1.5 mg/0.5 00:00: 05:59 [place] PnIj 00 :00 weekly for Medica l 90 days. Branch dulaglutide 2021-04- No [id number] 1.5mg inject 1 Univers (TRULICITY) 04-17 Pen under it y of 1.5 mg/0.5 00:00: 05:59 [place] PnIj 00 :00 weekly for Medica l 90 days. Branch ondansetron 2021-04 Yes [id number] 4mg Take 1 Univers 4 mg 0-19 tablet by ity of disintegrat 00:00: mouth [place] ing tablet 00 every 8 Medica l (eight) Branch hours as needed for Nausea and Vomiting (N/V). ondansetron 2021-04 Yes [id number] 4mg Take 1 Univers 4 mg 0-19 tablet by ity of disintegrat 00:00: mouth [place] ing tablet 00 every 8 Medica l (eight) Branch hours as needed for Nausea and Vomiting (N/V). ondansetron 2021-04 Yes [id number] 4mg Take 1 Univers 4 mg 0-19 tablet by ity of disintegrat 00:00: mouth [place] ing tablet 00 every 8 Medica l (eight) Branch hours as needed for Nausea and Vomiting (N/V). ondansetron 2021-04 Yes [id number] 4mg Take 1 Univers 4 mg 0-19 tablet by ity of disintegrat 00:00: mouth [place] ing tablet 00 every 8 Medica l (eight) Branch hours as needed for Nausea and Vomiting (N/V). tirzepatide 2021-04- No [id number] 5mg inject 5 Univers 2.5 mg/0.5 0-19 11-19 mg under ity of mL 00:00: 05:59 the skin [place] subcutaneou 00 :00 weekly for Me dical s injection 30 days. [facility] tirzepatide 2021-04- No [id number] 5mg inject 5 Univers 2.5 mg/0.5 0-19 11-19 mg under ity of mL 00:00: 05:59 the skin [place] subcutaneou 00 :00 weekly for Me dical s injection 30 days. [facility] tirzepatide 2021-04- No [id number] 5mg inject 5 Univers 2.5 mg/0.5 0-19 11-19 mg under ity of mL 00:00: 05:59 the skin [place] subcutaneou 00 :00 weekly for Me dical s injection 30 days. [facility] tirzepatide 2021-04- No [id number] 5mg inject 5 Univers 2.5 mg/0.5 0-19 11-19 mg under ity of mL 00:00: 05:59 the skin [place] subcutaneou 00 :00 weekly for Me dical s injection 30 days. [facility] tirzepatide 2021-04- No [id number] 5mg inject 5 Univers 2.5 mg/0.5 0-19 11-19 mg under ity of mL 00:00: 05:59 the skin [place] subcutaneou 00 :00 weekly for Me dical s injection 30 days. [facility] tirzepatide 2021-04- No [id number] 5mg inject 5 Univers 2.5 mg/0.5 0-19 11-19 mg under ity of mL 00:00: 05:59 the skin [place] subcutaneou 00 :00 weekly for Me dical s injection 30 days. [facility] tirzepatide 2021-04- No [id number] 5mg inject 5 Univers 2.5 mg/0.5 0-19 10-11 mg under ity of mL 00:00: 00:00 the skin [place] subcutaneou 00 :00 weekly for Me dical s injection 30 days. Kaden tripathi tirzepatide 2021-04- No [id number] 5mg inject 5 Univers 2.5 mg/0.5 0-19 10-11 mg under ity of mL 00:00: 00:00 the skin [place] subcutaneou 00 :00 weekly for Me dical s injection 30 days. Kaden tripathi dulaglutide 2021-04- No [id number] .75mg inject 1 Univers (TRULICITY) 0-11 11-11 Pen under it y of 0.75 mg/0.5 00:00: 05:59 [place] skin [place] mL PnIj 00 :00 weekly for Medica l 30 days. Merlin dulaglutide 2021-04- No [id number] .75mg inject 1 Univers (TRULICITY) 0-11 11-11 Pen under it y of 0.75 mg/0.5 00:00: 05:59 the skin [place] mL PnIj 00 :00 weekly for Medica l 30 days. [facility] dulaglutide 2021-04- No [id number] .75mg inject 1 Univers (TRULICITY) 0-11 11-11 Pen under it y of 0.75 mg/0.5 00:00: 05:59 the skin [place] mL PnIj 00 :00 weekly for Medica l 30 days. Branch metFORMIN 0 Yes [id number] 1000mg Take 2 Univers 500 mg 9-19 tablets by ity of tablet 00:00: mouth in [place] the Medical morning Branch and 2 tablets in the evening. Take with meals. nystatin 2021-0 Yes [id number] Apply to U nivXINTEC 100,000 9-19 area(s) 2 ity of unit/gram 00:00: (two) [place] cream 00 times Medical daily. Branch metFORMIN 2021-0 Yes [id number] 1000mg Take 2 Univers 500 mg 9-19 tablets by ity of tablet 00:00: mouth in [place] the Medical morning Branch and 2 tablets in the evening. Take with meals. nystatin 2021-0 Yes [id number] Apply to U nivXINTEC 100,000 9-19 area(s) 2 ity of unit/gram 00:00: (two) [place] cream 00 times Medical daily. Branch nystatin 2022-0 Yes [id number] Apply to U nivers 100,000 9-19 area(s) 2 ity of unit/gram 00:00: (two) [place] cream 00 times Medical daily. Branch nystatin 2022-0 Yes [id number] Apply to U nivers 100,000 9-19 area(s) 2 ity of unit/gram 00:00: (two) [place] cream 00 times Medical daily. Branch metFORMIN 2022-0 Yes [id number] 1000mg Take 2 Univers 500 mg 9-19 tablets by ity of tablet 00:00: mouth in [place] 00 the Medical morning Branch and 2 tablets in the evening. Take with meals. nystatin 2022-0 Yes [id number] Apply to U nivers 100,000 9-19 area(s) 2 ity of unit/gram 00:00: (two) [place] cream 00 times Medical daily. Branch metFORMIN 2022-0 Yes [id number] 1000mg Take 2 Univers 500 mg 9-19 tablets by ity of tablet 00:00: mouth in [place] [address] the Medical morning Branch and 2 tablets in the evening. Take with meals. nystatin 2022-0 Yes [id number] Apply to U nivers 100,000 9-19 area(s) 2 ity of unit/gram 00:00: (two) [place] cream 00 times Medical daily. Branch metFORMIN 2022-0 Yes [id number] 1000mg Take 2 Univers 500 mg 9-19 tablets by ity of tablet 00:00: mouth in [place] 00 the Medical morning Branch and 2 tablets in the evening. Take with meals. nystatin 2022-0 Yes [id number] Apply to U nivers 100,000 9-19 area(s) 2 ity of unit/gram 00:00: (two) [place] cream 00 times Medical daily. Branch metFORMIN 2022-0 Yes [id number] 1000mg Take 2 Univers 500 mg 9-19 tablets by ity of tablet 00:00: mouth in [place] 00 the Medical morning Branch and 2 tablets in the evening. Take with meals. nystatin 2022-0 Yes [id number] Apply to U nivers 100,000 9-19 area(s) 2 ity of unit/gram 00:00: (two) [place] cream 00 times Medical daily. Branch metFORMIN 2022-0 Yes [id number] 1000mg Take 2 Univers 500 mg 9-19 tablets by ity of tablet 00:00: mouth in [place] 00 the Medical morning Branch and 2 tablets in the evening. Take with meals. nystatin 2021-0 Yes [id number] Apply to U [facility] 100,000 9-19 area(s) 2 ity of unit/gram 00:00: (two) [place] cream 00 times Medical daily. Branch metFORMIN 2021-0 Yes [id number] 1000mg Take 2 Univers 500 mg 9-19 tablets by ity of tablet 00:00: mouth in [place] 00 the Medical morning Branch and 2 tablets in the evening. Take with meals. nystatin 2021-0 Yes [id number] [facility] 9-19 area(s) 2 ity of unit/gram 00:00: (two) [place] cream 00 times Medical daily. Branch metFORMIN 2021-0 Yes [id number] 1000mg Take 2 Univers 500 mg 9-19 tablets by ity of tablet 00:00: mouth in [place] 00 the Medical morning Branch and 2 tablets in the evening. Take with meals. nystatin 2021-0 Yes [id number] Apply to U [facility] 100,000 9-19 area(s) 2 ity of unit/gram 00:00: (two) [place] cream 00 times Medical daily. Branch metFORMIN 2021-0 Yes [id number] 1000mg Take 2 Univers 500 mg 9-19 tablets by ity of tablet 00:00: mouth in [place] 00 the Medical morning Branch and 2 tablets in the evening. Take with meals. nystatin 2021-0 Yes [id number] Apply to [facility] 100,000 9-19 area(s) 2 ity of unit/gram 00:00: (two) [place] cream 00 times Medical daily. Branch metFORMIN 2021-0 2022- No [id number] 1000mg Take 2 Univers 500 mg 9-19 07-22 tablets by ity of tablet 00:00: 00:00 mouth in [place] 00 :00 the Medical morning Branch and 2 tablets in the evening. Take with meals. tirzepatide 2021-0 2021- No [id number] 2.5mg inject 2.5 Univers 2.5 mg/0.5 9-19 10-20 mg under ity of mL 00:00: 04:59 the skin [facility] 00 :00 weekly for Me dical s injection 30 days. Bran ch tirzepatide 2021- No [id number] 10mg inject 10 Univers 5 mg/0.5 mL 9-19 10-20 mg under ity of subcutaneou 00:00: 04:59 [place] s injection 00 :00 weekly for Me dical 30 days. Branch tirzepatide 2021- No [id number] 2.5mg inject 2.5 Univers 2.5 mg/0.5 9-19 10-20 mg under ity of mL 00:00: 04:59 the skin [place] subcutaneou 00 :00 weekly for Me dical s injection 30 days. Bran ch tirzepatide 2021- No [id number] 10mg inject 10 Univers 5 mg/0.5 mL 9-19 10-20 mg under ity of subcutaneou 00:00: 04:59 the skin [place] s injection 00 :00 weekly for Me dical 30 days. Branch tirzepatide 2021- No [id number] 2.5mg inject 2.5 Univers 2.5 mg/0.5 9-19 10-20 mg under ity of mL 00:00: 04:59 the skin [place] subcutaneou 00 :00 weekly for Me dical s injection 30 days. Bran ch tirzepatide 2021- No [id number] 10mg inject 10 Univers 5 mg/0.5 mL 9-19 10-20 mg under ity of subcutaneou 00:00: 04:59 the skin [place] s injection 00 :00 weekly for Me dical 30 days. Branch tirzepatide No [id number] 2.5mg inject 2.5 Univers 2.5 mg/0.5 9-19 10-20 mg under ity of mL 00:00: 04:59 the skin [place] subcutaneou 00 :00 weekly for Me dical s injection 30 days. Bran ch tirzepatide No [id number] 10mg inject 10 Univers 5 mg/0.5 mL 9-19 10-20 mg under ity of subcutaneou 00:00: 04:59 the skin [place] s injection 00 :00 weekly for Me dical 30 days. Branch tirzepatide 2021- No [id number] 2.5mg inject 2.5 Univers 2.5 mg/0.5 9-19 10-20 mg under ity of mL 00:00: 04:59 the skin [place] subcutaneou 00 :00 weekly for Me dical s injection 30 days. Bran ch tirzepatide 2021- No [id number] 10mg inject 10 Univers 5 mg/0.5 mL 9-19 10-20 mg under ity of subcutaneou 00:00: 04:59 the skin [place] s injection 00 :00 weekly for Me dical 30 days. Branch tirzepatide 2021- No [id number] 2.5mg inject 2.5 Univers 2.5 mg/0.5 9-19 10-20 mg under ity of mL 00:00: 04:59 the skin [place] subcutaneou 00 :00 weekly for Me dical s injection 30 days. Bran ch tirzepatide 2021- No [id number] 10mg inject 10 Univers 5 mg/0.5 mL 9-19 10-20 mg under ity of subcutaneou 00:00: 04:59 the skin [place] s injection 00 :00 weekly for Me dical 30 days. Branch tirzepatide 2021- No [id number] 2.5mg inject 2.5 Univers 2.5 mg/0.5 9-19 10-11 mg under ity of mL 00:00: 00:00 the skin [place] subcutaneou 00 :00 weekly for Me dical s injection 30 days. Bran ch tirzepatide No [id number] 10mg inject 10 Univers 5 mg/0.5 mL 9-19 10-11 mg under ity of subcutaneou 00:00: 00:00 the [place] s injection 00 :00 weekly for Me dical 30 days. Branch tirzepatide 2021- No [id number] 2.5mg inject 2.5 Univers 2.5 mg/0.5 9-19 10-11 mg under ity of mL 00:00: 00:00 the skin [place] subcutaneou 00 :00 weekly for Me dical s injection 30 days. Bran ch tirzepatide 2021- No [id number] 10mg inject 10 Univers 5 mg/0.5 mL 9-19 10-11 mg under ity of subcutaneou 00:00: 00:00 [place] injection 00 :00 weekly for Me dical 30 days. Branch blood sugar Yes [id number] Check Univers diagnostic 6-22 blood ity of strip 00:00: sugar 2 [place] 00 times a Medical day. Branch E11.9. Brand per insurance. Lancets 2021-0 Yes [id number] Check Univ ers Misc 6-22 blood ity of 00:00: sugar 2 [place] 00 times a Medical day. Branch E11.9. Brand per insurance. Blood-Gluco 0 Yes [id number] Check Univers se Meter 6-22 sugars 2 ity of Kit 00:00: times a [place] 00 day. Dx. Medical Code E11.9 Branch Brand per Insurance omeprazole 0 Yes [id number] 40mg Take 1 Univers 40 mg 6-22 capsule by ity of capsule 00:00: mouth [place] 00 daily. Medical Branch blood sugar 0 Yes [id number] Check Univers diagnostic 6-22 blood ity of strip 00:00: sugar 2 [place] 00 times a Medical day. Branch E11.9. Brand per insurance. Lancets 2021-0 Yes [id number] Check Univ ers Misc 6-22 blood ity of 00:00: sugar 2 [place] 00 times a Medical day. Branch E11.9. Brand per insurance. Blood-Gluco 2021-0 Yes [id number] Check Univers se Meter 6-22 sugars 2 ity of Kit 00:00: times a [place] 00 day. Dx. Medical Code E11.9 Branch Brand per Insurance blood sugar 0 Yes [id number] Check Univers diagnostic 6-22 blood ity of strip 00:00: sugar 2 [place] 00 times a Medical day. Branch E11.9. Brand per insurance. Lancets 2021-0 Yes [id number] Check Univ ers Misc 6-22 blood ity of 00:00: sugar 2 [place] 00 times a Medical day. Branch E11.9. Brand per insurance. Blood-Gluco 2021-0 Yes [id number] Check Univers se Meter 6-22 sugars 2 ity of Kit 00:00: times a [place] 00 day. Dx. Medical Code E11.9 Branch Brand per Insurance blood sugar 2021-0 Yes [id number] Check Univers diagnostic 6-22 blood ity of strip 00:00: sugar 2 times a Medical day. Branch E11.9. Brand per insurance. Lancets 2021-0 Yes [id number] Check Univ ers Misc 6-22 blood ity of 00:00: sugar 2 times a Medical day. Branch E11.9. Brand per insurance. Blood-Gluco 2021-0 Yes [id number] Check Univers se Meter 6-22 sugars 2 ity of Kit 00:00: times a 00 day. Dx. Medical Code E11.9 Branch Brand per Insurance metFORMIN 2021-0 Yes [id number] 500mg Take 1 Univers 500 mg 6-22 tablet by ity of tablet 00:00: mouth 2 00 (two) Medical times Branch daily with meals. omeprazole 2021-0 Yes [id number] 40mg Take 1 Univers 40 mg 6-22 capsule by ity of capsule 00:00: mouth 00 daily. Medical Branch blood sugar 2021-0 Yes [id number] Check Univers diagnostic 6-22 blood ity of strip 00:00: sugar 2 times a Medical day. Branch E11.9. Brand per insurance. Lancets 2021-0 Yes [id number] Check Univ ers Misc 6-22 blood ity of 00:00: sugar 2 times a Medical day. Branch E11.9. Brand per insurance. Blood-Gluco 2021-0 Yes [id number] Check Univers se Meter 6-22 sugars 2 ity of Kit 00:00: times a day. Dx. Medical Code E11.9 Branch Brand per Insurance omeprazole 2021-0 Yes [id number] 40mg Take 1 Univers 40 mg 6-22 capsule by ity of capsule 00:00: mouth daily. Medical Branch blood sugar 2021-0 Yes [id number] Check Univers diagnostic 6-22 blood ity of strip 00:00: sugar 2 [place] times a Medical day. Branch E11.9. Brand per insurance. Lancets 2021-0 Yes [id number] Check Univ ers Misc 6-22 blood ity of 00:00: sugar 2 times a Medical day. Branch E11.9. Brand per insurance. Blood-Gluco 2022-0 Yes [id number] Check Univers se Meter 6-22 sugars 2 ity of Kit 00:00: times a [place] 00 day. Dx. Medical Code E11.9 Branch Brand per Insurance omeprazole 2021-0 Yes [id number] 40mg Take 1 Univers 40 mg 6-22 capsule by ity of capsule 00:00: mouth [place] 00 daily. Medical Branch blood sugar 2021-0 Yes [id number] Check Univers diagnostic 6-22 blood ity of strip 00:00: sugar 2 [place] 00 times a Medical day. Branch E11.9. Brand per insurance. Lancets 2021-0 Yes [id number] Check Univ ers Misc 6-22 blood ity of 00:00: sugar 2 [place] 00 times a Medical day. Branch E11.9. Brand per insurance. Blood-Gluco 2021-0 Yes [id number] Check Univers se Meter 6-22 sugars 2 ity of Kit 00:00: times a [place] 00 day. Dx. Medical Code E11.9 Branch Brand per Insurance omeprazole 2021-0 Yes [id number] 40mg Take 1 Univers 40 mg 6-22 capsule by ity of capsule 00:00: mouth [place] 00 daily. Medical Branch blood sugar 2021-0 Yes [id number] Check Univers diagnostic 6-22 blood ity of strip 00:00: sugar 2 [place] 00 times a Medical day. Branch E11.9. Brand per insurance. Lancets 2021-0 Yes [id number] Check Univ ers Misc 6-22 blood ity of 00:00: sugar 2 [place] 00 times a Medical day. Branch E11.9. Brand per insurance. Blood-Gluco 2021-0 Yes [id number] Check Univers se Meter 6-22 sugars 2 ity of Kit 00:00: times a [place] 00 day. Dx. Medical Code E11.9 Branch Brand per Insurance omeprazole 2021-0 Yes [id number] 40mg Take 1 Univers 40 mg 6-22 capsule by ity of capsule 00:00: mouth [place] 00 daily. Medical Branch blood sugar 2021-0 Yes [id number] Check Univers diagnostic 6-22 blood ity of strip 00:00: sugar 2 [place] 00 times a Medical day. Branch E11.9. Brand per insurance. Lancets 2021-0 Yes [id number] Check Univ ers Misc 6-22 blood ity of 00:00: sugar 2 [place] times a Medical day. Branch E11.9. Brand per insurance. Blood-Gluco 2021-0 Yes [id number] Check Univers se Meter 6-22 sugars 2 ity of Kit 00:00: times a [place] day. Dx. Medical Code E11.9 Branch Brand per Insurance omeprazole 2021-0 Yes [id number] 40mg Take 1 Univers 40 mg 6-22 capsule by ity of capsule 00:00: mouth [place] 00 daily. Medical Branch blood sugar 2021-0 Yes [id number] Check Univers diagnostic 6-22 blood ity of strip 00:00: sugar 2 00 times a Medical day. Branch E11.9. Brand per insurance. Lancets 2021-0 Yes [id number] Check Univ ers Misc 6-22 blood ity of 00:00: sugar 2 times a Medical day. Branch E11.9. Brand per insurance. Blood-Gluco 2021-0 Yes [id number] Check Univers se Meter 6-22 sugars 2 ity of Kit 00:00: times a day. Dx. Medical Code E11.9 Branch Brand per Insurance omeprazole 2021-0 Yes [id number] 40mg Take 1 Univers 40 mg 6-22 capsule by ity of capsule 00:00: mouth 00 daily. Medical Branch blood sugar 2021-0 Yes [id number] Check Univers diagnostic 6-22 blood ity of strip 00:00: sugar 2 times a Medical day. Branch E11.9. Brand per insurance. Lancets 2021-0 Yes [id number] Check Univ ers Misc 6-22 blood ity of 00:00: sugar 2 times a Medical day. Branch E11.9. Brand per insurance. Blood-Gluco 2021-0 Yes [id number] Check Univers se Meter 6-22 sugars 2 ity of Kit 00:00: times a day. Dx. Medical Code E11.9 Branch Brand per Insurance omeprazole 2021-0 Yes [id number] 40mg Take 1 Univers 40 mg 6-22 capsule by ity of capsule 00:00: mouth [place] 00 daily. Medical Branch blood sugar 2021-0 Yes [id number] Check Univers diagnostic 6-22 blood ity of strip 00:00: sugar 2 [place] times a Medical day. Branch E11.9. Brand per insurance. Lancets 0 Yes [id number] Check Univ ers Misc 6-22 blood ity of 00:00: sugar 2 [place] 00 times a Medical day. Branch E11.9. Brand per insurance. Blood-Gluco 2021-0 Yes [id number] Check Univers se Meter 6-22 sugars 2 ity of Kit 00:00: times a day. Dx. Medical Code E11.9 Branch Brand per Insurance omeprazole 2021-0 Yes [id number] 40mg Take 1 Univers 40 mg 6-22 capsule by ity of capsule 00:00: mouth [place] 00 daily. Medical Branch blood sugar 0 Yes [id number] Check Univers diagnostic 6-22 blood ity of strip 00:00: sugar 2 00 times a Medical day. Branch E11.9. Brand per insurance. Lancets 0 Yes [id number] Check Univ ers Misc 6-22 blood ity of 00:00: sugar 2 00 times a Medical day. Branch E11.9. Brand per insurance. Blood-Gluco 0 Yes [id number] Check Univers se Meter 6-22 sugars 2 ity of Kit 00:00: times a day. Dx. Medical Code E11.9 Branch Brand per Insurance omeprazole 0 Yes [id number] 40mg Take 1 Univers 40 mg 6-22 capsule by ity of capsule 00:00: mouth 00 daily. Medical Branch omeprazole 0 2022- No [id number] 40mg Take 1 Univers 40 mg 6-22 -22 capsule by ity of capsule 00:00: 00:00 mouth [place] 00 :00 daily. Medical Branch metFORMIN 2021-0 2021- No [id number] 500mg Take 1 Univers 500 mg 6-22 - tablet by ity of tablet 00:00: 00:00 mouth 2 [place] 00 :00 (two) Medical times Branch daily with meals. metFORMIN 2021-0 2021- No [id number] 500mg Take 1 Univers 500 mg 6-22 [...] 2022-06-12 06:19:00 69 /min [facility] [place] [facility] [place] Respiratory rate 2022-06-12 06:19:00 18 /min Univ ers[facility] [place] [facility] Oxygen saturation in 2022-06-12 06:19:00 100 /min University of Arterial blood by [place] [employer] Pulse oximetry Branch Systolic blood 2022-06-12 04:01:00 144 mm[Hg] Univer sity of pressure [place] [facility] Diastolic blood 2022-06-12 04:01:00 62 mm[Hg] Unive rsity of pressure [place] [facility] [place] Body temperature 2022-06-12 04:01:00 37.06 Radha Univ ers[facility] [place] [facility] Body height 2022-06-12 04:01:00 182.9 cm [facility] [place] [facility] [place] Body weight 2022-06-12 04:01:00 140.615 kg [facility] [place] [facility] BMI 2022-06-12 04:01:00 42.04 kg/m2 [facility] [place] [facility] Systolic blood 2021-12-24 15:54:00 119 mm[Hg] Univer sity of pressure [place] [facility] Diastolic blood 2021-12-24 15:54:00 78 mm[Hg] Unive rsity of pressure [facility] Heart rate 2021-12-24 15:54:00 68 /min [facility]i [facility] [place] [facility] Body temperature 2021-12-24 15:54:00 36.67 Radha Univ ersity of [facility] [facility] Respiratory rate 2021-12-24 15:54:00 18 /min [facility] Body height 2021-12-24 15:54:00 182.9 cm [facility] Body weight 2021-12-24 15:54:00 141.023 kg [facility] BMI 2021-12-24 15:54:00 42.17 kg/m2 [facility] Oxygen saturation in 2021-12-24 15:54:00 97 /min [facility] of Arterial blood by [place] [facility]enna Pulse oximetry Branch Systolic blood 2021-12-13 18:20:00 125 mm[Hg] [facility]iver [facility] Diastolic blood 2021-12-13 18:20:00 65 mm[Hg] Unive rsity of pressure [facility] Heart rate 2021-12-13 18:20:00 73 /min [facility] Body temperature 2021-12-13 18:20:00 36.11 Radha [facility] 2021-12-13 18:20:00 18 /min [facility] Body height 2021-12-13 18:20:00 182.9 cm [facility] Body weight 2021-12-13 18:20:00 142.52 kg [facility] BMI 2021-12-13 18:20:00 42.61 kg/m2 [facility] Procedures Procedure Date / Time Performed Performing Clinician Katlyn e XR FOOT 3+ VW LEFT 2022-06-12 05:14:45 [facility] NOTICE OF PRIVACY 2022-06-12 03:54:23 Doctor Unassigned, No [facility] CONSENT/REFUSAL FOR 2022-06-12 03:53:28 Doctor Unassigned, No [facility] TREATMENT EKG-12 LEAD 2021-12-24 15:58:59 Doctor Unassigned, No [facility] [place] [facility] E[facility] (SCANNED 2021-12-24 05:01:00 Doctor Unassigned, No [facility] [place] DOCUMENTS) [facility] Encounters Start End Encounter Admission Attending Care Care Encounter Source Date/Time Date/Time Type Type Clinicians Facility Department ID 2022-10-26 2022-10-26 Susan Stephens IDROHINI 1.2.840.114 [id number] Univers 00:00:00 00:00:00 Marleny TARANGO 350.1.13.10 ity maik BRAND 4.2.7.2.686 Giorgio JOHNSON [id number] [address] 2022-10-25 2022-10-25 Susan Stephens IDROHINI 1.2.840.114 [id number] Univers 00:00:00 00:00:00 Ogechukwu [place] 350.1.13.10 [place] [id number] Nh dical NAL [address] [place] [address] 2022-06-11 2022-06-12 Emergency X KITA [facility] ERT [id number] Univers 22:04:00 01:21:00 AARON ity of [facility] 2022-06-11 2022-06-12 Emergency [facility] [id number] [facility] 22:04:00 01:21:00 Aaron S [place] 350.1.13.10 i ty of [facility] 4.2.7.2.686 [place] [phone] [address] 2022-01-22 2022-01-22 Telephone [facility] 1.2.840.114 [id number] Univers 00:00:00 00:00:00 Ogechukwu [place] 350.1.13.10 ity of [facility] [place] 4.2.7.2.[place] [phone] Nh dical NAL [address] [place] [address] 2021-12-26 2021-12-26 [facility] 1.2.840.114 [id number] Univers 00:00:00 00:00:00 Ogechukwu [place] 350.1.13.10 ity of [facility] [place] 4.2.7.2.[place] [phone] Nh dical NAL [address] [place] [address] 2021-12-26 2021-12-26 Telephone [facility] 1.2.840.114 [id number] Univers 00:00:00 00:00:00 Ogechukwu [place] 350.1.13.10 it[place] [id number] Nh dical NAL [address] [place] [address] 2021-12-25 2021-12-25 Telephone [facility] 1.2.840.114 [id number] Univers 00:00:00 00:00:00 Ogechukwu [place] 350.1.13.10 it[place] of [place] 4.[place].2.[place] [id number] Nh dickoki HOOKER [address] [facility] 2021-12-25 2021-12-25 Telephone Elvira [facility] 1.2.840.114 [id number] Univers 00:00:00 00:00:00 Nanojulianaayad TARAN[place] 350.1.13.10 ity of [facility] [place] 4.2.7.2.[place] [id number] Nh dickoki HOOKER 0[address] [facility] 2021-12-24 2021-12-24 National Accounts Sales 2, Adc Lab [facility] 1.2.840.114 [id number] Univers 13:00:00 13:15:00 Visit ElviraMarleny vargas 350.1.13.1 0 ity of [facility] [place] 4.2.7.2.[place] [phone] Nh nadia [facility] [address] [facility] 2021-12-24 2021-12-24 Outpatient R MARLENY STEPHENS [facility] [id number] Univers 11:00:00 11:29:45 [facility] 2021-12-24 2021-12-24 Office Elvira [facility] 1.2.840.114 [id number] Univers 11:00:00 11:29:45 Visit Marleny TARANGO 350.1.13.10 ity of [facility] [place] 4[place] [id number] Nh nadia HOOKER [address] [place] [address] 2021-12-24 2021-12-24 Orders Doctor CANDELARIA 1.2.840.114 [id number] Univers 00:00:00 00:00:00 Only Unassigned, RUPERT 350.1.13.10 ity of [place] [facility] 4.2.7.2.686 Maximino as [phone] [address] 2021-12-21 2021-12-21 Outpatient R MARLENY STEPHENS [facility] [id number] Univers 16:00:00 16:00:00 MARLENY STEPHENS ity [facility] 2021-12-21 2021-12-21 Outpatient R MARLENY STEPHENS [facility] [id number] Univers 10:30:00 10:30:00 MARLENY STEPHENS ity [facility] 2021-12-17 2021-12-17 Outpatient R MARLENY STEPHENS [facility] [id number] Univers 15:30:00 15:30:00 MARLENY STEPHENS ity [facility] 2021-12-13 2021-12-13 Outpatient R JOSÉ MIGUEL [facility] [id number] Univers 13:00:00 14:31:24 BENJY ity [facility] 2021-12-13 2021-12-13 Office Pgy1 UNIVERSIT [id number] Univers 13:00:00 14:31:24 Visit José Miguel Benjy [facility] 350.1.13.10 ity of [place] [id number] [address] 2021-12-13 2021-12-13 Outpatient R [facility] [id number] Univers 13:00:00 13:00:00 ity of [facility] 2021-11-15 2021-11-15 [facility] DONNIE ValdezIT 1.2.840.114 [id number] Univers 12:40:21 23:59:00 Encounter Benjy [facility] 350.1.13.10 ity of [place] [id number] [facility] [address] 2021-11-15 2021-11-15 Outpatient [facility] [id number] Univers 12:40:21 23:59:00 BENJY ity [facility] 2021-11-15 2021-11-15 Office Pgy2 UNIVERSIT [id number] Univers 14:00:00 15:04:59 Visit José Miguel Benjy [facility] 350.1.13.10 ity [place] [id number] [address] 2021-11-15 2021-11-15 Outpatient R [facility] [id number] Univers 14:00:00 15:04:59 BENJY ity [facility] 2021-11-15 2021-11-15 Outpatient Lester VALDEZ [facility] [id number] Univers 12:40:21 12:40:21 BENJY ity [facility] 2021-11-01 2021-11-01 National Accounts Sales [facility] UNIVERSIT 1.2.840.114 [id number] Univers 16:30:00 16:45:00 Visit Benjy Valdez [facility] 350.1.13.10 ity of [place] [id number] [facility] [address] 2021-11-01 2021-11-01 Outpatient Lester VALDEZ [facility] [id number] Univers 16:30:00 16:30:00 BENJY ity [facility] 2021-11-01 2021-11-01 Office Pgy2 UNIVERSIT [id number] Univers 14:30:00 16:11:18 Visit Benjy Valdez [facility] 350.1.13.10 ity of [place] [id number] [facility] [address] 2021-11-01 2021-11-01 Outpatient Lester VALDEZ [facility] [id number] Univers 14:30:00 16:11:18 BENJY ity [facility] 2021-11-01 2021-11-01 Outpatient Lester VALDEZ [facility] [id number] Univers 14:30:00 16:11:18 BENJY ity [facility] 2021-11-01 2021-11-01 Office Pgy2 UNIVERSIT [id number] Univers 14:30:00 16:11:18 Visit Benjy Valdez HEALTH 350.1.13.10 ity of [place] 4[place]2.[place] [id number] [facility] [address] 2021-11-01 2021-11-01 Outpatient Lester VALDEZ [facility] [id number] Univers 14:30:00 16:11:18 BENJY ity [facility] 2021-11-01 2021-11-01 Outpatient R JOSÉ MIGUEL [facility] [id number] Univers 14:30:00 16:11:18 BENJY ity [facility] 2021-11-01 2021-11-01 Orders Doctor BARI 1.2.840.114 [id number] Univers 00:00:00 00:00:00 Only Unassigned, RUPERT 350.1.13.10 ity of [place] [facility] 42.7.2.686 Maximino as [id number] [facility] [address] 2021-10-23 2021-10-23 Telephone [facility] [id number] Univers 00:00:00 00:00:00 Kellen Batista [employer] 350.1.13.10 ity of [place] [id number] Maximino as MATERNAL [phone] [facility] & [address] 2021-10-23 2021-10-23 Telephone [facility] [id number] Univers 00:00:00 00:00:00 Kellen Batista [employer] 350.1.13.10 ity of [place] [address].7.2.686 Maximino as MATERNAL [id number] [address] 2021-10-16 2021-10-16 Out[facility] [id number] Univers 13:33:42 23:59:00 KELLEN castillo o [facility] 2021-10-16 2021-10-16 [facility] 1.2.840.114 [id number] Univers 13:20:00 23:59:00 Encounter Kellen Batista [facility] 350.1.13.10 ity [facility] 42.7.2.686 [place] [facility] [id number] [facility] [address] 2021-10-11 2021-10-11 Outpatient R [facility] [id number] Univers 00:00:00 00:00:00 KELLEN castillo o jayshree [facility] 2021-10-02 2021-10-02 Outpatient R ROSALES, [facility] [id number] Univers 13:15:00 13:54:17 KELLEN martell [facility] 2021-10-02 2021-10-02 Office Connie [facility] 1.2.840.114 [id number] Univers 13:15:00 13:54:17 Visit Kellen Batista [employer] 350.1.13.10 ity of [facility] 4.2.7.2.686 Maximino as MATERNAL [phone] [facility] ical & CHILD [address] [place] [address] 2021-10-02 2021-10-02 Outpatient R CONNIE [facility] [id number] Univers 13:15:00 13:54:17 KELLEN martell [facility] 2021-10-02 2021-10-02 Outpatient R CONNIE [facility] [id number] Univers 13:15:00 13:54:17 DUSTINMESFIN martell [facility] 2021-10-02 2021-10-02 Orders Doctor BARI 1.2.840.114 [id number] Univers 00:00:00 00:00:00 Only Unassigned, RUPERT 350.1.13.10 ity of [facility] 4.2.7.2.686 Maximino as [phone] [address] 2021-09-26 2021-09-26 National Accounts Sales 2, Adc Lab [facility] 1.2.840.114 [id number] Univers 15:00:00 15:15:00 Visit Marleny Stephens 350.1.13.1 0 ity [facility] 4.2.7.2.[place] [phone] Nh dical [address] 2021-09-26 2021-09-26 Outpatient R MARLENY STEPHENS [facility] [id number] Univers 13:00:00 14:32:21 MARLENY STEPHENS ity of [facility] 2021-09-26 2021-09-26 Office Elvira [facility] 1.2.840.114 [id number] Univers 13:00:00 14:32:21 Visit Marleny TARANGO 350.1.13.10 ity of [facility] 4.2.7.2.686 [place] [id number] Nh dical NAL [address] [facility] 2021-09-09 2021-09-09 Emergency X HEATHER [facility] ERT [id number] Univers 16:57:00 19:56:00 LIAM arellanodon [facility] 2021-09-09 2021-09-09 Emergency Heather [facility] [id number] Univers 16:57:00 19:56:00 Liam TARANGO 350.1.13.10 ity of [facility] 4.2.7.2.[place] [phone] [facility] [address] 2021-09-05 2021-09-05 Transition HENRI Mcgovern 1.2.840.114 [id number] Univers 00:00:00 00:00:00 of Care Selena LOPEZ 350.1.13.10 i ty of [place] 4[place]2.7.2.686 [place] [id number] [facility] [address] 2021-08-27 2021-09-02 Hospital Chucky Stauffer [facility] 1.2.840.1 [id number] Univers 13:42:00 17:32:00 Encounter Xochitl Louise 350.1.13.10 ity of [facility] 4.2.7.2.[place] [id number] [facility] [address] 2021-08-27 2021-09-02 Inpatient X DANI [facility] [id number] Univers 13:42:00 17:32:00 XOCHITL castillo [facility] 2021-08-30 2021-08-30 Surgery Genesis [facility] 1.2.840.114 [id number] Univers 08:00:00 08:58:00 Timothy TARANGO 350.1.13.10 ity of [facility] [place] 4.2.7.2.686 [place] SURGICAL [id number] [facility] [address] 2021-08-27 2021-08-27 Orders Doctor CANDELARIA 1.2.840.114 [id number] Univers 00:00:00 00:00:00 Only Unassigned, RUPERT 350.1.13.10 ity of [place] [facility] 4.2.7.2.686 Maximino as [id number] [facility] [address] 2020-06-30 2020-06-30 Emergency Alex Rivers [facility] 1.2.840.114 [id number] Univers 13:42:00 17:30:00 Jessy Tarango 350.1.13.10 i ty of [place] 4.2.7.2.686 [place] [facility] [id number] [facility] [address] 2020-06-30 2020-06-30 Emergency X Alex RIVERS [facility] ERT [id number] Univers 13:42:00 13:42:00 ity of [facility] 2019-06-08 2019-06-08 Orders Doctor BARI 1.2.840.114 [id number] Univers 00:00:00 00:00:00 Only Unassigned, RUPERT 350.1.13.10 ity of [place] [facility] 4.2.7.2.686 Maximino as [id number] [address] Results Test Description Test Time Test Comments Results Result Comments Source CT/NG, NAAT, URINE 2021-07-16 16:57:40 Test Item Value Reference Range Interpretation Comme nts GONORRHEA, NAAT NEGATIVE NEGATIVE IMPORTA NT NOTICE: SEE ANNOUNCEMENT AT (test code = [email or web address] Note: 52139) Assay methodolo gy is nucleic acid amplification by transcriptio n mediated amplification (TMA) utilizing the A ptima Combo 2 Assay. CHLAMYDIA, NAAT NEGATIVE NEGATIVE IMPORTA NT NOTICE: SEE ANNOUNCEMENT AT (test code = [email or web address] Note: 54679) Assay methodolo gy is nucleic acid amplification by transcriptio n mediated amplification (TMA) utilizing the A ptima Combo 2 Assay. TRICHOMONAS, NAAT, [id number] 16:30:51 Test Item Value Reference Range Interpretation Comments TRICHOMONAS, NAAT NEGATIVE NEGATIVE IMPOR TANT NOTICE: SEE (test code = [place] [address]) [email or web address] [email or web address] Note: Assay methodology is nucleic acid amplification b y retort engineer m ediated amplification ( TMA) and Hybridization P rotection Assay (HPA) uti lizing the White Sky platform. A negative result does not exclude low lev el infection, specimensamplin g error, or collection erro r. UNLESS OTHERWISE INDIC ATED, ALL TESTING PERFORM ED ATCLINICAL PATHOLOGY LABOR [facility] [address] [place] [address] LABORATOR Y DIRECTOR: Carola ARGUETAIA NUMBER [id number] CAP ACCREDITATION N O. [id number]
[2023-02-15] MEDS ORDERED: HYDROCODONE/APAP 5/325 MG TAB ONE (13:53)
--- NOTE | 2023-02-15 14:47 | RAD REPORT ---
EXAM DESCRIPTION: Ribs Right - 02/15/2023 2:14 pm CLINICAL HISTORY: TRAUMA COMPARISON: Chest Single View dated 06/01/2022 TECHNIQUE: PA view of the chest. Right ribs, 3 or more views. FINDINGS: Slight cortical offset along the antro lateral right tenth rib. No other displaced rib fra cture is evident. No aggressive rib lesion. No underlying pneumothorax, effusion, infiltrate or pulmonary contusion. No pneumothorax. Cardiomediastinal contours are unremarkable. IMPRESSION: Suspected subtle antro lateral right tenth rib fracture.
--- NOTE | 2023-02-15 14:48 | RAD REPORT ---
EXAM DESCRIPTION: RAD - Elbow Right 3 View - 02/15/2023 2:15 pm CLINICAL HISTORY: PAIN COMPARISON: No comparisons TECHNIQUE: Right elbow, 3 views. FINDINGS: No fracture is identified. No elevated posterior fat pad to suggest an effusion. Mild dege nerative changes at the ulnotrochlear articulation. Mild spurring at the common flexor tendon origin, may relate to sequelae of remote sprain or trauma. There is no dislocation or periosteal reaction noted. No foreign body or other soft tissue abnormalit y. IMPRESSION: No acute osseous abnormality.
--- NOTE | 2023-02-15 14:50 | RAD REPORT ---
EXAM DESCRIPTION: Shoulder Right 2 View - 02/15/2023 2:14 pm CLINICAL HISTORY: PAIN COMPARISON: Shoulder Right 2 View dated 12/24/2022 TECHNIQUE: Internal and external rotation views of the right shoulder were obtained. FINDINGS: There is no fracture or dislocation. AC joint is normal in appearance. No acute or suspici ous findings. IMPRESSION: Negative two-view right shoulder examination.
--- NOTE | 2023-02-15 14:50 | RAD REPORT ---
EXAM DESCRIPTION: Sacrum And Coccyx - 02/15/2023 2:13 pm CLINICAL HISTORY: PAIN COMPARISON: No comparisons TECHNIQUE: Three views of the sacrum and coccyx. FINDINGS: There is no fracture or suspicious osseous lesions of the sacrum and coccyx are noted. The included pelvic ring is intact. Bony mineralization preserved. Mild degenerative changes of the lumb osacral junction. IMPRESSION: No acute osseous abnormality of the sacrum and coccyx.
--- NOTE | 2023-02-15 14:58 | EDPHYS ---
Physician Documentation [facility] Name: Cindy Pandey Age: 47 yrs Sex: Female : 1975 Arrival Date: 02/15/2023 Time: 13:24 Bed 15 Private MD: ED Physician Krish Marquez HPI: 02/15 13:32 This 47 yrs old Female presents to ER via EMS with complaints of fall. sb4 13:32 patient states that she slipped and fell down in the shower. the right side of her body sb4 hit the water spout on her way down so she is complaining of pain to her right posterior ribs, right shoulder, right elbow, and tailbone. she did not hit her head nor did she lose consciousness. no other associated signs and symptoms, no active bleeding. 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 - Social history:: Smoking status: Patient denies any tobacco usage or history of. ROS: 13:32 Constitutional: Negative for fever, chills, and weight loss, sb4 13:32 MS/extremity: Positive for injury or acute deformity, pain, of the mid back area, buttocks and right arm, Exam: 13:32 Constitutional: This is a well developed, well nourished patient who is awake, alert, sb4 and in no acute distress. Head/Face: Normocephalic, atraumatic. Eyes: Extra-ocular motions intact. Periorbital areas with no swelling, redness, or edema. ENT: Mucous membranes moist. Cardiovascular: Regular rate and rhythm with a normal S1 and S2. Respiratory: Lungs have equal breath sounds bilaterally, clear to auscultation and percussion. No rales, rhonchi or wheezes noted. No increased work of breathing, no retractions or nasal flaring. Abdomen/GI: Soft, non-tender, no distension. Skin: Warm, dry with normal turgor. Normal color with no rashes, no lesions, and no evidence of cellulitis. 13:32 Chest/axilla: Palpation: tenderness, that is moderate, of the right lateral posterior chest, that partially reproduces the patient's complaints, 13:32 Musculoskeletal/extremity: ROM: limited active range of motion due to pain, limited passive range of motion due to pain, in the right arm, Circulation is intact in all extremities. Pulses: are normal with no appreciated deficits, Perfusion: the patient is normally perfused throughout, Perfusion: the extremity is normally perfused throughout, Sensation intact. Vital Signs: 13:27 BP 134 / 71; Pulse 73; Resp 18 S; Temp 97.8; Pulse Ox 100% on R/A; Weight 127.01 kg; cm10 Height 6 ft. 0 in. ; Pain 8/10; 15:09 BP 131 / 70; Pulse 78; Resp 18; Pulse Ox 99% on R/A; mb9 13:27 Body Mass Index 37.97 (127.01 kg, 182.88 cm) cm10 13:27 Pain Scale: Adult cm10 MDM: 13:25 Patient medically screened. sb4 13:32 Differential diagnosis: rib fracture, shoulder dislocation, shoulder sprain, clavicle sb4 fracture, elbow fracture, elbow dislocation. 14:56 Data reviewed: vital signs, nurses notes, radiologic studies, and as a result, I will sb4 discharge patient. Care significantly affected by the following chronic conditions: Diabetes, Obesity. Counseling: I had a detailed discussion with the patient and/or guardian regarding the historical points, exam findings, and any diagnostic results supporting the discharge/admit diagnosis, radiology results, to return to the emergency department if symptoms worsen or persist or if there are any questions or concerns that arise at home. 02/15 13:30 Order name: Sacrum And Coccyx XRAY; Complete Time: 14:51 sb4 02/15 13:30 Order name: Ribs Right XRAY; Complete Time: 14:51 sb4 02/15 13:30 Order name: Shoulder Right (2 View) XRAY; Complete Time: 14:51 sb4 02/15 13:30 Order name: Elbow Right 3 View XRAY; Complete Time: 14:51 sb4 02/15 14:55 Order name: Misc. Order: please provide patient with incentive spirometer; Complete sb4 Time: 14:56 Administered Medications: 13:40 Drug: HYDROcodone-acetaminophen PO 5 mg-325 mg 2 tabs PO once Route: PO; cm10 14:51 Follow up: Response: No adverse reaction mb9 Disposition Summary: 02/15/23 14:57 Discharge Ordered Notes: Location: Home sb4 Problem: new sb4 Symptoms: have improved sb4 Condition: Stable sb4 Diagnosis - Fracture of one rib, right side sb4 - Coccyx contusion sb4 - Fall on same level from slipping, tripping and stumbling with subsequent striking sb4 against object Followup: sb4 - With: Emergency Department - When: As needed - Reason: Trouble breathing, Worsening of condition Discharge Instructions: - Discharge Summary Sheet sb4 - How to Use an Incentive Spirometer sb4 - Tailbone Injury, Wwui-[id number]-Vfnk sb4 - Rib Fracture, [id number] sb4 Forms: - Medication Reconciliation Form sb4 - Thank You Letter sb4 - Antibiotic Education sb4 - Prescription Opioid Use sb4 - Patient Portal Instructions sb4 - Leadership Thank You Letter sb4 Prescriptions: - acetaminophen-codeine 300-30 mg Oral tablet - take 1 tablet ORAL route every 6 hours; 12 tablet; Refills: 0, Product sb4 Selection Permitted Addendum: 02/16/2023 16:44 I was immediately available for consultation during this patient's visit. I did not e c2 personally see the patient or guide the patient's care. . Signatures: Dispatcher [employer] Lashon Flood PA-C PA-C sb4 Doris Mederos RN RN cm10 Krish Marquez MD MD ec2 Sheyla Renae RN mb9
--- NOTE | 2023-02-15 14:58 | ER ---
Nurse's Notes [facility] Name: Cindy Pandey Age: 47 yrs Sex: Female : 1975 Arrival Date: 02/15/2023 Time: 13:24 Bed 15 Private MD: Diagnosis: Fracture of one rib, right side;Coccyx contusion;Fall on same level from slipping, tripping and stumbling with subsequent striking against object Presentation: 02/15 13:27 Chief complaint: EMS states: called to patient's home due to patient falling in the 10 shower. Pt states that the shower mat slid from under her and she fell. Pt complaining of pain to right elbow, shoulder and tailbone. Pt did not hit her head, no LOC. Coronavirus screen: Vaccine status: Patient reports being unvaccinated. Client denies travel out of the [place] in the last 14 days. Ebola Screen: Patient denies travel to an Ebola-affected area in the 21 days before illness onset. No symptoms or risks identified at this time. Initial Sepsis Screen: Does the patient meet any 2 criteria? No. Patient's initial sepsis screen is negative. Does the patient have a suspected source of infection? No. Patient's initial sepsis screen is negative. Risk Assessment: Do you want to hurt yourself or someone else? Patient reports no desire to harm self or others. Onset of symptoms was February 15, 2023. 13:27 Method Of Arrival: EMS: [facility] 13:27 Acuity: PHILL 3 cm10 Triage Assessment: 13:29 General: Appears in no apparent distress. uncomfortable, Behavior is calm, cooperative. cm10 Pain: Complains of pain in Right shoulder, right elbow and tailbone Pain currently is 8 out of 10 on a pain scale. Pain began 1 hour ago. EENT: No deficits noted. No signs and/or symptoms were reported regarding the EENT system. Neuro: No deficits noted. Ackerman Agitation-Sedation Scale (RASS): 0 - Alert and Calm Level of Consciousness is awake, alert, obeys commands, Oriented to person, place, time, situation. Cardiovascular: No deficits noted. Patient's skin is warm and dry. Respiratory: No deficits noted. Airway is patent Respiratory effort is even, unlabored, Respiratory pattern is regular, symmetrical. GI: No deficits noted. No signs and/or symptoms were reported involving the gastrointestinal system. : No deficits noted. No signs and/or symptoms were reported regarding the genitourinary system. Derm: No deficits noted. Skin is intact, Skin is pink, warm \T\ dry. Musculoskeletal: No deficits noted. Reports pain in right shoulder, right ribs, right elbow and tailbone. 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 - Social history:: Smoking status: Patient denies any tobacco usage or history of. Screenin:30 [facility] ED Fall Risk Assessment (Adult) History of falling in the last 3 months, cm10 including since admission Yes- single mechanical fall (1 pt) Confusion or Disorientation No (0 pts) Intoxicated or Sedated No (0 pts) Impaired Gait No (0 pts) Mobility Assist Device Used No (0 pt) Altered Elimination No (0 pt) Score/Fall Risk Level 0 - 2 = Low Risk Oriented to surroundings, Maintained a safe environment, Hourly rounding (assess needs \T\ fall precautionary measures) done. Abuse screen: Denies threats or abuse. Denies injuries from another. Nutritional screening: No deficits noted. Tuberculosis screening: No symptoms or risk factors identified. Assessment: 13:43 Reassessment: see triage assessment. mb9 15:09 Reassessment: Patient and/or family updated on plan of care and expected duration. Pain mb9 level reassessed. Patient is alert, oriented x 3, equal unlabored respirations, skin warm/dry/pink. Patient states feeling better. Patient states symptoms have improved. Vital Signs: 13:27 BP 134 / 71; Pulse 73; Resp 18 S; Temp 97.8; Pulse Ox 100% on R/A; Weight 127.01 kg; cm10 Height 6 ft. 0 in. ; Pain 8/10; 15:09 BP 131 / 70; Pulse 78; Resp 18; Pulse Ox 99% on R/A; mb9 13:27 Body Mass Index 37.97 (127.01 kg, 182.88 cm) cm10 13:27 Pain Scale: Adult cm10 ED Course: 13:25 Patient arrived in ED. sb4 13:25 Lashon Walton PA-C is PHCP. sb4 13:25 Krish Marquez MD is Attending Physician. sb4 13:28 Triage completed. cm10 13:29 Arm band placed on Patient placed in an exam room, on a stretcher. cm10 13:31 Patient has correct armband on for positive identification. Placed in gown. Bed in low cm10 position. Call light in reach. Provided Education on: ER process and procedures.. 13:42 Sheyla Renae, RN is Primary Nurse. mb9 14:14 Sacrum And Coccyx XRAY In Process Unspecified. EDMS 14:14 Ribs Right XRAY In Process Unspecified. EDMS 14:14 Shoulder Right (2 View) XRAY In Process Unspecified. EDMS 14:14 Elbow Right 3 View XRAY In Process Unspecified. EDMS 14:23 No provider procedures requiring assistance completed. mb9 15:09 Patient did not have IV access during this emergency room visit. mb9 Administered Medications: 13:40 Drug: HYDROcodone-acetaminophen PO 5 mg-325 mg 2 tabs PO once Route: PO; cm10 14:51 Follow up: Response: No adverse reaction mb9 Medication: 13:30 VIS not applicable for this client. cm10 Outcome: 14:57 Discharge ordered by MD. sb4 15:10 Discharged to home via wheelchair, with family, mbEmy 15:10 Condition: stable 15:10 Discharge instructions given to patient, family, Instructed on discharge instructions, follow up and referral plans. Demonstrated understanding of instructions, follow-up care, medications, Prescriptions given X 1, 15:10 Patient left the ED. mb9 Signatures: Dispatcher [employer] EDMS Lashon Walton PA-C PA-C sb4 Sheyla Renae, BRYANT RN [email or web address] Doris Mederos RN RN cm10
[2023-02-15 15:21] VITALS: TEMP 97.8
[2023-02-15 15:29] VITALS: BP 131/70; O2SAT 99
== END 2023-02-15 15:10 | disposition home or self-care (01) ==
LOC: ER 13:24
DX: S22.31XA Fracture of one rib, right side, initial encounter for closed fracture (principal); S30.0XXA Contusion of lower back and pelvis, initial encounter; W01.198A Fall on same level from slipping, tripping and stumbling with subsequent striking against other object, initial encounter
CPT/HCPCS: 72220; 99283

== ENCOUNTER 2023-06-09 22:39 | Inpatient (IN) | payer OTHER, SELFPAY ==
--- OUTSIDE RECORDS SUMMARY | 2023-06-09 22:43 | XMS REPORT | Continuity of Care Document ---
Author Name Unknown Address [address] [facility]. 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 Attending Clinician Unavailable Kellen Traylor Attending Clinician + [phone] KELLEN ROSALES Attending Clinician Unavailab LIAM Garcia Attending Clinician Unavailable Liam Romero APN Attending Clinician [phone] Selena Mcgovern RN Attending Clinician [phone] Chucky Stauffer MD Attending Clinician [phone] Xochitl Louise DO Attending Clinician [phone] XOCHITL LOUISE Attending Clinician Unavailable Timothy Hurtado DPM Attending Clinician [phone] Alex Hernandez Attending Clinician [phone] Alex RIVERS Attending Clinician Unavailable AARON EAST Admitting Clinician Unavailable KELLEN ROSALES Admitting Clinician Unavailab Xochitl Boyd DO Admitting Clinician XOCHITL LOUISE Admitting Clinician Unavailable Payers Payer Name Policy Type Policy Number Effective Date Expirati on Date Source Problems Condition Name Condition Details Condition Category Status Onset Date Resolution Date Last Treatment Date Treating Clinician Comments Source Pain pelvic Pain pelvic Disease Active 10-02 00:00: 00 [facility] Well woman exam (no gynecologi mckenna exam) Well woman exam (no gynecologi mckenna exam) Disease Active 10-02 00:00: 00 [facility] History of bilateral tubal ligation History of bilateral tubal ligation Disease Active 10-02 00:00: 00 [facility] Encounter for surveillan ce of other contracept brandi Encounter for surveillan ce of other contracept brandi Disease Active 10-02 00:00: 00 [facility] Menorrhagi a with regular cycle Menorrhagi a with regular cycle Disease Active 10-02 00:00: 00 [facility] Fibroids, submucosal Fibroids, submucosal Disease Active 10-02 00:00: 00 [facility] Cellulitis of foot Cellulitis of foot Disease Active 24 00:00: 00 [facility] Cellulitis Cellulitis Disease Active 23 00:00: 00 [facility] BMI 40.0-44.9, adult BMI 40.0-44.9, adult Disease Active 08-27 00:00: 00 [facility] Obesity Obesity Disease Active 2005-04 2 00:00: 00 Overview: Formattin g of this note might be different from the original. 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 to SARS-CoV-2 (event) 2022-06-01 00:00:00 2022-06-11 21:58:00 Not sure [facility] Alcohol intake 2022-06-11 00:00:00 2022-06-11 00:00:00 Current non-drinker of alcohol (finding) [facility] Tobacco use and exposure 2021-11-01 00:00:00 2021-11-01 00:00:00 Smokeless tobacco non-user [facility] History of Social function 2021-09-26 00:00:00 2021-09-26 00:00:00 [facility] Sex Assigned At 1975 00:00:00 1975 00:00:00 [facility] Smoking Status Start Date Stop Date Source Never smoked tobacco [facility] Medications Ordered Medication Name Filled Medication Name Start Date Stop Date Current Medication? Ordering Clinician Indication Dosage Frequency Signature (SIG) Comments Components Source omeprazole 40 mg capsule 10-26 00:00: 00 Yes [id number] 40mg Take 1 capsule by mouth in the morning. Patient needs appointmen t for further refills [facility] metFORMIN 500 mg tablet 10-26 00:00: 00 Yes [id number] 500mg Take 1 tablet by mouth in the morning and 1 tablet in the evening. Take with meals. Patient needs appointmen t for further refills [facility] omeprazole 40 mg capsule 10-26 00:00: 00 Yes [id number] 40mg Take 1 capsule by mouth in the morning. Patient needs appointmen t for further refills [facility] metFORMIN 500 mg tablet 10-26 00:00: 00 Yes [id number] 500mg Take 1 tablet by mouth in the morning and 1 tablet in the evening. Take with meals. Patient needs appointmen t for further refills [facility] clindamycin 150 mg capsule 3-08 00:00: 00 06-23 04:59 :00 No [id number] 450mg Take 3 capsules by mouth in the morning and 3 capsules at noon and 3 capsules in the evening. Do all this for 10 days. [facility] dulaglutide (TRULICITY) 1.5 mg/0.5 mL PnIj 2021-04 00:00: 00 05-17 05:59 :00 No [id number] 1.5mg inject 1 Pen under the skin weekly for 90 days. [facility] dulaglutide (TRULICITY) 1.5 mg/0.5 mL PnIj 2021-04 00:00: 00 05-17 05:59 :00 No [id number] 1.5mg inject 1 Pen under the skin weekly for 90 days. [facility] dulaglutide (TRULICITY) 1.5 mg/0.5 mL PnIj 2021-04 00:00: 00 05-17 05:59 :00 No [id number] 1.5mg inject 1 Pen under the skin weekly for 90 days. [facility] ondansetron 4 mg disintegrat ing tablet 2021-04 00:00: 00 Yes [id number] 4mg Take 1 tablet by mouth every 8 (eight) hours as needed for Nausea and Vomiting (N/V). [facility] ondansetron 4 mg disintegrat ing tablet 2021-04 00:00: 00 Yes [id number] 4mg Take 1 tablet by mouth every 8 (eight) hours as needed for Nausea and Vomiting (N/V). [facility] ondansetron 4 mg disintegrat ing tablet 2021-04 0 00:00: 00 Yes [id number] 4mg Take 1 tablet by mouth every 8 (eight) hours as needed for Nausea and Vomiting (N/V). [facility] ondansetron 4 mg disintegrat ing tablet 2021-04 0 00:00: 00 Yes [id number] 4mg Take 1 tablet by mouth every 8 (eight) hours as needed for Nausea and Vomiting (N/V). [facility] tirzepatide 2.5 mg/0.5 mL subcutaneou s injection 2021-04 00:00: 00 02-23 05:59 :00 No [id number] 5mg inject 5 mg under the skin weekly for 30 days. [facility] ity [facility] tirzepatide 2.5 mg/0.5 mL subcutaneou s injection 2021-04 00:00: 00 02-23 05:59 :00 No [id number] 5mg inject 5 mg under the skin weekly for 30 days. [facility] it[facility] tirzepatide 2.5 mg/0.5 mL subcutaneou s injection 2021-04 00:00: 00 02-23 05:59 :00 No [id number] 5mg inject 5 mg under the skin weekly for 30 days. [facility] it[facility] tirzepatide 2.5 mg/0.5 mL subcutaneou s injection 2021-04 00:00: 00 02-23 05:59 :00 No [id number] 5mg inject 5 mg under the skin weekly for 30 days. [facility] it[facility] tirzepatide 2.5 mg/0.5 mL subcutaneou s injection 2021-04 00:00: 00 02-23 05:59 :00 No [id number] 5mg inject 5 mg under the skin weekly for 30 days. [facility] it[facility] tirzepatide 2.5 mg/0.5 mL subcutaneou s injection 2021-04 00:00: 00 02-23 05:59 :00 No [id number] 5mg inject 5 mg under the skin weekly for 30 days. [facility] it[facility] tirzepatide 2.5 mg/0.5 mL subcutaneou s injection 2021-04 00:00: 00 01-15 00:00 :00 No [id number] 5mg inject 5 mg under the skin weekly for 30 days. [facility] it[facility] tirzepatide 2.5 mg/0.5 mL subcutaneou s injection 2021-04 00:00: 00 01-15 00:00 :00 No [id number] 5mg inject 5 mg under the skin weekly for 30 days. [facility] dulaglutide (TRULICITY) 0.75 mg/0.5 mL PnIj 2021-04 00:00: 00 02-15 05:59 :00 No [id number] .75mg inject 1 Pen under the skin weekly for 30 days. [facility] dulaglutide (TRULICITY) 0.75 mg/0.5 mL PnIj 2021-04 00:00: 00 02-15 05:59 :00 No [id number] .75mg inject 1 Pen under the skin weekly for 30 days. [facility] dulaglutide (TRULICITY) 0.75 mg/0.5 mL PnIj 2021-04 00:00: 00 02-15 05:59 :00 No [id number] .75mg inject 1 Pen under the skin weekly for 30 days. [facility] metFORMIN 500 mg tablet 12-24 00:00: 00 Yes [id number] 1000mg Take 2 tablets by mouth in the morning and 2 tablets in the evening. Take with meals. [facility] nystatin 100,000 unit/gram cream 12-24 00:00: 00 Yes [id number] Apply to area(s) 2 (two) times daily. [facility] metFORMIN 500 mg tablet 12-24 00:00: 00 Yes [id number] 1000mg Take 2 tablets by mouth in the morning and 2 tablets in the evening. Take with meals. [facility] nystatin 100,000 unit/gram cream 0 12-24 00:00: 00 Yes [id number] Apply to area(s) 2 (two) times daily. [facility] nystatin 100,000 unit/gram cream 2021-0 12-24 00:00: 00 Yes [id number] Apply to area(s) 2 (two) times daily. [facility] nystatin 100,000 unit/gram cream 0 12-24 00:00: 00 Yes [id number] Apply to area(s) 2 (two) times daily. [facility] metFORMIN 500 mg tablet 2021-0 12-24 00:00: 00 Yes [id number] 1000mg Take 2 tablets by mouth in the morning and 2 tablets in the evening. Take with meals. [facility] nystatin 100,000 unit/gram cream 2021-0 12-24 00:00: 00 Yes [id number] Apply to area(s) 2 (two) times daily. [facility] metFORMIN 500 mg tablet 2021-0 12-24 00:00: 00 Yes [id number] 1000mg Take 2 tablets by mouth in the morning and 2 tablets in the evening. Take with meals. [facility] nystatin 100,000 unit/gram cream 2021-0 12-24 00:00: 00 Yes [id number] Apply to area(s) 2 (two) times daily. [facility] metFORMIN 500 mg tablet 2021-0 12-24 00:00: 00 Yes [id number] 1000mg Take 2 tablets by mouth in the morning and 2 tablets in the evening. Take with meals. [facility] nystatin 100,000 unit/gram cream 2021-0 12-24 00:00: 00 Yes [id number] Apply to area(s) 2 (two) times daily. [facility] metFORMIN 500 mg tablet 2021-0 12-24 00:00: 00 Yes [id number] 1000mg Take 2 tablets by mouth in the morning and 2 tablets in the evening. Take with meals. [facility] nystatin 100,000 unit/gram cream 2021-0 12-24 00:00: 00 Yes [id number] Apply to area(s) 2 (two) times daily. [facility] metFORMIN 500 mg tablet 2021-0 12-24 00:00: 00 Yes [id number] 1000mg Take 2 tablets by mouth in the morning and 2 tablets in the evening. Take with meals. [facility] nystatin 100,000 unit/gram cream 2021-0 12-24 00:00: 00 Yes [id number] Apply to area(s) 2 (two) times daily. [facility] metFORMIN 500 mg tablet 12-24 00:00: 00 Yes [id number] 1000mg Take 2 tablets by mouth in the morning and 2 tablets in the evening. Take with meals. [facility] nystatin 100,000 unit/gram cream 12-24 00:00: 00 Yes [id number] Apply to area(s) 2 (two) times daily. [facility] metFORMIN 500 mg tablet 12-24 00:00: 00 Yes [id number] 1000mg Take 2 tablets by mouth in the morning and 2 tablets in the evening. Take with meals. [facility] nystatin 100,000 unit/gram cream 12-24 00:00: 00 Yes [id number] Apply to area(s) 2 (two) times daily. [facility] metFORMIN 500 mg tablet 12-24 00:00: 00 Yes [id number] 1000mg Take 2 tablets by mouth in the morning and 2 tablets in the evening. Take with meals. [facility] nystatin 100,000 unit/gram cream 12-24 00:00: 00 Yes [id number] Apply to area(s) 2 (two) times daily. [facility] metFORMIN 500 mg tablet 12-24 00:00: 00 10-26 00:00 :00 No [id number] 1000mg Take 2 tablets by mouth in the morning and 2 tablets in the evening. Take with meals. [facility] tirzepatide 2.5 mg/0.5 mL subcutaneou s injection 12-24 00:00: 00 01-24 04:59 :00 No [id number] 2.5mg inject 2.5 mg under the skin weekly for 30 days. [facility] tirzepatide 5 mg/0.5 mL subcutaneou s injection 12-24 00:00: 00 01-24 04:59 :00 No [id number] 10mg inject 10 mg under the skin weekly for 30 days. [facility] tirzepatide 2.5 mg/0.5 mL subcutaneou s injection 12-24 00:00: 00 01-24 04:59 :00 No [id number] 2.5mg inject 2.5 mg under the skin weekly for 30 days. [facility] tirzepatide 5 mg/0.5 mL subcutaneou s injection 12-24 00:00: 00 01-24 04:59 :00 No [id number] 10mg inject 10 mg under the skin weekly for 30 days. [facility] tirzepatide 2.5 mg/0.5 mL subcutaneou s injection 12-24 00:00: 00 01-24 04:59 :00 No [id number] 2.5mg inject 2.5 mg under the skin weekly for 30 days. [facility] tirzepatide 5 mg/0.5 mL subcutaneou s injection 12-24 00:00: 00 01-24 04:59 :00 No [id number] 10mg inject 10 mg under the skin weekly for 30 days. [facility] tirzepatide 2.5 mg/0.5 mL subcutaneou s injection 12-24 00:00: 00 01-24 04:59 :00 No [id number] 2.5mg inject 2.5 mg under the skin weekly for 30 days. [facility] tirzepatide 5 mg/0.5 mL subcutaneou s injection 12-24 00:00: 00 01-24 04:59 :00 No [id number] 10mg inject 10 mg under the skin weekly for 30 days. [facility] tirzepatide 2.5 mg/0.5 mL subcutaneou s injection 12-24 00:00: 00 01-24 04:59 :00 No [id number] 2.5mg inject 2.5 mg under the skin weekly for 30 days. [facility] tirzepatide 5 mg/0.5 mL subcutaneou s injection 12-24 00:00: 00 01-24 04:59 :00 No [id number] 10mg inject 10 mg under the skin weekly for 30 days. [facility].5 mg/0.5 mL subcutaneou s injection 12-24 00:00: 00 01-24 04:59 :00 No [id number] 2.5mg inject 2.5 mg under the skin weekly for 30 days. [facility] tirzepatide 5 mg/0.5 mL subcutaneou s injection 12-24 00:00: 00 01-24 04:59 :00 No [id number] 10mg inject 10 mg under the skin weekly for 30 days. [facility] tirzepatide 2.5 mg/0.5 mL subcutaneou s injection 12-24 00:00: 00 01-15 00:00 :00 No [id number] 2.5mg inject 2.5 mg under the skin weekly for 30 days. [facility] tirzepatide 5 mg/0.5 mL subcutaneou s injection 12-24 00:00: 00 01-15 00:00 :00 No [id number] 10mg inject 10 mg under the skin weekly for 30 days. [facility] tirzepatide 2.5 mg/0.5 mL subcutaneou s injection 12-24 00:00: 00 01-15 00:00 :00 No [id number] 2.5mg inject 2.5 mg under the skin weekly for 30 days. [facility] tirzepatide 5 mg/0.5 mL subcutaneou s injection 12-24 00:00: 00 01-15 00:00 :00 No [id number] 10mg inject 10 mg under the skin weekly for 30 days. [facility] blood sugar diagnostic strip 09-26 00:00: 00 Yes [id number] Check blood sugar 2 times a day. E11.9. Brand per insurance. [facility] Lancets Misc 09-26 00:00: 00 Yes [id number] Check blood sugar 2 times a day. E11.9. Brand per insurance. [facility] Blood-Gluco se Meter Kit 09-26 00:00: 00 Yes [id number] Check sugars 2 times a day. Dx. Code E11.9 Brand per Insurance [facility] omeprazole 40 mg capsule 09-26 00:00: 00 Yes [id number] 40mg Take 1 capsule by mouth daily. [facility] blood sugar diagnostic strip 09-26 00:00: 00 Yes [id number] Check blood sugar 2 times a day. E11.9. Brand per insurance. [facility] Lancets Misc 09-26 00:00: 00 Yes [id number] Check blood sugar 2 times a day. E11.9. Brand per insurance. [facility] Blood-Gluco se Meter Kit 09-26 00:00: 00 Yes [id number] Check sugars 2 times a day. Dx. Code E11.9 Brand per Insurance [facility] blood sugar diagnostic strip 09-26 00:00: 00 Yes [id number] Check blood sugar 2 times a day. E11.9. Brand per insurance. [facility] Lancets Misc 09-26 00:00: 00 Yes [id number] Check blood sugar 2 times a day. E11.9. Brand per insurance. [facility] Blood-Gluco se Meter Kit 09-26 00:00: 00 Yes [id number] Check sugars 2 times a day. Dx. Code E11.9 Brand per Insurance [facility] blood sugar diagnostic strip 09-26 00:00: 00 Yes [id number] Check blood sugar 2 times a day. E11.9. Brand per insurance. [facility] Lancets Misc 09-26 00:00: 00 Yes [id number] Check blood sugar 2 times a day. E11.9. Brand per insurance. [facility] Blood-Gluco se Meter Kit 09-26 00:00: 00 Yes [id number] Check sugars 2 times a day. Dx. Code E11.9 Brand per Insurance [facility] metFORMIN 500 mg tablet 09-26 00:00: 00 Yes [id number] 500mg Take 1 tablet by mouth 2 (two) times daily with meals. [facility] omeprazole 40 mg capsule 09-26 00:00: 00 Yes [id number] 40mg Take 1 capsule by mouth daily. [facility] blood sugar diagnostic strip 09-26 00:00: 00 Yes [id number] Check blood sugar 2 times a day. E11.9. Brand per insurance. [facility] 09-[facility] 00:00: 00 Yes [id number] Check blood sugar 2 times a day. E11.9. Brand per insurance. [facility] Blood-Gluco se Meter Kit 09-26 00:00: 00 Yes [id number] Check sugars 2 times a day. Dx. Code E11.9 Brand per Insurance [facility] omeprazole 40 mg capsule 09-26 00:00: 00 Yes [id number] 40mg Take 1 capsule by mouth daily. [facility] blood sugar diagnostic strip 09-26 00:00: 00 Yes [id number] Check blood sugar 2 times a day. E11.9. Brand per insurance. [facility] 09-26 00:00: 00 Yes [id number] Check blood sugar 2 times a day. E11.9. Brand per insurance. [facility] Blood-Gluco se Meter Kit 09-26 00:00: 00 Yes [id number] Check sugars 2 times a day. Dx. Code E11.9 Brand per Insurance [facility] omeprazole 40 mg capsule 09-26 00:00: 00 Yes [id number] 40mg Take 1 capsule by mouth daily. [facility] blood sugar diagnostic strip 09-26 00:00: 00 Yes [id number] Check blood sugar 2 times a day. E11.9. Brand per insurance. [facility] 09-26 00:00: 00 Yes [id number] Check blood sugar 2 times a day. E11.9. Brand per insurance. [facility] Blood-Gluco se Meter Kit 2021-0 09-26 00:00: 00 Yes [id number] Check sugars 2 times a day. Dx. Code E11.9 Brand per Insurance [facility] omeprazole 40 mg capsule 0 09-26 00:00: 00 Yes [id number] 40mg Take 1 capsule by mouth daily. [facility] blood sugar diagnostic strip 0 09-26 00:00: 00 Yes [id number] Check blood sugar 2 times a day. E11.9. Brand per insurance. [facility] 09-26 00:00: 00 Yes [id number] Check blood sugar 2 times a day. E11.9. Brand per insurance. [facility] Blood-Gluco se Meter Kit 0 09-26 00:00: 00 Yes [id number] Check sugars 2 times a day. Dx. Code E11.9 Brand per Insurance [facility] omeprazole 40 mg capsule 0 09-26 00:00: 00 Yes [id number] 40mg Take 1 capsule by mouth daily. [facility] blood sugar diagnostic strip 0 09-26 00:00: 00 Yes [id number] Check blood sugar 2 times a day. E11.9. Brand per insurance. [facility] 09-26 00:00: 00 Yes [id number] Check blood sugar 2 times a day. E11.9. Brand per insurance. [facility] Blood-Gluco se Meter Kit 0 09-26 00:00: 00 Yes [id number] Check sugars 2 times a day. Dx. Code E11.9 Brand per Insurance [facility] omeprazole 40 mg capsule 0 09-26 00:00: 00 Yes [id number] 40mg Take 1 capsule by mouth daily. [facility] blood sugar diagnostic strip 0 09-26 00:00: 00 Yes [id number] Check blood sugar 2 times a day. E11.9. Brand per insurance. [facility] 09-26 00:00: 00 Yes [id number] Check blood sugar 2 times a day. E11.9. Brand per insurance. [facility] Blood-Gluco se Meter Kit 09-26 00:00: 00 Yes [id number] Check sugars 2 times a day. Dx. Code E11.9 Brand per Insurance [facility] omeprazole 40 mg capsule 09-26 00:00: 00 Yes [id number] 40mg Take 1 capsule by mouth daily. [facility] blood sugar diagnostic strip 09-26 00:00: 00 Yes [id number] Check blood sugar 2 times a day. E11.9. Brand per insurance. [facility] 09-26 00:00: 00 Yes [id number] Check blood sugar 2 times a day. E11.9. Brand per insurance. [facility] Blood-Gluco se Meter Kit 09-26 00:00: 00 Yes [id number] Check sugars 2 times a day. Dx. Code E11.9 Brand per Insurance [facility] omeprazole 40 mg capsule 09-26 00:00: 00 Yes [id number] 40mg Take 1 capsule by mouth daily. [facility] blood sugar diagnostic strip 09-26 00:00: 00 Yes [id number] Check blood sugar 2 times a day. E11.9. Brand per insurance. [facility] 09-26 00:00: 00 Yes [id number] Check blood sugar 2 times a day. E11.9. Brand per insurance. [facility] Blood-Gluco se Meter Kit 09-26 00:00: 00 Yes [id number] Check sugars 2 times a day. Dx. Code E11.9 Brand per Insurance [facility] omeprazole 40 mg capsule 09-26 00:00: 00 Yes [id number] 40mg Take 1 capsule by mouth daily. [facility] blood sugar diagnostic strip 0 09-26 00:00: 00 Yes [id number] Check blood sugar 2 times a day. E11.9. Brand per insurance. [facility] Lancets Misc 09-26 00:00: 00 Yes [id number] Check blood sugar 2 times a day. E11.9. Brand per insurance. [facility] Blood-Gluco se Meter Kit 09-26 00:00: 00 Yes [id number] Check sugars 2 times a day. Dx. Code E11.9 Brand per Insurance [facility] omeprazole 40 mg capsule 09-26 00:00: 00 Yes [id number] 40mg Take 1 capsule by mouth daily. [facility] omeprazole 40 mg capsule 09-26 00:00: 00 10-26 00:00 :00 No [id number] 40mg Take 1 capsule by mouth daily. [facility] metFORMIN 500 mg tablet 09-26 00:00: 00 12-24 00:00 :00 No [id number] 500mg Take 1 tablet by mouth 2 (two) times daily with meals. [facility] metFORMIN 500 mg tablet 09-26 00:00: 00 12-24 00:00 :00 No [id number] 500mg Take 1 tablet by mouth 2 (two) times daily with meals. [facility] diclofenac 75 mg EC tablet 08-26 00:00: 00 Yes 75mg Take 75 mg by mouth 2 (two) times daily. [facility] diclofenac 75 mg EC tablet 08-26 00:00: 00 Yes 75mg Take 75 mg by mouth 2 (two) times daily. [facility] diclofenac 75 mg EC tablet 08-26 00:00: 00 Yes 75mg Take 75 mg by mouth 2 (two) times daily. [facility] diclofenac 75 mg EC tablet 08-26 00:00: 00 Yes 75mg Take 75 mg by mouth 2 (two) times daily. [facility] diclofenac 75 mg EC tablet 08-26 00:00: 00 Yes 75mg Take 75 mg by mouth 2 (two) times daily. [facility] diclofenac 75 mg EC tablet 08-26 00:00: 00 Yes 75mg Take 75 mg by mouth 2 (two) times daily. [facility] [facility] diclofenac 75 mg EC tablet 08-26 00:00: 00 Yes 75mg Take 75 mg by mouth 2 (two) times daily. [facility] diclofenac 75 mg EC tablet 08-26 00:00: 00 Yes 75mg Take 75 mg by mouth 2 (two) times daily. [facility] diclofenac 75 mg EC tablet 08-26 00:00: 00 Yes 75mg Take 75 mg by mouth 2 (two) times daily. [facility] diclofenac 75 mg EC tablet 08-26 00:00: 00 Yes 75mg Take 75 mg by mouth 2 (two) times daily. [facility] diclofenac 75 mg EC tablet 08-26 00:00: 00 Yes 75mg Take 75 mg by mouth 2 (two) times daily. [facility] diclofenac 75 mg EC tablet 08-26 00:00: 00 Yes 75mg Take 75 mg by mouth 2 (two) times daily. [facility] diclofenac 75 mg EC tablet 08-26 00:00: 00 Yes 75mg Take 75 mg by mouth 2 (two) times daily. [facility] Vital Signs Vital Name Observation Time Observation Value Comments S luis alberto Heart rate 2022-06-12 06:19:00 69 /min [facility] Respiratory rate 2022-06-12 06:19:00 18 /min [facility] Oxygen saturation in Arterial blood by Pulse oximetry 2022-06-12 06:19:00 100 /min [facility] Systolic blood pressure 2022-06-12 04:01:00 144 mm[Hg] [facility] Diastolic blood pressure 2022-06-12 04:01:00 62 mm[Hg] [facility] Body temperature 2022-06-12 04:01:00 37.06 Radha [facility] Body height 2022-06-12 04:01:00 182.9 cm [facility] Body weight 2022-06-12 04:01:00 140.615 kg [facility] BMI 2022-06-12 04:01:00 42.04 kg/m2 [facility] Systolic blood pressure 2021-12-24 15:54:00 119 mm[Hg] [facility] Diastolic blood pressure 2021-12-24 15:54:00 78 mm[Hg] [facility] Heart rate 2021-12-24 15:54:00 68 /min [facility] Body temperature 2021-12-24 15:54:00 36.67 Radha [facility] Respiratory rate 2021-12-24 15:54:00 18 /min [facility] Body height 2021-12-24 15:54:00 182.9 cm [facility] Body weight 2021-12-24 15:54:00 141.023 kg [facility] BMI 2021-12-24 15:54:00 42.17 kg/m2 [facility] Oxygen saturation in Arterial blood by Pulse oximetry 2021-12-24 15:54:00 97 /min [facility] Systolic blood pressure 2021-12-13 18:20:00 125 mm[Hg] [facility] Diastolic blood pressure 2021-12-13 18:20:00 65 mm[Hg] [facility] Heart rate 2021-12-13 18:20:00 73 /min [facility] Body temperature 2021-12-13 18:20:00 36.11 Radha [facility] Respiratory rate 2021-12-13 18:20:00 18 /min [facility] Body height 2021-12-13 18:20:00 182.9 cm [facility] Body weight 2021-12-13 18:20:00 142.52 kg [facility] BMI 2021-12-13 18:20:00 42.61 kg/m2 [facility] Procedures Procedure Date / Time Performed Performing Clinicia n Source XR FOOT 3+ VW LEFT 2022-06-12 05:14:45 [place] [facility] NOTICE OF PRIVACY PRACTICES 2022-06-12 03:54:23 Doctor Unassigned, [place] [facility] CONSENT/REFUSAL FOR DIAGNOSIS AND TREATMENT 2022-06-12 03:53:28 Doctor Unassigned, [place] [facility] EKG-12 LEAD 2021-12-24 15:58:59 Doctor Unass igned, [place] [facility] EKG (SCANNED DOCUMENTS) 2021-12-24 05:01:00 Doctor Unassigned, [place] [facility] Encounters Start Date/Time End Date/Time Encounter Type Admission Type Attending [facility] Emergency Department Facility Care Department Encounter ID Source 2022-10-26 00:00:00 2022-10-26 00:00:00 Refill Marleny Stephens [facility] 1.2.840.114 350.1.13.10 4.2.7.2.686 [id number] [facility] 2022-10-25 00:00:00 2022-10-25 00:00:00 Refill Marleny Stephens [facility] 1.2.840.114 350.1.13.10 4.2.7.2.686 [id number] [facility] 2022-06-11 22:04:00 2022-06-12 01:21:00 Emergency X [facility] ERT [id number] [facility] 2022-06-11 22:04:00 2022-06-12 01:21:00 Emergency [place] S [facility] 1.2.840.114 350.1.13.10 4.2.7.2.686 [id number] [facility] 2022-01-22 00:00:00 2022-01-22 00:00:00 Telephone Marleny Stephens [facility] 1.2.840.114 350.1.13.10 4.2.7.2.686 [id number] [facility] 2021-12-26 00:00:00 2021-12-26 00:00:00 Telephone Marleny Stephens [facility] 1.2.840.114 350.1.13.10 4.2.7.2.686 [id number] [facility] 2021-12-26 00:00:00 2021-12-26 00:00:00 Telephone Marleny Stephens [facility] 1.2.840.114 350.1.13.10 4.2.7.2.686 [id number] [facility] 2021-12-25 00:00:00 2021-12-25 00:00:00 Telephone Marleny Stephens [facility] 1.2.840.114 350.1.13.10 4.2.7.2.686 [id number] [facility] 2021-12-25 00:00:00 2021-12-25 00:00:00 Telephone Marleny Stephens [facility] 1.2.840.114 350.1.13.10 4.2.7.2.686 [id number] [facility] 2021-12-24 13:00:00 2021-12-24 13:15:00 Industrial Painter Visit 2, Adc Lab Marleny Stephens [facility] 1.2.840.114 350.1.13.10 4.2.7.2.686 [id number] [facility] 2021-12-24 11:00:00 2021-12-24 11:29:45 Outpatient R ANGELO AMANDAMARLIN MCCARTHYKE AMANDAMARLIN [facility] [id number] [facility] 2021-12-24 11:00:00 2021-12-24 11:29:45 Office Visit Marleny Stephens [facility] EMELINA JOHNSON [facility] 1..840.114 350.1.13.10 4.2.7.2.686 [id number] [facility] 2021-12-24 00:00:00 2021-12-24 00:00:00 Orders Only Doctor Unassigned, [place] [facility] 1..840.114 350.1.13.10 4.2.7.2.686 [id number] [facility] 2021-12-21 16:00:00 2021-12-21 16:00:00 Outpatient R MARLENY STEPHENS OGECHUKWU [facility] [id number] [facility] 2021-12-21 10:30:00 2021-12-21 10:30:00 Outpatient R MARLENY STEPHENS OGECHUKWU [facility] [id number] [facility] 2021-12-17 15:30:00 2021-12-17 15:30:00 Outpatient R MARLENY STEPHENS OGECHUKWU [facility] [id number] [facility] 2021-12-13 13:00:00 2021-12-13 14:31:24 Outpatient R BENJY VALDEZ [facility] [id number] [facility] 2021-12-13 13:00:00 2021-12-13 14:31:24 Office Visit Pgy1 Benjy Valdez [facility] 1..840.114 350.1.13.10 4.2.7.2.686 [id number] [facility] 2021-12-13 13:00:00 2021-12-13 13:00:00 Outpatient R [facility] [id number] [facility] 2021-11-15 12:40:21 2021-11-15 23:59:00 Hospital Encounter [facility] 1..114 350.1.13.10 4.2.7.2.686 [id number] [facility] 2021-11-15 12:40:21 2021-11-15 23:59:00 Outpatient R [facility] [id number] [facility] 2021-11-15 14:00:00 2021-11-15 15:04:59 Office Visit Pgy2 [facility] 1.84.114 350.1.13.10 4.2.7.2.686 [id number] [facility] 2021-11-15 14:00:00 2021-11-15 15:04:59 Outpatient R [facility] [id number] [facility] 2021-11-15 12:40:21 2021-11-15 12:40:21 Outpatient R [facility] [id number] [facility] 2021-11-01 16:30:00 2021-11-01 16:45:00 Industrial Painter Visit [facility] 1.84.114 350.1.13.10 4.2.7.2.686 [id number] [facility] 2021-11-01 16:30:00 2021-11-01 16:30:00 Outpatient R [facility] [id number] [facility] 2021-11-01 14:30:00 2021-11-01 16:11:18 Office Visit Pgy2 [facility] 1..114 350.1.13.10 4.2.7.2.686 [id number] [facility] 2021-11-01 14:30:00 2021-11-01 16:11:18 Outpatient R BENJY VALDEZ [facility] [id number] [facility] 2021-11-01 14:30:00 2021-11-01 16:11:18 Outpatient R BENJY VALDEZ [facility] [id number] [facility] 2021-11-01 14:30:00 2021-11-01 16:11:18 Office Visit Pgy2 Benjy Valdez [facility] 1..114 350.1.13.10 4.2.7.2.686 [id number] [facility] 2021-11-01 14:30:00 2021-11-01 16:11:18 Outpatient BENJY ARNDT [facility] [id number] [facility] 2021-11-01 14:30:00 2021-11-01 16:11:18 Outpatient BENJY ARNDT [facility] [id number] [facility] 2021-11-01 00:00:00 2021-11-01 00:00:00 Orders Only Doctor Unassigned, [place] [facility] ..114 350.1.13.10 4.2.7.2.686 [id number] [facility] 2021-10-23 00:00:00 2021-10-23 00:00:00 Telephone Kellen Rosales [facility] CHIEF DEPUTY [facility] CLERK [facility] MATERNAL & CHILD [facility] 1..114 350.1.13.10 4.2.7.2.686 [id number] [facility] 2021-10-23 00:00:00 2021-10-23 00:00:00 Telephone Kellen Rosales [facility] CHIEF [address]PUTY [facility] CLERK [facility] & CHILD [facility] 1.840.114 350.1.13.10 4.2.7.2.686 [id number] [facility] 2021-10-16 13:33:42 2021-10-16 23:59:00 Outpatient KELLEN ROMO [facility] [id number] [facility] 2021-10-16 13:20:00 2021-10-16 23:59:00 Hospital Encounter Kellen Rosales [facility] 1..840.114 350.1.13.10 4.2.7.2.686 [id number] [facility] 2021-10-11 00:00:00 2021-10-11 00:00:00 Outpatient KELLEN ROMO [facility] [id number] [facility] 2021-10-02 13:15:00 2021-10-02 13:54:17 Outpatient KELLEN ROMO [facility] [id number] [facility] 2021-10-02 13:15:00 2021-10-02 13:54:17 Office Visit Kellen Rosales Lester [facility] CHIEF [address] [facility] CLERK [facility] MATER[facility] & [facility]ILD [facility] 1..840.114 350.1.13.10 4.2.7.2.686 [id number] [facility] 2021-10-02 13:15:00 2021-10-02 13:54:17 Outpatient R KELLEN ROSALES [facility] [id number] [facility] 2021-10-02 13:15:00 2021-10-02 13:54:17 Outpatient KELLEN ROMO [facility] [id number] [facility] 2021-10-02 00:00:00 2021-10-02 00:00:00 Orders Only Doctor Unassigned, [place] [facility] 1.2.840.114 350.1.13.10 4.2.7.2.686 [id number] [facility] 2021-09-26 15:00:00 2021-09-26 15:15:00 Industrial Painter Visit 2, Adc Lab Marleny Stephens [facility] 1.2.840.114 350.1.13.10 4.2.7.2.686 [id number] [facility] 2021-09-26 13:00:00 2021-09-26 14:32:21 Outpatient R MARLENY STEPHENS OGECHUKWU [facility] [id number] [facility] 2021-09-26 13:00:00 2021-09-26 14:32:21 Office Visit Marleny Stephens [facility] 1.2.840.114 350.1.13.10 4.2.7.2.686 [id number] [facility] 2021-09-09 16:57:00 2021-09-09 19:56:00 Emergency X BARI ROMERONIE [facility] ERT [id number] [facility] 2021-09-09 16:57:00 2021-09-09 19:56:00 Emergency Liam Romero Sara [facility] 1.2.840.114 350.1.13.10 4.2.7.2.686 [id number] [facility] 2021-09-05 00:00:00 2021-09-05 00:00:00 Transition of Care Selena Mcgovern 1.2.840.114 350.1.13.10 4.2.7.2.686 [id number] [facility] 2021-08-27 13:42:00 2021-09-02 17:32:00 Hospital Encounter Chucky Stauffer David [facility] 1.2.840.114 350.1.13.10 4.2.7.2.686 [id number] [facility] 2021-08-27 13:42:00 2021-09-02 17:32:00 Inpatient X XOCHITL LOUISE [facility] DORA [id number] [facility] 2021-08-30 08:00:00 2021-08-30 08:58:00 Surgery Timothy Hurtado [facility] 1.2.840.114 350.1.13.10 4.2.7.2.686 [id number] [facility] 2021-08-27 00:00:00 2021-08-27 00:00:00 Orders Only Doctor Unassigned, [place] [facility] 1.2.840.114 350.1.13.10 4.2.7.2.686 [id number] [facility] 2020-06-30 13:42:00 2020-06-30 17:30:00 Emergency Alex Rivers [facility] 1.2.840.114 350.1.13.10 4.2.7.2.686 [id number] [facility] 2020-06-30 13:42:00 2020-06-30 13:42:00 Emergency X Alex RIVERS [facility] ERT [id number] [facility] 2019-06-08 00:00:00 2019-06-08 00:00:00 Orders Only Doctor Unassigned, [place] [facility] 1.2840.114 350.1.13.10 4.2.7.2.686 [id number] [facility] Results Test Description Test Time Test Comments Results Result Co mments Source TRICHOMONAS, NAAT, [id number] 16:30:51* Test Item Value Reference Range Interpretation Comme nts TRICHOMONAS, NAAT (test code = 32271) NEGATIVE NEGATIVE IMPORTANT NO MARCK: SEE ANNOUNCEMENT AT [email or web address] Note: Assay methodology is nucleic acid amplification by telephone answerer mediated amplification (TMA) and Hybridization Protection Assay (HPA) utilizing the [employer] platform. A negative result does not exclude low level infection, specimensampling error, or collection error. UNLESS OTHERWISE INDICATED, ALL TESTING PERFORMED [facility] [employer] [address] [place] [address]49 [employer]: LEONARDO BIGGS M.D. CLIA NUMBER [id number] [facility] [place]. [id number] Notes Date/Time Note Provider Source 2022-10-26 08:40:03 [id number]:40:03F ormatting of this note is different from the original.Sent 30 day supply of both with reminder appointment needs to be scheduled. Sent MyChart correspondence. Vidhya Adams LVN 10/26/2022 8:41 AMRecent VisitsDate Type Provider Dept 12/24/21 Office Visit Marleny Stephens NP [facility] 09/26/21 Office Visit Marleny Stephens NP [facility] Showing recent visits within past 540 days with a meds authorizing provider and meeting all other requirementsFuture AppointmentsNo visits were found meeting these conditions.Showing future appointments within next 150 days with a meds authorizing provider and meeting all other requirements [id number] encounter [id number]:43:35Telephone encounter [id number] 9|[id number] for patient care[address] Ha[id number] QQCTKXPACIMNACKY0366-15-80Z39:43:351.2.840 .194809.1.72.3.15|1.2.840.431884.1.13.104. [id number] [facility]"
[2023-06-09] MEDS ORDERED: dilTIAZem HCL 25 MG/5 ML VIAL IV ONE ×2 (23:36→23:39)
[2023-06-10 00:05] LABS: Absolute Basophils 0.1 K/uL (0-0.5); Absolute Eosinophils 0.1 K/uL (0-0.5); Absolute Lymphocytes (CBC) 2.1 K/uL (0.7-4.9); Absolute Monocytes 0.6 K/uL (0.1-1.3); Absolute Neutrophil 7.6 K/uL (1.8-8.0); Basophils % 0.6 % (0-1.3); Eosinophils % 0.6 % (0-4.4); Hematocrit 33.5 % (36.0-45.0); Hemoglobin 10.7 g/dL (12.0-15.0); Lymphocytes % 20.6 % (15.3-44.8); MCH 21.8 pg (27.0-35.0); MCHC 31.9 g/dL (32.0-36.0); MCV 68.4 fL (80-100); MPV 8.8 fL (7.6-11.3); Monocytes % 5.4 % (3.3-12.3); Neutrophils % 72.8 % (41.7-73.7); Platelets 296 thou/uL (152-406); Red Cell Distribution Width 17.3 % (12.1-15.2)
[2023-06-10 00:24] LABS: Albumin 3.1 g/dL (3.4-5.0); Albumin/Globulin Ratio 0.7 (1.1-1.8); Anion Gap 13.8 mEq/L (5.0-15.0); Bilirubin Direct 0.1 mg/dL (0-0.2); Bilirubin Indirect, Calculated 0.2 mg/dL (0.2-0.8); Bilirubin Total 0.3 mg/dL (0.2-1.0); Globulin 4.3 g/dL (2.3-3.5); Magnesium 1.9 mg/dL (1.6-2.4); Potassium 3.8 mEq/L (3.5-5.1); Protein, Total 7.4 g/dL (6.4-8.2); Thyroid Stimulating Hormone 0.964 uIU/mL (0.358-3.740); Troponin High Sensitivity 5.2 pg/mL (<58.9)
[2023-06-10 00:47] LABS: PT Prothrombin Time 13.5 SECONDS (9.5-12.5); Protime INR 1.23
--- NOTE | 2023-06-10 01:45 | EDPHYS ---
Physician Documentation [facility] Name: Cindy Pandey Age: 47 yrs Sex: Female : 1975 Arrival Date: 06/09/2023 Time: 22:39 Bed 17 Private MD: ED Physician Isabel Hannah HPI: 06/08 23:00 This 47 yrs old Female presents to ER via EMS with complaints of Chest Pain. cp 23:00 The patient or guardian reports chest pain that is located primarily in the anterior cp chest wall. Onset: today. Associated signs and symptoms: Pertinent positives: lower extremity swelling, palpitations, shortness of breath, Pertinent negatives: abdominal pain, diaphoresis, syncope. The chest pain is described as a pressure. Duration: The patient or guardian reports a single episode, that is still ongoing. Patient reports history of a-fib. No current treatment. Complains of being in a-fib tonight. Historical: - Allergies: 22:52 No Known Allergies; jj7 - PMHx: 22:52 Atrial fibrillation; Diabetes - NIDDM; irone defieciency anemia; jj7 - PSHx: 22:52 cataract; section; hernia repair; lap band; left knee; R ovary and tube jj7 removed; - Immunization history:: Adult Immunizations not up to date, Client reports having NOT received the Covid vaccine. Flu vaccine is not up to date. - Social history:: Smoking status: Patient denies any tobacco usage or history of. Patient uses alcohol, but reports only rare drinking. ROS: 23:05 Constitutional: Negative for body aches, chills, fever, poor PO intake, cp 23:05 Eyes: Negative for injury, pain, redness, and discharge, cp 23:05 ENT: Negative for drainage from ear(s), ear pain, sore throat, difficulty swallowing, difficulty handling secretions, 23:05 Cardiovascular: Positive for chest pain, edema, palpitations, 23:05 Respiratory: Positive for shortness of breath, at rest. Negative for cough, wheezing, 23:05 Abdomen/GI: Negative for abdominal pain, nausea, vomiting, and diarrhea, 23:05 Neuro: Negative for altered mental status, dizziness, headache, syncope, weakness, 23:05 All other systems are negative, Exam: 23:10 Head/Face: Normocephalic, atraumatic. cp 23:10 Constitutional: The patient appears in no acute distress, alert, awake, non-diaphoretic, non-toxic, well developed, well nourished, obese, uncomfortable, 23:10 Eyes: Periorbital structures: appear normal, Conjunctiva: normal, no exudate, no injection, Sclera: no appreciated abnormality, Lids and lashes: appear normal, bilaterally, 23:10 ENT: External ear(s): are unremarkable, Nose: is normal, Mouth: Lips: moist, Oral mucosa: pink and intact, moist, Posterior pharynx: Airway: no evidence of obstruction, patent, 23:10 Neck: ROM/movement: is normal, is supple, without pain, no range of motions limitations, 23:10 Chest/axilla: Inspection: normal, Palpation: is normal, no crepitus, no tenderness, 23:10 Cardiovascular: Rate: tachycardic, Rhythm: irregular, Edema: ankle edema, that is mild, JVD: is not appreciated, 23:10 Respiratory: the patient does not display signs of respiratory distress, Respirations: labored breathing, that is mild, Breath sounds: decreased breath sounds, that are mild, throughout, stridor, is not appreciated, wheezing: is not appreciated, 23:10 Abdomen/GI: Inspection: obese Palpation: abdomen is soft and non-tender, in all quadrants, 23:10 Back: pain, is absent, ROM is normal, cp 23:10 Skin: cellulitis, is not appreciated, no rash present. 23:10 Neuro: Orientation: to person, place \T\ time. Mentation: is normal, Motor: moves all fours, strength is normal, Sensation: no obvious gross deficits, 06/09 01:12 ECG was reviewed by the Attending Physician. cp Vital Signs: 06/08 22:47 BP 160 / 128; Pulse 142; Resp 21; Temp 97.9; Pulse Ox 100% ; Weight 131.54 kg; Height 6 jj7 ft. 0 in. ; Pain 2; 23:42 BP 117 / 82; Pulse 118; Resp 20; Pulse Ox 97% ; jj7 06/09 00:17 BP 100 / 61; Pulse 113; Resp 20; Pulse Ox 100% ; jj7 06/08 22:47 Body Mass Index 39.33 (131.54 kg, 182.88 cm) jj7 06/08 22:47 Pain Scale: Adult jj7 MDM: 06/08 22:53 Patient medically screened. cp 06/09 01:45 Data reviewed: vital signs, nurses notes, lab test result(s), EKG, radiologic studies, cp plain films. 01:45 Consideration of Admission/Observation Patient was admitted/placed on observation. cp Management of patient was discussed with the following: Hospitalist: DR Tom will admit after discussion. I considered the following discharge prescriptions or medication management in the emergency department Medications were administered in the Emergency Department. See MAR. Care significantly affected by the following chronic conditions: Diabetes, Obesity, anemia. Counseling: I had a detailed discussion with the patient and/or guardian regarding the historical points, exam findings, and any diagnostic results supporting the discharge/admit diagnosis, lab results, radiology results, the need for further work-up and treatment in the hospital. Response to treatment: the patient's symptoms have mildly improved after treatment. 06/08 23:10 Order name: Basic Metabolic Panel; Complete Time: 00:57 cp 06/09 00:57 Interpretation: Normal except: NA 135; GLUC 367; BUN 20; GFR 68. cp 06/08 23:10 Order name: CBC with Diff; Complete Time: 16:11 cp 06/09 00:58 Interpretation: Normal except: RBC 4.90; HGB 10.7; HCT 33.5; MCV 68.4; MCH 21.8; MCHC cp 31.9; RDW 17.3. 06/08 23:10 Order name: LFT's; Complete Time: 00:57 cp 06/08 23:10 Order name: Magnesium; Complete Time: 00:57 cp 06/08 23:10 Order name: NT PRO-BNP; Complete Time: 00:57 cp 06/08 23:10 Order name: PT-INR; Complete Time: 00:57 cp 06/08 23:10 Order name: Troponin HS; Complete Time: 00:57 cp 06/08 23:17 Order name: Urine Microscopic Only; Complete Time: 16:11 cp 06/08 23:17 Order name: UDS; Complete Time: 16:11 cp 06/08 23:17 Order name: PREGU; Complete Time: 16:11 cp 06/08 23:49 Order name: Thyroid Stimulating Hormone; Complete Time: 00:57 EDMS / 00:10 Order name: CBC Smear Scan; Complete Time: 16:11 EDMS / 01:56 Order name: Basic Metabolic Panel EDMS 03/ 01:56 Order name: Basic Metabolic Panel EDMS 03/ 01:56 Order name: Basic Metabolic Panel EDMS / 01:56 Order name: Basic Metabolic Panel EDMS 03/ 01:56 Order name: CBC with Automated Diff EDMS 03/05 01:56 Order name: CBC with Automated Diff EDMS 03/ 01:56 Order name: CBC with Automated Diff EDMS 03/ 01:56 Order name: CBC with Automated Diff EDMS 03/05 01:56 Order name: Magnesium EDMS 03/05 01:56 Order name: Magnesium EDMS 03/05 01:56 Order name: Phosphorus EDMS 03/05 01:56 Order name: Phosphorus EDMS 03/05 01:56 Order name: Troponin High Sensitivity EDMS 03/05 01:56 Order name: Troponin High Sensitivity; Complete Time: 16:11 EDMS 06/09 01:56 Order name: Troponin High Sensitivity; Complete Time: 16:11 EDMS /05 01:56 Order name: Troponin High Sensitivity; Complete Time: 16:11 EDMS / 07:39 Order name: Transferrin Sat/Iron Binding; Complete Time: 16:11 EDMS 06/09 07:39 Order name: Ferritin; Complete Time: 16:11 EDMS / 07:45 Order name: Glucose, Ancillary Testing; Complete Time: 16:11 EDMS 06/09 11:29 Order name: Glucose, Ancillary Testing; Complete Time: 16:11 EDMS 06/08 23:10 Order name: XRAY Chest (1 view) cp 06/09 00:58 Order name: US Extremity Venous W Compression Dennis cp 06/09 00:59 Order name: CT Chest For PE Angio cp 06/09 12:53 Order name: CT EDMS 06/08 23:10 Order name: EKG; Complete Time: 23:11 cp 06/09 01:56 Order name: CONS Physician Consult EDMS 06/08 23:10 Order name: Cardiac monitoring; Complete Time: 23:30 cp 06/08 23:10 Order name: EKG - Nurse/Tech; Complete Time: 23:31 cp 06/08 23:10 Order name: IV Saline Lock; Complete Time: 23:31 cp 06/08 23:10 Order name: Labs collected and sent; Complete Time: 23:31 cp 06/08 23:10 Order name: O2 Per Protocol; Complete Time: 23:31 cp 06/08 23:10 Order name: O2 Sat Monitoring; Complete Time: 23:31 cp EC:12 Rate is 112 beats/min. Rhythm is irregular, A fib. QRS interval is normal. QT interval cp is normal. T waves are Inverted in lead aVR. Interpreted by me. Reviewed by me. Administered Medications: 06/08 23:41 Drug: Diltiazem IVP 10 mg IVP once; Over 2 minutes Route: IVP; Site: left wrist; jj7 06/09 01:11 CANCELLED (Physician Discretion): ns 0.9% 1000 ml IV at 1000 ml/hr Per protocol; 1000 cp mL bolus 03:15 Drug: Enoxaparin Sub-Q 1 mg/kg Sub-Q once Route: Sub-Q; Site: abdomen; jj7 03:15 Drug: Insulin Regular Human Sub-Q 10 units Sub-Q once {Co-Signature: rv (radha Hernandez RN).} Route: Sub-Q; Site: abdomen; Disposition Summary: 06/10/23 01:45 Hospitalization Ordered Notes: Hospitalization Status: Inpatient Admission cp Provider: Caden Tom cp Condition: Stable cp Problem: new cp Symptoms: have improved cp Bed/Room Type: Standard cp Location: Telemetry/MedSurg (Inpatient)(06/10/23 11:22) Room Assignment: [facility](06/10/23 11:36) ja1 Diagnosis - Unspecified atrial fibrillation cp - Chest pain, unspecified cp Forms: - Medication Reconciliation Form cp - SBAR form cp - Leadership Thank You Letter cp Signatures: Dispatcher [employer] EDMS Evonne Diaz Corey, PA PA cp Ronald Farooq RN RN ja1 Mateo Loera RN RN [email or web address] Brie Alas rv1 Julio Hernandez RN rv Corrections: (The following items were deleted from the chart) 06/08 23:48 23:17 THYROID STIMULAT HORMONE+C.LAB.BRZ ordered. EDMS EDMS 06/09 01:11 01:00 NS 0.9% IV 1000 ml IV at 1000 ml/hr Per protocol; 1000 mL bolus ordered. cp cp 01:49 01:45 Telemetry/MedSurg (Inpatient) cp rv1 01:49 01:45 cp rv1 11:22 01:49 [facility] ER HOLD rv1 bd 11:22 01:49 ERHOLD- rv1 bd 11:36 11:22 410 bd ja1 16:13 01:11 This 47 yrs old Female presents to ER via EMS with complaints of Chest Pain. cp cp 16:14 16:11 Constitutional: Negative for cp cp
--- NOTE | 2023-06-10 01:45 | ER ---
Nurse's Notes [facility] Name: Cindy Pandey Age: 47 yrs Sex: Female : 1975 Arrival Date: 06/09/2023 Time: 22:39 Bed 17 Private MD: Diagnosis: Unspecified atrial fibrillation;Chest pain, unspecified Presentation: 06/08 22:47 Chief complaint: Patient states: CP,SOB AND AN EPISODE OF A-FIB. STARTED TONIGHT. jj7 Coronavirus screen: At this time, the client does not indicate any symptoms associated with coronavirus-19. Ebola Screen: No symptoms or risks identified at this time. Initial Sepsis Screen: Does the patient meet any 2 criteria? HR > 90 bpm. Yes Does the patient have a suspected source of infection? No. Patient's initial sepsis screen is negative. Risk Assessment: Do you want to hurt yourself or someone else? Patient reports no desire to harm self or others. Onset of symptoms was June 09, 2023. 22:47 Method Of Arrival: EMS: [facility] 22:47 Acuity: PHILL 3 jj7 Triage Assessment: 22:52 General: Appears in no apparent distress. uncomfortable, Behavior is calm, cooperative, jj7 appropriate for age. Pain: Complains of pain in chest Pain currently is 2 out of 10 on a pain scale. Cardiovascular: Reports chest pain, palpitations, shortness of breath, Capillary refill < 3 seconds JVD is absent Patient's skin is warm and dry. Historical: - Allergies: 22:52 No Known Allergies; jj7 - PMHx: 22:52 Atrial fibrillation; Diabetes - NIDDM; irone defieciency anemia; jj7 - PSHx: 22:52 cataract; section; hernia repair; lap band; left knee; R ovary and tube jj7 removed; - Immunization history:: Adult Immunizations not up to date, Client reports having NOT received the Covid vaccine. Flu vaccine is not up to date. - Social history:: Smoking status: Patient denies any tobacco usage or history of. Patient uses alcohol, but reports only rare drinking. Screenin:53 [facility] ED Fall Risk Assessment (Adult) History of falling in the last 3 months, jj7 including since admission No falls in past 3 months (0 pts) Confusion or Disorientation No (0 pts) Intoxicated or Sedated Yes (3 pts) Impaired Gait No (0 pts) Mobility Assist Device Used No (0 pt) Altered Elimination No (0 pt) Score/Fall Risk Level 0 - 2 = Low Risk Oriented to surroundings, Maintained a safe environment, Educated pt \T\ family on fall prevention, incl call for assistance when getting out of bed. Abuse screen: Denies threats or abuse. Nutritional screening: No deficits noted. Tuberculosis screening: No symptoms or risk factors identified. Assessment: 22:47 Reassessment: SEE TRIAGE ASSESSMENT. [facility] Vital Signs: 22:47 BP 160 / 128; Pulse 142; Resp 21; Temp 97.9; Pulse Ox 100% ; Weight 131.54 kg; Height 6 [facility] ft. 0 in. ; Pain 2/10; 23:42 BP 117 / 82; Pulse 118; Resp 20; Pulse Ox 97% ; [facility] 06/09 00:17 BP 100 / 61; Pulse 113; Resp 20; Pulse Ox 100% ; [facility] 06/08 22:47 Body Mass Index 39.33 (131.54 kg, 182.88 cm) [facility] 06/08 22:47 Pain Scale: Adult [facility] ED Course: 06/08 22:41 Patient arrived in ED. as6 22:47 Mateo Loera, BRYANT is Primary Nurse. [facility] 22:51 Triage completed. [facility] 22:52 Arm band placed on right wrist. Patient placed in an exam room, on a stretcher, on [facility] monitoring manager. 22:53 Rafael Martinez PA is PHCP. cp 22:53 Isabel Hannah MD is Attending Physician. cp 22:53 Patient has correct armband on for positive identification. Bed in low position. Call [facility] light in reach. Side rails up X 1. Adult w/ patient. Client placed on continuous cardiac and pulse oximetry monitoring. NIBP monitoring applied. property assessment monitor on. Pulse ox on. Warm blanket given. 22:53 Maintain EMS IV. Dressing intact. Good blood return noted. Site clean \T\ dry. Gauge \T\ jj 7 site: 22G LEFT WRIST. 23:22 XRAY Chest (1 view) In Process Unspecified. EDMS 23:31 Basic Metabolic Panel Sent. jj7 23:31 CBC with Diff Sent. jj7 23:31 LFT's Sent. jj7 23:31 Magnesium Sent. jj7 23:31 NT PRO-BNP Sent. jj7 23:31 PT-INR Sent. jj7 23:31 Troponin HS Sent. jj7 06/09 01:34 US Extremity Venous W Compression Dennis In Process Unspecified. EDMS 01:44 Caden Tom MD is Hospitalizing Provider. cp 02:30 PREGU Sent. jj7 02:30 Urine Microscopic Only Sent. jj7 Administered Medications: 06/08 23:41 Drug: Diltiazem IVP 10 mg IVP once; Over 2 minutes Route: IVP; Site: left wrist; jj7 06/09 01:11 CANCELLED (Physician Discretion): ns 0.9% 1000 ml IV at 1000 ml/hr Per protocol; 1000 cp mL bolus 03:15 Drug: Enoxaparin Sub-Q 1 mg/kg Sub-Q once Route: Sub-Q; Site: abdomen; jj7 03:15 Drug: Insulin Regular Human Sub-Q 10 units Sub-Q once {Co-Signature: rv (radha Hernandez RN).} Route: Sub-Q; Site: abdomen; Outcome: 01:45 Decision to Hospitalize by Provider. cp 13:55 Patient left the ED. ph Signatures: Dispatcher [employer] Jennifer Miguel, RN RN ph Rafael Martinez PA PA cp Slawson, Ashby RN RN [email or web address] Mateo Loera RN RN jj7 Vicente, Ronaldo RN rv
[2023-06-10] MEDS ORDERED: ONDANSETRON 4 MG/2 ML VIAL IV PRN (01:49)
[2023-06-10] MEDS ORDERED: ACETAMINOPHEN 325 MG TABLET PO PRN (01:49)
[2023-06-10 01:55] LABS: Blood Morphology Comment NOTED (NOT SEEN); Hypochromasia 1+; Microcytosis 2+; Platelet Estimate ADEQ; White Blood Cell Scan OK (OK)
--- NOTE | 2023-06-10 01:55 | P.HP ---
Certification for Inpatient Patient admitted to: Observation With expected LOS: <2 Midnights Practitioner: I am a practitioner with admitting privileges, knowledge of patient current condition, hospital course, and medical plan of care. Services: Services provided to patient in accordance with Admission requirements found in Title 42 Section 412.3 of the Code of Federal Regulations Patient History Date of Service: 06/10/23 Reason for admission: Palpitations, chest pain. History of Present Illness: 47-year-old female patient with medical history significant for diabetes type 2, hypertension, history of atrial fibrillation, morbid obesity was also status post gastric band surgery who came to the ED with complaint of palpitations and chest discomfort. She was found to have atrial fibrillation with rapid ventricular response with heart rate in the 140s and she was started on rate control medication of diltiazem. She was admitted for inpatient care. She denied persistent chest pain, fever, chills, nausea, vomiting, cough, shortness of breath. Allergies No Known Allergies Allergy (Verified 02/17/19 06:29) Home Medications: Cyanocobalamin (Vitamin B-12) [Vitamin B12] 5,000 mcg SL DAILY #30 tab.rapdis 06/18/20 Ferrous Gluconate 324 mg PO Q12H #60 tablet 06/18/20 Folic Acid 1 mg PO DAILY #30 tablet 06/18/20 - Past Medical/Surgical History Diabetic: Yes -: Morbid obesity -: Diabetes mellitus type 2 -: Anemia -: Gastric band surgery -: C section -: 2 cataract surgeries -: L knee repair -: hernia repair -: ovarian cyst removal, salpingectomy - Family History Mother -: Diabetes Father -: Heart disease Sister -: Cancer - Social History Alcohol use: No CD- Drugs: No Caffeine use: No Review of Systems General: Malaise Eyes: Unremarkable ENT: Unremarkable Respiratory: Unremarkable Cardiovascular: Chest Pain, Palpitations Gastrointestinal: Unremarkable Musculoskeletal: Unremarkable Integumentary: Unremarkable Neurological: Unremarkable Lymphatics: Unremarkable Physical Examination - Physical Exam General: Alert, Oriented x3 HEENT: Atraumatic Neck: Supple Cardiovascular: Irregular heart rate/rhythm Gastrointestinal: Soft and benign Musculoskeletal: No swelling Neurological: Normal speech, Normal strength at 5/5 x4 extr - Studies Laboratory Data (last 24 hrs) 06/09/23 06/09/23 06/09/23 23:20 23:20 23:20 WBC 10.40 Hgb 10.7 L Hct 33.5 L Plt Count 296 PT 13.5 H INR 1.23 Sodium 135 L Potassium 3.8 BUN 20 H Creatinine 1.01 Glucose 367 H Magnesium 1.9 Total Bilirubin 0.3 AST 5 L ALT 17 Alkaline Phosphatase 130 H Assessment and Plan - Plan Atrial fibrillation with rapid ventricular response: Patient does have poor follow-up with doctors and has not had a intermediate designer follow-up since she was diagnosed with A-fib. Presently has a low blood pressure/soft blood pressure. Will give IV fluid boluses for blood pressure management. Continue rate control medication of amiodarone and metoprolol. Will follow on telemetry. Cardiology consultation placed. Will obtain echocardiogram to assess cardiac function. Iron deficiency anemia: Patient has a history of iron deficiency anemia hemoglobin is 10.7 with low MCV. Will obtain iron stores and start iron repletion as needed. Diabetes type 2: Will continue on sliding scale insulin and carb restricted diet. Will continue to monitor blood glucose ACHS, Morbid obesity: We will continue to encourage weight loss Prophylaxis: Lovenox for DVT prophylaxis CODE STATUS: Full code Disposition: We will treat A-fib with rapid ventricular response and discharge her once cleared by cardiology service. - Advance Directives Does patient have a Living Will: No Does patient have a Durable POA for Healthcare: No
[2023-06-10] MEDS ORDERED: INSULIN REGULAR (HUMAN) 100 UNIT/ML ONE ×4 (03:07→20:59)
[2023-06-10] MEDS ORDERED: ENOXAPARIN 100 MG/ML SYR SQ ONE (03:07)
[2023-06-10] MEDS ORDERED: ENOXAPARIN 30 MG/0.3 ML SQ ONE (03:08)
[2023-06-10 03:13] LABS: Barbiturates NEGATIVE (NEGATIVE); Benzodiazepines NEGATIVE (NEGATIVE); Cocaine NEGATIVE (NEGATIVE); METHAMPHETAM NEGATIVE (NEGATIVE); Methadone NEGATIVE (NEGATIVE); Opiates NEGATIVE (NEGATIVE); Phencyclidine NEGATIVE (NEGATIVE); THC Cannibis NEGATIVE (NEGATIVE); Urine Bacteria None Seen /HPF (<20); Urine Mucus Slight /HPF (None Seen); Urine RBC <5 /HPF (None Seen)
[2023-06-10 03:14] LABS: Specific Gravity > 1.030 (1.005-1.030)
[2023-06-10] MEDS ORDERED: NA CHLORIDE 0.9% 500 ML ONE (04:13)
[2023-06-10] MEDS: NA CHLORIDE 0.9% 500 ML IV ONE (04:27)
[2023-06-10] MEDS: AMIODARONE HCL 150 MG in D5W 100 ML IV STA (05:13)
[2023-06-10] MEDS: METOPROLOL TAR 25 MG TAB PO SCH ×2 (06:00→18:00)
[2023-06-10] MEDS ORDERED: AMIODARONE HCL 150 MG/3 ML INJ IV ONE (06:10)
[2023-06-10] MEDS ORDERED: D5W 100 ML IV ONE (06:11)
[2023-06-10] MEDS: INSULIN REGULAR (HUMAN) 100 UNIT/ML SQ SCH (07:30)
[2023-06-10 07:39] LABS: Ferritin 7.3 ng/mL (8-388)
[2023-06-10] MEDS: INFLUENZA VACCINE (for 6+ mo) 0.5 ML DOSE IMVAC ONE (08:00)
[2023-06-10] MEDS: ENOXAPARIN 40 MG/0.4 ML SQ SCH (09:00)
[2023-06-10] MEDS ORDERED: ENOXAPARIN 40 MG/0.4 ML SQ ONE (10:45)
[2023-06-10] MEDS: METOPROLOL TAR 25 MG TAB PO ONE (12:35)
--- NOTE | 2023-06-10 12:52 | RAD REPORT ---
EXAM DESCRIPTION: CT - Chest For Pe Angio - 06/10/2023 6:15 am CLINICAL HISTORY: Chest pain; SOB TECHNIQUE: Axial computed tomographic angiography images of the chest with intravenous contrast. S agittal and coronal reformatted images were created and reviewed. This CT exam was performed using one or more of the following dose reduction techniques: automated exposure control, adjustment of t he mA and/or kV according to patient size, and/or use of iterative reconstruction technique. MIP reconstructed images were created and reviewed. COMPARISON: No relevant prior studies available. FINDINGS: Pulmonary arteries: Unremarkable. No pulmonary arterial filling defects. Aorta: No acute findings. No thoracic aortic aneurysm. Lungs: Right basilar pleural-parenchymal scarring. No mass. No consolidation. Pleural space: No effusion. No pneumothorax. Heart: Unremarkable. No cardiomegaly. No significant pericardial effusion. No evidence of RV dysfunction. Mediastinum: Small to moderate hiatal hernia. Bones/joints: Multilevel spondylosis. Generalized loss of vertebral body height at the mid to lower thoracic spine. No acute fracture. No dislocation. Soft tissues: Unremarkable. Lymph nodes: Unremarkable. No enlarged lymph nodes. Stomach and bowel: Prior gastric banding. IMPRESSION: No pulmonary embolic disease. Electronically signed by: Bita Dodge MD 06/10/2023 03:28 AM NETWORK SOLUTIONS ARCHITECT Due to temporary technical issues with the PACS/Fluency reporting system, reports are being signed by the in house radiologists without review as a courtesy to insure prompt reporting. The interpreting radiologist is fully responsible for the content of the report.
--- NOTE | 2023-06-10 13:03 | RAD REPORT ---
EXAM DESCRIPTION: US - Extrem Venous W Compress Dennis - 06/10/2023 1:32 am CLINICAL HISTORY: The patient is 47 years old and is Female; SWELLING TECHNIQUE: Real-time duplex ultrasound scan of the bilateral lower extremity veins integrating B-mod e two-dimensional vascular structure, Doppler spectral analysis, color flow Doppler imaging and compr ession. COMPARISON: None. FINDINGS: RIGHT DEEP VEINS: Unremarkable. No DVT in the right common femoral, femoral, proximal deep femoral or popliteal veins. The veins demonstrate normal color flow, are normally compressible , with normal phasic flow and/or augmentation response. RIGHT SUPERFICIAL VEINS: Unremarkable. No thrombus in the visualized right great saphenous vein. LEFT DEEP VEINS: Unremarkable. No DVT in the left common femoral, femoral, proximal deep femoral or popliteal veins. The veins demonstrate normal color flow, are normally compressible, with normal phasic flow and/or augmentation response. LEFT SUPERFICIAL VEINS: Unremarkable. No thrombus in the visualized left great saphenous vein. SOFT TISSUES: No acute findings. No popliteal cyst. IMPRESSION: No bilateral lower extremity DVT. Electronically signed by: Chucky Brooks DO 06/10/2023 02:10 AM HAM STRINGER Due to temporary technical issues with the PACS/Fluency reporting system, reports are being signed by the in house radiologists without review as a courtesy to insure prompt reporting. The interpreting radiologist is fully responsible for the content of the report.
[2023-06-10] MEDS ORDERED: METOPROLOL TAR 25 MG TAB ONE (13:04)
[2023-06-10] MEDS: DIGOXIN 0.25 MG/ML AMP IV ONE ×2 (14:17→18:51)
--- NOTE | 2023-06-10 14:26 | P.PN ---
Date of Service: 06/10/23 Patient seen and examined. She currently denies any complaint. Her heart rate has been ranging from 115-150. Patient decided to sign out AGAINST MEDICAL ADVICE this afternoon. I had a conversation with her regarding her risk of signing out AMA which include cardiac arrest given uncontrolled RVR. Patient for now has decided to stay for treatment. Start oral metoprolol Echocardiogram Cardiology consulted. Monitor and optimize electrolytes-magnesium and potassium levels.
[2023-06-10] MEDS: AMIODARONE HCL 900 MG in Dextrose 5%-Water 482 ML IV SCH (14:32)
[2023-06-10 15:00] LABS: Potassium 4.4 mEq/L (3.5-5.1)
--- NOTE | 2023-06-10 16:55 | RAD REPORT ---
EXAM DESCRIPTION: RAD - Chest Single View - 06/09/2023 11:20 pm CLINICAL HISTORY: Female, 47 years old, CHEST PAIN TECHNIQUE: 1 view COMPARISON: None available FINDINGS: Soft tissue attenuation and beam underpenetration limit assessment. SUPPORT DEVICES: Overlying leads. LUNGS/PLEURA: Perihilar interstitial prominence. No consolidation, pleural effusion or pneumothorax. HEART/MEDIASTINUM: Enlarged heart size with central pulmonary vascular prominence. OTHER: No acute osseous findings. Suspected chronic fracture deformity of the right clavicle. IMPRESSION: Heart failure pattern without acute cardiopulmonary findings. Electronically signed by: Vishal Hassan MD 06/09/2023 11:42 PM AUTOCUTTER Due to temporary technical issues with the PACS/Fluency reporting system, reports are being signed by the in house radiologists without review as a courtesy to insure prompt reporting. The interpreting radiologist is fully responsible for the content of the report.
--- NOTE | 2023-06-10 17:04 | EKG ---
Test Date: 2023-06-10 Test Time: 01:09:58 Nail Setter: DIANA MEASUREMENT RESULTS: Intervals: Rate: 112 MN: QRSD: 82 QT: 322 QTc: 439 [place]ter: P: MN: QRS: 42 T: 50 INTERPRETIVE STATEMENTS: Atrial fibrillation Abnormal ECG Compared to ECG 06/09/2023 23:03:58 No significant changes Electronically Signed On 06-10-23 17:02:30 ENGRAVER OPTICAL FRAMES by Chivo Rodney
--- NOTE | 2023-06-10 17:05 | EKG ---
Test Date: 2023-06-09 Test Time: 23:03:58 Territory Development Manager: SRI MEASUREMENT RESULTS: Intervals: Rate: 127 SC: QRSD: 80 QT: 280 QTc: 406 [place]: P: SC: QRS: 60 T: 45 INTERPRETIVE STATEMENTS: Atrial fibrillation Abnormal ECG Compared to ECG 06/01/2022 10:03:58 Sinus rhythm no longer present Electronically Signed On 06-10-23 17:02:43 ASSOCIATE JAVA DEVELOPER by Chivo Rodney
[2023-06-10] MEDS ORDERED: METOPROLOL TARTRATE 5 MG/5 ML INJ IV PRN (17:14)
--- NOTE | 2023-06-10 20:06 | CON ---
Date of Consultation: 06/10/2023 Reason For Consultation: Palpitations. History Of Present Illness: A 47-year-old female, history of diabetes, hypertension, atrial fibrilla tion, paroxysmal, presented with palpitations, mild chest discomfort, found to be in AFib with RVR, s tarted on amiodarone. She was given a bolus and that slowed down her heart rate, but now it is back up again, but the amiodarone infusion was not carried through. Amiodarone was chosen because of her low blood pressure presentation. Past Medical History: As outlined above in the HPI. Medications: Refer reconciliation sheet for detailed list. Allergies: NO KNOWN DRUG ALLERGIES. Family History: No premature coronary artery disease or cancer. Social History: She does not smoke or drink. Does not use any drugs. Review of Systems: All systems reviewed and they were negative except as mentioned in the HPI. Physical Examination: Vital Signs: Reviewed. Head and Neck: Pupils are equal, reactive to light. Intact eye movements. No JVD. No cervical lym phadenopathy. Neck is supple. Thyroid is not enlarged. Lungs: Clear to auscultation bilaterally. No rhonchi, rales, or crackles. No accessory muscle use. Heart: Irregularly irregular. Tachycardiac. Abdomen: Soft, nontender. Bowel sounds positive. No organomegaly. No masses or hernia. No rigidi ty or rebound. Extremities: No edema, clubbing, or cyanosis. Intact pulses. Skin: No rash. Neurologic: Alert, awake, oriented x3. No acute focal deficits appreciated. Investigations: Creatinine is 1.0, BUN 20, troponins are negative, and TSH is 0.96. Assessment/recommendation: 1.Atrial fibrillation with rapid ventricular response, to finish 24 hours load of amiodarone. Kaci nue metoprolol 25 mg twice a day and increase it to 50 mg twice a day if blood pressure allows and re commend to start her on Eliquis 5 mg twice a day. She might need JOSE-guided cardioversion during thi s hospital stay. 2.Hypertension. Blood pressure is acceptable. 3.Chest pain, likely due to the rapid heart rate. Cardiac enzymes are negative. Ischemia evaluatio n is warranted, but can be done as an outpatient. SR/MODL Voice ID: [id number] Report ID: [id number]
[2023-06-11 03:11] VITALS: BMI 38.2
[2023-06-11 05:27] LABS: Absolute Basophils 0.1 K/uL (0-0.5); Absolute Eosinophils 0.1 K/uL (0-0.5); Absolute Lymphocytes (CBC) 2.2 K/uL (0.7-4.9); Absolute Monocytes 0.5 K/uL (0.1-1.3); Absolute Neutrophil 5.6 K/uL (1.8-8.0); Basophils % 0.8 % (0-1.3); Eosinophils % 0.7 % (0-4.4); Hematocrit 33.6 % (36.0-45.0); Hemoglobin 10.6 g/dL (12.0-15.0); Lymphocytes % 26.3 % (15.3-44.8); MCH 21.7 pg (27.0-35.0); MCHC 31.6 g/dL (32.0-36.0); MPV 8.2 fL (7.6-11.3); Monocytes % 6.2 % (3.3-12.3); Nucleated Red Blood Cells % 0.1 % (0-0); Platelets 272 thou/uL (152-406); RBC Red Blood Cell Count 4.89 M/uL (3.86-4.86); Red Cell Distribution Width 17.8 % (12.1-15.2)
[2023-06-11 05:29] LABS: MCV 68.8 fL (80-100)
[2023-06-11 05:38] LABS: Phosphorus 3.3 mg/dL (2.5-4.9)
[2023-06-11] MEDS ORDERED: INSULIN REGULAR (HUMAN) 100 UNIT/ML ONE ×3 (07:21→20:41)
[2023-06-11] MEDS ORDERED: APIXABAN 5 MG TABLET ONE (07:21)
[2023-06-11] MEDS: APIXABAN 5 MG TABLET PO SCH (07:25)
[2023-06-11] MEDS ORDERED: NA CHLORIDE 0.9% 500 ML ONE (09:33)
[2023-06-11] MEDS ORDERED: propofoL 200 MG/20 ML VIAL IV ONE (12:03)
[2023-06-11] MEDS ORDERED: LIDOCAINE 1% MPF 5 ML VIAL ONE (12:03)
--- NOTE | 2023-06-11 12:28 | P.PN ---
Subjective Date of Service: 06/11/23 Chief Complaint: Palpitations, chest pain. Subjective: No new changes Review of Systems 10-point ROS is otherwise unremarkable Physical Examination - Vital Signs Temperature: 97 F Blood Pressure: 142/110 Pulse: 105 Respirations: 20 Pulse Ox (%): 100 - Physical Exam General: Alert HEENT: Atraumatic Neck: Supple Respiratory: Clear to auscultation bilaterally Cardiovascular: No edema, Irregular heart rate/rhythm Gastrointestinal: Normal bowel sounds - Studies Laboratory Data (last 24 hrs) 06/10/23 13:20 Potassium 4.4 D Magnesium 2.0 Assessment And Plan - Current Problems (Diagnosis) (1) Atrial fibrillation with rapid ventricular response Current Visit: Yes Status: Acute - Plan Patient is s/p JOSE guided DCCV and back in sinus rhythm. Switch Amiodarone to 200 mg po BID Continue lopressor 25 mg po BID Continue Eliquis 5 mg po BID. Follow up with cardiology in clinic.
[2023-06-11] MEDS ORDERED: AMIODARONE HCL 200 MG TAB ONE ×2 (13:19→20:06)
[2023-06-11] MEDS: AMIODARONE HCL 200 MG TAB PO SCH (13:21)
[2023-06-11 16:20] VITALS: TEMP 97.1
[2023-06-11] MEDS: PANTOPRAZOLE 40MG TABLET PO STA (23:24)
[2023-06-12 03:50] VITALS: O2SAT 98
[2023-06-12 05:28] LABS: Absolute Basophils 0.1 K/uL (0-0.5); Absolute Lymphocytes (CBC) 1.9 K/uL (0.7-4.9); Absolute Monocytes 0.5 K/uL (0.1-1.3); Absolute Neutrophil 5.9 K/uL (1.8-8.0); Basophils % 0.9 % (0-1.3); Eosinophils % 0.5 % (0-4.4); Hematocrit 32.1 % (36.0-45.0); Hemoglobin 10.2 g/dL (12.0-15.0); Lymphocytes % 22.5 % (15.3-44.8); MCH 21.9 pg (27.0-35.0); MCHC 31.7 g/dL (32.0-36.0); MPV 7.9 fL (7.6-11.3); Monocytes % 6.4 % (3.3-12.3); Neutrophils % 69.7 % (41.7-73.7); Platelets 251 thou/uL (152-406); RBC Red Blood Cell Count 4.66 M/uL (3.86-4.86); Red Cell Distribution Width 17.9 % (12.1-15.2)
[2023-06-12 05:34] LABS: Anion Gap 8.2 mEq/L (5.0-15.0); Potassium 4.2 mEq/L (3.5-5.1)
[2023-06-12 05:57] VITALS: BP 101/51
--- NOTE | 2023-06-12 06:44 | TEE ---
TRANSESOPHAGEAL ECHOCARDIOGRAM REPORT CARDIOLOGY DEPARTMENT DATE OF STUDY: 06/11/2023 HEIGHT: 6'0" WEIGHT: 290 lbs DIAGNOSIS: ATRIAL FIBRILLATION/ CARDIOVERSION SENIOR INFORMATICA DEVELOPER COMMENTS: JOSE CARDIAC HISTORY: CATHERIZATION: SURGERY: PROSTHETIC VALVE: PACEMAKER: 2 DIMENSIONAL ASSESSMENT: RIGHT ATRIUM: NORMAL LEFT ATRIUM: NORMAL RIGHT VENTRICLE: NORMAL LEFT VENTRICLE: NORMAL TRICUSPID VALVE: NORMAL MITRAL VALVE: NORMAL PULMONIC VALVE: NORMAL AORTIC VALVE: NORMAL PERICARDIAL EFFUSION: NONE AORTIC ROOT: NORMAL EJECTION FRACTION: LEFT VENTRICULAR WALL MOTION: MILD GLOBAL HYPOKINESIS DOPPLER/COLOR FLOW: NOT ACCESSED COMMENTS: 1. NORMAL LEFT ATRIAL APPENDAGE, NO THROMBUS 2. MILD GLOBAL HYPOKINESIS WITH MILD LEFT VENTRICULAR DYSFUNCTION TECHNOLOGIST: MARITZA LOPES
[2023-06-12] MEDS: PANTOPRAZOLE 40MG TABLET PO SCH (08:49)
--- NOTE | 2023-06-12 14:16 | EKG ---
Test Date: 2023-06-11 Test Time: 12:15:54 Quality Assurance Supervisor Chassis: OBDULIA MEASUREMENT RESULTS: Intervals: Rate: 75 IN: 148 QRSD: 74 QT: 380 QTc: 424 [place]: P: 55 IN: 148 QRS: 36 T: 67 INTERPRETIVE STATEMENTS: Normal sinus rhythm Normal ECG Compared to ECG 06/10/2023 01:09:58 Atrial fibrillation no longer present Electronically Signed On 06-12-23 14:13:12 [employer] OFFICER by Chivo Rodney
== END 2023-06-12 09:51 | disposition home or self-care (01) | DRG 310 ==
LOC: ER 22:39 → ERHOLD 06-10 01:49 → 4TH 06-10 12:04 → OBSVTOIN 06-10 13:31 → 3RD-ICU 06-10 20:53 → 4TH 06-12 02:10
PROVIDERS: ADMIT Internal Medicine Nephrology; ATTEND Internal Medicine
PROC: B24BZZ4 Ultrasonography of Heart with Aorta, Transesophageal (ICD-10-PCS; principal; 2023-06-11)
DX: I48.0 Paroxysmal atrial fibrillation (principal); I10 Essential (primary) hypertension; E11.9 Type 2 diabetes mellitus without complications; D50.9 Iron deficiency anemia, unspecified; E66.01 Morbid (severe) obesity due to excess calories; Z68.39 Body mass index [BMI] 39.0-39.9, adult; Z98.84 Bariatric surgery status; Z28.310 Unvaccinated for COVID-19
CPT/HCPCS: 36415; 71045; 71275; 80048; 80076; 80307; 81015; 81025; 82728; 82947; 83540; 83735; 83880; 84100; 84132; 84443; 84466; 84484; 85025; 85610; 92960; 93005; 93312; 93970; 96372; 96374; 99285; G0378; J0282; J1160; J1650; J1815; J2001; J2704; J7040; J7060; Q9967

== ENCOUNTER 2024-03-10 19:54 | Emergency (ER) | payer OTHER ==
--- OUTSIDE RECORDS SUMMARY | 2024-03-10 19:58 | XMS REPORT | Continuity of Care Document ---
Author Name Unknown Address [address] [facility] [place]. [address] [place] [address] [facility] thconnect Address [address] [facility]. [address] [place] [address] Care Team Providers Care Senior Ux Designer Name Role Phone MARLENY STEPHENS Primary Care Physician SOFIA Blake Attending Clinician Unavailable 39, HOLTER Attending Clinician Unavailable , TECH 1 Attending Clinician Unavailable MANUEL DODD Attending Clinician Unavailabl brittany TRED39 Attending Clinician Unavailable REI CHESTER Attending Clinician Unavailable LAB39 Attending Clinician Unavailable GLENYS WHITFIELD Attending Clinician Unavail able JIGAR CHUA Attending Clinician Unava ilDAVIDSON Michelle Attending Clinician Unava ilable IRENE ROSAS Attending Clinician Unavailable SUSAN BONILLA Attending Clinician Unavailsamantha PHILIP MD Attending Clinician Unavailab LISA Jovel Attending Clinician Unavailable PRATIBHA ROMO Attending Clinician Unavailable SVITLANA RICKS Attending Irene thomson Unavailable KIRAN ANTUNEZ Attending Clinician Unavailable Kiran Antunez MD Attending Clinician Angelo LOCAL TELEPHONE OPERATOR, Marleny Attending Clinician [phone] AARON EAST Attending Clinician Unavailable Brittany PACAaron S Attending Clinician [phone], [facility] Attending Clinician Unavailable MARLENY STEPHENS Attending Clinician Unavailab le Doctor Unassigned, [place] Attending Clinician U navailable BENJY VALDEZ Attending Clinician Unavailable Pgy1 Attending Clinician Unavailable Benjy Valdez MD Attending Clinician [phone] Pgy2 Attending Clinician Unavailable [facility] Attending Clinician Unavailable Kellen Traylor Attending Clinician [phone] KELLEN ROSALES Attending Clinician Unavailab ANGELO Garcia Attending Clinician Unavailable Angelo Romero APN Attending Clinician [phone] Selena Mcgovern RN Attending Clinician [phone] Chucky Stauffer MD Attending Clinician [phone] Xochitl Louise DO Attending Clinician [phone] XOCHITL LOUISE Attending Clinician Unavailable Timothy Hurtado DPM Attending Clinician [phone] Alex Hernandez Attending Clinician [phone] Alex RIVERS Attending Clinician Unavailable KIRAN ANTUNEZ Admitting Clinician Unavailable AARON EAST Admitting Clinician Unavailable KELLEN ROSALES Admitting Clinician Unavailab Xochitl Boyd DO Admitting Clinician [phone] XOCHITL LOUISE Admitting Clinician Unavailable Payers Payer Name Policy Type Policy Number Effective Date Expirati on Date Source [facility] SVITLANAMYRTLE [facility] 9 [id number] 2023 00:00:00 [facility] [id number] 2023 00:00:00 Problems Condition Name Condition Details Condition Category Status Onset Date Resolution Date Last Treatment Date Treating Clinician Comments Source Type 2 diabetes mellitus with hyperglyce lucian, without long-term current use of insulin (multi HCC) Type 2 diabetes mellitus with hyperglyce lucian, without long-term current use of insulin (multi HCC) Disease Active 2023-04 0-07 00:00: 00 Svitlana Iraheta - Externa l Pain pelvic Pain pelvic Disease Active 10-02 00:00: 00 [facility] Well woman exam (no gynecologi mckenna exam) Well woman exam (no gynecologi mckenna exam) Disease Active 10-02 00:00: 00 [facility] History of bilateral tubal ligation History of bilateral tubal ligation Disease Active 10-02 00:00: 00 [facility] Encounter for surveillan ce of other contracept brandi Encounter for surveillan ce of other contracept brandi Disease Active 10-02 00:00: 00 [facility] Menorrhagi a with regular cycle Menorrhagi a with regular cycle Disease Active 10-02 00:00: 00 [facility] Fibroids, submucosal Fibroids, submucosal Disease Active 10-02 00:00: 00 [facility] Cellulitis of foot Cellulitis of foot Disease Active 24 00:00: 00 [facility] Cellulitis Cellulitis Disease Active 08-27 00:00: 00 [facility] BMI 40.0-44.9, adult BMI 40.0-44.9, adult Disease Active 5- 00:00: 00 [facility] Obesity Obesity Disease Active 2005-04 2-04 00:00: 00 Overview: Formattin g of this note might be different from the original. ICD10 Diagnosis Term Cost And Risk Analysis Manager Utility [facility] Type 1 diabetes mellitus Type 1 diabetes mellitus Disease Active 3-10 00:00: 00 Overview: Formattin g of this note might be different from the original. ICD10 Diagnosis Term Cost And Risk Analysis Manager Utility [facility] Allergies, Adverse Reactions, Alerts Allergy Name Allergy Type Status Severity Reaction(s) Onset Date Inactive Date Treating Clinician Comments Source NO KNOWN ALLERGIE S Drug Class Active [facility] Social History Social Habit Start Date Stop Date Quantity Comments Source Sexual orientation Alex Iraheta - External ASSERTION Not Svitlana Iraheta - External Gender identity [facility] Tobacco use and exposure 2023-09-10 00:00:00 2023-09-10 00:00:00 Smokeless tobacco non-user Svitlana Allisonmaria ltimothy - External History of Social function 2023-09-10 00:00:00 2023-09-10 00:00:00 Svitlana Iraheta - External Alcohol intake 2023-07-16 00:00:00 2023-07-16 00:00:00 Current non-drinker of alcohol (finding) [facility] Sex 2023-02-25 18:42:39 2023-02-25 18:42:39 Female (finding) Svitlana Allisonmaria ltimothy - External Exposure to SARS-CoV-2 (event) 2022-06-01 00:00:00 2022-06-11 21:58:00 Not sure [facility] Sex assigned at 1975 00:00:00 1975 00:00:00 Svitlana Iraheta - External Smoking Status Start Date Stop Date Source Never smoked tobacco Svitlana Iraheta - External Medications Ordered Medication Name Filled Medication Name Start Date Stop Date Current Medication? Ordering Clinician Indication Dosage Frequency Signature (SIG) Comments Components Source Tirzepatide (Mounjaro) 2.5 MG/0.5ML subcutaneou s Solution Pen-injecto r 2023-04 00:00: 00 Yes [id number] 9109 2.5mg Q1W Inject 0.5 mL (2.5 mg total) into the skin once a week. Svitlana walters Omeprazole 40 MG oral Delayed Release Capsule 09-09 00:00: 00 Yes [id number] 40mg QD Take 1 capsule (40 mg total) by mouth daily. Svitlana walters Metformin HCl 1000 MG oral Tablet 09-09 00:00: 00 Yes [id number] 1000mg Take 1 tablet (1,000 mg total) by mouth in the morning and 1 tablet (1,000 mg total) in the evening. Take with meals. Svitlana walters Blood Glucose Monitoring Suppl (Blood Glucose Monitor System) w/Device does not apply Kit 09-09 00:00: 00 Yes [id number] Check fasting Blood Sugar in AM daily - provide monitor covered by patient's insurance. Svitlana walters Glucose Blood in vitro Strip 09-09 00:00: 00 Yes [id number] 100{eac h} QD 100 each by other route daily Provide strips covered by patient's insurance and that match glucometer given. Svitlana walters Lancets does not apply Misc 09-09 00:00: 00 Yes [id number] Check Blood sugar fasting daily - provide lancets covered by patient's Insurance. Svitlana walters Ciprofloxac in HCl (Cipro) 500 MG oral Tablet 08-25 00:00: 00 09-09 00:00 :00 No [id number] 500mg Take 1 tablet (500 mg total) by mouth 2 times daily. Svitlana walters Amoxicillin -Pot Clavulanate 875-125 MG oral Tablet 08-25 00:00: 00 09-09 00:00 :00 No [id number] 1{tbl} Take 1 tablet by mouth 2 times daily. Svitlana walters Apixaban (Eliquis) 5 MG oral Tablet 08-05 00:00: 00 Yes 5mg Q.5D Take 1 tablet (5 mg total) by mouth 2 times daily. Svitlana walters Metoprolol Tartrate (LOPRESSOR) 25 MG oral Tablet 08-05 00:00: 00 Yes 12.5mg Q.5D Take 0.5 tablets (12.5 mg total) by mouth 2 times daily. Svitlana walters traMADoL (ULTRAM) 50 mg tablet 07-15 00:00: 00 Yes [id number] 50mg Take 1 tablet by mouth every 6 (six) hours as needed for Pain (scale 7-10). Indication s: acute pain [facility] Eliquis 5 MG oral Tablet 06-11 00:00: 00 Yes 5mg Take 1 tablet (5 mg total) by mouth 2 times daily. Svitlana walters Amiodarone HCl 200 MG oral Tablet 06-11 00:00: 00 Yes 200mg Take 1 tablet (200 mg total) by mouth 2 times daily. Svitlana Myrtle walters Omeprazole 40 MG oral Delayed Release Capsule 10-26 00:00: 00 09-09 00:00 :00 No 40mg Take 1 capsule (40 mg total) by mouth daily. Svitlana Myrtle walters Metformin HCl 500 MG oral Tablet 10-26 00:00: 00 09-09 00:00 :00 No 500mg Take 1 tablet (500 mg total) by mouth in the morning and 1 tablet (500 mg total) in the evening. Take with meals. Svitlana Myrtle walters clindamycin 150 mg capsule 3-08 00:00: 00 06-23 04:59 :00 No [id number] 450mg Take 3 capsules by mouth in the morning and 3 capsules at noon and 3 capsules in the evening. Do all this for 10 days. [facility] dulaglutide (TRULICITY) 1.5 mg/0.5 mL PnIj 2021-04 00:00: 00 05-17 05:59 :00 No [id number] 1.5mg inject 1 Pen under the skin weekly for 90 days. [facility] ondansetron 4 mg disintegrat ing tablet 2021-04 00:00: 00 Yes [id number] 4mg Take 1 tablet by mouth every 8 (eight) hours as needed for Nausea and Vomiting (N/V). [facility] tirzepatide 2.5 mg/0.5 mL subcutaneou s injection 2021-04 00:00: 02-23 05:59 :00 No [id number] 5mg inject 5 mg under the skin weekly for 30 days. [facility] tirzepatide 2.5 mg/0.5 mL subcutaneou s injection 2021-04 00:00: 00 01-15 00:00 :00 No [id number] 5mg inject 5 mg under the skin weekly for 30 days. [facility] dulaglutide (TRULICITY) 0.75 mg/0.5 mL PnIj 2021-04 00:00: 00 02-15 05:59 :00 No [id number] .75mg inject 1 Pen under the skin weekly for 30 days. [facility] nystatin 100,000 unit/gram cream 12-24 00:00: 00 Yes [id number] Apply to area(s) 2 (two) times daily. [facility] metFORMIN 500 mg tablet 12-24 00:00: 00 10-26 00:00 :00 No [id number] 1000mg Take 2 tablets by mouth in the morning and 2 tablets in the evening. Take with meals. [facility] tirzepatide 2.5 mg/0.5 mL subcutaneou s injection 12-24 00:00: 00 01-24 04:59 :00 No [id number] 2.5mg inject 2.5 mg under the skin weekly for 30 days. [facility] tirzepatide 2.5 mg/0.5 mL subcutaneou s injection 12-24 00:00: 00 01-15 00:00 :00 No [id number] 2.5mg inject 2.5 mg under the skin weekly for 30 days. [facility] tirzepatide 5 mg/0.5 mL subcutaneou s injection 12-24 00:00: 00 01-15 00:00 :00 No [id number] 10mg inject 10 mg under the skin weekly for 30 days. [facility] blood sugar diagnostic strip 09-26 00:00: 00 Yes [id number] Check blood sugar 2 times a day. E11.9. Brand per insurance. [facility] Lancets Misc 09-26 00:00: 00 Yes [id number] Check blood sugar 2 times a day. E11.9. Brand per insurance. [facility] Blood-Gluco se Meter Kit 09-26 00:00: 00 Yes [id number] Check sugars 2 times a day. Dx. Code E11.9 Brand per Insurance [facility] omeprazole 40 mg capsule 09-26 00:00: 00 Yes [id number] 40mg Take 1 capsule by mouth daily. [facility] blood sugar diagnostic strip 09-26 00:00: 00 Yes [id number] Check blood sugar 2 times a day. E11.9. Brand per insurance. [facility] Lancets Misc 09-26 00:00: 00 Yes [id number] Check blood sugar 2 times a day. E11.9. Brand per insurance. [facility] Blood-Gluco se Meter Kit 09-26 00:00: 00 Yes [id number] Check sugars 2 times a day. Dx. Code E11.9 Brand per Insurance [facility] metFORMIN 500 mg tablet 09-26 00:00: 00 12-24 00:00 :00 No [id number] 500mg Take 1 tablet by mouth 2 (two) times daily with meals. [facility] diclofenac 75 mg EC tablet 08-26 00:00: 00 Yes 75mg Take 75 mg by mouth 2 (two) times daily. [facility] Vital Signs Vital Name Observation Time Observation Value Comments S ource Respiratory rate 2023-09-10 19:47:00 16 /min Svitlana Iraheta - External Body height 2023-09-10 19:47:00 182.9 cm Rossy Iraheta - External Body weight 2023-09-10 19:47:00 143.518 kg Rossy Iraheta - External BMI 2023-09-10 19:47:00 42.91 kg/m2 Rossy Iraheta - External Systolic blood pressure 2023-09-10 19:47:00 104 mm[Hg] Svitlana Burns ld - External Diastolic blood pressure 2023-09-10 19:47:00 64 mm[Hg] Svitlana Burns ld - External Heart rate 2023-09-10 19:47:00 60 /min Trenton Iraheta - External Body temperature 2023-09-10 19:47:00 36.11 Radha Svitlana Iraheta - External Systolic blood pressure 2023-07-17 04:00:00 129 mm[Hg] [facility] Diastolic blood pressure 2023-07-17 04:00:00 72 mm[Hg] [facility] Heart rate 2023-07-17 04:00:00 62 /min [facility] Respiratory rate 2023-07-17 04:00:00 16 /min [facility] Oxygen saturation in Arterial blood by Pulse oximetry 2023-07-17 04:00:00 98 /min [facility] Body temperature 2023-07-17 02:43:00 37.11 Radha [facility] Body height 2023-07-17 02:43:00 185.4 cm [facility] Body weight 2023-07-17 02:43:00 140.615 kg [facility] BMI 2023-07-17 02:43:00 40.90 kg/m2 [facility] Heart rate 2022-06-12 06:19:00 69 /min [facility] Respiratory rate 2022-06-12 06:19:00 18 /min [facility] Oxygen saturation in Arterial blood by Pulse oximetry 2022-06-12 06:19:00 100 /min [facility] Systolic blood pressure 2022-06-12 04:01:00 144 mm[Hg] [facility] Diastolic blood pressure 2022-06-12 04:01:00 62 mm[Hg] [facility] Body temperature 2022-06-12 04:01:00 37.06 Radha [facility] Body height 2022-06-12 04:01:00 182.9 cm [facility] Body weight 2022-06-12 04:01:00 140.615 kg [facility] BMI 2022-06-12 04:01:00 42.04 kg/m2 [facility] Systolic blood pressure 2021-12-24 15:54:00 119 mm[Hg] [facility] Diastolic blood pressure 2021-12-24 15:54:00 78 mm[Hg] [facility] Heart rate 2021-12-24 15:54:00 68 /min [facility] Body temperature 2021-12-24 15:54:00 36.67 Radha [facility] Respiratory rate 2021-12-24 15:54:00 18 /min [facility] Body height 2021-12-24 15:54:00 182.9 cm [facility] Body weight 2021-12-24 15:54:00 141.023 kg [facility] BMI 2021-12-24 15:54:00 42.17 kg/m2 [facility] Oxygen saturation in Arterial blood by Pulse oximetry 2021-12-24 15:54:00 97 /min [facility] Systolic blood pressure 2021-12-13 18:20:00 125 mm[Hg] [facility] Diastolic blood pressure 2021-12-13 18:20:00 65 mm[Hg] [facility] Heart rate 2021-12-13 18:20:00 73 /min [facility] Body temperature 2021-12-13 18:20:00 36.11 Radha [facility] Respiratory rate 2021-12-13 18:20:00 18 /min [facility] Body height 2021-12-13 18:20:00 182.9 cm [facility] Body weight 2021-12-13 18:20:00 142.52 kg [facility] BMI 2021-12-13 18:20:00 42.61 kg/m2 [facility] Procedures Procedure Date / Time Performed Performing Clinicia n Source COMP. METABOLIC PANEL ([id number]) 2023-07-17 03:10:00 Kiran Antunez [facility] CBC WITH DIFF 2023-07-17 03:10:00 [facility] 2022-06-12 05:14:45 Aaron East [facility] NOTICE OF PRIVACY PRACTICES 2022-06-12 03:54:23 Doctor Unassigned, [place] [facility] CONSENT/REFUSAL FOR DIAGNOSIS AND TREATMENT 2022-06-12 03:53:28 Doctor Unassigned, [place] [facility] EKG-12 LEAD 2021-12-24 15:58:59 Doctor Unass igned, [place] [facility] EKG (SCANNED DOCUMENTS) 2021-12-24 05:01:00 Doctor Unassigned, [place] [facility] Encounters Start Date/Time End Date/Time Encounter Type Admission Type Attending [facility] Care Department Encounter ID Source 2024-04-09 11:30:00 2024-04-09 11:30:00 Outpatient SOFIA CAMPOS SVITLANA GALVEZ [id number] Svitlana Allisontimothy 2024-02-27 15:00:00 2024-02-27 15:00:00 Outpatient 39, HOLTER SVITLANA GALVEZ [id number] [facility]-23 16:00:00 2024-02-23 16:00:00 Outpatient LOI KUNZ [id number] [facility] 2024-02-17 00:00:00 2024-02-17 00:00:00 Outpatient MANUEL DODD [id number] [facility] 2024-02-13 00:00:00 2024-02-13 00:00:00 Outpatient SVITLANA GALVEZ [id number] Svitlana [facility] 2024-02-12 00:00:00 2024-02-12 00:00:00 Outpatient MANUEL DODD [id number] Svitlana [facility] 2024-02-05 10:00:00 2024-02-05 10:00:00 Outpatient TRED39 SVITLANA GALVEZ [id number] Svitlana timothy 2024-01-30 09:45:00 2024-01-30 09:45:00 Outpatient REI CHESTER [id number] Svitlana [facility] 2024-01-30 00:00:00 2024-01-30 00:00:00 Outpatient REI CHESTER [id number] Svitlana [facility] 2024-01-29 11:00:00 2024-01-29 11:00:00 Outpatient 39, HOLTER SVITLANA GALVEZ [id number] Svitlana ybtimothy 2024-01-28 11:30:00 2024-01-28 11:30:00 Outpatient LAB39 SVITLANA GALVEZ [id number] [facility] 2024-01-28 11:00:00 2024-01-28 11:00:00 Outpatient 39, HOLTER SVITLANA GALVEZ [id number] [facility] 2024-01-28 10:45:00 2024-01-28 10:45:00 Outpatient 39, HOLTER SVITLANA GALVEZ [id number] [facility] 2024-01-28 10:30:00 2024-01-28 10:30:00 Outpatient YOUSIF MANUEL SVITLANA GALVEZ [id number] [facility] 2024-01-12 14:15:00 2024-01-12 14:15:00 Outpatient AL ANTOINETTE IMMANUELMAHIN GALVEZ [id number] [facility] 2023-10-21 16:00:00 2023-10-21 16:00:00 Outpatient JIGAR CHUA [id number] [facility] 2023-10-14 16:15:00 2023-10-14 16:15:00 Out[facility] STRICKLAND [id number] [facility]23-[facility]14 14:30:00 2023-10-14 14:30:00 Outpatient IRENE ROSAS [id number] [facility] 2023-10-03 10:15:00 2023-10-03 10:15:00 Outpatient SUSAN BONILLA [id number] [facility] 2023-09-16 16:00:00 2023-09-16 16:00:00 Outpatient JIGAR CHUA [id number] [facility] 2023-09-15 00:00:00 2023-09-15 00:00:00 Outpatient MD SVITLANA HENRY [id number] Svitlana Seybold 2023-09-10 15:00:00 2023-09-10 15:00:00 Outpatient LISA DUNCAN [id number] Svitlana Seybold 2023-09-08 00:00:00 2023-09-08 00:00:00 Outpatient JIGAR CHUA [id number] Svitlana Seybold 2023-09-03 13:00:00 2023-09-03 13:00:00 Outpatient JIGAR CHUA SVITLANA GALVEZ [id number] Svitlana Seybold 2023-09-02 15:50:00 2023-09-02 15:50:00 Outpatient JIGAR CHUA SVITLANA GALVEZ [id number] Svitlana Seybold 2023-08-28 14:05:00 2023-08-28 14:05:00 Outpatient SVITLANA GALVEZ [id number] Svitlana Seybold 2023-08-28 13:30:00 2023-08-28 13:30:00 Outpatient PRATIBHA ROMO SVITLANA GALVEZ [id number] Svitlana Seybold 2023-08-26 15:40:00 2023-08-26 15:40:00 Outpatient JIGAR CHUA SVITLANA GALVEZ [id number] Svitlana Seybold 2023-08-14 10:45:00 2023-08-14 10:45:00 Outpatient SVITLANA GALVEZ [id number] Svitlana Seybold 2023-08-14 00:00:00 2023-08-14 00:00:00 Outpatient MANUEL DODD [id number] Svitlana Seybold 2023-08-14 00:00:00 2023-08-14 00:00:00 Outpatient MANUEL DODD [id number] Svitlana Seybold 2023-08-12 15:40:00 2023-08-12 15:40:00 Outpatient CHUAJIGAR GRIFFIN SVITLANA GALVEZ [id number] Svitlana Seybold 2023-08-07 00:00:00 2023-08-07 00:00:00 Outpatient MANUEL DODD [id number] Svitlana Seybold 2023-08-06 09:30:00 2023-08-06 09:30:00 Outpatient LABChina GALVEZ [id number] Svitlana Seybold 2023-08-06 09:00:00 2023-08-06 09:00:00 Outpatient TEE Atkinson [id number] Svitlana Seybold 2023-08-06 08:30:00 2023-08-06 08:30:00 Outpatient MANUEL DODD [id number] Svitlana Allisonybold 2023-08-06 00:00:00 2023-08-06 00:00:00 Outpatient SVITLANA RICKS [id number] S[facility] 2023-07-22 17:25:00 2023-07-22 17:25:00 Outpatient SVITLANA GALVEZ [id number] Svitlana [facility] 2023-07-22 15:50:00 2023-07-22 15:50:00 Outpatient CHUAJIGAR NEELY SVITLANA GALVEZ [id number] [facility] 2023-07-16 21:47:00 2023-07-16 23:48:00 Emergency X KIRAN ANTUNEZ [facility] ERT [id number] [facility] 2023-07-16 21:47:00 2023-07-16 23:48:00 Emergency Catalino Antunezanne marie Ingrid [facility] 1.2.840.114 350.1.13.10 4.2.7.2.686 [id number] [facility] 2022-10-26 00:00:00 2022-10-26 00:00:00 [facility] 1.2.840.114 350.1.13.10 4.2.7.2.686 [id number] [facility] 2022-10-25 00:00:00 2022-10-25 00:00:00 Refill Marleny Stephens [facility] 1.2.840.114 350.1.13.10 4.2.7.2.686 [id number] [facility] 2022-06-11 22:04:00 2022-06-12 01:21:00 Emergency X AARON [facility] ERT [id number] [facility] 2022-06-11 22:04:00 2022-06-12 01:21:00 Emergency [place], Aaron [facility] 1.2.840.114 350.1.13.10 4.2.7.2.686 [id number] [facility] 2022-01-22 00:00:00 2022-01-22 00:00:00 Telephone Marleny Stephens [facility] 1.2.840.114 350.1.13.10 4.2.7.2.686 [id number] [facility] 2021-12-26 00:00:00 2021-12-26 00:00:00 Telephone Marleny Stephens [facility] 1.2.840.114 350.1.13.10 4.2.7.2.686 [id number] [facility] 2021-12-26 00:00:00 2021-12-26 00:00:00 Telephone Marleny Stephens [facility] 1.2.840.114 350.1.13.10 4.2.7.2.686 [id number] [facility] 2021-12-25 00:00:00 2021-12-25 00:00:00 Telephone Marleny Stephens [facility] 1.2.840.114 350.1.13.10 4.2.7.2.686 [id number] [facility] 2021-12-25 00:00:00 2021-12-25 00:00:00 Telephone Marleny Stephens [facility] 1.2.840.114 350.1.13.10 4.2.7.2.686 [id number] [facility] 2021-12-24 13:00:00 2021-12-24 13:15:00 Dietetic Technician Registered Visit 2, Adc Lab Marleny Stephens [facility] 1.2.840.114 350.1.13.10 4.2.7.2.686 [id number] [facility] 2021-12-24 11:00:00 2021-12-24 11:29:45 Outpatient R AMANDA STEPHENSGloriaWayne DE LA FUENTEANGELO, AMANDAGloriaWayne [facility] [id number] [facility] 2021-12-24 11:00:00 2021-12-24 11:29:45 Office Visit Marleny Stephens [facility] 1.2.840.114 350.1.13.10 4.2.7.2.686 [id number] [facility] 2021-12-24 00:00:00 2021-12-24 00:00:00 Orders Only Doctor Unassigned, [place] [facility] 1.2.840.114 350.1.13.10 4.2.7.2.686 [id number] [facility] 2021-12-21 16:00:00 2021-12-21 16:00:00 Outpatient R ANGELOAMANDAMARLIN ANGELO, AMANDAGloriaWayne [facility] [id number] [facility] 2021-12-21 10:30:00 2021-12-21 10:30:00 Outpatient R ANGELO KARYLUCILLE ANGELO, AMANDAMARLIN [facility] [id number] [facility] 2021-12-17 15:30:00 2021-12-17 15:30:00 Outpatient R MARLENY STEPHENS OGISAIMARLIN [facility] [id number] [facility] 2021-12-13 13:00:00 2021-12-13 14:31:24 Outpatient R BENJY VALDEZ [facility] [id number] [facility] 2021-12-13 13:00:00 2021-12-13 14:31:24 [facility] [place] 1.84.114 350.1.13.10 4.2.7.2.686 [id number] [facility] 2021-12-13 13:00:00 2021-12-13 13:00:00 Outpatient R [facility] [id number] [facility] 2021-11-15 12:40:21 2021-11-15 23:59:00 Hospital Encounter [facility] [place] 1..114 350.1.13.10 4.2.7.2.686 [id number] [facility] 2021-11-15 12:40:21 2021-11-15 23:59:00 Outpatient R BENJY VALDEZ [facility] [id number] [facility] 2021-11-15 14:00:00 2021-11-15 15:04:59 Office Visit P[facility] [place] 1.84.114 350.1.13.10 4.2.7.2.686 [id number] [facility] 2021-11-15 14:00:00 2021-11-15 15:04:59 Outpatient R BENJY VALDEZ [facility] [id number] [facility] 2021-11-15 12:40:21 2021-11-15 12:40:21 Outpatient R BENJY VALDEZ [facility] [id number] [facility] 2021-11-01 16:30:00 2021-11-01 16:45:00 Dietetic Technician Registered Visit [facility] [place] 1.84.114 350.1.13.10 4.2.7.2.686 [id number] [facility] 2021-11-01 16:30:00 2021-11-01 16:30:00 Outpatient R MICHAEL BENJY [facility] [id number] [facility] 2021-11-01 14:30:00 2021-11-01 16:11:18 Office Visit Pgy2 Mousie [facility] 1.114 350.1.13.10 4.2.7.2.686 [id number] [facility] 2021-11-01 14:30:00 2021-11-01 16:11:18 Outpatient Lester VALDEZ BENJY [facility] [id number] [facility] 2021-11-01 14:30:00 2021-11-01 16:11:18 Outpatient Lester VALDEZ BENJY [facility] [id number] [facility] 2021-11-01 14:30:00 2021-11-01 16:11:18 Office Visit Pgy2 Mousie [facility] 1..114 350.1.13.10 4.2.7.2.686 [id number] [facility] 2021-11-01 14:30:00 2021-11-01 16:11:18 Outpatient Lester VALDEZ BENJY [facility] [id number] [facility] 2021-11-01 14:30:00 2021-11-01 16:11:18 Outpatient Lester VALDEZ BENJY [facility] [id number] [facility] 2021-11-01 00:00:00 2021-11-01 00:00:00 Orders Only Doctor Unassigned, [place] [facility] 1..114 350.1.13.10 4.2.7.2.686 [id number] [facility] 2021-10-23 00:00:00 2021-10-23 00:00:00 Telephone Kellen Rosales [facility] IMPREGNATOR HELPER [facility] 1..114 350.1.13.10 4.2.7.2.686 [id number] [facility] 2021-10-23 00:00:00 2021-10-23 00:00:00 Telephone Kellen Rosales Lester [facility] IMPREGNATOR HELPER [facility] 1.2.840.114 350.1.13.10 4.2.7.2.686 [id number] [facility] 2021-10-16 13:33:42 2021-10-16 23:59:00 Outpatient STEPHANI ROMOPOP [facility] [id number] [facility] 2021-10-16 13:20:00 2021-10-16 23:59:00 Hospital Encounter Stephani Rosalespop Batista [facility] 1..840.114 350.1.13.10 4.2.7.2.686 [id number] [facility] 2021-10-11 00:00:00 2021-10-11 00:00:00 Outpatient R STEPHANI ROSALESPOP [facility] [id number] [facility] 2021-10-02 13:15:00 2021-10-02 13:54:17 Outpatient R STEPHANI ROSALESPOP [facility] [id number] [facility] 2021-10-02 13:15:00 2021-10-02 13:54:17 Office Visit Stephani Rosalespop Batista [facility] IMPREGNATOR [facility] 1.2.840.114 350.1.13.10 4.2.7.2.686 [id number] [facility] 2021-10-02 13:15:00 2021-10-02 13:54:17 Outpatient R ROSALESKELLEN [facility] [id number] [facility] 2021-10-02 13:15:00 2021-10-02 13:54:17 Outpatient Lester KELLEN ROSALES [facility] [id number] [facility] 2021-10-02 00:00:00 2021-10-02 00:00:00 Orders Only Doctor Unassigned, [place] [facility] 1.2840.114 350.1.13.10 4.2.7.2.686 [id number] [facility] 2021-09-26 15:00:00 2021-09-26 15:15:00 Dietetic Technician Registered Visit 2, Adc Lab Marleny Stephens [facility] 1.2.114 350.1.13.10 4.2.7.2.686 [id number] [facility] 2021-09-26 13:00:00 2021-09-26 14:32:21 Outpatient R MARLENY STEPHENS OGECHUKWU [facility] [id number] [facility] 2021-09-26 13:00:00 2021-09-26 14:32:21 Office Visit Marleny Stephens [facility] 1.2.114 350.1.13.10 4.2.7.2.686 [id number] [facility] 2021-09-09 16:57:00 2021-09-09 19:56:00 Emergency X ANGELO ROMERO [facility] ERT [id number] [facility] 2021-09-09 16:57:00 2021-09-09 19:56:00 Emergency Angelo Romero [facility] 1.2.114 350.1.13.10 4.2.7.2.686 [id number] [facility] 2021-09-05 00:00:00 2021-09-05 00:00:00 Transition of Care Selena Mcgovern 1.2.840.114 350.1.13.10 4.2.7.2.686 [id number] [facility] 2021-08-27 13:42:00 2021-09-02 17:32:00 Hospital Encounter Chucky Stauffer Xochitl [facility] 1.2.840.114 350.1.13.10 4.2.7.2.686 [id number] [facility] 2021-08-27 13:42:00 2021-09-02 17:32:00 Inpatient X [facility]ITL [facility] [id number] [facility] 2021-08-30 08:00:00 2021-08-30 08:58:00 Surgery Timothy Hurtado [facility] [place] 1.2.840.114 350.1.13.10 4.2.7.2.686 [id number] [facility] 2021-08-27 00:00:00 2021-08-27 00:00:00 Orders Only Doctor Unassigned, [place] [facility] 1.2.840.114 350.1.13.10 4.2.7.2.686 [id number] [facility] 2020-06-30 13:42:00 2020-06-30 17:30:00 Emergency Alex Rivers [facility] 1.2.840.114 350.1.13.10 4.2.7.2.686 [id number] [facility] 2020-06-30 13:42:00 2020-06-30 13:42:00 Emergency X Alex RIVERS [facility] ERT [id number] [facility] 2019-06-08 00:00:00 2019-06-08 00:00:00 Orders Only Doctor Unassigned, [place] [facility] 1.2.840.114 350.1.13.10 4.2.7.2.686 [id number] [facility] Results Test Description Test Time Test Comments Results Result Co mments Source [facility] with [id number] 03:36:22* Test Item Value Reference Range Interpretation Comme nts WBC (test code = 6690-2) 7.71 4.30-11.10 RBC (test code = 789-8) 5.04 3.93-5.25 HGB (test code = 718-7) 10.9 g/dL 11.6-15.0 L HCT (test code = 4544-3) 36.5 % 35.7-45.2 MCV (test code = 787-2) 72.4 fL 80.6-95.5 L MCH (test code = 785-6) 21.6 pg 25.9-32.8 L MCHC (test code = 786-4) 29.9 g/dL 31.6-35.1 L RDW-SD (test code = 77334-2) 45.1 fL 39.0-49.9 RDW-CV (test code = 788-0) 17.4 % 12.0-15.5 H PLT (test code = 777-3) 289 166-358 MPV (test code = 70047-9) 9.6 fL 9.5-12.9 NRBC/100 WBC (test code = 5913883492) 0.0 0.0-10.0 NRBC x10^3 (test code = 5429810720) See_Comment [Automated messa ge] The system which generated this result transmitted reference range: 10*3/?L. The reference range was not used to interpret this result as normal/abnormal. GRAN MAT (NEUT) % (test code = 770-8) 59.6 % IMM GRAN % (test code = 5624915528) 1.40 % LYMPH % (test code = 736-9) 30.6 % MONO % (test code = 5905-5) 6.5 % EOS % (test code = 713-8) 1.3 % BASO % (test code = 706-2) 0.6 % GRAN MAT x10^3(ANC) (test code = 0154388160) 4.59 10*3/uL 1.88-7.09 IMM GRAN x10^3 (test code = 6543654295) 0.11 10*3/uL 0.00-0.06 H LYMPH x10^3 (test code = 731-0) 2.36 10*3/uL 1.32-3.29 MONO x10^3 (test code = 742-7) 0.50 10*3/uL 0.33-0.92 EOS x10^3 (test code = 711-2) 0.10 10*3/uL 0.03-0.39 BASO x10^3 (test code = 704-7) 0.05 10*3/uL 0.01-0.07 Lab Interpretation (test code = 03232-5) [facility]normal [facility], NAAT, [id number] 16:57:40* Test Item Value Reference Range Interpretation Comme nts GONORRHEA, NAAT (test code = 32464) NEGATIVE NEGATIVE IMPORTANT NO MARCK: SEE ANNOUNCEMENT AT [email or web address] [email or web address] Note: Assay methodology is nucleic acid amplification by retail buyer mediated amplification (TMA) utilizing the Aptima Combo 2 Assay. CHLAMYDIA, NAAT (test code = 98236) NEGATIVE NEGATIVE IMPORTANT NO MARCK: SEE ANNOUNCEMENT AT [email or web address] [email or web address] Note: Assay methodology is nucleic acid amplification by retail buyer mediated amplification (TMA) utilizing the Aptima Combo 2 Assay. TRICHOMONAS, NAAT, [id number] 16:30:51* Test Item Value Reference Range Interpretation Comme nts TRICHOMONAS, NAAT (test code = 22894) NEGATIVE NEGATIVE IMPORTANT NO MARCK: SEE ANNOUNCEMENT AT [email or web address] [email or web address] Note: Assay methodology is nucleic acid amplification by retail buyer mediated amplification (TMA) and Hybridization Protection Assay (HPA) utilizing the [employer] APTIMA platform. A negative result does not exclude low level infection, specimensampling error, or collection error. UNLESS OTHERWISE INDICATED, ALL TESTING PERFORMED [facility] [address] [place] [address] TOOL AND DIE MACHINIST: LEONARDO BIGGS M.D. CLIA NUMBER [id number] [facility] [place]. [id number] Notes Date/Time Note Provider Source 2023-09-16 15:51:21 Chief Complaint Patient presents with Follow-up Patient here for 1 week follow up on foot ulcer. NANO Brock [facility] 2023-09-10 14:50:22 Chief Complaint Patient presents with Edema [facility] 2023-08-28 13:38:12 Chief Complaint Patient presents with Foot Problem DM patient is here to follow up on left foot ulcer Margarita Culp CMA I [facility] 2023-08-26 15:26:24 Chief Complaint Patient presents with Follow-up Patient here for follow up on bilateral foot ulcer. Pain level 8/10 NANO Brock [facility] 2023-07-22 16:15:01 Chief Complaint Patient presents with Foot Ulcer 47yr old Pt here today for left foot ulcer under the greater toe. Dipika Vivas CMA I [facility] 2023-07-16 23:45:17 Pt given printed and verbal discharge instructions regarding diabetic foot ulcer. Encouraged hydration, Prescriptions provided:tramadol Discussed ibuprofen and to take with food to avoid GI distress. Discussed tramadol side affects and to avoid driving/operating machinery/or engaging in activities requiring alertness while taking. Pt verbalized understanding of instructions, pt awake alert oriented, resp reg unlabored, skin w/d, color appropriate for race, moves all ext well,pt encouraged to follow up with pcp. Advised to seek medical attention for new/prolonged/worsening of symptoms, Symptoms improved No adverse reaction to meds given in ER noted upon discharge PIV d'cd, dressing to site, catheter in tact. Awake, alert oriented, resp reg unlabored, skin w/d, pt leaving amb with steady gait, in no apparent distress. Tana Cheema RN [facility] 2023-07-16 22:51:23 Gave report to BRYANT Cheema. Barbra Baker RN [facility] 2023-07-16 21:38:42 Pt arrives ambulatory to ED c/o left foot and leg pain, she says she was reaching to grab something off a high shelf and when she was on her tip toes she felt what she describes as a rip or tear on the left side of her left foot. She does have an ulcer under the big toe of the left foot that she says will not heal. Left foot and ankle does have redness & is swollen. Roxanne Michele RN [facility] 2022-10-26 08:40:03 Formatting of this n ote is different from the original. Sent 30 day supply of both with reminder appointment needs to be scheduled. Sent MyChart correspondence. Vidhya Adams LVN 10/26/2022 8:41 AM Recent Visits Date Type Provider Dept 12/24/21 Office Visit Marleny Stephens NP [facility] 09/26/21 Office Visit Marleny Stephens NP [facility] Showing recent visits within past 540 days with a meds authorizing provider and meeting all other requirements Future Appointments No visits were found meeting these conditions. Showing future appointments within next 150 days with a meds authorizing provider and meeting all other requirements [facility]
[2024-03-10] MEDS ORDERED: ALBUMIN HUMAN 25% 200 ML IV ONE (20:19)
[2024-03-10] MEDS ORDERED: NA CHLORIDE 0.9% 2,000 ML ONE (20:20)
[2024-03-10] MEDS ORDERED: NA CHLORIDE 0.9% 100 ML ONE (20:44)
[2024-03-10] MEDS ORDERED: dilTIAZem HCL 25 MG/5 ML VIAL IV ONE ×3 (20:44→23:01)
[2024-03-10 20:45] LABS: Absolute Lymphocytes (CBC) 1.5 K/uL (0.7-4.9); Absolute Monocytes 0.7 K/uL (0.1-1.3); Basophils % 0.5 % (0-1.3); Hematocrit 42.6 % (36.0-45.0); Hemoglobin 13.3 g/dL (12.0-15.0); Lymphocytes % 24.6 % (15.3-44.8); MCH 21.7 pg (27.0-35.0); MCHC 31.1 g/dL (32.0-36.0); MCV 69.9 fL (80-100); MPV 8.5 fL (7.6-11.3); Neutrophils % 63.9 % (41.7-73.7); Nucleated Red Blood Cells % 0.2 % (0-0); Platelets 242 thou/uL (152-406); Red Cell Distribution Width 17.1 % (12.1-15.2)
[2024-03-10 21:06] LABS: SARS-CoV-2 Antigen CONTROL BLUE LINE VIS/BG OK; SARS-CoV-2 Antigen Rapid Res Negative (Negative)
[2024-03-10 21:08] LABS: ALT/SGPT 28 U/L (13-56); Albumin 3.1 g/dL (3.4-5.0); Albumin/Globulin Ratio 0.6 (1.1-1.8); Alkaline Phosphatase 79 U/L (45-117); Anion Gap 12.2 mEq/L (5.0-15.0); BUN Blood Urea Nitrogen 22 mg/dL (7-18); Bicarbonate 21 mEq/L (21-32); Bilirubin Total 0.4 mg/dL (0.2-1.0); Globulin 4.9 g/dL (2.3-3.5); Glomerular Filtration Rate 57 ml/min (=/>90); Glucose Level 233 mg/dL (74-106); NT PRO-BNP 862 pg/mL (<125); Sodium Level 130 mEq/L (136-145)
[2024-03-10 21:12] LABS: AST/SGOT 41 U/L (15-37); Bilirubin Direct < 0.2 mg/dL (0-0.2); Bilirubin Indirect, Calculated 0.2 mg/dL (0.2-0.8); Magnesium 2.2 mg/dL (1.6-2.4); Potassium 4.2 mEq/L (3.5-5.1)
[2024-03-10 21:13] LABS: C-Reactive Protein 50.4 mg/L (<3.00); Thyroid Stimulating Hormone 1.29 uIU/mL (0.358-3.740)
[2024-03-10 21:14] LABS: Troponin High Sensitivity 149.3 pg/mL (<58.9)
--- NOTE | 2024-03-10 21:15 | RAD REPORT ---
Procedure: Chest Single View HISTORY: Chest pain COMPARISON: June 2023 FINDINGS: The lungs appear clear of acute infiltrate. No significant pleural effusion noted. The heart is normal size. IMPRESSION: No acute abnormality is displayed.
[2024-03-10 21:31] LABS: Anisocytosis 1+; Blood Morphology Comment NOTED (NOT SEEN); Microcytosis 1+; Platelet Estimate ADEQ
[2024-03-10] MEDS ORDERED: ENOXAPARIN 40 MG/0.4 ML SQ ONE (22:08)
[2024-03-10] MEDS ORDERED: NA CHLORIDE 0.9% 1,000 ML ONE (22:08)
[2024-03-10] MEDS ORDERED: ENOXAPARIN 100 MG/ML SYR SQ ONE (22:08)
[2024-03-11] MEDS ORDERED: ONDANSETRON 4 MG/2 ML VIAL ONE (00:34)
[2024-03-11] MEDS ORDERED: DIGOXIN 0.25 MG/ML AMP ONE (00:34)
--- NOTE | 2024-03-11 00:34 | ER ---
Nurse's Notes [facility] Name: Cindy Pandey Age: 48 yrs Sex: Female : 1975 Arrival Date: 03/10/2024 Time: 19:54 Bed 3 Private MD: Diagnosis: Unspecified atrial fibrillation;Influenza A, Atrial Fibrillation with RVR Presentation: 03/10 20:13 Chief complaint: Patient states: Shortness of breath, body aches and subjective fevers cm10 onset 4 days ago. Pt's son recently diagnosed with flu A. Coronavirus screen: Client denies travel out of the [place] in the last 14 days. Ebola Screen: Patient denies travel to an Ebola-affected area in the 21 days before illness onset. Initial Sepsis Screen: Does the patient meet any 2 criteria? HR > 90 bpm. Does the patient have a suspected source of infection? No. Patient's initial sepsis screen is negative. Risk Assessment: Do you want to hurt yourself or someone else? Patient reports no desire to harm self or others. Onset of symptoms was March 10, 2024. 20:13 Acuity: PHILL 2 cm10 20:13 Method Of Arrival: Wheelchair cm10 Triage Assessment: 20:15 General: Appears in no apparent distress. uncomfortable, Behavior is calm, cooperative. cm10 Pain: Complains of pain in Generalized body aches. Neuro: No deficits noted. Level of Consciousness is awake, alert, obeys commands, Oriented to person, place, time, situation, Appropriate for age. Cardiovascular: Rhythm is atrial fibrillation with rapid ventricular response. Respiratory: Reports shortness of breath Airway is patent Respiratory effort is even, unlabored, Respiratory pattern is regular, symmetrical, Onset: The symptoms/episode began/occurred 4 days ago, the patient has moderate shortness of breath. Historical: - Allergies: 20:15 No Known Allergies; cm10 - PMHx: 20:15 Atrial fibrillation; Diabetes - NIDDM; irone defieciency anemia; cm10 - PSHx: 20:15 cataract; section; hernia repair; lap band; left knee; R ovary and tube cm10 removed; - Immunization history:: Adult Immunizations up to date. - Infectious Disease History:: Denies. - Social history:: Smoking status: Patient denies any tobacco usage or history of. - Family history:: not pertinent. Screenin:22 [facility] ED Fall Risk Assessment (Adult) History of falling in the last 3 months, cm10 including since admission No falls in past 3 months (0 pts) Confusion or Disorientation No (0 pts) Intoxicated or Sedated No (0 pts) Impaired Gait No (0 pts) Mobility Assist Device Used No (0 pt) Altered Elimination No (0 pt) Score/Fall Risk Level 0 - 2 = Low Risk Oriented to surroundings, Maintained a safe environment, Hourly rounding (assess needs \T\ fall precautionary measures) done. Abuse screen: Denies threats or abuse. Denies injuries from another. Nutritional screening: No deficits noted. Tuberculosis screening: No symptoms or risk factors identified. Assessment: 23:00 Reassessment: Patient and/or family updated on plan of care and expected duration. Pain ha1 level reassessed. 12 00:01 Reassessment: Patient and/or family updated on plan of care and expected duration. Pain ha1 level reassessed. Patient is alert, oriented x 3, equal unlabored respirations, skin warm/dry/pink. 01:00 Reassessment: Patient and/or family updated on plan of care and expected duration. Pain ha1 level reassessed. Patient is alert, oriented x 3, equal unlabored respirations, skin warm/dry/pink. 01:30 Reassessment: REPORT GIVEN TO RECEIVING NURSE BRYANT JIMENEZ. ha1 02:00 Reassessment: Patient and/or family updated on plan of care and expected duration. Pain ha1 level reassessed. Patient is alert, oriented x 3, equal unlabored respirations, skin warm/dry/pink. Patient denies pain at this time. Vital Signs: 03/10 20:13 BP 98 / 75; Pulse 154; Resp 19; Temp 98.9(O); Pulse Ox 98% on R/A; Weight 140.61 kg; cm10 Height 6 ft. 0 in. ; Pain 10/10; 20:45 BP 125 / 103; Pulse 144; Resp 19 S; Pulse Ox 98% on R/A; cm10 21:00 BP 108 / 72; Pulse 138; Resp 18; Pulse Ox 96% ; cm10 22:00 BP 108 / 71; Pulse 112; Resp 22; Pulse Ox 98% ; cm10 22:30 BP 98 / 56; Pulse 115; Resp 18; Pulse Ox 94% on R/A; cm10 22:45 BP 112 / 69; Pulse 122; Resp 22; cm10 23:00 BP 95 / 64; Pulse 111; Resp 17 S; Pulse Ox 96% on R/A; ha1 23:15 BP 104 / 54; Pulse 118; Resp 18 S; Pulse Ox 95% on R/A; ha1 23:30 BP 112 / 59; Pulse 109; Resp 16 S; Pulse Ox 96% on R/A; ha1 23:45 BP 116 / 98; Pulse 114; Resp 19 S; Pulse Ox 97% on R/A; ha1 03/11 00:00 BP 116 / 98; Pulse 117; Resp 17 S; Pulse Ox 96% on R/A; ha1 00:15 BP 113 / 55; Pulse 117; Resp 20 S; Pulse Ox 96% on R/A; ha1 00:30 BP 113 / 71; Pulse 118; Resp 17 S; Pulse Ox 96% on R/A; ha1 00:45 BP 113 / 57; Pulse 115; Resp 20 S; Pulse Ox 95% on R/A; ha1 01:00 BP 111 / 59; Pulse 109; Resp 18 S; Pulse Ox 96% on R/A; ha1 01:15 BP 112 / 56; Pulse 105; Resp 18 S; Pulse Ox 95% on R/A; ha1 01:30 BP 136 / 96; Pulse 106; Resp 17 S; Pulse Ox 99% on R/A; ha1 02:00 BP 100 / 69; Pulse 118; Resp 18 S; Pulse Ox 97% on R/A; ha1 03/10 20:13 Body Mass Index 42.04 (140.61 kg, 182.88 cm) cm10 03/10 20:13 Pain Scale: Adult cm10 [place] Coma Score: 03/10 20:24 Eye Response: spontaneous(4). Motor Response: obeys commands(6). Verbal Response: sp4 oriented(5). Total: 15. ED Course: 19:57 Patient arrived in ED. gm2 20:04 Provided Education on: PLAN OF CARE . ha1 20:04 Patient has correct armband on for positive identification. Placed in gown. Bed in low ha1 position. Call light in reach. Side rails up X2. 20:06 Jorge Alejandro MD is Attending Physician. sp4 20:13 Doris Mederos, RN is Primary Nurse. cm10 20:14 Triage completed. cm10 20:30 Inserted saline lock: 20 gauge in right antecubital area, using aseptic technique. ha1 Blood collected. Flushed with 10 mL NS. 20:40 Accessed peripheral vein via ultrasound, utilizing dynamic ultrasound technique Blood cm10 collected. Clean \T\ dry. Dressing intact. Good blood return. Flushes easily. 20G left forearm. 20:40 Arm band placed on right wrist. Patient placed in an exam room, on a stretcher, on cm10 cardiac exercise physiologist, on pulse oximetry. 20:52 XRAY Chest (1 view) In Process Unspecified. EDMS 21:12 Accessed peripheral vein via ultrasound, utilizing dynamic ultrasound technique Clean \T\ cm10 dry. Dressing intact. Good blood return. Flushes easily. 20g Right forearm. Removal of peripheral IV. Catheter intact, dressing applied. 23:00 Report received from BRYANT George. ha1 23:55 initiated transfer with [facility]. kmf 03/11 00:51 Troponin High Sensitivity Sent. ay 02:14 No provider procedures requiring assistance completed. Patient transferred, IV remains ha1 in place. Administered Medications: 03/10 20:40 Drug: NS 0.9% IV 1000 ml IV at 1 bolus Per protocol; to be given as a bolus over 60 cm10 minutes Route: IV; Rate: 1 bolus; Site: left forearm; 21:50 Follow up: Response: No adverse reaction; IV Status: Completed infusion; IV Intake: cm10 1000ml 20:40 Drug: NS 0.9% IV 1000 ml IV at 1000 ml once; to be given as a bolus over 60 minutes cm10 Route: IV; Rate: 1000 ml; Site: left forearm; 21:50 Follow up: Response: No adverse reaction; IV Status: Completed infusion; IV Intake: cm10 1000ml 20:56 Drug: Albumin IVPB 25 grams 100 ml IVPB once; (Note: Albumin 25% concentration) Volume: cm10 100 ml; Route: IVPB; Site: right antecubital; 21:27 Follow up: Response: No adverse reaction; IV Status: Completed infusion; IV Intake: cm10 100ml 21:00 Drug: Diltiazem IV 5 mg/hr IV at calculated rate See Administration Instructions; ha1 (standard dilution 125 mg diltiazem mixed in 125 mL NS; final concentration 1mg/mL). Recommended max rate 15 mg/hr; Titrate 5 mg/hr as often as every 15 minutes to achieve goal (see titration policy); Goal parameter HR less than 100 bpm Route: IV; Rate: calculated rate; Site: left forearm; 21:19 Follow up: Rate change 10 mg/hr cm10 21:30 Follow up: Response: No adverse reaction; Marked relief of symptoms ha1 21:40 Follow up: Rate change 5 mg/hr cm10 22:20 Follow up: Rate change 10 mg/hr cm10 23:31 Follow up: Rate change 15 mg/hr cm10 03/11 02:22 Follow up: Response: No adverse reaction; Marked relief of symptoms; IV Status: ha1 Infusion continued upon transfer; IV Intake: 65ml 03/10 21:38 Drug: Diltiazem IVP 20 mg IVP once; Over 2 minutes Route: IVP; Site: right forearm; cm10 21:51 Follow up: Response: No adverse reaction; Cardiac rhythm changed cm10 21:50 Drug: Albumin IVPB 25 grams 100 ml IVPB once; (Note: Albumin 25% concentration) Volume: cm10 100 ml; Route: IVPB; Site: right forearm; 22:21 Follow up: Response: No adverse reaction; IV Status: Completed infusion; IV Intake: cm10 100ml 22:20 Drug: NS 0.9% IV 1000 ml IV at 125 ml/hr Per protocol; to be given as a bolus over 60 cm10 minutes Route: IV; Rate: 125 ml/hr; Site: left forearm; 03/11 02:19 Follow up: Response: No adverse reaction; IV Status: Infusion continued upon transfer; ha1 IV Intake: 500ml 03/10 22:21 Drug: Enoxaparin Sub-Q 140 mg Sub-Q once Route: Sub-Q; Site: abdomen; cm10 23:00 Follow up: Response: No adverse reaction ha1 23:05 Drug: Diltiazem IVP 10 mg IVP once; Over 2 minutes Route: IVP; Site: right forearm; cm10 23:31 Follow up: Response: No adverse reaction; Cardiac rhythm is unchanged cm10 03/11 00:51 Drug: Digoxin IVP 0.5 mg IVP once Route: IVP; Site: right forearm; ay 01:20 Follow up: Response: No adverse reaction; Marked relief of symptoms ha1 01:10 Drug: Ondansetron IVP 8 mg IVP once; over 2 minutes Route: IVP; Site: left forearm; ha1 01:30 Follow up: Response: No adverse reaction; Marked relief of symptoms ha1 Medication: 03/10 21:22 VIS not applicable for this client. cm10 Intake: 21:27 IV: 100ml; Total: 100ml. cm10 21:50 IV: 1000ml; Total: 1100ml. cm10 21:50 IV: 1000ml; Total: 2100ml. cm10 22:21 IV: 100ml; Total: 2200ml. cm10 03/11 02:19 IV: 500ml; Total: 2700ml. ha1 02:22 IV: 65ml; Total: 2765ml. ha1 Outcome: 00:33 ER care complete, transfer ordered by . sp4 02:10 Transferred by ground EMS Transfer form completed. X-rays sent w/ patient. Note: [facility] [place] transferred by [facility] 02:10 Condition: stable 02:10 Instructed on the need for transfer, Demonstrated understanding of instructions, 02:15 Patient left the ED. ha1 Signatures: Dispatcher [employer] Debbie Morley RN BRYANT ha1 Jorge Alejandro MD MD sp4 Doris Mederos RN RN cm10 Trini Whitlock 2 Svitlana Roca [facility] Angeles Castaneda RN BRYANT ay Corrections: (The following items were deleted from the chart) 03/10 20:58 20:57 Accessed peripheral vein via ultrasound, utilizing dynamic ultrasound technique cm10 Blood collected. Clean \T\ dry. Dressing intact. Good blood return. Flushes easily. 20G left forearm. cm10 21:20 21:00 BP 125 / 103; Pulse 144bpm; Resp 19bpm; Spontaneous; Pulse Ox 98% RA; ha1 cm10 03/11 02:22 02:21 Response: No adverse reaction; Marked relief of symptoms; IV Status: Infusion ha1 continued upon transfer; IV Intake: 45ml ha1 02:27 02:14 Transferred by ground EMS Transfer form completed. X-rays sent w/ patient. Note: ha1 [facility]. transferred by [facility] ha1 02:14 Condition: stable ha1 ha1 02:14 Instructed on the need for transfer, Demonstrated understanding of instructions, ha1 ha1 02:26 Patient left the ED. ha1 ha1
--- NOTE | 2024-03-11 00:35 | EDPHYS ---
Physician Documentation [facility] Name: Cindy Pandey Age: 48 yrs Sex: Female : 1975 Arrival Date: 03/10/2024 Time: 19:54 Bed 3 Private MD: ED Physician Jorge Alejandro HPI: 03/10 20:06 This 48 yrs old Female presents to ER via Unassigned with complaints of sp4 Breathing Difficulty, Cough, Congestion, Weakness. 20:24 History of Procedure Performed: Transesophageal echocardiogram-guided cardioversion. sp4 07/02/2023 . Patient presents with 4 days of generalized weakness and rapid heart rate. Patient reports nausea shortness of breath cough congestion and generalized weakness.. Historical: - Allergies: 20:15 No Known Allergies; cm10 - PMHx: 20:15 Atrial fibrillation; Diabetes - NIDDM; irone defieciency anemia; cm10 - PSHx: 20:15 cataract; section; hernia repair; lap band; left knee; R ovary and tube cm10 removed; - Immunization history:: Adult Immunizations up to date. - Infectious Disease History:: Denies. - Social history:: Smoking status: Patient denies any tobacco usage or history of. - Family history:: not pertinent. ROS: 20:24 Constitutional: Negative for fever, chills, and weight loss, positive generalized sp4 weakness, positive cough, positive congestion, positive difficulty breathing, positive bilateral lower extremity swelling Eyes: Negative for injury, pain, redness, and discharge, 20:24 All other systems are negative, Exam: 20:24 Constitutional: This is a well developed, well nourished patient who is awake, alert, sp4 morbidly overweight female hypotensive on arrival tachycardic Head/Face: Normocephalic, atraumatic. Eyes: Pupils equal round and reactive to light, extra-ocular motions intact. Lids and lashes normal. Conjunctiva and sclera are not injected. Cornea within normal limits. Periorbital areas with no swelling, redness, or edema. ENT: Nares patent. No nasal discharge, no septal abnormalities noted. Tympanic membranes are normal and external auditory canals are clear. Oropharynx with no redness, swelling, or masses, exudates, or evidence of obstruction, uvula midline. Mucous membranes moist. Neck: Trachea midline, no thyromegaly or masses palpated, and no cervical lymphadenopathy. Supple, full range of motion without nuchal rigidity, or vertebral point tenderness. Chest/axilla: Normal chest wall appearance and motion. Nontender with no deformity. No lesions are appreciated. Cardiovascular: Rapid irregular heart rate. No gallops, murmurs, or rubs. Normal PMI, no JVD. No pulse deficits. Respiratory: Lungs have equal breath sounds bilaterally, clear to percussion. Positive dyspnea and tachypnea positive crackles bilaterally Abdomen/GI: Soft, with normal bowel sounds. No distension or tympany. No guarding or rebound. No evidence of tenderness throughout. Back: No spinal tenderness. No costovertebral tenderness. Skin: Warm, dry with normal turgor. Normal color with no rashes, no lesions, and no evidence of cellulitis. MS/ Extremity: Pulses equal, no cyanosis. Neurovascular intact. Full, normal range of motion. Positive bilateral lower extremity edema appears chronic. Neuro: Awake and alert, GCS 15, oriented to person, place, time, and situation. Cranial nerves II-XII grossly intact. Motor strength 5/5 in all extremities. Sensory grossly intact. Psych: Awake, alert, with orientation to person, place and time. Behavior, mood, and affect are within normal limits 20:24 ECG was reviewed by the Attending Physician. EKG at 2011 atrial flutter with variable AV block rate 149 bpm Vital Signs: 20:13 BP 98 / 75; Pulse 154; Resp 19; Temp 98.9(O); Pulse Ox 98% on R/A; Weight 140.61 kg; cm10 Height 6 ft. 0 in. ; Pain 10/10; 20:45 BP 125 / 103; Pulse 144; Resp 19 S; Pulse Ox 98% on R/A; cm10 21:00 BP 108 / 72; Pulse 138; Resp 18; Pulse Ox 96% ; cm10 22:00 BP 108 / 71; Pulse 112; Resp 22; Pulse Ox 98% ; cm10 22:30 BP 98 / 56; Pulse 115; Resp 18; Pulse Ox 94% on R/A; cm10 22:45 BP 112 / 69; Pulse 122; Resp 22; cm10 23:00 BP 95 / 64; Pulse 111; Resp 17 S; Pulse Ox 96% on R/A; ha1 23:15 BP 104 / 54; Pulse 118; Resp 18 S; Pulse Ox 95% on R/A; ha1 23:30 BP 112 / 59; Pulse 109; Resp 16 S; Pulse Ox 96% on R/A; ha1 23:45 BP 116 / 98; Pulse 114; Resp 19 S; Pulse Ox 97% on R/A; ha1 03/11 00:00 BP 116 / 98; Pulse 117; Resp 17 S; Pulse Ox 96% on R/A; ha1 00:15 BP 113 / 55; Pulse 117; Resp 20 S; Pulse Ox 96% on R/A; ha1 00:30 BP 113 / 71; Pulse 118; Resp 17 S; Pulse Ox 96% on R/A; ha1 00:45 BP 113 / 57; Pulse 115; Resp 20 S; Pulse Ox 95% on R/A; ha1 01:00 BP 111 / 59; Pulse 109; Resp 18 S; Pulse Ox 96% on R/A; ha1 01:15 BP 112 / 56; Pulse 105; Resp 18 S; Pulse Ox 95% on R/A; ha1 01:30 BP 136 / 96; Pulse 106; Resp 17 S; Pulse Ox 99% on R/A; ha1 02:00 BP 100 / 69; Pulse 118; Resp 18 S; Pulse Ox 97% on R/A; ha1 03/10 20:13 Body Mass Index 42.04 (140.61 kg, 182.88 cm) cm10 03/10 20:13 Pain Scale: Adult cm10 [place] Coma Score: 03/10 20:24 Eye Response: spontaneous(4). Motor Response: obeys commands(6). Verbal Response: sp4 oriented(5). Total: 15. MDM: 20:17 Medical Screening Exam initiated sp4 21:19 ED course: Procedure: Chest Single View HISTORY: Chest pain COMPARISON: June 2023 sp4 FINDINGS: The lungs appear clear of acute infiltrate. No significant pleural effusion noted. The heart is normal size. IMPRESSION: No acute abnormality is displayed. . 03/11 20:51 Differential diagnosis: Anxiety Reaction asthma, Bronchitis CHF exacerbation, Chronic sp4 Obstructive Pulmonary Disease pneumonia, Psychogenic pulmonary edema, Pulmonary Embolism. Data reviewed: vital signs, lab test result(s), EKG, radiologic studies, plain films. Consideration of Admission/Observation Patient was admitted/placed on observation. Escalation of care including admission/observation considered. Management of patient was discussed with the following: Ammonia Solution Preparer: ICU and Cardiology at [facility]. ED course: Patient was accepted for transfer.. 03/10 20:08 Order name: SARS RAPID; Complete Time: 21:14 sp4 03/10 20:08 Order name: Influenza Screen (a \T\ B); Complete Time: 21:14 sp4 03/10 20:15 Order name: Basic Metabolic Panel; Complete Time: 21:20 sp4 03/10 20:15 Order name: CBC with Diff; Complete Time: 00:26 sp4 03/10 20:15 Order name: LFT's; Complete Time: 21:20 sp4 03/10 20:15 Order name: Magnesium; Complete Time: 21:20 sp4 03/10 20:15 Order name: NT PRO-BNP; Complete Time: 21:20 sp4 03/10 20:15 Order name: Troponin HS; Complete Time: 21:20 sp4 03/10 20:17 Order name: Lactate w/ 2H reflex if indic.; Complete Time: 21:14 sp4 03/10 20:17 Order name: CRP; Complete Time: 21:14 sp4 03/10 20:17 Order name: Blood Culture Adult (2) sp4 03/10 20:17 Order name: TSH; Complete Time: 21:14 sp4 03/10 20:17 Order name: T4 Free; Complete Time: 21:14 sp4 03/10 20:24 Order name: Lipase; Complete Time: 21:20 sp4 03/10 20:57 Order name: CBC Smear Scan; Complete Time: 00:26 EDMS 03/11 00:26 Order name: Troponin High Sensitivity sp4 03/10 20:15 Order name: XRAY Chest (1 view); Complete Time: 21:20 sp4 03/10 20:15 Order name: Cardiac monitoring; Complete Time: 20:57 sp4 03/10 20:15 Order name: EKG - Nurse/Tech; Complete Time: 20:57 sp4 03/10 20:15 Order name: IV Saline Lock; Complete Time: 20:57 sp4 03/10 20:15 Order name: Labs collected and sent; Complete Time: 20:57 sp4 03/10 20:15 Order name: O2 Per Protocol; Complete Time: 20:57 sp4 03/10 20:15 Order name: O2 Sat Monitoring; Complete Time: : sp4 EC/04 20:24 Rate is 149 beats/min. Rhythm is irregularly irregular, A flutter. QRS [place] is Normal. sp4 QRS interval is normal. QT interval is normal. No Q waves. T waves are Normal. No ST changes noted. Clinical impression: Abnormal EKG without significant change. Interpreted by me. Reviewed by me. Administered Medications: 20:40 Drug: NS 0.9% IV 1000 ml IV at 1 bolus Per protocol; to be given as a bolus over 60 cm10 minutes Route: IV; Rate: 1 bolus; Site: left forearm; 21:50 Follow up: Response: No adverse reaction; IV Status: Completed infusion; IV Intake: cm10 1000ml 20:40 Drug: NS 0.9% IV 1000 ml IV at 1000 ml once; to be given as a bolus over 60 minutes cm10 Route: IV; Rate: 1000 ml; Site: left forearm; 21:50 Follow up: Response: No adverse reaction; IV Status: Completed infusion; IV Intake: cm10 1000ml 20:56 Drug: Albumin IVPB 25 grams 100 ml IVPB once; (Note: Albumin 25% concentration) Volume: cm10 100 ml; Route: IVPB; Site: right antecubital; 21:27 Follow up: Response: No adverse reaction; IV Status: Completed infusion; IV Intake: cm10 100ml 21:00 Drug: Diltiazem IV 5 mg/hr IV at calculated rate See Administration Instructions; ha1 (standard dilution 125 mg diltiazem mixed in 125 mL NS; final concentration 1mg/mL). Recommended max rate 15 mg/hr; Titrate 5 mg/hr as often as every 15 minutes to achieve goal (see titration policy); Goal parameter HR less than 100 bpm Route: IV; Rate: calculated rate; Site: left forearm; 21:19 Follow up: Rate change 10 mg/hr cm10 21:30 Follow up: Response: No adverse reaction; Marked relief of symptoms ha1 21:40 Follow up: Rate change 5 mg/hr cm10 22:20 Follow up: Rate change 10 mg/hr cm10 23:31 Follow up: Rate change 15 mg/hr cm10 03/11 02:22 Follow up: Response: No adverse reaction; Marked relief of symptoms; IV Status: ha1 Infusion continued upon transfer; IV Intake: 65ml 03/10 21:38 Drug: Diltiazem IVP 20 mg IVP once; Over 2 minutes Route: IVP; Site: right forearm; cm10 21:51 Follow up: Response: No adverse reaction; Cardiac rhythm changed cm10 21:50 Drug: Albumin IVPB 25 grams 100 ml IVPB once; (Note: Albumin 25% concentration) Volume: cm10 100 ml; Route: IVPB; Site: right forearm; 22:21 Follow up: Response: No adverse reaction; IV Status: Completed infusion; IV Intake: cm10 100ml 22:20 Drug: NS 0.9% IV 1000 ml IV at 125 ml/hr Per protocol; to be given as a bolus over 60 cm10 minutes Route: IV; Rate: 125 ml/hr; Site: left forearm; 03/11 02:19 Follow up: Response: No adverse reaction; IV Status: Infusion continued upon transfer; ha1 IV Intake: 500ml 03/10 22:21 Drug: Enoxaparin Sub-Q 140 mg Sub-Q once Route: Sub-Q; Site: abdomen; cm10 23:00 Follow up: Response: No adverse reaction ha1 23:05 Drug: Diltiazem IVP 10 mg IVP once; Over 2 minutes Route: IVP; Site: right forearm; cm10 23:31 Follow up: Response: No adverse reaction; Cardiac rhythm is unchanged cm10 03/11 00:51 Drug: Digoxin IVP 0.5 mg IVP once Route: IVP; Site: right forearm; ay 01:20 Follow up: Response: No adverse reaction; Marked relief of symptoms ha1 01:10 Drug: Ondansetron IVP 8 mg IVP once; over 2 minutes Route: IVP; Site: left forearm; ha1 01:30 Follow up: Response: No adverse reaction; Marked relief of symptoms ha1 Disposition: 00:34 Critical Care:. sp4 20:53 Chart complete. sp4 Disposition Summary: 03/11/24 00:33 Transfer Ordered Notes: Transfer Location: [facility] sp4 Reason: Higher level of care sp4 Condition: Stable sp4 Problem: new sp4 Symptoms: have improved sp4 Accepting Physician: Lance RALPH Cardiology (03/11/24 02:26) ha1 Diagnosis - Unspecified atrial fibrillation sp4 - Influenza A, Atrial Fibrillation with RVR sp4 Forms: - Medication Reconciliation Form sp4 - SBAR form sp4 Critical care time excluding procedures: 00:34 Critical care time: Bedside Care: 36 minutes, Consultation: 12 minutes, Family sp4 Intervention: 12 minutes. Total time: 60 minutes Signatures: Dispatcher [employer] EDDebbie Rios RN RN ha1 Jorge Alejandro MD MD sp4 Doris Mederos RN RN cm10 Angeles Castaneda RN RN ay Corrections: (The following items were deleted from the chart) 03/10 20:08 20:08 SARS-COV-2 Antigen Rapid+I.LAB.BRZ ordered. EDMS EDMS 20:08 20:08 Influenza Screen (A \T\ B)+BA.LAB.BRZ ordered. EDMS EDMS 20:16 20:16 Chest Single View+RAD.RAD.BRZ ordered. EDMS EDMS 20:18 20:18 LACTATE+C.LAB.BRZ ordered. EDMS EDMS 20:18 20:18 C-REACTIVE PROTEIN+C.LAB.BRZ ordered. EDMS EDMS 20:18 20:18 BLOOD CULTURE*+BA.LAB.BRZ ordered. EDMS EDMS 20:18 20:18 THYROID STIMULAT HORMONE+C.LAB.BRZ ordered. EDMS EDMS 20:18 20:18 T4 FREE+C.LAB.BRZ ordered. EDMS EDMS 03/11 02:26 00:33 Lance RALPH Cardiology sp4 ha1
[2024-03-11 10:23] VITALS: TEMP 98.9
[2024-03-11 10:47] VITALS: BP 100/69; O2SAT 97
== END 2024-03-11 02:26 | disposition short-term general hospital (02) ==
LOC: ER 19:54
DX: J10.1 Influenza due to other identified influenza virus with other respiratory manifestations (principal); I48.91 Unspecified atrial fibrillation; E11.9 Type 2 diabetes mellitus without complications; Z11.52 Encounter for screening for COVID-19
CPT/HCPCS: 87040 ×2; 85025; 80048; 36415; 83735; 80076; 83605; 84443; 84484 ×2; 84439; 83690; 83880; 86140; 87804 ×2; 71045; 96372; 99285; 87811; J1650 ×2; J1160; J2405; P9047; J7030 ×2

== ENCOUNTER 2024-03-13 17:13 | Inpatient (IN) | payer OTHER ==
[2024-03-13] MEDS: FLECAINIDE 100 MG TAB ONE (18:07)
--- NOTE | 2024-03-13 18:25 | RAD REPORT ---
EXAM: Chest Single View HISTORY: Dyspnea;Palpitations COMPARISON: 03/10/2024 FINDINGS: LUNGS/PLEURA: The lungs are clear. No pleural effusions or pneumothorax. No pulmonary edema. MEDIASTINUM: The mediastinal silhouette is within normal limits. CARDIAC: The cardiac silhouette is within normal limits. UPPER ABDOMEN: No significant abnormality. BONES: No acute fracture. LINES/TUBES/OTHER: N/A IMPRESSION: No evidence of acute cardiopulmonary disease.
[2024-03-13] MEDS ORDERED: MAGNESIUM SULFATE 1 gm IVPB 1 GM/100 ML BAG IV ONE (18:38)
[2024-03-13 18:49] LABS: Absolute Basophils 0.1 K/uL (0-0.5); Absolute Lymphocytes (CBC) 2.3 K/uL (0.7-4.9); Absolute Monocytes 0.5 K/uL (0.1-1.3); Absolute Neutrophil 4.1 K/uL (1.8-8.0); Basophils % 0.8 % (0-1.3); Eosinophils % 0.5 % (0-4.4); Hematocrit 39.8 % (36.0-45.0); Hemoglobin 12.5 g/dL (12.0-15.0); Lymphocytes % 32.6 % (15.3-44.8); MCHC 31.4 g/dL (32.0-36.0); MCV 70.1 fL (80-100); MPV 8.5 fL (7.6-11.3); Monocytes % 6.9 % (3.3-12.3); Neutrophils % 59.2 % (41.7-73.7); Nucleated Red Blood Cells % 0.1 % (0-0); Platelets 229 thou/uL (152-406); RBC Red Blood Cell Count 5.67 M/uL (3.86-4.86); Red Cell Distribution Width 17.2 % (12.1-15.2)
[2024-03-13 18:54] LABS: Protime INR 1.54
[2024-03-13 19:08] LABS: Anion Gap 10.4 mEq/L (5.0-15.0); Potassium 3.4 mEq/L (3.5-5.1); Troponin High Sensitivity 30.8 pg/mL (<58.9)
--- NOTE | 2024-03-13 19:09 | ER ---
Nurse's Notes [facility] Name: Cindy Pandey Age: 48 yrs Sex: Female : 1975 Arrival Date: 03/13/2024 Time: 17:13 Bed 16 Private MD: Diagnosis: Unspecified atrial flutter-with RVR;Dyspnea, unspecified Presentation: 03/13 17:20 Chief complaint: Patient states: she was released from [facility] last night kc6 for afib. pt states she is still in afib and reports SOB. Coronavirus screen: At this time, the client does not indicate any symptoms associated with coronavirus-19. Ebola Screen: No symptoms or risks identified at this time. Initial Sepsis Screen: Does the patient meet any 2 criteria? No. Patient's initial sepsis screen is negative. Does the patient have a suspected source of infection? No. Patient's initial sepsis screen is negative. Risk Assessment: Do you want to hurt yourself or someone else? Patient reports no desire to harm self or others. Onset of symptoms was March 13, 2024. 17:20 Method Of Arrival: Wheelchair kc6 17:20 Acuity: PHILL 2 kc6 Triage Assessment: 19:05 Respiratory: Reports shortness of breath at rest Onset: The symptoms/episode rg5 began/occurred gradually, the patient has mild shortness of breath. 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 - Infectious Disease History:: Denies. - Social history:: Smoking status: Patient denies any tobacco usage or history of. - Family history:: not pertinent. - Hospitalizations: : No recent hospitalization is reported. Screenin:40 [facility] ED Fall Risk Assessment (Adult) History of falling in the last 3 months, kc6 including since admission No falls in past 3 months (0 pts) Confusion or Disorientation No (0 pts) Intoxicated or Sedated No (0 pts) Impaired Gait No (0 pts) Mobility Assist Device Used No (0 pt) Altered Elimination No (0 pt) Score/Fall Risk Level 0 - 2 = Low Risk Maintained a safe environment, Provided non-skid footwear, Hourly rounding (assess needs \T\ fall precautionary measures) done. Abuse screen: Denies threats or abuse. Nutritional screening: No deficits noted. Tuberculosis screening: No symptoms or risk factors identified. Assessment: 17:40 General: Appears uncomfortable, obese, well groomed, well nourished, Behavior is kc6 cooperative, appropriate for age, anxious. Pain: Denies pain. Neuro: Level of Consciousness is awake, alert, obeys commands, Oriented to person, place, time, situation, Appropriate for age. Cardiovascular: Reports palpitations, shortness of breath, Patient's skin is warm and dry. Rhythm is atrial flutter. Respiratory: Airway is patent Respiratory effort is even, unlabored, Respiratory pattern is regular, symmetrical, Breath sounds are clear bilaterally. GI: No signs and/or symptoms were reported involving the gastrointestinal system. : No signs and/or symptoms were reported regarding the genitourinary system. EENT: No signs and/or symptoms were reported regarding the EENT system. Derm: Skin is intact, is healthy with good turgor, Skin is pink, warm \T\ dry. Musculoskeletal: No signs and/or symptoms reported regarding the musculoskeletal system. 19:05 General: Appears in no apparent distress. Behavior is calm, cooperative, appropriate rg5 for age. 19:05 Pain: Denies pain. Neuro: Level of Consciousness is awake, alert, obeys commands, rg5 Oriented to person, place, time, situation, Appropriate for age. Cardiovascular: Reports shortness of breath, Patient's skin is warm and dry. Rhythm is atrial fibrillation. Respiratory: Airway is patent Respiratory effort is even, unlabored, Respiratory pattern is regular, symmetrical. GI: Abdomen is round non-distended, Abd is soft and non tender. : No signs and/or symptoms were reported regarding the genitourinary system. EENT: No deficits noted. Derm: Skin is intact, is healthy with good turgor, Skin is dry, Skin is normal. Musculoskeletal: Circulation, motion, and sensation intact. Range of motion: intact in all extremities. 20:30 Reassessment: Patient and/or family updated on plan of care and expected duration. Pain rg5 level reassessed. Patient is alert, oriented x 3, equal unlabored respirations, skin warm/dry/pink. Patient states symptoms have improved. Vital Signs: 17:20 BP 108 / 67; Pulse 79; Resp 20 S; Pulse Ox 100% on R/A; Weight 137.44 kg (R); Height 6 kc6 ft. 0 in. (R); Pain 0/10; 18:00 BP 104 / 67; Pulse 77; Resp 18; Pulse Ox 95% on R/A; me1 19:15 BP 96 / 61 Supine; Pulse 75; Resp 18; Temp 98(O); Pulse Ox 96% on R/A; rg5 20:22 BP 106 / 71; Pulse 75; Resp 18; Temp 98(O); Pulse Ox 98% on R/A; Pain 0/10; rg5 17:20 Body Mass Index 41.09 (137.44 kg, 182.88 cm) kc6 17:20 Pain Scale: Adult kc6 20:22 Pain Scale: Adult rg5 ED Course: 17:15 Patient arrived in ED. mg5 17:21 Triage completed. kc6 17:21 Arm band placed on. kc6 17:23 Francisco Loja MD is Attending Physician. rn 17:35 EKG completed in triage. Results shown to MD. kc6 17:40 Patient has correct armband on for positive identification. Bed in low position. Call kc6 light in reach. Side rails up X 1. Provided Education on: POC. Verbalized understanding.. Client placed on continuous cardiac and pulse oximetry monitoring. NIBP monitoring applied. desk monitor on. Pulse ox on. NIBP on. 17:40 No provider procedures requiring assistance completed. kc6 17:42 Niki Gil, BRYANT is Primary Nurse. me1 17:47 XRAY Chest (1 view) In Process Unspecified. EDMS 18:45 Inserted saline lock: 20 gauge in left forearm, using aseptic technique. ,using aseptic hb technique. US GUIDED Blood collected. Flushed with 10 mL NS. 19:05 Patient maintains SpO2 saturation greater than 95% on room air. rg5 19:08 Raghav Casanova MD is Hospitalizing Provider. rn 20:27 Patient admitted, IV remains in place. rg5 Administered Medications: 18:33 Drug: Flecainide PO 50 mg PO once Route: PO; me1 19:38 Follow up: Response: No adverse reaction rg5 18:45 Drug: Magnesium Sulfate IVPB 1 grams IVPB once over 1 hrs Route: IVPB; Infused Over: 1 me1 hrs; Site: left forearm; 19:00 Follow up: IV Status: Completed infusion; IV Intake: 100ml rg5 Medication: 17:40 VIS not applicable for this client. kc6 Intake: 19:00 IV: 100ml; Total: 100ml. rg5 Outcome: 19:05 Admitted to Med/surg accompanied by tech, via stretcher, rg5 19:05 Condition: stable 19:05 Instructed on the need for admit, 19:08 Decision to Hospitalize by Provider. rn 20:56 Patient left the ED. rg5 Signatures: Dispatcher [employer] EDMS Francisco Loja MD MD rn Baxter, Heather, RN RN hb Campbell, Kaitlyn, RN RN 6 Niki Gil RN RN ar1 Stephany Vasquez 5 Devonte Valenzuela RN RN rg5 Corrections: (The following items were deleted from the chart) 18:05 17:20 Chief complaint: Patient states: she was released from [facility] last me1 night for afib. pt states she is still in afib and reports SOB kc6 19:03 17:20 Chief complaint: Patient states: she was released from [facility] last kc6 night for afib. pt states she is still in afib and reports SOB me1
--- NOTE | 2024-03-13 19:09 | EDPHYS ---
Physician Documentation [facility] Name: Cindy Pandey Age: 48 yrs Sex: Female : 1975 Arrival Date: 03/13/2024 Time: 17:13 Bed 16 Private MD: ED Physician Francisco Loja HPI: 03/13 17:45 This 48 yrs old Female presents to ER via Wheelchair with complaints of Breathing rn Difficulty, atrial flutter. 17:45 The patient has shortness of breath with light activity. Onset: The symptoms/episode rn began/occurred at an unknown time. The patient's shortness of breath is aggravated by exertion, light activity. Severity of symptoms: At their worst the symptoms were moderate in the emergency department the symptoms have improved. The patient has experienced similar episodes in the past. Patient reports recent diagnosis of atrial flutter, admitted to the hospital and just discharged 2 days ago. Was still in flutter at discharge, prescribed flecainide and has not been able to fill it due to prescription error. Reports shortness of breath and palpitations with exertion, feels better at rest. No chest pain.. 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 - Infectious Disease History:: Denies. - Social history:: Smoking status: Patient denies any tobacco usage or history of. - Family history:: not pertinent. - Hospitalizations: : No recent hospitalization is reported. ROS: 17:45 Constitutional: Negative for fever, chills, and weight loss, Eyes: Negative for injury, rn pain, redness, and discharge, Cardiovascular: Positive for palpitations Respiratory: Positive for shortness of breath Abdomen/GI: Negative for abdominal pain, nausea, vomiting, diarrhea, and constipation, MS/Extremity: Negative for injury and deformity, Skin: Negative for injury, rash, and discoloration, Neuro: Negative for headache, weakness, numbness, tingling, and seizure, Exam: 17:45 Constitutional: This is a well developed, well nourished patient who is awake, alert, rn mild tachypnea Cardiovascular: Regular rate, slightly irregular rhythm Respiratory: Mild tachypnea Neuro: Awake and alert, GCS 15 17:48 ECG was reviewed by the Attending Physician. rn Vital Signs: 17:20 BP 108 / 67; Pulse 79; Resp 20 S; Pulse Ox 100% on R/A; Weight 137.44 kg (R); Height 6 kc6 ft. 0 in. (R); Pain 0/10; 18:00 BP 104 / 67; Pulse 77; Resp 18; Pulse Ox 95% on R/A; me1 19:15 BP 96 / 61 Supine; Pulse 75; Resp 18; Temp 98(O); Pulse Ox 96% on R/A; rg5 20:22 BP 106 / 71; Pulse 75; Resp 18; Temp 98(O); Pulse Ox 98% on R/A; Pain 0/10; rg5 17:20 Body Mass Index 41.09 (137.44 kg, 182.88 cm) kc6 17:20 Pain Scale: Adult kc6 20:22 Pain Scale: Adult rg5 MDM: 17:23 Medical Screening Exam initiated rn 19:07 Differential diagnosis: Anemia Anxiety Reaction Atrial flutter, pulmonary edema, CHF. rn Data reviewed: vital signs, nurses notes, lab test result(s), EKG, radiologic studies, plain films, and as a result, I will admit patient. Consideration of Admission/Observation Patient was admitted/placed on observation. Escalation of care including admission/observation considered. Counseling: I had a detailed discussion with the patient and/or guardian regarding the historical points, exam findings, and any diagnostic results supporting the discharge/admit diagnosis, lab results, radiology results, the need for further work-up and treatment in the hospital. Response to treatment: the patient's symptoms have mildly improved after treatment, and as a result, I will admit patient. ED course: Patient still in atrial flutter with episodes of tachycardia up to 120s to 140s. Flecainide given with improvement of heart rate down to 105. Will observe in hospital given exertional dyspnea and atrial flutter with RVR.. 19:09 Independent interpretation of the following test(s) in the Emergency Department X-Ray: rn My interpretation is Chest x-ray images negative for pneumonia or pneumothorax per my interpretation. 03/13 17:29 Order name: Basic Metabolic Panel; Complete Time: 19:09 rn 03/13 17:29 Order name: CBC with Diff; Complete Time: 18:54 rn 03/13 17:29 Order name: NT PRO-BNP; Complete Time: 19:09 rn 03/13 17:29 Order name: PT-INR; Complete Time: 19:09 rn 03/13 17:29 Order name: Troponin HS; Complete Time: 19:09 rn 03/13 20:11 Order name: Urinalysis w/ reflexes EDMS 03/13 20:11 Order name: CBC with Automated Diff EDMS 03/13 20:11 Order name: CBC with Automated Diff EDMS 03/13 20:11 Order name: Comprehensive Metabolic Panel EDMS 03/13 20:11 Order name: Comprehensive Metabolic Panel EDMS 03/13 20:11 Order name: Troponin High Sensitivity EDMS 03/13 20:11 Order name: Troponin High Sensitivity EDMS 03/13 20:11 Order name: Troponin High Sensitivity EDMS 03/13 20:11 Order name: Troponin High Sensitivity EDMS 03/13 17:29 Order name: XRAY Chest (1 view); Complete Time: 18:28 rn 03/13 17:29 Order name: Cardiac monitoring; Complete Time: 18:34 rn 03/13 17:29 Order name: EKG - Nurse/Tech; Complete Time: 17:35 rn 03/13 17:29 Order name: IV Saline Lock; Complete Time: 19:10 rn 03/13 17:29 Order name: Labs collected and sent; Complete Time: 19:10 rn 03/13 17:29 Order name: O2 Per Protocol; Complete Time: 18:03 rn 03/13 17:29 Order name: O2 Sat Monitoring; Complete Time: 18:03 rn EC:48 Rate is 79 beats/min. Rhythm is irregular. QRS [place] is Normal. QRS interval is normal. rn QT interval is normal. No Q waves. T waves are Normal. No ST changes noted. Clinical impression: Atrial Flutter. Interpreted by me. Reviewed by me. Administered Medications: 18:33 Drug: Flecainide PO 50 mg PO once Route: PO; me1 19:38 Follow up: Response: No adverse reaction rg5 18:45 Drug: Magnesium Sulfate IVPB 1 grams IVPB once over 1 hrs Route: IVPB; Infused Over: 1 me1 hrs; Site: left forearm; 19:00 Follow up: IV Status: Completed infusion; IV Intake: 100ml rg5 Disposition Summary: 03/13/24 19:08 Hospitalization Ordered Notes: Hospitalization Status: Inpatient Admission rn Provider: Raghav Casanova rn Location: Telemetry/MedSurg (Inpatient) rn Condition: Stable rn Problem: an ongoing problem rn Symptoms: have improved rn Bed/Room Type: Standard rn Room Assignment: 221(03/13/24 20:13) vc1 Diagnosis - Unspecified atrial flutter - with RVR rn - Dyspnea, unspecified rn Forms: - Medication Reconciliation Form rn - SBAR form rn - Leadership Thank You Letter rn Signatures: Dispatcher [employer] EDMS Francisco Loja MD MD rn Calcote, Vanessa RN RN vc1 Leatha Cheema RN RN kc6 Niki Gil RN RN me1 Devonte Valenzuela RN rg5 Corrections: (The following items were deleted from the chart) 17:29 17:29 BASIC METABOLIC PANEL+C.LAB.BRZ ordered. EDMS EDMS 17:29 17:29 CBC+H.LAB.BRZ ordered. EDMS EDMS 17:29 17:29 PROBNP+C.LAB.BRZ ordered. EDMS EDMS 17:29 17:29 PROTIME (+INR)+COAG.LAB.BRZ ordered. EDMS EDMS 17:29 17:29 Troponin High Sensitivity+C.LAB.BRZ ordered. EDMS EDMS 17:29 17:29 Chest Single View+RAD.RAD.BRZ ordered. EDVT EDMS 20:13 19:08 rn vc1
--- NOTE | 2024-03-13 20:04 | P.HP ---
Certification for Inpatient Patient admitted to: Inpatient With expected LOS: >2 Midnights Practitioner: I am a practitioner with admitting privileges, knowledge of patient current condition, hospital course, and medical plan of care. Services: Services provided to patient in accordance with Admission requirements found in Title 42 Section 412.3 of the Code of Federal Regulations Patient History Date of Service: 03/14/24 Reason for admission: SOB/ Palpitation History of Present Illness: 48 yrs old female patient with past medical history significant for diabetes type 2, hypertension, history of atrial fibrillation, morbid obesity , status post gastric band surgery and iron deficiency anemia who came to the ED with complaint of palpitations and chest discomfort. She was found to have atrial fibrillation/flutter with rapid ventricular response with heart rate in the 140s and patient also complains of shortness of breath aggravated with exertions and even light activities. Patient denies any chest pain. No fever or chills. No nausea vomiting or diarrhea. Patient was recently admitted to the hospital and was diagnosed with atrial flutter and was discharged 2 days ago. She was prescribed flecainide but could not feel it so she was brought to ER with shortness of breath and palpitation. Patient was assessed in the ER and was found to be in atrial flutter with RVR and was admitted for further management Allergies No Known Allergies Allergy (Verified 03/13/24 21:26) Home medications list reviewed: Yes Home Medications: Metformin ER [Glucophage ER*] 500 mg PO BID 06/10/23 Omeprazole 40 mg PO DAILY 06/10/23 Apixaban [Eliquis] 5 mg PO BID #60 tab 06/12/23 Metoprolol Tartrate 25 mg PO BID 03/13/24 - Past Medical/Surgical History Diabetic: Yes Past Medical History: Reviewed- Non-Contributory -: Morbid obesity -: Diabetes mellitus type 2 -: Anemia -: A-FIB Past Surgical History: Reviewed- Non-Contributory -: Gastric band surgery -: C section -: 2 cataract surgeries -: L knee repair -: hernia repair -: ovarian cyst removal, salpingectomy - Family History Family History: Reviewed- Non-Contributory - Family History Mother -: Diabetes Father -: Heart disease Sister -: Cancer - Social History Smoking Status: Never smoker Alcohol use: No CD- Drugs: No Caffeine use: No Review of Systems 10-point ROS is otherwise unremarkable Physical Examination - Vital Signs Temperature: 97.5 F Blood Pressure: 122/75 Pulse: 106 Respirations: 18 Pulse Ox (%): 94 - Physical Exam General: Alert, Oriented x3, Mild distress, Obese HEENT: Atraumatic, Normocephalic Neck: Supple Respiratory: Clear to auscultation bilaterally, Normal air movement Cardiovascular: Irregular heart rate/rhythm, Abnormal S1 S2 Capillary refill: <2 Seconds Gastrointestinal: Soft and benign, W/out hepatosplenomegaly Musculoskeletal: No clubbing, No swelling Integumentary: No rashes Neurological: Normal speech, Normal strength at 5/5 x4 extr, Cranial nerves 3-12 intact Lymphatics: No axilla or inguinal lymphadenopathy - Studies Laboratory Data (last 24 hrs) 03/13/24 03/13/24 03/13/24 18:41 18:41 18:41 WBC 7.00 Hgb 12.5 Hct 39.8 Plt Count 229 PT 17.0 H INR 1.54 Sodium 138 Potassium 3.4 L BUN 14 Creatinine 0.80 Glucose 166 H Assessment and Plan - Plan Atrial flutter with RVR Monitor closely on telemetry Restart flecainide Cardiology consulted Will start on anticoagulation Will get an echocardiogram Hypokalemia Replace potassium Electrolytes monitor and replace accordingly CHF with acute on chronic possibly systolic/diastolic Continue home medications and titrate as needed Diuresis Echocardiogram Hypertension Antihypertensives titrated Continue home medications and titrate as needed Hyperlipidemia Continue statin Diabetes Insulin sliding scale Accu-Chek before every meal and at bedtime Obesity Advise lifestyle modification GI/DVT prophylaxis Advanced directive full code Discharge Plan: Home Plan to discharge in: 48 Hours - Advance Directives Does patient have a Living Will: No Does patient have a Durable POA for Healthcare: No - Code Status/Comfort Care Code Status: Full Code Time Spent Managing Pts Care (In Minutes): 48
[2024-03-13] MEDS ORDERED: ONDANSETRON 4 MG/2 ML VIAL IV PRN (20:05)
[2024-03-13] MEDS ORDERED: ACETAMINOPHEN 325 MG TABLET PO PRN (20:05)
[2024-03-13] MEDS ORDERED: D10W 125 ML IV PRN (20:09)
[2024-03-13] MEDS ORDERED: GLUCAGON 1 MG/VIAL IM PRN (20:09)
[2024-03-13] MEDS: INSULIN REGULAR (HUMAN) 100 UNIT/ML SQ SCH (21:00)
[2024-03-13 21:35] VITALS: BMI 41.1
[2024-03-13] MEDS: POTASSIUM CL SA 10 MEQ TAB PO ONE (22:09)
[2024-03-13] MEDS: METOPROLOL TARTRATE 5 MG/5 ML INJ IV PRN (22:11)
[2024-03-14 04:17] LABS: Absolute Monocytes 0.4 K/uL (0.1-1.3); Absolute Neutrophil 2.1 K/uL (1.8-8.0); Basophils % 0.4 % (0-1.3); Hematocrit 33.2 % (36.0-45.0); Hemoglobin 10.5 g/dL (12.0-15.0); Lymphocytes % 43.1 % (15.3-44.8); MCHC 31.5 g/dL (32.0-36.0); MCV 69.7 fL (80-100); MPV 8.3 fL (7.6-11.3); Monocytes % 8.9 % (3.3-12.3); Neutrophils % 46.6 % (41.7-73.7); Nucleated Red Blood Cells % 0.2 % (0-0); Platelets 194 thou/uL (152-406); RBC Red Blood Cell Count 4.77 M/uL (3.86-4.86); Red Cell Distribution Width 17.3 % (12.1-15.2)
[2024-03-14 04:55] LABS: Albumin 2.5 g/dL (3.4-5.0); Albumin/Globulin Ratio 0.7 (1.1-1.8); Anion Gap 8.7 mEq/L (5.0-15.0); Bilirubin Total 0.2 mg/dL (0.2-1.0); Globulin 3.8 g/dL (2.3-3.5); Potassium 3.7 mEq/L (3.5-5.1); Protein, Total 6.3 g/dL (6.4-8.2)
[2024-03-14 05:08] LABS: Blood Morphology Comment NOTED (NOT SEEN); Microcytosis 1+; Platelet Estimate ADEQ; White Blood Cell Scan OK (OK)
[2024-03-14 07:09] LABS: Specific Gravity 1.029 (1.005-1.030); Sqamous Epithelial <5 /HPF (None Seen); Transitional Epithelial <5 /HPF (None Seen); Urine Bacteria <20 /HPF (<20); Urine Bilirubin NEGATIVE (Negative); Urine Blood 3+ (Negative); Urine Clarity Extremely Turbid (Clear); Urine Color Yellow (Yellow); Urine Culture Reflex Order NOT NEEDED; Urine Glucose 2+ (Negative); Urine Ketones TRACE (Negative); Urine Microscopic Reflex YN ORDER UMIC; Urine Mucus 4+ /HPF (None Seen); Urine Nitrite NEGATIVE (Negative); Urine Protein TRACE (Negative); Urine RBC 21-50 /HPF (None Seen); Urine Urobilinogen Normal (Normal); Urine WBC <5 /HPF (<5); Urine pH 5.5 (5.0-7.0)
[2024-03-14] MEDS: METOPROLOL TAR 25 MG TAB PO SCH (09:00)
[2024-03-14] MEDS ORDERED: METOPROLOL TAR 25 MG TAB PO SCH (09:00)
[2024-03-14] MEDS ORDERED: ENOXAPARIN 40 MG/0.4 ML SQ SCH (09:00)
[2024-03-14] MEDS: FUROSEMIDE 20 MG/ 2ML VIAL IV SCH (09:00)
[2024-03-14] MEDS: APIXABAN 5 MG TABLET PO SCH (09:15)
[2024-03-14] MEDS: PANTOPRAZOLE 40MG TABLET PO SCH (09:15)
[2024-03-14] MEDS: POTASSIUM CL SA 10 MEQ TAB PO ONE (09:16)
[2024-03-14 09:49] VITALS: O2SAT 97
[2024-03-14 11:17] LABS: Ferritin 30.1 ng/mL (8-252)
--- NOTE | 2024-03-14 12:47 | P.PN ---
Date of Service: 03/14/24 Review of Systems 10-point ROS is otherwise unremarkable Physical Examination - Vital Signs reviewed - Physical Exam General: Alert, Oriented x3, Obese HEENT: Atraumatic, Normocephalic Neck: Supple Respiratory: Clear to auscultation bilaterally, Normal air movement Cardiovascular: Regular heart rate/rhythm, Abnormal S1 S2 Capillary refill: <2 Seconds Gastrointestinal: Soft and benign, W/out hepatosplenomegaly Musculoskeletal: No clubbing, No swelling Integumentary: No rashes Neurological: Normal speech, Normal strength at 5/5 x4 extr, Cranial nerves 3-12 intact Lymphatics: No axilla or inguinal lymphadenopathy - Studies Laboratory Data (last 24 hrs) 03/13/24 03/13/24 03/13/24 18:41 18:41 18:41 WBC 7.00 Hgb 12.5 Hct 39.8 Plt Count 229 PT 17.0 H INR 1.54 Sodium 138 Potassium 3.4 L BUN 14 Creatinine 0.80 Glucose 166 H Assessment and Plan - Plan Atrial flutter with RVR Monitor closely on telemetry Restart flecainide Cardiology consulted Will start on anticoagulation Will get an echocardiogram (pt states she had a recent ECHO at [facility]) Hypokalemia Replace potassium Electrolytes monitor and replace accordingly CHF with acute on chronic possibly systolic/diastolic Continue home medications and titrate as needed Diuresis Hypertension Antihypertensives titrated Continue home medications and titrate as needed Hyperlipidemia Continue statin Diabetes Insulin sliding scale Accu-Chek before every meal and at bedtime Obesity Advise lifestyle modification GI/DVT prophylaxis Advanced directive full code 03/15/24 Pt relays to me that she recently had influenza and "could get up to do a nything" thus skipped all her regular medications: metoprolol, eliquis, flecainide, glucophage, and omeprazole. NSR at 77 on tele monitor this am. will repeat EKG Discharge Plan: Home Plan to discharge in: 48 Hours - Advance Directives Does patient have a Living Will: No Does patient have a Durable POA for Healthcare: No
[2024-03-14] MEDS: FLECAINIDE 100 MG TAB PO SCH (21:09)
[2024-03-15 06:20] LABS: Anion Gap 5.9 mEq/L (5.0-15.0); Magnesium 2.1 mg/dL (1.6-2.4); Phosphorus 3.5 mg/dL (2.5-4.9); Potassium 3.9 mEq/L (3.5-5.1)
[2024-03-15] MEDS: POTASSIUM CL SA 10 MEQ TAB PO ONE (08:33)
[2024-03-15] MEDS: SOD FERRIC GLUC COMPLX/SUCROSE 250 MG in NA CHLORIDE 0.9% 250 ML IV SCH (11:42)
[2024-03-15 12:37] VITALS: BP 130/65; TEMP 98.2
--- NOTE | 2024-03-15 14:14 | P.DS ---
Admission Date: 03/13/24 Discharge Date: 03/15/24 Reason for Admission: SOB/ Palpitation Consultations: Cardiology Brief History of Present Illness: 48 yrs old female patient with past medical history significant for diabetes type 2, hypertension, history of atrial fibrillation, morbid obesity , status post gastric band surgery and iron deficiency anemia who came to the ED with complaint of palpitations and chest discomfort. She was found to have atrial fibrillation/flutter with rapid ventricular response with heart rate in the 140s and patient also complains of shortness of breath aggravated with exertions and even light activities. Patient denies any chest pain. No fever or chills. No nausea vomiting or diarrhea. Patient was recently admitted to the hospital and was diagnosed with atrial flutter and was discharged 2 days ago. She was pre scribed flecainide but could not fill it so she was brought to ER with shortness of breath and palpitation. Patient was assessed in the ER and was found to be in atrial flutter with RVR and was admitted for further management Hospital Course: Ms. Pandey was unfortunately ill with flu or other URI and was unable to take her rate control and regular medications. She was seen in the emergency department with very rapid atrial flutter and complaint of shortness of breath. Her medications were reinitiated and she subsequently felt better. She converted to normal sinus rhythm with PACs overnight. She has been cleared by cardiology to follow-up with her pharmacy coordinator. <Amelia Alba - Last Filed: 03/15/24 14:22> Admission Date: 03/13/24 Discharge Date: 03/15/24 Hospital Course: Patient was seen and examined. Events of the last 24 hours have been noted. Spoke with with SHAHAB regarding patient's clinical picture after evaluating and examining the patient independently. I performed a substantial part of the MDM during this patient's care today. I personally made or approved the documented management plan and acknowledge its risk of complications. I agree with the findings and documentation provided in the SHAHAB's notes. <Ashu Napier - Last Filed: 03/22/24 16:03> Disposition: ROUTINE DISCHARGE Vital Signs/Physical Exam: Temp Pulse Resp BP Pulse Ox 98.2 F 58 18 130/65 97 03/15/24 12:00 03/15/24 12:00 03/15/24 12:00 03/15/24 12:00 03/15/24 12:00 General: Alert, In no apparent distress, Oriented x3 HEENT: Atraumatic, Normocephalic, PERRLA Neck: Supple Respiratory: Clear to auscultation bilaterally, Normal air movement Cardiovascular: Normal pulses, Normal S1 S2, Irregular heart rate/rhythm Capillary refill: <2 Seconds Gastrointestinal: Normal bowel sounds Musculoskeletal: No clubbing, No swelling Integumentary: No rashes Neurological: Normal speech, Normal tone, Normal affect Lymphatics: No axilla or inguinal lymphadenopathy External genitalia: Deferred Rectal: Deferred Laboratory Data at Discharge: WBC 4.60 thou/uL (4.3-10.9) 03/14/24 04:00 Hgb 10.5 g/dL (12.0-15.0) L D 03/14/24 04:00 Hct 33.2 % (36.0-45.0) L 03/14/24 04:00 Plt Count 194 thou/uL (152-406) 03/14/24 04:00 PT 17.0 SECONDS (9.4-12.5) H 03/13/24 18:41 INR 1.54 03/13/24 18:41 Sodium 137 mEq/L (136-145) 03/15/24 05:48 Potassium 3.9 mEq/L (3.5-5.1) 03/15/24 05:48 BUN 17 mg/dL (7-18) 03/15/24 05:48 Creatinine 0.65 mg/dL (0.55-1.02) 03/15/24 05:48 Glucose 190 mg/dL (74-106) H 03/15/24 05:48 Phosphorus 3.5 mg/dL (2.5-4.9) 03/15/24 05:48 Magnesium 2.1 mg/dL (1.6-2.4) 03/15/24 05:48 Total Bilirubin 0.2 mg/dL (0.2-1.0) 03/14/24 04:00 AST 18 U/L (15-37) 03/14/24 04:00 ALT 24 U/L (13-56) 03/14/24 04:00 Alkaline Phosphatase 70 U/L (45-117) 03/14/24 04:00 <Alba,Amelia Nathan - Last Filed: 03/15/24 14:22> Vital Signs/Physical Exam: Temp Pulse Resp BP Pulse Ox 98.2 F 58 18 130/65 97 03/15/24 12:00 03/15/24 12:00 03/15/24 12:00 03/15/24 12:00 03/15/24 12:00 Laboratory Data at Discharge: WBC 4.60 thou/uL (4.3-10.9) 03/14/24 04:00 Hgb 10.5 g/dL (12.0-15.0) L D 03/14/24 04:00 Hct 33.2 % (36.0-45.0) L 03/14/24 04:00 Plt Count 194 thou/uL (152-406) 03/14/24 04:00 PT 17.0 SECONDS (9.4-12.5) H 03/13/24 18:41 INR 1.54 03/13/24 18:41 Sodium 137 mEq/L (136-145) 03/15/24 05:48 Potassium 3.9 mEq/L (3.5-5.1) 03/15/24 05:48 BUN 17 mg/dL (7-18) 03/15/24 05:48 Creatinine 0.65 mg/dL (0.55-1.02) 03/15/24 05:48 Glucose 190 mg/dL (74-106) H 03/15/24 05:48 Phosphorus 3.5 mg/dL (2.5-4.9) 03/15/24 05:48 Magnesium 2.1 mg/dL (1.6-2.4) 03/15/24 05:48 Total Bilirubin 0.2 mg/dL (0.2-1.0) 03/14/24 04:00 AST 18 U/L (15-37) 03/14/24 04:00 ALT 24 U/L (13-56) 03/14/24 04:00 Alkaline Phosphatase 70 U/L (45-117) 03/14/24 04:00 <Ashu Napier - Last Filed: 03/22/24 16:03> Diet: AHA Activity: Ad stevie <ParthAmelia Nathan - Last Filed: 03/15/24 14:22> <Christy Napierd Gracia - Last Filed: 03/22/24 16:03> Home Medications: Metformin ER [Glucophage ER*] 500 mg PO BID 06/10/23 Omeprazole 40 mg PO DAILY 06/10/23 Apixaban [Eliquis] 5 mg PO BID #60 tab 06/12/23 Metoprolol Tartrate 25 mg PO BID 03/13/24 Flecainide [Tambocor*] 50 mg PO BID #180 tab 03/15/24 New Medications: Flecainide [Tambocor*] 50 mg PO BID #180 tab Physician Discharge Instructions: Ms. Pandey was unfortunately ill with flu or other URI and was unable to take her rate control and regular medications. She was seen in the emergency department with very rapid atrial flutter and complaint of shortness of breath. Her medications were reinitiated and she subsequently felt better. She converted to normal sinus rhythm with PACs overnight. She has been cleared by cardiology to follow-up with her pharmacy coordinator. Assessment: Rebound tachyarrhythmia New prescriptions: Flecainide 100mg - please take 50mg po BID #180 Continue home medicines as previously prescribed GOAL: Clear understanding of disease process Diet: AHA, low sodium Activity: as stevie INSTRUCTIONS: Physician Discharge Instructions: Okay to DC IV and DC home Follow-up with primary care provider in 1 to 2 weeks Follow-up with cardiology in 1 to 2-weeks Please call the inpatient unit for any questions or concerns regarding hospital stay Return to the ER for worsening symptoms Followup: Hiram Camp MD [ACTIVE - CAN ADMIT] - 1-2 Weeks NONE,NONE [Primary Care Provider] -
--- NOTE | 2024-03-19 16:11 | EKG ---
Test Date: 2024-03-13 Test Time: 17:26:00 Sales Professional Bilingual: SHERRY MEASUREMENT RESULTS: Intervals: Rate: 79 IA: QRSD: 74 QT: 372 QTc: 426 [place]: P: IA: QRS: 76 T: 54 INTERPRETIVE STATEMENTS: Atrial flutter Low voltage QRS Abnormal ECG Compared to ECG 03/10/2024 20:12:10 Low QRS voltage now present Myocardial infarct finding no longer present T-wave abnormality no longer present Possible ischemia no longer present Electronically Signed On 03-19-24 15:59:40 CASE MONITOR by Hiram Camp
== END 2024-03-15 15:33 | disposition home or self-care (01) | DRG 308 ==
LOC: ER 17:13 → ERHOLD 20:05 → 2ND 20:17
PROVIDERS: ADMIT Family Medicine; ATTEND Hospitalist
DX: I48.92 Unspecified atrial flutter (principal); I50.43 Acute on chronic combined systolic (congestive) and diastolic (congestive) heart failure; Z68.41 Body mass index [BMI] 40.0-44.9, adult; E66.01 Morbid (severe) obesity due to excess calories; I11.0 Hypertensive heart disease with heart failure; E78.5 Hyperlipidemia, unspecified; E11.9 Type 2 diabetes mellitus without complications; E87.6 Hypokalemia; D50.9 Iron deficiency anemia, unspecified; I48.91 Unspecified atrial fibrillation; Z98.84 Bariatric surgery status; Z79.84 Long term (current) use of oral hypoglycemic drugs; Z79.01 Long term (current) use of anticoagulants; Z79.899 Other long term (current) drug therapy
CPT/HCPCS: 36415; 71045; 80048; 80053; 81001; 82728; 82947; 83540; 83735; 83880; 84100; 84484; 85025; 85610; 93005; 94760; 96374; 99285; J1940; J2916; J3475; J7050

== ENCOUNTER 2024-03-18 07:33 | Emergency (ER) | payer OTHER ==
[2024-03-18] MEDS ORDERED: IBUPROFEN 200 MG TAB PO ONE (09:08)
[2024-03-18] MEDS ORDERED: IBUPROFEN 400 MG TAB ONE (09:08)
--- NOTE | 2024-03-18 09:32 | ER ---
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 patient has been treating the inflammation at home with warm compresses but the pain and swelling are not improving. Coronavirus screen: At this time, the client does not indicate any symptoms associated with coronavirus-19. Ebola Screen: No symptoms or risks identified at this time. Initial Sepsis Screen: Does the patient meet any 2 criteria? No. Patient's initial sepsis screen is negative. Does the patient have a suspected source of infection? No. Patient's initial sepsis screen is negative. Risk Assessment: Do you want to hurt yourself or someone else?. Onset of symptoms was March 15, 2024. 07:40 Method Of Arrival: Ambulatory ap3 07:40 Acuity: PHILL 4 ap3 Triage Assessment: 07:42 General: Appears in no apparent distress. Behavior is calm, cooperative, appropriate ap3 for age. Pain: Complains of pain in left arm. Neuro: Level of Consciousness is awake, alert, obeys commands, Oriented to person, place, time, situation, Appropriate for age. Cardiovascular: Patient's skin is warm and dry. Respiratory: Airway is patent Respiratory effort is even, unlabored, Respiratory pattern is regular, symmetrical. 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 - Infectious Disease History:: Denies. - Social history:: Smoking status: Patient denies any tobacco usage or history of. - Family history:: not pertinent. Screenin:42 [facility] ED Fall Risk Assessment (Adult) History of falling in the last 3 months, ap3 including since admission No falls in past 3 months (0 pts) Confusion or Disorientation No (0 pts) Intoxicated or Sedated No (0 pts) Impaired Gait No (0 pts) Mobility Assist Device Used No (0 pt) Altered Elimination No (0 pt) Score/Fall Risk Level 0 - 2 = Low Risk Oriented to surroundings, Maintained a safe environment, Educated pt \T\ family on fall prevention, incl call for assistance when getting out of bed, Assessed \T\ reinforced patient's understanding of fall precautions, Hourly rounding (assess needs \T\ fall precautionary measures) done, Used ambulatory aids as needed (educated on \T\ assisted with), Used gait belt as appropriate. Abuse screen: Denies threats or abuse. Nutritional screening: No deficits noted. Tuberculosis screening: No symptoms or risk factors identified. Assessment: 07:45 General: Appears comfortable, Behavior is calm, cooperative. Pain: Complains of pain in aa5 left arm. Neuro: Level of Consciousness is awake, alert, obeys commands, Oriented to person, place, time, situation. Cardiovascular: Patient's skin is warm and dry. Respiratory: Airway is patent Respiratory effort is even, unlabored, Respiratory pattern is regular, symmetrical. GI: No signs and/or symptoms were reported involving the gastrointestinal system. : No signs and/or symptoms were reported regarding the genitourinary system. EENT: No signs and/or symptoms were reported regarding the EENT system. Derm: Skin is pink, warm \T\ dry. Musculoskeletal: Reports pain and swelling to left forearm. 08:28 Reassessment: Pt at radiology . aa5 Vital Signs: 07:40 BP 113 / 68; Pulse 58; Resp 18; Temp 97.6; Pulse Ox 98% ; Weight 138.35 kg; Pain 7/10; ap3 09:35 BP 123 / 69; Pulse 64; Resp 16; Pulse Ox 99% ; ko1 07:40 Pain Scale: Adult ap3 ED Course: 07:37 Patient arrived in ED. sj2 07:37 Rafael Hill MD is Attending Physician. jolene 07:41 Triage completed. ap3 07:42 Arm band placed on right wrist. ap3 07:48 Becca Longo, RN is Primary Nurse. aa5 08:39 UPPER EXTREMITY VENOUS UNILATE In Process Unspecified. EDMS 09:00 Patient has correct armband on for positive identification. Bed in low position. Call ko1 light in reach. Side rails up X 1. Provided Education on: tests. Pulse ox on. NIBP on. Door closed. Noise minimized. Lights dimmed. Warm blanket given. Pillow given. 09:00 No provider procedures requiring assistance completed. Patient did not have IV access ko1 during this emergency room visit. Wound care:. Administered Medications: 09:13 Drug: Ibuprofen PO 600 mg PO once Route: PO; ko1 09:38 Follow up: Response: No adverse reaction ko1 Medication: 09:35 VIS not applicable for this client. ko1 Outcome: 09:32 Discharge ordered by . jolene 09:52 Discharged to home ambulatory, ko1 09:52 Condition: stable 09:52 Discharge instructions given to patient, Instructed on discharge instructions, follow up and referral plans. medication usage, Demonstrated understanding of instructions, follow-up care, medications, Prescriptions given X 1, 09:56 Patient left the ED. ko1 Signatures: Dispatcher [employer] EDMS Rafael Hill MD MD cha Calderon, Audri, RN RN aa5 Roxanne Rodarte RN RN ap3 Caitlin Almeida RN RN ko1 Frank Harden
--- NOTE | 2024-03-18 09:32 | EDPHYS ---
Physician Documentation [facility] Name: Cindy Pandey Age: 48 yrs Sex: Female : 1975 Arrival Date: 03/18/2024 Time: 07:33 Bed 5 Private MD: MAHIN Physician Rafael Hill HPI: 03/18 09:26 This 48 yrs old Female presents to ER via Ambulatory with complaints of Arm jolene Problem, Arm Pain. 09:26 The patient or guardian complains of pain, swelling. The complaints affect the dorsal jolene aspect of right forearm and palmar aspect of right forearm. Context: The problem was sustained at a iv infiltration. Onset: The symptoms/episode began/occurred 3 day(s) ago. Treatment prior to arrival includes: no previous treatment. Modifying factors: The symptoms are alleviated by remaining still, the symptoms are aggravated by movement. Associated signs and symptoms: The patient has no apparent associated signs or symptoms. Severity of symptoms: At their worst the symptoms were mild, in the emergency department the symptoms are unchanged. The patient has not experienced similar symptoms in the past. 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 - Infectious Disease History:: Denies. - Social history:: Smoking status: Patient denies any tobacco usage or history of. - Family history:: not pertinent. ROS: 09:26 Constitutional: Negative for fever, chills, and weight loss, Eyes: Negative for injury, jolene pain, redness, and discharge, ENT: Negative for injury, pain, and discharge, Neck: Negative for injury, pain, and swelling, Cardiovascular: Negative for chest pain, palpitations, and edema, Respiratory: Negative for shortness of breath, cough, wheezing, and pleuritic chest pain, Abdomen/GI: Negative for abdominal pain, nausea, vomiting, diarrhea, and constipation, Back: Negative for injury and pain, : Negative for injury, bleeding, discharge, and swelling, Neuro: Negative for headache, weakness, numbness, tingling, and seizure, Psych: Negative for depression, anxiety, suicide ideation, homicidal ideation, and hallucinations, Allergy/Immunology: Negative for hives, rash, and allergies, Endocrine: Negative for neck swelling, polydipsia, polyuria, polyphagia, and marked weight changes, Hematologic/Lymphatic: Negative for swollen nodes, abnormal bleeding, and unusual bruising, 09:26 Skin: Positive for swelling, of the left arm, Exam: 09:26 Constitutional: This is a well developed, well nourished patient who is awake, alert, jolene and in no acute distress. Head/Face: Normocephalic, atraumatic. Eyes: Pupils equal round and reactive to light, extra-ocular motions intact. Lids and lashes normal. Conjunctiva and sclera are non-icteric and not injected. Cornea within normal limits. Periorbital areas with no swelling, redness, or edema. ENT: Nares patent. No nasal discharge, no septal abnormalities noted. Tympanic membranes are normal and external auditory canals are clear. Oropharynx with no redness, swelling, or masses, exudates, or evidence of obstruction, uvula midline. Mucous membranes moist. Neck: Trachea midline, no thyromegaly or masses palpated, and no cervical lymphadenopathy. Supple, full range of motion without nuchal rigidity, or vertebral point tenderness. No Meningismus. Chest/axilla: Normal chest wall appearance and motion. Nontender with no deformity. No lesions are appreciated. Cardiovascular: Regular rate and rhythm with a normal S1 and S2. No gallops, murmurs, or rubs. Normal PMI, no JVD. No pulse deficits. Respiratory: Lungs have equal breath sounds bilaterally, clear to auscultation and percussion. No rales, rhonchi or wheezes noted. No increased work of breathing, no retractions or nasal flaring. Abdomen/GI: Soft, non-tender, with normal bowel sounds. No distension or tympany. No guarding or rebound. No evidence of tenderness throughout. Back: No spinal tenderness. No costovertebral tenderness. Full range of motion. Skin: Warm, dry with normal turgor. Normal color with no rashes, no lesions, and no evidence of cellulitis. Neuro: Awake and alert, GCS 15, oriented to person, place, time, and situation. Cranial nerves II-XII grossly intact. Motor strength 5/5 in all extremities. Sensory grossly intact. Cerebellar exam normal. Normal gait. Psych: Awake, alert, with orientation to person, place and time. Behavior, mood, and affect are within normal limits. 09:26 Musculoskeletal/extremity: ROM: full active range of motion, full passive range of motion, Pulses: are normal with no appreciated deficits, Sensation intact. Compartment Syndrome exam of affected extremity: is normal. DVT Exam: negative Homans' sign noted on exam, no appreciated bluish discoloration, no erythema, no increased warmth, pain, swelling, tenderness, Vital Signs: 07:40 BP 113 / 68; Pulse 58; Resp 18; Temp 97.6; Pulse Ox 98% ; Weight 138.35 kg; Pain 7/10; ap3 09:35 BP 123 / 69; Pulse 64; Resp 16; Pulse Ox 99% ; ko1 07:40 Pain Scale: Adult ap3 MDM: 07:37 Medical Screening Exam initiated [facility] 09:30 Differential diagnosis: contusion, tendonitis. Data reviewed: vital signs, nurses [facility] notes, radiologic studies, ultrasound. Consideration of Admission/Observation Escalation of care including admission/observation considered. I considered the following discharge prescriptions or medication management in the emergency department Medications were administered in the Emergency Department. See MAR. Test considered but Not performed: Labs: nom labs. Care significantly affected by the following chronic conditions: Diabetes, Hypertension, Obesity, irondeficency. 03/18 07:51 Order name: US Extremity Venous Unilateral Ltd [facility] 03/18 07:54 Order name: UPPER EXTREMITY VENOUS UNILATE [facility] 03/18 09:04 [facility]: moist warm; Complete Time: 09:33 jolene Administered Medications: 09:13 Drug: Ibuprofen PO 600 mg PO once Route: PO; ko1 09:38 Follow up: Response: No adverse reaction ko1 Disposition Summary: 03/18/24 09:32 Discharge Ordered Notes: Location: Home jolene Problem: new jolene Symptoms: have improved jolene Condition: Stable jolene Diagnosis - Pain in right forearm - iv infiltration jolene - long-term (current) use of anticoagulants jolene Followup: jolene - With: Private Physician - When: 2 - 3 days - Reason: Recheck today's complaints, Continuance of care, Re-evaluation by your physician Discharge Instructions: - Discharge Summary Sheet [facility] - IV Infiltration, [id number] jolene - IV Infiltration jolene Forms: - Medication Reconciliation Form jolene - Antibiotic Education jolene - Prescription Opioid Use jolene - Patient Portal Instructions jolene - Leadership Thank You Letter jolene Prescriptions: - Cephalexin 500 mg Oral capsule - take 1 capsule ORAL route every 6 hours for 7 days; 28 capsule; Refills: 0, jolene Product Selection Permitted Signatures: Dispatcher [employer] EDRafael Zapata MD MD cha Prokisch, Amanda RN RN ap3 Caitlin Almeida RN RN ko1
--- NOTE | 2024-03-18 09:34 | RAD REPORT ---
EXAMINATION: UPPER EXTREMITY VENOUS UNILATE CLINICAL INDICATION: Female, 48 years old. [facility] MAIN Pain;Swelling Bed Name: 5 TECHNIQUE: Complete venous duplex sonography of the left upper extremity was performed. The examinati on included compression for vein patency, color Doppler imaging and flow augmentation in response to distal compression of the internal jugular, brachiocephalic, subclavian, axillary, brachial, radia l, ulnar, cephalic and basilic veins. COMPARISON: 06/10/2023. FINDINGS: Duplex sonography testing of the veins of the left upper extremity is completed. Color flow imaging s hows all veins to be compressible with appropriate color filling. Pulsatile and phasic flow is present within the upper extremity deep veins. Basilic vein is patent. Segment of the cephalic vein s hows hypoechoic thrombus with noncompressibility along the antecubital fossa through proximal forearm. IMPRESSION: No evidence of deep venous thrombosis. Superficial thrombophlebitis along the cephalic vein as above.
[2024-03-18 10:04] VITALS: BP 123/69; O2SAT 99
[2024-03-18 10:05] VITALS: TEMP 97.6
== END 2024-03-18 09:56 | disposition home or self-care (01) ==
LOC: ER 07:33
DX: M79.631 Pain in right forearm (principal); I48.11 Longstanding persistent atrial fibrillation; E11.9 Type 2 diabetes mellitus without complications; D50.9 Iron deficiency anemia, unspecified; Z79.01 Long term (current) use of anticoagulants
CPT/HCPCS: 93971; 99284